=== PATIENT | female | born 1945 | race Caucasian/White ===

== ENCOUNTER 2019-12-03 11:46 | Emergency (ER) | payer MEDICARE, SELFPAY ==
[2019-12-03 11:57] VITALS: BP 118/76; PULSE 99; RESP 20; TEMP 36.4; O2SAT 97
--- NOTE | 2019-12-03 12:00 | ED.URI ---
HPI - URI/Sore Throat General Chief Complaint: Upper Respiratory Infection Stated Complaint: congestion/sore throat Time Seen by Provider: 12/03/19 12:01 Source: patient and RN notes reviewed History of Present Illness HPI Narrative: Patient is a 74-year-old female that presents the urgent care with complaints of congestion, mild sore throat, low-grade fever. Patient states that her fever this morning was 100.5 and she took Tylenol. Patient has also been using throat lozenges for the sore throat. Denies any known contact with strep or influenza. Patient states she does have a history of pulmonary fibrosis but denies any persistent shortness of breath, productive cough. No other acute complaints. No acute distress noted. Patient read the plan of care. Related Data Home Medications Medication Instructions Recorded Confirmed albuterol sulfate 90 mcg/actuation 2 puff INHALATION Q4H PRN gm 10/09/19 aerosol inhaler amlodipine 5 mg tablet 5 mg PO DAILY 10/09/19 bupropion HCl 300 mg 24 hr tablet, 300 mg PO QAM 10/09/19 extended release fluoxetine 20 mg capsule 20 mg PO DAILY 10/09/19 fluticasone propionate 50 1 spray NASAL DAILY 10/09/19 mcg/actuation nasal spray,suspension gabapentin 600 mg tablet 600 mg PO BID 10/09/19 multivitamin 1 tablet PO DAILY 10/09/19 omeprazole 40 mg capsule,delayed 40 mg PO DAILY 10/09/19 release oxycodone-acetaminophen 5 mg-325 1 tablet PO Q8H PRN tablet 10/09/19 mg tablet pravastatin 20 mg tablet 20 mg PO DAILY 10/09/19 tizanidine 4 mg capsule 4 mg PO TID PRN 10/09/19 umeclidinium 62.5 mcg-vilanterol 1 inhalation INHALATION DAILY 10/09/19 25 mcg/actuation powdr for inhalation Allergies Allergy/AdvReac Type Severity Reaction Status Date / Time latex Allergy Unknown Rash Verified 11/18/19 12:21 prednisone Allergy Unknown Swelling Verified 11/18/19 12:21 Sulfa (Sulfonamide Allergy Unknown Hives Verified 11/18/19 12:21 Antibiotics) sulfanilamide Allergy Unknown Unknown Verified 11/18/19 12:21 Review of Systems Review of Systems: Narrative: CONSTITUTIONAL: Denies fever, chills, or sweats. EYES: Denies visual changes, redness, or discharge. ENT: Reports of sore throat CARDIOVASCULAR: Denies chest pain, palpitations, or edema. RESPIRATORY: Denies cough or dyspnea. GASTROINTESTINAL: Denies abdominal pain, nausea, vomiting, or diarrhea. GENITOURINARY: Denies dysuria or hematuria. SKIN: Denies rash or itching. MUSCULOSKELETAL: Denies back pain, joint pain, or myalgia. NEUROLOGIC: Denies headache, numbness, or weakness. All other systems reviewed are negative, except as documented in HPI. PMFSH Social History Social History Smoking status: Never smoker Second hand tobacco smoke exposure: No Alcohol intake: never Comments At the time of my signature, I reviewed and agree with the nursing past medical, surgical, social, and family history. There is no relevant family history pertinent to the patient complaint. Exam Narrative: Exam Narrative: GENERAL: This is a well-nourished, well-developed patient, in no apparent distress. HEAD: normocephalic, atraumatic. EYES: PERRL. Sclera clear/white. Vision is grossly intact. EARS: External ears normal, auditory canals clear and without drainage, TMs normal without perforation. Hearing grossly intact. NOSE: External nose normal with no obvious nasal discharge, nares without redness, no rhinorrhea. THROAT: Mucous membranes moist, posterior pharynx clear. Mild postnasal drainage NECK: Neck supple, non-tender without lymphadenopathy, masses or thyromegaly. CARDIOVASCULAR: Regular rate and rhythm without murmurs, gallops, or rubs. RESPIRATORY: Clear to auscultation. Breath sounds equal bilaterally. No wheezes, rales, or rhonchi. No suspicion of pneumonia or bronchitis based on lung sounds. Patient's lung sounds are very clear and strong. SKIN: warm, intact with no suspi
== END 2019-12-03 12:28 | disposition home or self-care (01) ==
PROVIDERS: Emergency Provider Nurse Practitioner Family; PCP Family Medicine
DX: J02.9 Acute pharyngitis, unspecified (principal)
CPT/HCPCS: 87081; 87880; 99213; G0463

== ENCOUNTER 2020-05-09 08:19 | Outpatient (CLI) | payer MEDICARE, SELFPAY ==
--- NOTE | ~2020-05-09 | CT_ITS ---
EXAMINATION:CT chest high resolution wo co DATE: 05/09/2020 09:38 INDICATION: Pulmonary fibrosis. TECHNIQUE: Computed tomography (CT) of the chest was performed without intravenous contrast. Automate d exposure control and iterative reconstruction technique were employed. The dose-length product (DLP ) was 152.29 mGy-cm. COMPARISON: Chest CT 03/04/2019, thyroid ultrasound 03/19/2019 FINDINGS: There is mild scarring at the lung apices. There is mild emphysema. There are widespread pe ripheral reticular opacities in the lungs with relatively mild associated areas of groundglass opacit y. There is mild bronchiectasis in left lower lobe and left upper lobe. No honeycombing. No pleural e ffusion. There is a multinodular goiter with the largest nodule measuring 4.2 cm. Cardiomegaly is not ed. There are coronary artery calcifications. No pericardial effusion. There is a moderate-sized slid ing hiatal hernia. Is a chronic compression fracture of T12. There is mild thoracic spondylosis and s evere cervical and lumbar spondylosis. IMPRESSION: 1. Diffuse lung disease with improvement in right upper lobe, consistent with a combination of mild e mphysema and chronic interstitial lung disease in a pattern of nonspecific interstitial pneumonia (NS IP) versus usual interstitial pneumonia (UIP). 2. Worsened moderate-sized sliding hiatal hernia. 3. Multinodular goiter with history of benign biopsies, stable from 03/19/19. Reviewed, dictated and finalized at location A. IMPRESSION: 1. Diffuse lung disease with improvement in right upper lobe, consistent with a combination of mild emphysema and chronic interstitial lung disease in a patte rn of nonspecific interstitial pneumonia (NSIP) versus usual interstitial pneum onia (UIP). 2. Worsened moderate-sized sliding hiatal hernia. 3. Multinodular goiter with history of benign biopsies, stable from 03/19/19.
--- NOTE | 2020-05-11 15:09 | WPDPFTINT ---
PFT Interpretation PFT Interpretation: DOS: 05/09/2020 REQUESTING: Antonella Amaral MD REASON FOR TESTING: shortness of breath PULMONARY FUNCTION TESTS Results are reliable and reproducible. Patient states that she is increasingly short of breath, smokes sporadically. Spirometry: FEV1 is 107%, FVC is 105%, and FEV1% is 72%, all normal. [id number]% is 64% and increases by 16% with bronchodilator. Lung volumes: TLC 101%, RV 98%, normal. Airway resistance 203%, increased. Diffusion: DLCO 72%, mildly decreased. Flow volume loop: Normal. IMPRESSION: Normal spirometry, normal lung volumes with increased airway resistance. Mild decrease in diffusion. Lack of response to bronchodilators should not preclude use if clinically indicated. Compared to a prior study 05/04/2019, the FEV1 has increased, previously was 89% now 107%. On the previous study the [id number]% was lower at 58% now is 64%, and previously improved by 25%, a more robust response. Lung volumes were similar. There previously was air trapping which has resolved. Diffusion is lower now, previously 84% now 72% which is a significant decrease. Antonella Amaral MD
== END 2020-05-09 08:20 | disposition home or self-care (01) ==
PROVIDERS: PCP Family Medicine; Visit Provider Internal Medicine Critical Care Medicine
DX: R06.02 Shortness of breath (principal); K44.9 Diaphragmatic hernia without obstruction or gangrene; E04.2 Nontoxic multinodular goiter
CPT/HCPCS: 71250; 94060; 94726; 94729

== ENCOUNTER 2020-06-08 08:19 | Outpatient (CLI) | payer MEDICARE, SELFPAY ==
--- NOTE | 2020-06-13 17:08 | WPDSIXMINUTE ---
Six Minute Walk Six Minute Walk: DOS: 06/08/2020 REQUESTING: Dr. Amaral REASON FOR TESTING: Shortness of breath SIX MINUTE WALK This test was conducted per ATS guidelines. The initial saturation was 96% and pulse was 87. The saturation gradually decreased to 92% throughout the walk. With recovery, the saturation returned to baseline 96%. Pulse increased to 104 and returned to baseline during recovery. Distance walked was 427 meters/ 1400 feet. IMPRESSION: This walk study does not show hypoxemia requiring supplemental oxygen. Distance walked is adequate for age.
== END 2020-06-08 08:20 | disposition home or self-care (01) ==
LOC: ANHPFT 08:21
PROVIDERS: PCP Family Medicine; Visit Provider Internal Medicine Critical Care Medicine
DX: J84.10 Pulmonary fibrosis, unspecified (principal)
CPT/HCPCS: 94618

== ENCOUNTER 2020-06-22 16:04 | Outpatient (CLI) | payer MEDICARE, SELFPAY ==
[2020-06-22 17:35] LABS: Alanine Aminotransferase 16 U/L (4-35); Albumin Level 4.1 g/dL (3.5-5.1); Alkaline Phosphatase 57 U/L (38-126); Anion Gap 8 mmol/L (8-16); Aspartate Amino Transferase 30 U/L (14-36); Bilirubin,Total 0.3 mg/dL (0.2-1.3); Blood Urea Nitrogen 23 mg/dL (7-17); CRP < 0.5 mg/dL (<1.0); Calcium 9.2 mg/dL (8.4-10.2); Carbon Dioxide 28 mmol/L (22-30); Chloride 97 mmol/L (98-107); Estimated Glomerular Filt Rate > 60; Glucose 95 mg/dL (65-105); Potassium 4.3 mmol/L (3.4-5.0); Sodium 133 mmol/L (137-145)
[2020-06-22 17:42] LABS: Hemoglobin 10.9 g/dL (12.0-15.0); Mean Corpuscular Hemoglobin 30.5 pg (26-34); Mean Corpuscular Volume 92.4 fl (80-100); Mean Platelet Volume 10.3 fl (7.4-10.4); Platelet Count Result 320 k/mm3 (150-375); Red Blood Count 3.57 M/mm3 (4.2-5.4); Red Cell Distribution Width 11.8 % (11.5-14.5); White Blood Count 9.9 K/mm3 (4.5-10.0)
== END 2020-06-22 16:05 | disposition home or self-care (01) ==
PROVIDERS: PCP Family Medicine; Visit Provider Internal Medicine
DX: R76.8 Other specified abnormal immunological findings in serum (principal); M19.90 Unspecified osteoarthritis, unspecified site; J84.112 Idiopathic pulmonary fibrosis
CPT/HCPCS: 36415; 80053; 85027; 86140

== ENCOUNTER 2020-07-28 14:25 | Outpatient (CLI) | payer MEDICARE, SELFPAY ==
--- NOTE | 2020-07-28 14:53 | ECG_ITS ---
Measurements Intervals [place] Rate: 73 P: 28 WY: 165 QRS: 62 QRSD: 93 T: 11 QT: 370 QTc: 410 Interpretive Statements SINUS RHYTHM POSSIBLE LEFT ATRIAL ENLARGEMENT INCOMPLETE RIGHT BUNDLE BRANCH BLOCK BORDERLINE ECG Electronically Signed On 07-28-2020 15:24:12 CDT by Tremaine Snell D.O.
[2020-07-28 14:59] LABS: Anion Gap 7 mmol/L (8-16); Blood Urea Nitrogen 21 mg/dL (7-17); Calcium 9.2 mg/dL (8.4-10.2); Carbon Dioxide 27 mmol/L (22-30); Chloride 99 mmol/L (98-107); Estimated Glomerular Filt Rate > 60; Glucose 103 mg/dL (65-105); Potassium 4.1 mmol/L (3.4-5.0); Sodium 133 mmol/L (137-145)
== END 2020-07-28 14:26 | disposition home or self-care (01) ==
PROVIDERS: PCP Family Medicine; Visit Provider Podiatrist Foot & Ankle Surgery
DX: Z01.818 Encounter for other preprocedural examination (principal); M20.12 Hallux valgus (acquired), left foot; R03.0 Elevated blood-pressure reading, without diagnosis of hypertension; I45.10 Unspecified right bundle-branch block
CPT/HCPCS: 36415; 80048; 93005

== ENCOUNTER 2020-11-02 15:04 | Outpatient (CLI) | payer MEDICARE, SELFPAY ==
--- NOTE | ~2020-11-02 | MM_ITS ---
EXAMINATION: MM screening rell BI w annette HISTORY: Screening mammogram TECHNIQUE: Craniocaudal and mediolateral oblique 3-D tomosynthesis images were obtained and synthetic 2-D images were generated. CAD analysis was submitted and interpreted. COMPARISON: 10/05/2019 bilateral digital screening mammogram 05/13/2018 right breast ultrasound biopsy and post biopsy mammogram 04/22/2018 diagnostic right digital mammogram and limited right breast ultrasound 04/17/2018 bilateral digital screening mammogram BREAST PARENCHYMAL COMPOSITION: There are scattered areas of fibroglandular density. FINDINGS: There is a biopsy marker in the right breast; history of prior bilateral benign breast biop sies. Scattered bilateral benign calcified microhematomas. There is no evidence of suspicious mass, calcifi cation, or new ...architectural distortion to suggest malignancy in either breast. There has been no suspicious interval change. IMPRESSION: 1. No mammographic evidence of malignancy. 2. Recommend routine screening mammography in one year. BI-RADS Category 2: Benign finding(s). Reviewed, dictated and finalized at location B. L WORKER
== END 2020-11-02 15:05 | disposition home or self-care (01) ==
LOC: ANHIMG 15:06
PROVIDERS: PCP Family Medicine; Visit Provider Family Medicine
DX: Z12.31 Encounter for screening mammogram for malignant neoplasm of breast (principal)
CPT/HCPCS: 77063; 77067

== ENCOUNTER 2020-11-08 12:35 | Outpatient (CLI) | payer MEDICARE, SELFPAY ==
[2020-11-08 12:58] LABS: Basophils Absolute Auto 0.1 K/mm3 (0.0-0.1); Basophils Percent Auto 0.6 % (0.2-1.2); Eosinophils Absolute Auto 0.2 K/mm3 (0-0.3); Eosinophils Percent Auto 2.1 % (0-4.4); Hematocrit 33.8 % (37.0-47.0); Hemoglobin 11.2 g/dL (12.0-15.0); Immature Granulocyte Absolute 0.05 K/mm3 (0.00-0.031); Immature Granulocyte Percent A 0.5 % (0-0.5); Lymphocytes Absolute Auto 1.89 K/mm3 (0.9-3.2); Lymphocytes Percent Auto 19.4 % (18.3-44.2); Mean Corpuscular HGB Conc 33.1 g/dl (32-36); Mean Corpuscular Hemoglobin 31.2 pg (26-34); Mean Corpuscular Volume 94.2 fl (80-100); Mean Platelet Volume 9.8 fl (7.4-10.4); Monocytes Absolute Auto 0.9 K/mm3 (0.1-0.6); Monocytes Percent Auto 9.6 % (2.6-8.5); Neutrophils Absolute Auto 6.6 K/mm3 (1.3-6.7); Neutrophils Percent Auto 67.8 % (45.5-73.1); Platelet Count Result 271 k/mm3 (150-375); Red Blood Count 3.59 M/mm3 (4.2-5.4); White Blood Count 9.7 K/mm3 (4.5-10.0)
[2020-11-08 13:13] LABS: Alanine Aminotransferase 20 U/L (4-35); Albumin Level 4.1 g/dL (3.5-5.1); Alkaline Phosphatase 66 U/L (38-126); Anion Gap 4 mmol/L (8-16); Aspartate Amino Transferase 35 U/L (14-36); Bilirubin,Total 0.5 mg/dL (0.2-1.3); Blood Urea Nitrogen 17 mg/dL (7-17); Calcium 9.1 mg/dL (8.4-10.2); Carbon Dioxide 31 mmol/L (22-30); Chloride 98 mmol/L (98-107); Cholesterol 162 mg/dL (0-200); Estimated Glomerular Filt Rate > 60; Glucose 91 mg/dL (65-105); HDL Direct 52 mg/dL; Potassium 4.5 mmol/L (3.4-5.0); Sodium 133 mmol/L (137-145); Triglycerides 110 mg/dL (<150)
[2020-11-08 13:24] LABS: LDL Cholesterol Direct 79 mg/dL
[2020-11-08 13:32] LABS: Iron 83 ug/dL (37-170)
[2020-11-08 13:41] LABS: Percent Iron Saturation 24 % (20-50)
[2020-11-08 14:20] LABS: Folic Acid > 20.0 ng/mL (2.76->20)
[2020-11-08 14:47] LABS: Vitamin D 25 Hydroxy 61.6 ng/mL
== END 2020-11-08 12:36 | disposition home or self-care (01) ==
PROVIDERS: PCP Family Medicine; Visit Provider Family Medicine
DX: E78.5 Hyperlipidemia, unspecified (principal); D64.9 Anemia, unspecified; E55.9 Vitamin D deficiency, unspecified; E53.8 Deficiency of other specified B group vitamins; E61.1 Iron deficiency; I10 Essential (primary) hypertension; Z51.81 Encounter for therapeutic drug level monitoring; Z79.899 Other long term (current) drug therapy
CPT/HCPCS: 36415; 80053; 80061; 82306; 82607; 82728; 82746; 83540; 83550; 84443; 85025

== ENCOUNTER 2020-11-22 12:36 | Outpatient (CLI) | payer MEDICARE, SELFPAY ==
--- NOTE | ~2020-11-22 | CT_ITS ---
EXAMINATION:CT chest high resolution wo co DATE: 11/22/2020 12:57 INDICATION: Pulmonary fibrosis, unspecified. TECHNIQUE: Computed tomography (CT) of the chest was performed without intravenous contrast. Automate d exposure control and iterative reconstruction technique were employed. The dose-length product (DLP ) was 190.91 mGy-cm. COMPARISON: Chest CT 05/09/2020, 03/04/2019, CT abdomen and pelvis 04/12/2017, abdomen MRI 06/19/2017 FINDINGS: There is mild emphysema. There is chronic peripheral septal thickening in all lobes with re latively mild associated areas of groundglass opacity. There is mild bronchiectasis bilaterally. Ther e are small areas of honeycombing in the lower lobes. No pleural effusion. There is a multinodular go iter with largest nodule measuring 4.2 cm on the left. The heart size is normal. There are coronary a rtery calcifications. No pericardial effusion. There is a moderate-sized sliding hiatal hernia. There is a 2.0 cm mass in right kidney measuring soft tissue attenuation that was not enhancing on the sonia or MRI, consistent with a hemorrhagic cyst. There is a chronic compression fracture of T11. There is mild thoracic spondylosis. IMPRESSION: 1. Stable diffuse lung disease, consistent with a combination of mild emphysema and chronic interstit ial lung disease in a pattern of usual interstitial pneumonia (UIP). 2. Moderate-sized sliding hiatal hernia. 3. Multinodular goiter with history of benign biopsies, stable from 03/04/2019. Reviewed, dictated and finalized at location A. 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 Stable diffuse lung disease, consistent with a combination of mild emphysema and chronic interstitial lung disease in a pattern of usual interstitial pneum onia (UIP). 2. Moderate-sized sliding hiatal hernia. 3. Multinodular goiter with history of benign biopsies, stable from 03/04/2019.
== END 2020-11-22 12:37 | disposition home or self-care (01) ==
PROVIDERS: PCP Family Medicine; Visit Provider Internal Medicine Critical Care Medicine
DX: J84.10 Pulmonary fibrosis, unspecified (principal); K44.9 Diaphragmatic hernia without obstruction or gangrene; E04.2 Nontoxic multinodular goiter
CPT/HCPCS: 71250

== ENCOUNTER 2020-11-30 13:48 | Outpatient (CLI) | payer MEDICARE, SELFPAY ==
--- NOTE | ~2020-11-30 | DEXA_ITS ---
Bone Density Report Name: Myah Castelan Age: 75 Sex: Female Ethnicity: White Date of : 1945 Indication: postmenopausal; height loss; asthma or emphysema; hysterectomy; Referring Provider: SKYE, JAMAL Barry Study: Bone densitometry was performed. Exam Date: November 30, 2020 Accession number: [id number] Bone Density: Region BMD T-score Z-score Classification AP Spine (L1, L2, L3) 1.149 1.2 3.4 Normal Femoral Neck (Left) 0.704 -1.3 0.7 Osteopenia Total Hip (Left) 0.856 -0.7 1.0 Normal Total Hip Bilateral Avg 0.853 -0.8 0.9 Normal Femoral Neck (Right) 0.667 -1.6 0.3 Osteopenia Total Hip (Right) 0.849 -0.8 0.9 Normal World Health Organization criteria for BMD impression classify patients as: Normal (T-score at or above -1.0), Osteopenia (T-score between -1.0 and -2.5), or Osteoporosis (T-score at or below -2.5). 10-year Fracture Risk(1): Major Osteoporotic Fracture 11% Hip Fracture 2.0% Reported Risk Factors: [place] (), Neck BMD=0.667, BMI=30.2 (1) FRAX(R) Version 3.08. Fracture probability calculated for an untreated patient. Fracture probability may be lower if the patient has received treatment. Previous Exams: Region Exam Age BMD T-score BMD Change BMD Change Date g/cm2 vs Baseline vs Previous AP Spine(L1, L2, L3) 11/30/2020 75 1.149 1.2 -0.088(-7.1%)* -0.088(-7.1%)* 08/15/2018 72 1.237 2.0 Total Hip(Left) 11/30/2020 75 0.856 -0.7 -0.068(-7.3%)* -0.068(-7.3%)* 08/15/2018 72 0.924 -0.1 Total Hip(Right) 11/30/2020 75 0.849 -0.8 -0.091(-9.6%)* -0.091(-9.6%)* 08/15/2018 72 0.940 0.0 *Denotes significance at 95% confidence level, LSC for AP Spine = 0.022 g/cm2, LSC for Total Hip = 0.027 g/cm2 Clinical Information Provided by Patient: Has used the following medications: Vitamin D Has the following medical conditions: Asthma or Emphysema, Hysterectomy Patient maximum height was 67 Menopause Age: 51 No regular weight bearing exercise Drinks caffeinated beverages Onset of menses at age 15 Number of children 2 Impression: The patient has low bone mass, based on the Right Femoral Neck T-score. The patient has an estimated ten-year risk of hip fracture of 2% and an estimated ten-year risk of major fracture of 11%, based on the WHO FRAX algorithm. The BMD for the AP Spine(L1, L2, L3) decreased, changing by -7.1% since the last DXA exam. The BMD for the Total Hip(Left) decreased, changing by -7.3
== END 2020-11-30 13:49 | disposition home or self-care (01) ==
LOC: ANHIMG 13:50
PROVIDERS: PCP Family Medicine; Visit Provider Family Medicine
DX: Z78.0 Asymptomatic menopausal state (principal); M85.89 Other specified disorders of bone density and structure, multiple sites
CPT/HCPCS: 77080

== ENCOUNTER 2020-12-22 13:35 | Outpatient (CLI) | payer MEDICARE, SELFPAY ==
--- NOTE | 2020-12-26 13:01 | WPDSIXMINUTE ---
Six Minute Walk This is a 6 minutes walk test. The test was performed and interpreted in accordance with the 2014 ERS/ATS task force guidelines. Findings: The patient's resting room air oxygen saturation measured by pulse oximetry was 98% and her heart rate was 72 bpm. Patient ambulated for 427 meters and oxygen saturation remained 95%. Heart rate at the end of the study was 100 bpm. There are no prior studies for comparison.
--- NOTE | 2020-12-26 13:04 | WPDPFTINT ---
PFT Interpretation This is a pulmonary function test with pre and post-bronchodilator spirometry, plethysmography and diffusing capacity. The test was performed and results interpreted in accordance with the 2019 and 2005 ATS/ERS Task Force guidelines respectively using the Alfredito/Danielle reference equations. Findings: Spirometry: The contour of the inspiratory and expiratory flow tracing are normal. The pre bronchodilator FVC is 2.83 L, 95% predicted. The pre bronchodilator FEV1 is 2.06 L, 97% predicted. The FEV1: FVC ratio 73%. The post bronchodilator FVC is 2.81 L, representing a 1% decrease. The post bronchodilator FEV1 is 2.09 L, representing a 1% increase. Plethysmography: The total lung capacity is 4.45 L, 86% predicted. The functional residual capacity is 2.39 L, 84% predicted. The residual volume is 1.62, 76% predicted. Diffusing capacity the absolute diffusion capacity is 13.1, 62% predicted. The diffusing capacity corrected for alveolar volume is 3.16, 89% predicted. In comparison to previous pulmonary function test on 05/26/2020 the post bronchodilator FVC is unchanged from 2.94 L to 2.81 L. The post bronchodilator FEV1 is unchanged from 2.18 L to 2.09 L. the total lung capacity is unchanged from 5.03 L to 4.45 L. The functional residual capacity is decreased from 3.05 L to 2.39 L. The residual volume is decreased from 1.99 L to 1.62 L. The absolute DLCO is unchanged from 14.4 to 13.1. The DLCO corrected for alveolar volume is unchanged from 3.33-3.16. Impression: The spirometry is normal without evidence of an obstructive abnormality. There is no significant improvement after inhaling a single dose of albuterol. The lung volumes are normal. The diffusing capacity is normal. In comparison to previous pulmonary function test on 05/09/2020 there is no change in the spirometry, total lung capacity and DLCO. There is a greater than anticipated time dependent decrease in the functional residual capacity and residual volume. Clinical correlation is recommended. There are no prior studies for comparison
--- NOTE | 2020-12-28 12:35 | WPDSIXMINUTE ---
Six Minute Walk This is a 6 minutes walk test. The test was performed and interpreted in accordance with the 2014 ERS/ATS task force guidelines. Findings: The patient's resting room air oxygen saturation measured by pulse oximetry was 98% and her heart rate was 72 bpm. Patient ambulated for 427 meters and oxygen saturation remained 92 to 99%. Heart rate at the end of the study was 100 bpm. There are no prior studies for comparison.
== END 2020-12-22 13:36 | disposition home or self-care (01) ==
LOC: ANHPFT 13:38
PROVIDERS: PCP Family Medicine; Visit Provider Internal Medicine Critical Care Medicine
DX: J84.10 Pulmonary fibrosis, unspecified (principal)
CPT/HCPCS: 94060; 94618; 94726; 94729

== ENCOUNTER 2021-01-19 11:54 | Outpatient (CLI) | payer MEDICARE, SELFPAY ==
[2021-01-19 12:28] LABS: Basophils Absolute Auto 0.1 K/mm3 (0.0-0.1); Basophils Percent Auto 0.4 % (0.2-1.2); Eosinophils Absolute Auto 0.3 K/mm3 (0-0.3); Hematocrit 33.3 % (37.0-47.0); Hemoglobin 11.1 g/dL (12.0-15.0); Immature Granulocyte Absolute 0.09 K/mm3 (0.00-0.031); Immature Granulocyte Percent A 0.7 % (0-0.5); Lymphocytes Absolute Auto 2.17 K/mm3 (0.9-3.2); Lymphocytes Percent Auto 16.2 % (18.3-44.2); Mean Corpuscular HGB Conc 33.3 g/dl (32-36); Mean Corpuscular Hemoglobin 31.3 pg (26-34); Mean Corpuscular Volume 93.8 fl (80-100); Mean Platelet Volume 9.9 fl (7.4-10.4); Monocytes Absolute Auto 1.2 K/mm3 (0.1-0.6); Monocytes Percent Auto 8.8 % (2.6-8.5); Neutrophils Absolute Auto 9.6 K/mm3 (1.3-6.7); Neutrophils Percent Auto 71.9 % (45.5-73.1); Platelet Count Result 274 k/mm3 (150-375); Red Blood Count 3.55 M/mm3 (4.2-5.4); Red Cell Distribution Width 12.3 % (11.5-14.5); White Blood Count 13.4 K/mm3 (4.5-10.0)
[2021-01-19 12:34] LABS: Add Urine Microscopic? YES; Appearance Urine Clear (Clear); Bilirubin Urine Negative (Negative); Blood Urine Negative (Negative); Color Urine Yellow (Yellow); Glucose Urine UA Negative (Negative); Ketones Urine Negative (Negative); Leukocyte Esterase Ur Trace LEU/UL (Negative); Mucus Urine Rare /lpf; Nitrate Urine Negative (Negative); Protein Urine Negative (Negative); RBC Urine 0-2 /hpf (0-2); Specific Grav Ur 1.016 (1.001-1.035); Squamous Epithelial Cell Urine Rare /hpf (Few); Urobilinogen Urine Negative mg/dL (<2.0); WBC Urine 0-3 /hpf
[2021-01-19 12:42] LABS: Alanine Aminotransferase 18 U/L (4-35); Albumin Level 4.1 g/dL (3.5-5.1); Alkaline Phosphatase 62 U/L (38-126); Anion Gap 5 mmol/L (8-16); Aspartate Amino Transferase 31 U/L (14-36); Bilirubin,Total 0.4 mg/dL (0.2-1.3); Blood Urea Nitrogen 18 mg/dL (7-17); CRP < 0.5 mg/dL (<1.0); Calcium 9.3 mg/dL (8.4-10.2); Carbon Dioxide 31 mmol/L (22-30); Chloride 98 mmol/L (98-107); Estimated Glomerular Filt Rate > 60; Glucose 94 mg/dL (65-105); Potassium 4.2 mmol/L (3.4-5.0); Sodium 134 mmol/L (137-145)
[2021-01-19 13:02] LABS: Erythrocyte Sedimentation Rate 80 mm/hr (0-20)
== END 2021-01-19 11:55 | disposition home or self-care (01) ==
LOC: ANHLAB 11:59
PROVIDERS: PCP Family Medicine; Visit Provider Internal Medicine
DX: R76.8 Other specified abnormal immunological findings in serum (principal); M19.90 Unspecified osteoarthritis, unspecified site
CPT/HCPCS: 36415; 80053; 81001; 85025; 85652; 86140

== ENCOUNTER → 2021-06-06 10:50 | Outpatient (CLI) | payer MEDICARE, SELFPAY ==
--- NOTE | ~2021-06-06 | US_ITS ---
EXAMINATION: US right upper quadrant DATE: 06/06/2021 11:07 INDICATION: Right upper quadrant pain TECHNIQUE: Multiple grayscale and Doppler ultrasound images of the abdomen were obtained. COMPARISON: None available FINDINGS: The head, body, and tail of the pancreas are normal. The liver is normal with normal echoge nicity and echotexture. No surface nodularity. Normal hepatopetal flow in the main portal vein. The g allbladder is normal with no abnormal wall thickening, pericholecystic fluid or stones. The normal co mmon bile duct measures 3 mm. There was no sonographic Rodriguez sign. There is a 2.5 cm cyst of the rig ht kidney upper pole. IMPRESSION: 1. Normal sonographic study of the gallbladder. Reviewed, dictated and finalized at location B.
== END ==
PROVIDERS: PCP Family Medicine; Visit Provider Family Medicine
DX: R10.11 Right upper quadrant pain (principal)
CPT/HCPCS: 76705

== ENCOUNTER 2021-06-21 08:41 | Outpatient (CLI) | payer MEDICARE, SELFPAY ==
--- NOTE | ~2021-06-21 | NM_ITS ---
EXAMINATION: NM hepatobiliary wo pharm DATE: 06/21/2021 12:25 INDICATION: Abdominal pain COMPARISON: None. TECHNIQUE: 3.94 mCi Tc-99m mebrofenin (Choletec) was administered intravenously. Scintigraphic image s of the abdomen were obtained for one hour. At the 1 hour time point, the patient drank 8 oz Ensure, and imaging was continued for 60 minutes. Gallbladder ejection fraction was calculated by the techno logist. FINDINGS: There is normal clearance of radiotracer from the blood pool. There is homogeneous tracer u ptake by the liver. Activity progresses to the bowel and gallbladder. The gallbladder ejection fract ion (GBEF) is 66%. Note that with this technique, normal GBEF >= 33%. IMPRESSION: 1. Normal hepatobiliary scan. Reviewed, dictated and finalized at location B.
== END 2021-06-21 08:42 | disposition home or self-care (01) ==
PROVIDERS: PCP Family Medicine; Visit Provider Family Medicine
DX: R10.9 Unspecified abdominal pain (principal)
CPT/HCPCS: 78226; A9537

== ENCOUNTER 2022-01-10 13:15 | Outpatient (CLI) | payer MEDICARE, SELFPAY ==
--- NOTE | ~2022-01-10 | MM_ITS ---
EXAMINATION: MM screening [facility] BI w annette HISTORY: Screening mammogram TECHNIQUE: Craniocaudal and mediolateral oblique 3-D tomosynthesis images were obtained and synthetic 2-D images were generated. CAD analysis was submitted and interpreted. COMPARISON: 11/02/2020, 10/05/2019 04/22/2018, 04/17/2018 BREAST PARENCHYMAL COMPOSITION: There are scattered areas of fibroglandular density. FINDINGS: Scattered benign-appearing calcifications are present. There is no suspicious mass, calcifi cation, or architectural distortion to suggest malignancy in either breast. There has been no suspici ous interval change. IMPRESSION: 1. No mammographic evidence of malignancy. 2. Recommend routine screening mammography in one year. BI-RADS Category 2: Benign finding(s). Reviewed, dictated and finalized at location A.
== END 2022-01-10 13:16 | disposition home or self-care (01) ==
LOC: ANHIMG 13:16
PROVIDERS: PCP Family Medicine; Visit Provider Family Medicine
DX: Z12.31 Encounter for screening mammogram for malignant neoplasm of breast (principal)
CPT/HCPCS: 77063; 77067

== ENCOUNTER 2022-03-27 13:41 | Emergency (ER) | payer MEDICARE, SELFPAY ==
--- NOTE | ~2022-03-27 | XR_ITS ---
EXAMINATION: XR chest 2V DATE: 03/27/2022 14:51 INDICATION: Cough. TECHNIQUE: Frontal and lateral views of the chest were obtained on 3 radiographs. COMPARISON: Chest 2 views 01/19/2019, chest CT 11/22/2020 FINDINGS: There is stable mild scarring at the lung apices. There are stable reticular opacities in l eft midlung zone. No pleural effusion or pneumothorax. The heart size is normal. There is a moderate- sized hiatal hernia. There are changes of posterior fusion procedure in lumbar spine. There is a orthopedic shoe maker danisha compression fracture of T11. There is a burst fracture of T9. IMPRESSION: 1. Mild chronic lung disease. 2. Moderate-sized hiatal hernia. 3. Age-indeterminate T9 burst fracture, new from 11/22/2020. Reviewed, dictated and finalized at location A.
[2022-03-27 13:50] VITALS: BP 132/73; PULSE 74; RESP 18; TEMP 36.4; O2SAT 99
--- NOTE | 2022-03-27 14:01 | ED.URI ---
HPI - URI/Sore Throat General Stated Complaint: Sore Throat,Sinus Time Seen by Provider: 03/27/22 14:35 Source: patient and RN notes reviewed Mode of arrival: ambulatory Limitations: no limitations History of Present Illness HPI Narrative: 76-year-old female presents with concern for sore throat, sinus congestion, pressure, headaches. She reports general malaise, fatigue. She reports symptoms started on Saturday. She reports she originally had a sore throat on the first day of symptoms but that resolved. She denies fever, bodies, chills, sweats. She reports history of pulmonary fibrosis and pneumonia. She reports she has been taking [id number]-[id number] medications with no relief MD elicited complaint: cough Related Data Home Medications Medication Instructions Recorded Confirmed albuterol sulfate 90 mcg/actuation 2 puff inhalation Q4H PRN 10/09/19 09/02/20 aerosol inhaler (Ventolin HFA) Shortness Of Breath amlodipine 5 mg tablet 5 mg PO DAILY 10/09/19 09/02/20 fluticasone propionate 50 1 spray intranasal DAILY 10/09/19 09/02/20 mcg/actuation nasal spray,suspension multivitamin 1 tablet PO DAILY 10/09/19 09/02/20 omeprazole 40 mg capsule,delayed 40 mg PO DAILY 10/09/19 09/02/20 release pravastatin 20 mg tablet 20 mg PO DAILY 10/09/19 09/02/20 fluoxetine 20 mg capsule 40 mg PO DAILY 12/22/19 09/02/20 aspirin 81 mg tablet,delayed 81 mg PO DAILY 08/30/20 09/02/20 release (Adult Aspirin Regimen) cholecalciferol (vitamin D3) 125 125 mcg PO DAILY 08/30/20 09/02/20 mcg (5,000 unit) tablet (Vitamin D3) citicoline 500 mg capsule mg PO 11/08/20 ([employer]) turmeric 400 mg capsule mg PO 11/08/20 Allergies Allergy/AdvReac Type Severity Reaction Status Date / Time latex Allergy Unknown Rash Verified 03/27/22 14:26 prednisone Allergy Unknown Swelling Verified 03/27/22 14:26 Sulfa (Sulfonamide Allergy Unknown Hives Verified 03/27/22 14:26 Antibiotics) sulfanilamide Allergy Unknown Unknown Verified 03/27/22 14:26 Review of Systems Review of Systems: CONSTITUTIONAL: Reports malaise, fatigue. Denies chills, sweats, or fever. EYES: Denies visual changes, redness, or discharge. ENT: Reports rhinorrhea, congestion. Sinus pain, otalgia and sore throat. CARDIOVASCULAR: Denies chest pain, palpitations, or edema. RESPIRATORY: Reports cough. Denies dyspnea. GASTROINTESTINAL: Denies abdominal pain, nausea, vomiting, diarrhea SKIN: Denies rash or itching. MUSCULOSKELETAL: Denies myalgia. NEUROLOGIC: Reports headache. All systems reviewed & are unremarkable except as noted in HPI and below PMFSH Past Medical History Medical History OTTONIEL positive (~2019) Arthritis COPD (chronic obstructive pulmonary disease) Degenerative joint disease (DJD) of lumbar spine Depression Generalized osteoarthritis of multiple sites GERD (gastroesophageal reflux disease) HTN (hypertension) Pulmonary fibrosis SOB (shortness of breath) on exertion Surgical History Surgical History Delivery by section H/O: hysterectomy History of bunionectomy Family History Family History Sibling Diabetes mellitus Carcinoma of colon Father Family history of cardiovascular disease Acute myocardial infarction Mother Family history of kidney disease Family history of malignant neoplasm of ovary Other Family history of malignant neoplasm of breast Social History Social History Smoking packs per day: 1 Smoking cigarettes per day: 20.0 Smoking status: Former smoker (1 minute) Second hand tobacco smoke exposure: No Alcohol intake: never Comments At time of signature, agree with nursing past medical, surgical, social and family history. There is no relevant family history pertinent to the presenti
== END 2022-03-27 15:06 | disposition home or self-care (01) ==
PROVIDERS: Emergency Provider Nurse Practitioner; PCP Family Medicine
DX: J06.9 Acute upper respiratory infection, unspecified (principal); Z20.822 Contact with and (suspected) exposure to COVID-19; Z87.891 Personal history of nicotine dependence; M19.90 Unspecified osteoarthritis, unspecified site; J44.9 Chronic obstructive pulmonary disease, unspecified; M47.816 Spondylosis without myelopathy or radiculopathy, lumbar region; K21.9 Gastro-esophageal reflux disease without esophagitis; I10 Essential (primary) hypertension; J84.10 Pulmonary fibrosis, unspecified; F32.A Depression, unspecified
CPT/HCPCS: 71046; 87426; 87804; 99213; C9803; G0463

== ENCOUNTER 2023-02-23 12:03 | Emergency (ER) | payer MEDICARE, SELFPAY ==
--- NOTE | ~2023-02-23 | XR_ITS ---
EXAMINATION: XR chest 2V DATE: 02/23/2023 12:42 INDICATION: Wheezing and shortness of breath TECHNIQUE: PA and lateral views of the chest are obtained. COMPARISON: 03/27/2022 FINDINGS: There are chronic subpleural reticular opacities, consistent with interstitial lung disease . No definite acute airspace opacities are identified. No pleural effusion or pneumothorax. The cardi omediastinal silhouette is normal. There is moderate thoracolumbar spondylosis with chronic lower tho racic compression fractures. IMPRESSION: 1. No acute cardiopulmonary abnormality. Reviewed, dictated and finalized at location A.
[2023-02-23 12:18] VITALS: BP 121/70; PULSE 80; RESP 18; TEMP 36.8; O2SAT 97
--- NOTE | 2023-02-23 12:21 | ED.GENADULT ---
HPI - General Adult General Chief complaint: Upper Respiratory Infection Stated complaint: sorethroat,cough Time Seen by Provider: 02/23/23 12:21 Source: patient Mode of arrival: ambulatory Limitations: no limitations History of Present Illness HPI narrative: 77-year-old female patient presents to the [facility] with complaints of a cough, congestion for the past 4 days. Patient states that she is raising her grandchildren and that the 11-year-old had some cold-like symptoms last week she started having symptoms Saturday which is about 4 days ago. Patient states that she is currently getting chemotherapy be for multiple myeloma and just had her chemo on Saturday. Patient states she takes oral medication and infusions every week. Patient does also have a history of pulmonary fibrosis. Patient states she has been taking [id number] cough medication and cold and flu medication but continues to have the cough with mild shortness of breath expression with exertion. Denies fevers, body aches or chills. Related Data Home Medications Medication Instructions Recorded Confirmed albuterol sulfate 90 mcg/actuation 2 puff inhalation Q4H PRN 10/09/19 02/23/23 aerosol inhaler (Ventolin HFA) Shortness Of Breath amlodipine 5 mg tablet 5 mg PO DAILY 10/09/19 02/23/23 fluticasone propionate 50 1 spray intranasal DAILY 10/09/19 02/23/23 mcg/actuation nasal spray,suspension multivitamin 1 tablet PO DAILY 10/09/19 02/23/23 omeprazole 40 mg capsule,delayed 40 mg PO DAILY 10/09/19 02/23/23 release pravastatin 20 mg tablet 20 mg PO DAILY 10/09/19 02/23/23 fluoxetine 20 mg capsule 40 mg PO DAILY 12/22/19 02/23/23 aspirin 81 mg tablet,delayed 81 mg PO DAILY 08/30/20 02/23/23 release (Adult Aspirin Regimen) cholecalciferol (vitamin D3) 125 125 mcg PO DAILY 08/30/20 02/23/23 mcg (5,000 unit) tablet (Vitamin D3) citicoline 500 mg capsule 500 mg PO DAILY 11/08/20 02/23/23 (Cognitive Health) turmeric 400 mg capsule 400 mg PO DAILY 11/08/20 02/23/23 acyclovir 400 mg tablet 400 mg PO BID 02/23/23 02/23/23 escitalopram oxalate 10 mg tablet 10 mg PO DAILY 02/23/23 02/23/23 lenalidomide 20 mg capsule 20 mg PO DAILY 02/23/23 02/23/23 prochlorperazine maleate 10 mg 10 mg PO Q6H PRN Nausea And 02/23/23 02/23/23 tablet (Compazine) Vomiting Allergies Allergy/AdvReac Type Severity Reaction Status Date / Time latex Allergy Unknown Rash Verified 02/23/23 12:26 prednisone Allergy Unknown Swelling Verified 02/23/23 12:26 Sulfa (Sulfonamide Allergy Unknown Hives Verified 02/23/23 12:26 Antibiotics) sulfanilamide Allergy Unknown Unknown Verified 02/23/23 12:26 Review of Systems Review of Systems: CONSTITUTIONAL: Denies fever, chills, or sweats. EYES: Denies visual changes, redness, or discharge. ENT: Denies rhinorrhea, positive congestion, sore throat, or otalgia. CARDIOVASCULAR: Denies chest pain, palpitations, or edema. RESPIRATORY: positive cough And intermittent dyspnea. GASTROINTESTINAL: Denies abdominal pain, nausea, vomiting, or diarrhea. GENITOURINARY: Denies dysuria or hematuria. SKIN: Denies rash or itching. MUSCULOSKELETAL: Denies back pain, joint pain, or myalgia. NEUROLOGIC: Denies headache, numbness, or weakness. PSYCHIATRIC: Denies anxiety or depression. [facility] Past Medical History Medical History OTTONIEL positive (~2019) Arthritis COPD (chronic obstructive pulmonary disease) Degenerative joint disease (DJD) of lumbar spine Depression Generalized osteoarthritis of multiple sites GERD (gastroesophageal reflux disease) HTN (hypertension) Pulmonary fibrosis SOB (shortness of breath) on exertion Surgical History Surgical History Delivery by section H/O: hysterectomy History of bunionectomy Family History Family History Sibling Diabetes m
[2023-02-23] MEDS: ALBUTEROL SULFATE NEB 2.5 MG/3 ML INH INHALATION (12:36)
[2023-02-23] MEDS: IPRATROPIUM BR 0.02% INH SOLN 0.5 MG/2.5 ML VIAL INHALATION (12:36)
[2023-02-23 14:30] LABS: SARS-CoV-2 RNA PCR Negative (Negative)
== END 2023-02-23 13:26 | disposition home or self-care (01) ==
PROVIDERS: Emergency Provider Nurse Practitioner Family; PCP Family Medicine
DX: J06.9 Acute upper respiratory infection, unspecified (principal); Z20.822 Contact with and (suspected) exposure to COVID-19; Z87.891 Personal history of nicotine dependence; M19.90 Unspecified osteoarthritis, unspecified site; J44.9 Chronic obstructive pulmonary disease, unspecified; M47.816 Spondylosis without myelopathy or radiculopathy, lumbar region; K21.9 Gastro-esophageal reflux disease without esophagitis; I10 Essential (primary) hypertension; J84.10 Pulmonary fibrosis, unspecified; F32.A Depression, unspecified
CPT/HCPCS: 71046; 87081; 87426; 87804; 87880; 94640; 99213; C9803; G0463; U0003; U0005

== ENCOUNTER 2023-03-13 10:15 | Outpatient (CLI) | payer MEDICARE, SELFPAY ==
--- NOTE | ~2023-03-13 | MM_ITS ---
EXAMINATION: MM screening rell BI w annette HISTORY: Screening mammogram, family history of breast cancer in her daughter. TECHNIQUE: Craniocaudal and mediolateral oblique 3-D tomosynthesis images were obtained and synthetic 2-D images were generated. CAD analysis was submitted and interpreted. COMPARISON: 01/10/2022, 11/02/2020, 10/05/2019 BREAST PARENCHYMAL COMPOSITION: There are scattered areas of fibroglandular density. FINDINGS: Scattered benign-appearing calcifications are present. No suspicious mass, calcification, o r architectural distortion are identified in either breast to suggest malignancy. There has been no s uspicious interval change. IMPRESSION: 1. No mammographic evidence of malignancy. 2. Recommend routine screening mammography in one year. BI-RADS Category 2: Benign finding(s). Reviewed, dictated and finalized at location A.
== END 2023-03-13 10:16 | disposition home or self-care (01) ==
LOC: ANHIMG 10:17
PROVIDERS: PCP Family Medicine; Visit Provider Family Medicine
DX: Z12.31 Encounter for screening mammogram for malignant neoplasm of breast (principal)
CPT/HCPCS: 77063; 77067

== ENCOUNTER 2023-12-24 11:42 | Emergency (ER) | payer MEDICARE, SELFPAY ==
[2023-12-24 12:02] VITALS: BP 104/69; PULSE 86; RESP 18; TEMP 36.9; O2SAT 100
[2023-12-24 12:03] VITALS: BP 104/69; PULSE 86; RESP 18; TEMP 36.9; O2SAT 100
--- NOTE | 2023-12-24 12:26 | ED.GENADULT ---
HPI - General Adult General Chief complaint: Abdominal Pain Stated complaint: stomach pain Source: patient, RN notes reviewed and old records reviewed Mode of arrival: ambulatory Limitations: no limitations History of Present Illness HPI narrative: 78-year-old female presents to [facility] with complaint of lower left abdominal pain that started approximately 10-14 days ago. Patient states that she had stomach bug as grandson also had similar symptoms. Patient states pain improved but then returned. Patient states heat to the area helps. Patient has not tried anything else. Patient denies diarrhea or constipation. Patient denies urinary symptoms. Related Data Home Medications Medication Instructions Recorded Confirmed albuterol sulfate 90 mcg/actuation 2 puff inhalation Q4H PRN 10/09/19 12/24/23 aerosol inhaler (Ventolin HFA) Shortness Of Breath amlodipine 5 mg tablet 5 mg PO DAILY 10/09/19 12/24/23 fluticasone propionate 50 1 spray intranasal DAILY 10/09/19 12/24/23 mcg/actuation nasal spray,suspension multivitamin 1 tablet PO DAILY 10/09/19 12/24/23 omeprazole 40 mg capsule,delayed 40 mg PO DAILY 10/09/19 12/24/23 release pravastatin 20 mg tablet 20 mg PO DAILY 10/09/19 12/24/23 fluoxetine 20 mg capsule 40 mg PO DAILY 12/22/19 12/24/23 aspirin 81 mg tablet,delayed 81 mg PO DAILY 08/30/20 12/24/23 release (Adult Aspirin Regimen) cholecalciferol (vitamin D3) 125 125 mcg PO DAILY 08/30/20 12/24/23 mcg (5,000 unit) tablet (Vitamin D3) citicoline 500 mg capsule 500 mg PO DAILY 11/08/20 12/24/23 (Cognitive Health) turmeric 400 mg capsule 400 mg PO DAILY 11/08/20 12/24/23 acyclovir 400 mg tablet 400 mg PO BID 02/23/23 12/24/23 escitalopram oxalate 10 mg tablet 10 mg PO DAILY 02/23/23 12/24/23 prochlorperazine maleate 10 mg 10 mg PO Q6H PRN Nausea And 02/23/23 12/24/23 tablet (Compazine) Vomiting brexpiprazole 1 mg tablet (Rexulti) mg 12/24/23 lenalidomide 10 mg capsule 10 mg PO DAILY 12/24/23 12/24/23 (Revlimid) pirfenidone 267 mg tablet 267 mg PO TID 12/24/23 12/24/23 Allergies Allergy/AdvReac Type Severity Reaction Status Date / Time prednisone AdvReac Intermediate Swelling Verified 12/24/23 12:02 latex AdvReac Mild Rash Verified 12/24/23 12:02 Sulfa (Sulfonamide AdvReac Mild Hives Verified 12/24/23 12:02 Antibiotics) sulfanilamide AdvReac Mild Hives Verified 12/24/23 12:02 Review of Systems Constitutional: Constitutional: Reports no additional constitutional complaints, Denies body ache(s), Denies chills, Denies fatigue, Denies fever(s) and Denies headache(s) Eyes: Eyes: Reports no additional eye complaints and Denies blurry vision ENT: Reports system reviewed and no additional complaints, except as documented, Denies vertigo, Denies dizziness, Denies ear discharge, Denies otalgia, Denies facial pain, Denies headache(s), Denies nasal congestion, Denies nasal discharge, Denies sinus pain, Denies sinus pressure and Denies sore throat Cardiovascular: Cardiovascular: Reports no additional cardiovascular complaints, Denies chest pain, Denies chest pain at rest, Denies rapid heart rate and Denies dyspnea Respiratory: Respiratory: Reports no additional respiratory complaints, Denies chest congestion, Denies cough, Denies pain on inspiration, Denies pain with cough and Denies dyspnea Gastrointestinal: Gastrointestinal: Reports abdominal pain, Denies diarrhea, Denies nausea and Denies vomiting Integumentary/Breasts: Skin/Breast: Denies rash Neurologic: Reports system reviewed and no additional complaints, except as documented, Denies vertigo, Denies dizziness and Denies headache(s) Endocrine: Endocrine: Denies fatigue PMFSH Past Medical History Medical History OTTONIEL positive (~2019) Arthritis COPD (chronic obstructive pulmonary disease) Degenerative joint disease (DJD) of lumbar spine Depression Generalized osteoarthritis of multiple s
== END 2023-12-24 12:32 | disposition home or self-care (01) ==
PROVIDERS: Emergency Provider Registered Nurse; PCP Family Medicine
DX: R10.32 Left lower quadrant pain (principal); J44.9 Chronic obstructive pulmonary disease, unspecified; M47.816 Spondylosis without myelopathy or radiculopathy, lumbar region; K21.9 Gastro-esophageal reflux disease without esophagitis; I10 Essential (primary) hypertension; J84.10 Pulmonary fibrosis, unspecified; M15.9 Polyosteoarthritis, unspecified
CPT/HCPCS: 99211; G0463

== ENCOUNTER 2024-04-06 13:56 | Outpatient (CLI) | payer MEDICARE, SELFPAY ==
--- NOTE | ~2024-04-06 | MM_ITS ---
EXAMINATION: MM screening rell BI w annette HISTORY: Screening TECHNIQUE: Craniocaudal and mediolateral oblique 3-D tomosynthesis images were obtained and synthetic 2-D images were generated. CAD analysis was submitted and interpreted. COMPARISON: Comparison to multiple prior studies sequentially, with oldest reviewed study dated 04/22. BREAST PARENCHYMAL COMPOSITION: Not dense: There are scattered areas of fibroglandular density. FINDINGS: There is no evidence of suspicious mass, calcification, or architectural distortion to sugg est malignancy in either breast. There has been no suspicious interval change. IMPRESSION: 1. No mammographic evidence of malignancy. 2. Recommend routine screening mammography in one year. BI-RADS Category 1: Negative Reviewed, dictated and finalized at location B.
== END 2024-04-06 13:57 | disposition home or self-care (01) ==
LOC: ANHIMG 13:59
PROVIDERS: PCP Family Medicine; Visit Provider Family Medicine
DX: Z12.31 Encounter for screening mammogram for malignant neoplasm of breast (principal)
CPT/HCPCS: 77063; 77067

== ENCOUNTER 2024-10-15 13:26 | Outpatient (CLI) | payer MEDICARE, SELFPAY ==
--- NOTE | ~2024-10-15 | MR_ITS ---
EXAMINATION: MR brain/brain stem wo con DATE: 10/15/2024 14:34 INDICATION: Other amnesia. TECHNIQUE: Magnetic resonance imaging (MRI) of the brain and brainstem was performed without intraven ous contrast. COMPARISON: None. FINDINGS: There are scattered areas of nonspecific increased T2-weighted signal intensity in the cere bral white matter and jimmy. There is no intracranial hemorrhage, acute infarction, or abnormal intrac ranial mass lesion. The ventricles are normal in size. The mastoid air cells are normal. There is mil d mucosal thickening in left maxillary sinus. There are likely changes of ocular lens replacement joe geries. IMPRESSION: 1. Moderate nonspecific cerebral white matter disease and pontine disease, which likely represents ch ronic small vessel ischemic disease. Reviewed, dictated and finalized at location A. ENCHILADA IMPRESSION: 1. Moderate nonspecific cerebral white matter disease and pontine disease, whic h likely represents chronic small vessel ischemic disease.
== END 2024-10-15 13:27 | disposition home or self-care (01) ==
LOC: ANHIMG 13:29
PROVIDERS: PCP Family Medicine; Visit Provider Nurse Practitioner Family
DX: R90.82 White matter disease, unspecified (principal); G93.89 Other specified disorders of brain; R41.3 Other amnesia
CPT/HCPCS: 70551

== ENCOUNTER 2024-12-07 09:44 | Emergency (ER) | payer MEDICARE, SELFPAY ==
[2024-12-07 10:05] VITALS: BP 115/67; PULSE 84; RESP 18; TEMP 36.8; O2SAT 92
--- OUTSIDE RECORDS SUMMARY | 2024-12-07 10:36 | XMS_ITS | Data Portability ---
Author Organization [facility] burt Physician Pra, [facility] Address [address] [place] [address] Assessment No assessment recorded. Plan of Treatment Reminders Order Date Submit Date Provider Last Modified By Organization Details Last Modified Time Details Appointments None recorded. Lab HbA1c (hemoglobi n A1c), blood - [address] [facility], [address] [place] [address], [address], 7 23:32:19 CMP, serum or plasma - 99[address] [facility], [address] [place] [address], [address], 7 23:32:18 HbA1c (hemoglobi n A1c), blood [address] [facility], [address] [place] [address], [address], 7 23:32:19 CBC [address] [facility], [address] [place] [address], [address], 7 23:32:19 CMP, serum or plasma [address] [facility], [address] [place] [address], [address], 7 23:32:19 lipid panel, serum [address] [facility], [address] [place] [address] [place], [address], 7 23:32:19 HbA1c (hemoglobi n A1c), blood 2016 017 [facility], [address] [place], [address], 7 15:19:03 Referral audiologis t referral 2015 016 KASSIDY Not available 6 10:12:00 Procedures None recorded. Surgeries None recorded. Imaging mammogram, screening - CPT 52677. Please Call: [address] (Scheduling), [address] [place] [address], [place], [address], 6 09:33:06 Medication Orders omeprazole 20 mg capsule,de layed release 2015 016 Not available 6 11:08:15 amlodipine 5 mg tablet 2015 016 Not available 6 11:08:15 pravastati n 20 mg tablet 2015 016 Not available 6 11:08:15 omeprazole 20 mg capsule,de layed release 2015 016 Not available 6 11:38:29 Estrace 0.01% (0.1 mg/gram) vaginal cream 2016 017 Not available 7 17:34:21 amlodipine 5 mg tablet 2016 017 INTERFACE Not available 7 11:39:30 pravastati n 20 mg tablet 2016 017 INTERFACE Not available 7 11:34:15 Patient TargetsNo targets recorded. Patient Instructions Encounter Date Encounter Id Patient Instructions Last Modified By Organization Details Last Modified Time 12/22/2015 [id number] Mrs Ny is doi ng well, I have refilled her med and will see her back in 6 months for her physical. We have spent quite some time discussing different diets and their effect on weight loss, she was told by her chiropractor to eat a high fat diet in order to lose belly fat and we discussed the ins and outs of recommendations like that. She plans to stop the high fat diet which made her feel bad anyway, and resume her usual good diet. Total time with pt face to face 25+ minutes, majority pt counselling regarding diet and exercise for further weight loss, and reviewing an article from an herbal journal which asserted that three of the meds she is taking (statin, fluoxetine and omeprazole) are very dangerous meds and no one should be taking them, we reviewed the rationale and potential risks and benefits of each and she has decided to continue them for now. She may try to taper off the fluoxetine this spring, she tried that and failed last fall. Not available 12/22/2015 11:08:16 06/19/2016 [id number] Mrs Ny is her e for her annual physical and for f/u on her chronic medical problems. She is doing well. She has a new Dolph Hound and is exercising more regularly walking her dog. We have had a long discussion of the importance of exercise/ diet/ weight control and management of her cardiac risk factors in avoiding cardiac and cerebrovascular events. Total time with pt face to face 40+ minutes, majority pt counselling as outlined above. Not available 06/20/2016 11:38:29 12/20/2016 [id number] Doing well, f/u for physical in 6 months, due for some labs then, but will wait to put those in until her current HGBA1c comes back. She has a new complaint of vaginal dryness and after discussion of the pros and cons of vaginal estrogen cream she will try estrace. Total time with pt face to face 25+ minutes, majority pt counselling regarding options for management of vaginal dryness, and the pros and cons of the various options. Not available 12/20/2016 11:46:00 Reason for Referral Customer Support Consultant Referral for Hea ring loss Referring Physician: Kaylee Sheriff, Internal Medicine, Encounter Date: 06/19/2016 Results Created Date Observation Date Name Description Value Unit Range Abnormal Flag Note LastModifiedBy Organization Detail LastModifiedTime 12/16/19 16 12/16/2015 CBC w/ auto diff WBC 7.7 K/uL 4.1-10 .7 Not Available [address], [address], 12/16/2015 11:56:35 12/16/19 16 12/16/2015 CBC w/ auto diff corwbcs 7.7 K/uL 4.4-11 .4 Not Available [address], [address], 12/16/2015 11:56:35 12/16/19 16 12/16/2015 CBC w/ auto diff RBC 4.26 X10^6 3.72-4 .93 Not Available [address], [address], 12/16/2015 11:56:35 12/16/19 16 12/16/2015 CBC w/ auto diff HGB 12.7 g/dL 11.5-1 5.0 Not Available [address], [address], 12/16/2015 11:56:35 12/16/19 16 12/16/2015 CBC w/ auto diff HCT 38 % 34-44 Not Available [facility] [address], [address], 12/16/2015 11:56:35 12/16/19 16 12/16/2015 CBC w/ auto diff MCV 90 fL 80-99 Not Available [facility] [address], [address], 12/16/2015 11:56:35 12/16/19 16 12/16/2015 CBC w/ auto diff MCH 30 pg 26-34 Not Available [facility] [address], [address], 12/16/2015 11:56:35 12/16/19 16 12/16/2015 CBC w/ auto diff MCHC 33 % 32-35 Not Available [facility] [address], [address], 12/16/2015 11:56:35 12/16/19 16 12/16/2015 CBC w/ auto diff platelet 291 K/uL 153-37 6 Not Available [address], [address], 12/16/2015 11:56:35 12/16/19 16 12/16/2015 CBC w/ auto diff RDW 12.5 % Not Available [facility] [address] [place] [address], [address], 12/16/2015 11:56:35 12/16/19 16 12/16/2015 CBC w/ auto diff lymph 24.6 % 17.0-4 6.0 Not Available [address], [address], 12/16/2015 11:56:35 12/16/19 16 12/16/2015 CBC w/ auto diff lymphabs 1.90 1.07-3 .45 Not Available [address], [address], 12/16/2015 11:56:35 12/16/19 16 12/16/2015 CBC w/ auto diff tiffani 65.2 % 43.0-7 4.0 Not Available [address], [address], 12/16/2015 11:56:35 12/16/19 16 12/16/2015 CBC w/ auto diff neuabs 5.00 K/uL 2.00-7 .36 Not Available [address], [address], 12/16/2015 11:56:35 12/16/19 16 12/16/2015 CBC w/ auto diff mono 7.5 % 4.0-11 .0 Not Available [address], [address], 12/16/2015 11:56:35 12/16/19 16 12/16/2015 CBC w/ auto diff monoabs 0.60 K/uL 0.20-0 .85 Not Available [address], [address], 12/16/2015 11:56:35 12/16/19 16 12/16/2015 CBC w/ auto diff eos 2.0 % 0.0-7. 0 Not Available [address], [address], 12/16/2015 11:56:35 12/16/19 16 12/16/2015 CBC w/ auto diff eosabs 0.10 K/uL 0.00-0 .42 Not Available [address], [address], 12/16/2015 11:56:35 12/16/19 16 12/16/2015 CBC w/ auto diff baso 0.7 % 0.0-2. 0 Not Available [address], [address], 12/16/2015 11:56:35 12/16/19 16 12/16/2015 CBC w/ auto diff basoabs 0.10 K/uL 0.00-0 .15 Not Available [address], [address], 12/16/2015 11:56:35 12/16/19 16 12/16/2015 CBC w/ auto diff NRBCs 0 /100W BC Not Available [address], [address], 12/16/2015 11:56:35 12/16/19 16 12/16/2015 HbA1c (hemo globi n A1c), blood hgbac 5.5 %A1C 4.4-6. 4 Not Available [address], [address], 12/16/2015 14:32:36 12/16/19 16 12/16/2015 CMP, serum or plasm a sodium 138 mmol/ L 135-14 5 Not Available [address], [address], 12/16/2015 17:01:36 12/16/19 16 12/16/2015 CMP, serum or plasm a potassium 4.1 mmol/ L 3.6-5. 0 Not Available [address], [address], 12/16/2015 17:01:36 12/16/19 16 12/16/2015 CMP, serum or plasm a chloride 104 mmol/ L 101-11 1 Not Available [address], [address], 12/16/2015 17:01:36 12/16/19 16 12/16/2015 CMP, serum or plasm a co 26 mmol/ L 21-31 Not Available [address], [address], 12/16/2015 17:01:36 12/16/19 16 12/16/2015 CMP, serum or plasm a calcium 9.4 mg/dL 8.4-10 .2 Not Available [address], [address], 12/16/2015 17:01:36 12/16/19 16 12/16/2015 CMP, serum or plasm a glucose 106 mg/dL 70-105 high Not Available [facility] [address], [address], 12/16/2015 17:01:36 12/16/19 16 12/16/2015 CMP, serum or plasm a BUN 16 mg/dL 7-18 Not Available [facility] [address], [address], 12/16/2015 17:01:36 12/16/19 16 12/16/2015 CMP, serum or plasm a creat 0.7 mg/dL 0.6-1. 3 Not Available [address], [address], 12/16/2015 17:01:36 12/16/19 16 12/16/2015 CMP, serum or plasm a protein 7.9 g/dL 6.4-8. 3 Not Available [address], [address], 12/16/2015 17:01:36 12/16/19 16 12/16/2015 CMP, serum or plasm a albumin 3.8 g/dL 3.2-5. 0 Not Available [address], [address], 12/16/2015 17:01:36 12/16/19 16 12/16/2015 CMP, serum or plasm a totbili 0.6 mg/dL 0.2-1. 0 Not Available [address], [address], 12/16/2015 17:01:36 12/16/19 16 12/16/2015 CMP, serum or plasm a alkphos 50 IU/L 42-121 Not Available [address], [address], 12/16/2015 17:01:36 12/16/19 16 12/16/2015 CMP, serum or plasm a altgpt 17 U/L 8-35 Not Available [address], [address], 12/16/2015 17:01:36 12/16/19 16 12/16/2015 CMP, serum or plasm a astgot 23 U/L 10-42 Not Available [address], [address], 12/16/2015 17:01:36 12/16/19 16 12/16/2015 CMP, serum or plasm a egfrfemale 83 mL/mi n/1.7 3m2 >=60 Not Available [address], [address], 12/16/2015 17:01:36 12/16/19 16 12/16/2015 CMP, serum or plasm a hegfr eGFR estima anderson kidney functi on and is consid ered the best test to measur e the level of kidney functi on and determ ine the stage of kidney diseas e, accord ing to the [place] [facility] tion. Our calcul ated values are based on popula tion studie s of males and female s. [place] ans should be adjust ed as follow s: If Nubia n-Amer ican multip ly report ed eGFR by 1.212 *This calcul ated result does not apply to patien ts under 18yrs. Not Available [facility] [address], [address], 12/16/2015 17:01:36 12/16/19 16 12/16/2015 lipid panel , blood cholest 175 mg/dL 140-24 0 Not Available [address], [address], 12/16/2015 17:02:48 12/16/19 16 12/16/2015 lipid panel , blood triglyc 49 mg/dL 35-160 Not Available [facility] [address] [place] [address], [address], 12/16/2015 17:02:48 12/16/19 16 12/16/2015 lipid panel , blood HDL 49 mg/dL 27-67 Not Available [facility] [address] [place] [address], [address], 12/16/2015 17:02:48 12/16/19 16 12/16/2015 lipid panel , blood VLDL 10 mg/dL 0-40 Not Available [facility] [address] [place] [address], [address], 12/16/2015 17:02:48 12/16/19 16 12/16/2015 lipid panel , blood LDL 116 mg/dL 62-185 Not Available [facility] [address] [place] [address], [address], 12/16/2015 17:02:48 12/16/19 16 12/16/2015 lipid panel , blood headvldl <<<< INTERP RETATI VE >>>> ATP III CLASSI FICATI ON OF LDL, TOTAL, AND HDL CHOLES TEROL (mg/dl ) LDL Choles terol- Primar y Target of Therap y <100 Optim al 100-12 9 Near optima l/ above optima l 130-15 9 Border line high 160-18 9 High >190 Very high Total Choles terol <200 Desira ble 200-23 9 Border line high >240 High HDL Choles terol <40 Low >60 High Trigly ceride (mg/dl ) <150 Normal 150-20 0 Border line high 200-49 9 High >500 Very high Not Available [facility] [address] [place] [address], [address], 12/16/2015 17:02:48 12/17/19 17 12/17/2016 CBC w/ auto diff WBC 9.3 K/uL 4.1-10 .7 Not Available [address], [address], 12/17/2016 09:48:33 12/17/19 17 12/17/2016 CBC w/ auto diff cor WBCs 9.3 K/uL 4.4-11 .4 Not Available [address], [address], 12/17/2016 09:48:33 12/17/19 17 12/17/2016 CBC w/ auto diff RBC 4.40 X10^6 3.72-4 .93 Not Available [address], [address], 12/17/2016 09:48:33 12/17/19 17 12/17/2016 CBC w/ auto diff HGB 13.3 g/dL 11.5-1 5.0 Not Available [facility] [address], [address], 12/17/2016 09:48:33 12/17/19 17 12/17/2016 CBC w/ auto diff HCT 39 % 34-44 Not Available [facility] [address], [address], 12/17/2016 09:48:33 12/17/19 17 12/17/2016 CBC w/ auto diff MCV 89 fL 80-99 Not Available [facility] [address] [place] [address], [address], 12/17/2016 09:48:33 12/17/19 17 12/17/2016 CBC w/ auto diff MCH 30 pg 26-34 Not Available [facility] [address] [place] [address], [address], 12/17/2016 09:48:33 12/17/19 17 12/17/2016 CBC w/ auto diff MCHC 34 % 32-35 Not Available [facility] [address] [place] [address], [address], 12/17/2016 09:48:33 12/17/19 17 12/17/2016 CBC w/ auto diff platelet 337 K/uL 153-37 6 Not Available [address], [address], 12/17/2016 09:48:33 12/17/19 17 12/17/2016 CBC w/ auto diff RDW 12.2 % 12.5-1 5.7 low Not Available [address], [address], 12/17/2016 09:48:33 12/17/19 17 12/17/2016 CBC w/ auto diff lymph% 27.6 % 17.0-4 6.0 Not Available [address], [address], 12/17/2016 09:48:33 12/17/19 17 12/17/2016 CBC w/ auto diff lymph abs 2.60 1.07-3 .45 Not Available [address], [address], 12/17/2016 09:48:33 12/17/19 17 12/17/2016 CBC w/ auto diff tiffani% 61.3 % 43.0-7 4.0 Not Available [address], [address], 12/17/2016 09:48:33 12/17/19 17 12/17/2016 CBC w/ auto diff tiffani abs 5.70 K/uL 2.00-7 .36 Not Available [address], [address], 12/17/2016 09:48:33 12/17/19 17 12/17/2016 CBC w/ auto diff mono% 8.0 % 4.0-11 .0 Not Available [address], [address], 12/17/2016 09:48:33 12/17/19 17 12/17/2016 CBC w/ auto diff mono abs 0.70 K/uL 0.20-0 .85 Not Available [address], [address], 12/17/2016 09:48:33 12/17/19 17 12/17/2016 CBC w/ auto diff eos% 2.2 % 0.0-7. 0 Not Available [address], [address], 12/17/2016 09:48:33 12/17/19 17 12/17/2016 CBC w/ auto diff eos abs 0.20 K/uL 0.00-0 .42 Not Available [address], [address], 12/17/2016 09:48:33 12/17/19 17 12/17/2016 CBC w/ auto diff baso% 0.9 % 0.0-2. 0 Not Available [address], [address], 12/17/2016 09:48:33 12/17/19 17 12/17/2016 CBC w/ auto diff baso abs 0.10 K/uL 0.00-0 .15 Not Available [address], [address], 12/17/2016 09:48:33 12/17/19 17 12/17/2016 CBC w/ auto diff NRBCs 0 /100W BC Not Available [address], [address], 12/17/2016 09:48:33 12/17/19 17 12/17/2016 lipid panel , blood cholest 180 mg/dL 140-24 0 Not Available [address], [address], 12/17/2016 10:31:54 12/17/19 17 12/17/2016 lipid panel , blood triglyc 64 mg/dL 35-160 Not Available [facility] [address], [address], 12/17/2016 10:31:54 12/17/19 17 12/17/2016 lipid panel , blood HDL 51 mg/dL 27-67 Not Available [facility] [address], [address], 12/17/2016 10:31:54 12/17/19 17 12/17/2016 lipid panel , blood VLDL 13 mg/dL 0-40 Not Available [facility] [address], [address], 12/17/2016 10:31:54 12/17/19 17 12/17/2016 lipid panel , blood LDL 116 mg/dL 62-185 Not Available [facility] [address], [address], 12/17/2016 10:31:54 12/17/19 17 12/17/2016 lipid panel , blood headvldl <<<< INTERP RETATI VE >>>> ATP III CLASSI FICATI ON OF LDL, TOTAL, AND HDL CHOLES TEROL (mg/dl ) LDL Choles terol- Primar y Target of Therap y <100 Alicia l 100-12 9 Near optima l/ above optima l 130-15 9 Border line high 160-18 9 High >190 Very high Total Choles terol <200 Desira ble 200-23 9 Border line high >240 High HDL Choles terol <40 Low >60 High Trigly ceride (mg/dl ) <150 Normal 150-20 0 Border line high 200-49 9 High >500 Very high Not Available [address], [address], 12/17/2016 10:31:54 12/17/19 17 12/17/2016 CMP, serum or plasm a sodium 139 mmol/ L 135-14 5 Not Available [address], [address], 12/17/2016 10:31:54 12/17/19 17 12/17/2016 CMP, serum or plasm a potassium 4.3 mmol/ L 3.6-5. 0 Not Available [address], [address], 12/17/2016 10:31:54 12/17/19 17 12/17/2016 CMP, serum or plasm a chloride 105 mmol/ L 101-11 1 Not Available [address], [address], 12/17/2016 10:31:54 12/17/19 17 12/17/2016 CMP, serum or plasm a CO2 26 mmol/ L 21-31 Not Available [address], [address], 12/17/2016 10:31:54 12/17/19 17 12/17/2016 CMP, serum or plasm a calcium 9.7 mg/dL 8.4-10 .2 Not Available [address], [address], 12/17/2016 10:31:54 12/17/19 17 12/17/2016 CMP, serum or plasm a glucose 114 mg/dL 70-105 high Not Available [address], [address], 12/17/2016 10:31:54 12/17/19 17 12/17/2016 CMP, serum or plasm a BUN 18 mg/dL 7-18 Not Available [address], [address], 12/17/2016 10:31:54 12/17/19 17 12/17/2016 CMP, serum or plasm a creat 0.8 mg/dL 0.6-1. 3 Not Available [address], [address], 12/17/2016 10:31:54 12/17/19 17 12/17/2016 CMP, serum or plasm a protein 8.4 g/dL 6.4-8. 3 high Not Available [address], [address], 12/17/2016 10:31:54 12/17/19 17 12/17/2016 CMP, serum or plasm a albumin 3.7 g/dL 3.2-5. 0 Not Available [address], [address], 12/17/2016 10:31:54 12/17/19 17 12/17/2016 CMP, serum or plasm a tot bili 0.5 mg/dL 0.2-1. 0 Not Available [address], [address], 12/17/2016 10:31:54 12/17/19 17 12/17/2016 CMP, serum or plasm a alk phos 52 IU/L 42-121 Not Available [facility] [address], [address], 12/17/2016 10:31:54 12/17/19 17 12/17/2016 CMP, serum or plasm a ALT/gpt 19 U/L 8-35 Not Available [facility] [address] [place] [address], [address], 12/17/2016 10:31:54 12/17/19 17 12/17/2016 CMP, serum or plasm a AST/got 22 U/L 10-42 Not Available [address], [address], 12/17/2016 10:31:54 12/17/19 17 12/17/2016 CMP, serum or plasm a egfrfemale 71 mL/mi n/1.7 3m2 >=60 Not Available [address], [address], 12/17/2016 10:31:54 12/17/19 17 12/17/2016 CMP, serum or plasm a H eGFR eGFR estima anderson kidney functi on and is consid ered the best test to measur e the level of kidney functi on and determ ine the stage of kidney diseas e, accord ing to the [place] Kid[employer] tion. Our calcul ated values are based on popula tion studie s of males and female s. [place] ans should be adjust ed as follow s: If Nub[place] n-Amer ican multip ly report ed eGFR by 1.212 *This calcul ated result does not apply to patien ts under 18yrs. Not Available [facility] [address], [address], 12/17/2016 10:31:54 12/20/19 17 12/20/2016 HbA1c (hemo globi n A1c), blood HA1C 5.5 %A1C 4.4-6. 4 Not Available [address] [place], [address], 12/20/2016 15:19:03 01/26/20 16 mammo ,digi darren,b ilat, scrn w/CAD THIS EXAM WAS PERFOR MED AT A MAMMOG MARJORIE FACILI TY ACCRED ITED BY THE KATHERIN Jennings [facility] Thank you for allowi ng us to partic ipate in the care of your patien t PROCED URE: FULL FIELD DIGITA L, BILATE RAL, SCREEN ING MAMMOG UNRULY WITH COMPUT ER-AID ED DETECT ION: COMPAR CORONA: 015, 014, 012. HISTOR Y: Screen ing . Techni que: CC and MLO views of both breast s were obtain ed using full field digita l Hologi c equipm ent and interp reted with comput er-aid ed detect ion. PARENC HYMAL TISSUE : There are scatte red areas of fibrog landul ar densit y. The overal l patter n is stable . Beth us coarse and puncta te bilate ral calcif icatio ns are simila r to prior. FINDIN GS RIGHT: Suspic ious masses : None . Suspic ious Calcif icatio n: None . Jovan ectura l Distor tion: None Other: None FINDIN GS LEFT: Suspic ious Masses : None Suspic ious Calcif icatio ns: None Jovan ectura l Distor tion: None Other: None IMPRES SHARMILA: BI-RAD S CATEGO RY 2: BENIGN . MANAGE MENT RECOMM ENDATI ON: Routin e annual screen ing mammog marjorie (for women over age 40) with monthl y self breast examin ation. The patien t will be notifi ed by letter Note: 1. A negati ve report should not delay biopsy of clinic ally suspic ious findin gs. 2. 10-15% of breast cancer s are radiog raphic ally occult Electr onical ly signed by Dave arndt MD CC'ed Logic: Orderi ng Provid er: SHERIFF ELIZAB ETH CC Provid er: SHERIFF ELIZAB ETH; SHERIFF ELIZAB ETH; SHERIFF ELIZAB ETH; SHERIFF ELIZAB ETH; SHERIFF ELIZAB ETH; MARILYN Zambrano Attend ing Provid er: LENORA XAVIER Referr ing Provid er: LENORA XAVIER Consul ting Provid er: LENORA XAVIER; MARILYN Zambrnao Admitt ing Provid er: LENORA XAVIER [email or web address], [address], 04/23/2016 09:33:06 Result Notes None recorded. Problems Name Problem SNOMED Code Status Onset Date Resolution Date Notes Provider Name and Address Organization Details Recorded Time Diabetes mellitus 31753979 Active KAYLEE SHERIFF MD [address] [place] [address], [address] [place] [address] , [facility] 6 11:38:29 Non-toxi c multinod ular goiter [id number] Active followed by Dr Vicenta SHERIFF MD [address] [place] [address], [address] [place] [address] Physician Pra 6 11:30:01 Hyperlip idemia 52066032 Active KAYLEE SHERIFF MD [address] [place] [address], [address] [place] [address] Physician Pra 6 11:38:29 Essentia l hyperten sharmila 02859680 Active KAYLEE SHERIFF MD [address] [place] [address], [address] [place] [address] Physician Pra 6 11:38:29 Long-ter m drug therapy Active KAYLEE SHERIFF MD [address] [place] [address], [address] [place] [address] Physician Pra 6 11:30:01 Hypergly cemia 84244561 Completed 12/20/2016 Removal Reason: progress ed to diabetes KAYLEE SHERIFF MD [address] [place] [address], [address] [place] [address] Physician Pra 7 11:31:41 Osteoart hritis 706495019 Active KAYLEE SHERIFF MD [address] [place], [place], [address] [place] [address] , [facility] 6 11:30:01 Acute gastriti s 62271433 Active KAYLEE SHERIFF MD [address] [place] [address], [address] [place] [address] Physician Pra 6 11:30:01 Hearing loss 38302913 Active KAYLEE SHERIFF MD [address] [place], [place], [address] [place] [address] , [facility] 6 11:38:29 Low back pain 655632603 Active KAYLEE SHERIFF MD [address] [place] [address], [address] [place] [address] , [facility] 6 11:30:01 Depressi ve disorder 29889680 Active KAYLEE SHERIFF MD [address] [place] [address], [address] [place] [address] Physician Pra 6 11:38:29 Gastroes ophageal reflux disease 322123930 Active KAYLEE SHERIFF MD [address] [place] [address], [address] [place] [address] Physician Pra 6 11:38:29 Problem Notes None recorded. Procedures Surgical History Date Name Laterality Status Provider Name and Address Organization Details Recorded Time 01/26/20 16 Date of Last Mammogram completed KAYLEE SHERIFF MD [address] [place] [address], [address] [place] [address] Physician Pra 02/15/2016 17:55:38 02/29/20 15 Date of Last Colonoscopy completed Arlene Flynn [facility] 12/08/2015 16:46:15 02/29/20 15 Colonoscopy completed Mary Agarwal [facility] 12/22/2015 10:30:48 03/24/20 14 Date of Last Pap Smear completed Mary Agarwal [facility] 12/22/2015 10:30:48 Caesarean Section completed Arlene Flynn [facility] 12/08/2015 16:50:37 Tubal Ligation completed Arlene Chu [facility] 12/08/2015 16:50:37 Breast Biopsy completed Arlene Chu [facility] 12/08/2015 16:50:37 Tonsillectomy completed Arlene Chu BROOKE [facility] 12/08/2015 16:50:37 Oophorectomy completed Arlene Chu BROOKE [facility] 12/08/2015 16:50:37 Other completed Arlene Chu LPN [facility] Physician Pra 12/08/2015 16:50:37 Imaging Results Imaging Date Name Status LastModified by Organiz ation Details LastModified Time 01/26/2016 mammo,digi darren,bilat, scrn w/CAD completed [address], [address], 04/23/2016 09:33:06 Procedure Notes None recorded. Medical Equipment None Reported. Allergies Allergen ID Allergen Name Allergen Category Reaction Reaction Severity Criticality Documentation Date Start Date Code Code System Note Provider Name and Address Organization Details Recorded Time 328792 prednison e medicatio n Not available Not available Not available 06/19/2016 8640 RxNorm Oral only Nicole gonzalez [facility]ly [facility] 6 16:10:44 74411 Substance with sulfonami de structure and antibacte rial mechanism of action (substanc e) medicatio n rash Not available Not available 07/11/20152011 42253 8003 SNOMED REACT ION: RASH; SEVER ITY: ALLER GY; COMME NT: STATU S: ACTIV E; Not Available [employer] 5 08:11:40 Medications Name Sig Start Date Stop Date Status Note LastModified by Organization Details LastModified Time fluconazo le 150 mg tablet one po x1, repeat in 1 week 2016 active Not Available Not Available Not Avai lable amlodipin e 5 mg tablet TAKE 1 TABLET DAILY DIRECTED . 2016 active TYPE: FILLED RX; DAYS TO TAKE 90; EXPECTED ACTION: RENEW; EXPECTED ACTION DATE: 11 DEC 2015; MANAGED BY: MIRTHA SHERIFF; ORDERED BY: MIRTHA SHERIFF; AUTHORIZ ATION: N; LAST UPDATED BY: Transmit PTS; SENT TO: [facility] ; STATUS: RENEWED, EDITED; MEDICATI ON STATUS: ACTIVE Not Available Not Available Not Available omeprazol e 40 mg capsule,d elayed release TAKE 1 CAPSULE DAILY. 05/26 completed TYPE: OTHER; DAYS TO TAKE 0; EXPECTED ACTION: EVALUATE ; AUTHORIZ ATION: N; LAST UPDATED BY: MARY AGARWAL; SENT TO: [facility] [id number]; STATUS: EDITED,[employer] D/C; MEDICATI ON STATUS: DISCONTI NUED Not Available Not Available Not Available citalopra m 20 mg tablet TAKE 1 TABLET DAILY. 05/26 completed TYPE: OTHER; DAYS TO TAKE 0; EXPECTED ACTION: EVALUATE ; AUTHORIZ ATION: N; LAST UPDATED BY: MIRTHA SHERIFF; SENT TO: [facility] [id number]; STATUS: EDITED,R [employer] D/C; MEDICATI ON STATUS: DISCONTI NUED Not Available Not Available Not Available fluoxetin e 20 mg tablet TAKE 1 TABLET DAILY. 2013 active duplicat e entry Not Available Not Available Not Available omeprazol e 20 mg capsule,d elayed release TAKE ONE CAPSULE ONCE DAILY 2016 active Not Available Not Available Not Avai lable pravastat in 20 mg tablet TAKE 1 TABLET DAILY AT BEDTIME. 2016 active TYPE: FILLED RX; DAYS TO TAKE 0; EXPECTED ACTION: RENEW; MANAGED BY: MIRTHA SHERIFF; ORDERED BY: MIRTHA SHERIFF; AUTHORIZ ATION: N; LAST UPDATED BY: Transmit PTS; SENT TO: [facility] ; STATUS: RENEWED, EDITED; MEDICATI ON STATUS: ACTIVE Not Available Not Available Not Available fluoxetin e 20 mg capsule TAKE 1 CAPSULE BY MOUTH EVERY DAY 2016 active Not Available Not Available Not Avai lable Estrace 0.01% (0.1 mg/gram) vaginal cream 2 g vaginall y daily for two weeks then three times a week 01/21 completed caused vaginal irritati on Not Available Not Available Not Available Daily Multivita min TAKE 1 TABLET DAILY. 2012 active TYPE: FILLED RX; DAYS TO TAKE 0; EXPECTED ACTION: EVALUATE ; AUTHORIZ ATION: N; LAST UPDATED BY: MARY AGARWAL; SENT TO: [facility] [id number]; STATUS: ADDED; MEDICATI ON STATUS: ACTIVE Not Available Not Available Not Available Calcium + D 2012 active TYPE: FILLED RX; DAYS TO TAKE 0; EXPECTED ACTION: EVALUATE ; AUTHORIZ ATION: N; LAST UPDATED BY: MARY AGARWAL; SENT TO: [facility] [id number]; STATUS: ADDED; MEDICATI ON STATUS: ACTIVE Not Available Not Available Not Available Accu-Chek Gisselle Plus test strips TEST ONCE DAILY. 2014 active TYPE: FILLED RX; DAYS TO TAKE 100; EXPECTED ACTION: RENEW; EXPECTED ACTION DATE: 02 AUG 2015; MANAGED BY: MIRTHA SHERIFF; ORDERED BY: MIRTHA SHERIFF; AUTHORIZ ATION: N; LAST UPDATED BY: [employer]; SENT TO: [facility] [id number]; STATUS: EDITED; MEDICATI ON STATUS: ACTIVE Not Available Not Available Not Available Accu-Chek [employer] Lancing Dev TEST BLOOD SUGAR 1X DAILY 2013 active TYPE: FILLED RX; DAYS TO TAKE 0; EXPECTED ACTION: RENEW; MANAGED BY: MIRTHA SHERIFF; ORDERED BY: MIRTHA SHERIFF; AUTHORIZ ATION: N; LAST UPDATED BY: Transmit PTS; SENT TO: [facility] [id number]; STATUS: PRESCRIB ED,EDITE D; MEDICATI ON STATUS: ACTIVE Not Available Not Available Not Available Vitals Date Recorded Body height Heart rate Body weight Body mass index (BMI) Systolic blood pressure Diastolic blood pressure Provider Name and Address Organization Details Last Updated DateTime 6 165.1 cm 64 /min 09231.4 0371 g 30.5 kg/m2 110 mm[Hg] 72 mm[Hg] Mary COBURN - LPNT [facility] 6 10:26:10 Date Recorded Body height Body weight Body mass index (BMI) Heart rate Systolic blood pressure Diastolic blood pressure Provider Name and Address Organization Details Last Updated DateTime 6 165.1 cm 16764.6 2 g 30.2 kg/m2 60 /min 130 mm[Hg] 78 mm[Hg] Nicole Gibbs [facility] 6 16:09:56 Date Recorded Body height Body weight Body mass index (BMI) Heart rate Systolic blood pressure Diastolic blood pressure Provider Name and Address Organization Details Last Updated DateTime 7 165.1 cm 95095.8 5 g 29.5 kg/m2 76 /min 130 mm[Hg] 80 mm[Hg] Mary Agarwal [facility] 7 11:13:28 Social History Question Answer Notes LastModified by Organizat ion Details LastModified Time Tobacco Smoking Status Former Smoker Arlene gonzalez [facility] 12/08/2015 16:50:37 What Is Your Level Of Alcohol Consumption? 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 Mental Status None recorded. Family History Relationship Description Onset Age of this Age Resolved Age Notes LastModified by Organization Details LastModified Time Mother Malignant neoplastic disease Not available 2015 11:30:18 Mother Diabetes mellitus Not available 2015 11:30:18 Mother Malignant neoplasm of uterus Not available 2015 11:30:18 Brother Malignant neoplastic disease Not available 2015 11:30:18 Father Heart disease Not available 2015 11:30:18 Medical History No medical history recorded. Gynecological History Statement/Question Response Date of Last Pap Smear 03/24/2014 Date of Last Colonoscopy 02/28/2015 Date of Last Mammogram 01/26/2016 Obstetrics History GPAL:G 0 P 0 0 0 0 Immunizations Vaccine Type Date Status Note Provider Nam e and Address Organization Details Recorded Time influenza, unspecified formulation 4 completed Not Available [employer] 07/11/2015 08:06:40 Pneumococcal conjugate PCV 13 5 completed Arlene gonzalez [facility] 12/08/2015 16:45:14 pneumococcal polysaccharide PPV23 3 completed Arlene gonzalez [facility] 12/08/2015 16:45:14 Td (adult) 9 completed Arlene gonzalez [facility] 12/08/2015 16:45:14 Past Encounters Encounter ID Performer Location Encounter Start Date Encounter Closed Date Diagnosis/Indication Diagnosis SNOMED-CT Code Diagnosis ICD10 Code Diagnosis Note [id number] [facility] [address] [place] [address],[address] [place] [address] 05/26/2012 00:00:[id number] [address] [place] [address] 07/07/2012 00:00:00 [id number] [facility] [address] [place], [place] [address] [place] [address] 08/20/2012 00:00:[id number] [place] [address] 11/10/2012 00:00:00 [id number] [facility] [address] [place] [address],[address] [place] [address] 02/23/2013 00:00:00 [id number] [facility] [address] [place], [place] [address] [place] [address] 02/26/2013 00:00:00 [id number] [facility] [address] [place] [address],[address] [place] [address] 03/12/2013 00:00:00 [id number] [facility] [address] [place] [address],[address] [place] [address] 03/13/2013 00:00:00 [id number] [facility] [address] [place], [place] [address] [place] [address] 05/12/2013 00:00:[id number] [place] [address] 12/21/2013 00:00:00 [id number] [facility],[address] [place] [address] 03/24/2014 00:00:00 [id number] [facility],[address] [place] [address] 06/21/2014 00:00:00 [id number] [facility],[address] [place] [address] 12/16/2014 00:00:00 [id number] [facility],[address] [place] [address] 12/07/2013 00:00:00 [id number] KAYLEE SHERIFF MD [employer] [facility], [address] [place] [address] 12/22/2015 10:10:57 12/22/2015 11:05:21 Essential hypertension 12796962 I10 Hyperlipidemia 42844641 E78.5 Hyperglycemia 07029069 R 73.9 Gastroesop hageal reflux disease 936152036 K21.9 Depressive disorder 3548 9007 F32.9 Screening mammography 24 059138 Z12.31 [id number] KAYLEE SHERIFF MD [employer] [facility], [address] [place] [address] 06/19/2016 15:33:52 06/21/2016 03:49:31 Hyperlipidemia 31933489 E78.5 Essential hypertension 68443367 I10 Hyperglycemia 02168629 R 73.9 Depressive disorder 3548 9007 F32.9 Gastroesop hageal reflux disease 075144014 K21.9 Diabetes mellitus 201257 09 E11.9 diet controlled Hearing loss 18577960 H9 1.90 [id number] KAYLEE SHERIFF MD [employer] [address] [facility], [address] [place] [address] 12/20/2016 10:59:37 12/20/2016 11:59:22 Hyperlipidemia 92173984 E78.5 Essential hypertension 88398686 I10 Diabetes mellitus 870481 09 E11.9 diet controlled Atrophic vaginitis 76457 000 N95.2 Health Concerns Section Related Observation LastModified by Organization Detai ls LastModified Time None Recorded Concern Status LastModified by Organization Details LastModified Time None Recorded Advance Directives Directive None Recorded Payers Encounter Date Sequence Insurance Name Policy Number Policy [place] Covered Member ID [place] Member ID Guarantor Name 12/22/2015 1 [place] Myah Ny [id number] Myah Andre Claus 12/22/2015 2 [employer] (MEDICARE SUPPLEMENT) Myah Ny [id number] Myah Andre Claus 06/19/2016 1 [place] Myah Andre Claus [id number] Myah Andre Claus 06/19/2016 2 [employer] (MEDICARE SUPPLEMENT) Myah Andre Claus [id number] Myah Andre Claus 12/20/2016 1 [place] Myah Ny [id number] Myah Andre Claus 12/20/2016 2 [employer] (MEDICARE SUPPLEMENT) Myah Andre Claus [id number] Myah Ny Notes Date Note Type Note Provider Name and Address Organization Details Recorded Time 6 text/html HyperlipidemiaReported bypatient.Type of hyperlipidemia:combined Duration:chronic Control:usually well controlled; at goal Current Therapy:currently taking:; pravastatin Compliance:compliant; compliant with diet; exercises; has been maintaining her weight loss Complications:no coronary artery disease; no peripheral artery disease; no cardiovascular disease Risk Factors:hypertensionHypert ensionReported bypatient.Quality:asymptom atic Severity:moderate Duration:has noted for years Onset/Timing:stable on meds Alleviating Factors:medication Associated Symptoms:no shortness of breath; no fatigue; no palpitations; no decline in exercise capacity; no snoringReflux/GERDReported bypatient.SymptomsAsymptom atic; no difficulty swallowing; no pain swallowing; no postprandial pain; well controlled, Severity:mild Duration:present 5 or more years; usually asymptomatic Context:non-smoker; no drug/alcohol abuse; no drug alcohol withdrawal; not related to food/drink Associated Symptoms:no frequent coughing; no feeling of fullness/mass in throat; no hoarseness; no food getting stuck; no belching/burping; no nausea; no vomiting; not vomiting blood; no regurgitation; no shortness of breath; no chest pain; no heartburn; no difficulty swallowing; no pain when swallowing; no bad taste; no decreased appetite; no weight loss; no black/tarry stools; no fatigue; no throat pain KAYLEE SHERIFF MD [address] [place], [address], [facility] 12/22/2015 11:08:19 6 text/html HyperlipidemiaReported bypatient.Type of hyperlipidemia:combined Duration:chronic Control:usually well controlled; at goal Current Therapy:currently taking:; pravastatin Compliance:compliant; compliant with diet; exercises; has been maintaining her weight loss Complications:no coronary artery disease; no peripheral artery disease; no cardiovascular disease Risk Factors:hypertensionHypert ensionReported bypatient.Quality:asymptom atic Severity:moderate Duration:has noted for years Onset/Timing:stable on meds Alleviating Factors:medication Associated Symptoms:no shortness of breath; no fatigue; no palpitations; no decline in exercise capacity; no snoringReflux/GERDReported bypatient.SymptomsAsymptom atic; no difficulty swallowing; no pain swallowing; no postprandial pain; well controlled, Severity:mild Duration:present 5 or more years; usually asymptomatic Context:non-smoker; no drug/alcohol abuse; no drug alcohol withdrawal; not related to food/drink Associated Symptoms:no frequent coughing; no feeling of fullness/mass in throat; no hoarseness; no food getting stuck; no belching/burping; no nausea; no vomiting; not vomiting blood; no regurgitation; no shortness of breath; no chest pain; no heartburn; no difficulty swallowing; no pain when swallowing; no bad taste; no decreased appetite; no weight loss; no black/tarry stools; no fatigue; no throat pain KAYLEE SHERIFF MD [address] [place], [address], [facility] 06/20/2016 11:38:33 7 text/html HyperlipidemiaReported bypatient.Type of hyperlipidemia:combined Duration:chronic Control:usually well controlled; at goal Current Therapy:currently taking:; pravastatin Compliance:compliant; compliant with diet; exercises; has been maintaining her weight loss Complications:no coronary artery disease; no peripheral artery disease; no cardiovascular disease Risk Factors:hypertensionHypert ensionReported bypatient.Quality:asymptom atic Severity:moderate Duration:has noted for years Onset/Timing:stable on meds Alleviating Factors:medication Associated Symptoms:no shortness of breath; no fatigue; no palpitations; no decline in exercise capacity; no snoringReflux/GERDReported bypatient.SymptomsAsymptom atic; no difficulty swallowing; no pain swallowing; no postprandial pain; well controlled, Severity:mild Duration:present 5 or more years; usually asymptomatic Context:non-smoker; no drug/alcohol abuse; no drug alcohol withdrawal; not related to food/drink Associated Symptoms:no frequent coughing; no feeling of fullness/mass in throat; no hoarseness; no food getting stuck; no belching/burping; no nausea; no vomiting; not vomiting blood; no regurgitation; no shortness of breath; no chest pain; no heartburn; no difficulty swallowing; no pain when swallowing; no bad taste; no decreased appetite; no weight loss; no black/tarry stools; no fatigue; no throat pain KAYLEE SHERIFF MD [address] [place] [address], [address], [place] - [facility] 12/20/2016 11:46:14 OBGyn Episode No OBEpisode recorded.
--- OUTSIDE RECORDS SUMMARY | 2024-12-07 10:36 | XMS_ITS | Encounter Summary ---
Author Organization [facility] Address [address] [place] [address] Phone Care Team Providers Care Senior Data Modeler Name Role Phone Yocasta Soto MD Primary Care Provider + Kenny Castor MD Unavailable [phone] Gianluca Hogue MD Unavailable Shonda Au RN Unavailable Unavailabl e Reason for Referral * Pulmonology (Routine) - Closed Specialty Diagnoses / Procedures Referred By Micheal singh Referred To Contact Pulmonology Diagnoses Chronic obstructive pulmonary disease, unspecified COPD type (HCC) Procedures Pulmonary Function Test -[facility]; Spirometry, Oxygen Assessment Titration, DLCO; Spirometry Alex Boland MD [address] [facility] [address] [place] [address] Phone: tel: fax: Referral ID Status Reason Start Date Expiration Date Visits Re quested Visits Authorized [id number] Closed 04/26/2022 05/26/2023 99 99 Reason for Visit * Pulmonology (Routine) - Closed Specialty Diagnoses / Procedures Referred By Micheal singh Referred To Contact Pulmonology Diagnoses Chronic obstructive pulmonary disease, unspecified COPD type (HCC) Procedures Pulmonary Function Test -[facility]; Spirometry, Oxygen Assessment Titration, DLCO; Spirometry Alex Boland MD [address] [place] [address] Phone: tel: fax: Referral ID Status Reason Start Date Expiration Date Visits Re quested Visits Authorized [id number] Closed 04/26/2022 05/26/2023 99 99 Encounter Details Date Type Department Care Team (Latest Contact Info) Description 05/07/2023 1:09 PM CDT Hospital Encounter [facility] PFT [facility] [address] [facility] [address] [place] [address] Chronic obstructive pulmonary disease, unspecified COPD type (HCC) Social History Tobacco Use Types Packs/Day Years Used Date Smoking Tobacco: Former Cigarettes 1 25 0 10/28/1979 - 10/28/2004 Passive Smoke Exposure: Past Smokeless Tobacco: Never Alcohol Use Standard Drinks/Week Comments No 0 (1 standard drink = 0.6 oz pur e alcohol) AUDIT-C Answer Date Recorded Frequency of Alcohol Consumption Not on file 12/03/2023 Q2: How many drinks containi ng alcohol do you have on a typical day when you are drinking? Patient does not drink Frequency of Binge Drinking Not on file 03/2024 PHQ-2 Answer Date Recorded PHQ-2 Score 0 06/18/2019 Comments No Sex and Gender Information Value Date Recorded Sex Assigned at Not on file Legal Sex Female 3:20 AM [employer] Gender Identity Not on file Sexual Orientation Straight 03/13/2021 1: 23 PM CDT documented as of this encounter Plan of Treatment Not on file documented as of this encounter Goals Goal Patient Goal Type Associated Problems Recent Progress Patient-Stated? Author CCM Chronic Pain Care Plan Chronic Care Management No Monica Del Valle, RN Note: Problem: Chronic Pain Goals: 1. Minimize further functional decline 2. Maximize quality of life 3. Control pain Strategies: - Activity/exercise program recommendation - Conservative stepwise pain medicine strategy with multi-disciplinary approach - Recommend healthy lifestyle strategies and compensatory methods as needed documented as of this encounter Procedures Procedure Name Priority Date/Time Associated Diagnosis Comments PULMONARY FUNCTION TEST (PFT) Routine 05/07/2023 2:10 PM CDT Chronic obstructive pulmonary disease, unspecified COPD type (HCC) documented in this encounter Results * Pulmonary Function Test - (05/07/2023 2:10 PM CDT) FVC PRE 2.36 L [facility] FVC %PRE PRED 90 % [facility] FEV1 PRE 1.74 L [facility] FEV1 %PRE PRED 87 % [facility] FEV1/FVC PRE 74.0 % [facility] DLCO PRE 16.6 ml/min/mmH g [facility] DLCO %PRE PRED 91 % [facility] Anatomical Region Laterality Modality PFT 05/07/2023 1:42 PM CDT Narrative 05/13/2023 5:13 PM CDT Table formatting from the original result was not included. [facility] Division of Pulmonary & Critical Care Medicine [address] [place] [address]; [address] [facility]; [place] [address]; [phone] Pulmonary Function Laboratory Pulmonary Stress Test Simple/Oxygen Assessment Patient: Myah Castelan Date: 05/07/2023 : 1945 Ht: 63 IN Wt: 147 LBS Time (min) Distance (ft)/ Conway O2 L/M SpO2 HR Tristan* BP FEV1 % Pred Rest: RA 98 78 0 134/77 1.71 85 % Walk/Bike: 1 RA 96 96 0.5 2 RA 96 97 2 3 RA 96 96 3 4 RA 97 98 3 5 RA 96 99 3 6 min 0 sec RA 97 98 4 Recovery: 1 RA 98 84 3 138/77 1.74 87% 3 *Tristan rate of perceived exertion (1-10 dyspnea scale) Rachid, CHEST 2003; 123:1408 Walk Test Summary: Six Minute Walk Distance: 1165 ft Six-minute Walk Work [distance (m) x body wt (kg)]: 24481 kg.m (normal >60,000kg.m) Oxygen required to maintain SpO2 greater than 90% during six minutes of walkin L/M Comments: Interpretation: Breathing room air, SpO2 is normal at rest and during exercise sufficient to increase pulse from 78 to 99 b/min, SpO2 is stable. On this basis, SpO2 is adequate at rest breathing room air and while walking breathing room air. This level of exercise is associated with no significant change of FEV1. Pita Comer M.D. By signing this report, the attending pulmonary physician certifies that he/she has personally reviewed and interpreted the graphic and numerical data associated with this pulmonary function study and has reviewed and /or edited a preliminary draft report and agrees with the written final report. PFT performed at:->[facility] Procedure:->Spirometry Procedure:->Oxygen Assessment Titration Procedure:->DLCO DLCO:->Spirometry Alex Boland MD PFT ORDERABLES Final Result documented in this encounter Visit Diagnoses Diagnosis Chronic obstructive pulmonary disease, unspecified COPD type (HCC) documented in this encounter Care Teams Senior Data Modeler Relationship Specialty Start Date End Date Yocasta Soto MD PCP - General Family Medicine 05/08/18 11/05/24 Kenny Castro MD [address] [place] [address] Consulting Physician Gastroenterology 08/25/21 Gianluca Hogue MD [address] [place] [address] Surgeon General Surgery 10/19/21 Shonda Au, RN Registered Nurse Pulmonary Disease 05/07/23 documented as of this encounter
--- OUTSIDE RECORDS SUMMARY | 2024-12-07 10:36 | XMS_ITS | Clinical Summary ---
Author Organization [facility] Address [address] [place] [address] Care Team Providers Care Senior Manager Creative Services Name Role Phone Kenny Castro MD Unavailable [phone] Gianluca Hogue MD Unavailable [phone] Shonda Au RN Unavailable Unavailabl e Layne Colvin MD Unavailable [phone] Isabel Hughes MD Unavailable Pricila Hernandez MD Unavailable Milton Murillo MD Primary Care Provider [phone] Allergies Active Allergy Reactions Criticality Noted Date Comments Prednisone Hives,Swelling Medium 09/02/2018 Oral Sulfa (Sulfonamide Antibiotics) Hives Medium 03/2018 Medications amLODIPine (NORVASC) 5 mg tablet Take 1 tablet (5 mg total) by mouth nightly 12 06/16/20 18 Active pravastatin (PRAVACHOL) 20 mg tablet Take 1 tablet (20 mg total) by mouth nightly 4 08/09/20 18 Active fluticasone (FLONASE) 50 mcg/actuation nasal spray Administer 2 sprays into each nostril daily as needed Pt stated uses prn. 11 08/11/20 18 Active multivitamin with iron tablet Take 1 tablet by mouth daily Active albuterol HFA (PROVENTIL HFA,VENTOLIN HFA,PROAIR HFA) 90 mcg/actuation inhaler Inhale 2 puffs every 4 (four) hours as needed for wheezing Active psyllium, aspartame, SF (METAMUCIL SF) 3.4 gram packet Take 1 packet by mouth daily as needed Active TURMERIC ORAL Take 1 capsule by mouth daily Active melatonin 10 mg tablet Take 2 tablets at bedtime. Active omeprazole (PriLOSEC) 40 mg capsule Take 1 capsule (40 mg total) by mouth daily 03/07/20 21 Active metoprolol XL (TOPROL-XL) 25 mg extended release tablet Take 1 tablet (25 mg total) by mouth daily 08/21/20 21 Active aspirin 81 mg enteric coated tablet Take 1 tablet (81 mg total) by mouth nightly 08/28/20 21 Active ibuprofen (ADVIL,MOTRIN) 400 mg tabletIndicati ons:Pain Take 1 tablet (400 mg total) by mouth every 6 (six) hours as needed for pain 08/28/20 Active cholecalcifero l (VITAMIN D-3) 5,000 unit tablet Take 1 tablet (5,000 Units total) by mouth every other day Active oxygenIndicati ons:Dyspnea Inhale 2 L/min nightly Active prochlorperazi ne (Compazine) 10 mg tabletIndicati ons:Multiple myeloma not having achieved remission (CMS/HCC) (HCC) Take 1 tablet (10 mg total) by mouth every 6 (six) hours as needed for nausea or vomiting 30 tablet 3 12/10/19 23 Active Additional Information Patient not taking.Reported on 10/19/2024 escitalopram (LEXAPRO) 20 mg tablet Take 1 tablet (20 mg total) by mouth daily 04/01/20 23 Active Rexulti 1 mg tablet Take 1 tablet (1 mg total) by mouth daily 06/18/20 23 Active cyanocobalamin (Vitamin B-12) 1,000 mcg/mL injection Inject into the muscle as instructed 03/06/20 23 Active pirfenidone (ESBRIET) 267 mg tabletIndicati ons:Idiopathic pulmonary fibrosis (HCC) Take 3 tablets (801 mg total) by mouth 3 (three) times a day with meals 270 tablet 06/25/20 24 Active Additional Information Patient not taking.Reported on 10/19/2024 apixaban (Eliquis) 5 mg tablet Take 1 tablet (5 mg total) by mouth 2 (two) times a day 60 tablet 2 09/28/20 Active memantine XR (NAMENDA XR) 7 mg capsule,sprink le,ER 24hr Take by mouth daily 09/22/20 Active acyclovir (ZOVIRAX) 400 mg tabletIndicati ons:Multiple myeloma not having achieved remission (CMS/HCC) (HCC) TAKE 1 TABLET BY MOUTH 2 TIMES A DAY. 180 tablet 1 10/22/20 Active Anoro Ellipta 62.5-25 mcg/actuation blister with device INHALE 1 PUFF DAILY 180 each 3 10/22/20 Active Pomalyst 4 mg capsule TAKE 1 CAPSULE BY MOUTH DAILY, DO NOT BREAK, CHEW OR OPEN YOUR CAPSULES 21 capsule 11/20/19 25 Active Pomalyst 4 mg capsule TAKE 1 CAPSULE BY MOUTH DAILY. DO NOT BREAK, CHEW OR OPEN YOUR CAPSULES 21 capsule 10/05/20 24 025 Discontinued Active Problems Problem Noted Date Diagnosed Date Chronic ITP (idiopathic thrombocytopenia) 2022 Multiple myeloma not having achieved remission ( CMS/HCC) 11/08/2022 11/01/2022 Cancer Staging:Clinical stage from 11/01/2022:RISS Stage II(Ujje-9-zcggstjotxtmg (mg/L): 2.4, Albumin (g/dL): 3.9, ISS: Stage I, High-risk cytogenetics: Present, LDH: Normal) - Signed by Layne Colvin MD on 11/08/2022 Post-operative state 11/08/2021 Biliary colic 10/18/2021 On home oxygen therapy 10/17/2021 GERD (gastroesophageal reflux disease) Gallstones 10/10/2021 Overview (10/10/2021): Added automatically from request for surgery [id number] Abdominal pain 08/24/2021 RUQ abdominal pain 08/23/2021 Age-related osteoporosis wit h current pathological fracture with delayed healing 05/09/2021 Lumbar post-laminectomy syndrome 08/04/2019 Assessment & Plan (06/14/2020 12:05 PM CDT): Ms. Castelan is clinically doing well after posterior lumbar decompression and fusion. She denies any significant back pain or shooting leg pain, numbness or tingling. I plan to see her back in one year's time with AP and lateral lumbar spine films at that time. She has been recently diagnosed with the pulmonary issues and has started oxygen at night.. Assessment & Plan (12/15/2019 3:15 PM PAI GOW MANAGER): Ms. Castelan is improved after lumbar decompression and fusion. She has some persistent mechanical low back pain and some right proximal buttock pain. I think that is very reasonable to resume chiropractic treatment and I would be happy to talk to Dr. Singh about this. I plan to see her back in six months with AP and lateral lumbar spine films at that time. Assessment & Plan (08/04/2019 12:09 PM CDT): PLAN: 1. Continue activity restrictions as outlined prior to surgery. 2.Continue brace. 3. After 6 weeks, patient may resume NSAIDs, may increase activity as tolerated, wean off brace. 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 Reynoso in 4.5 months with Flexion/Extension Lumbar spine films. Other chronic pain 10/07/2018 Thoracic back pain 09/02/2018 Assessment & Plan (12/13/2021 4:33 PM PAI GOW MANAGER): Ms. Castelan is doing better in regards to thoracic spine pain. X-rays show about 50% loss of height at T9 and 40% loss of height T11. She has an overall kyphosis her thoracic spine and hyperlordosis of her lumbar spine. Her symptoms have improved and she continues on Prolia injections. We discussed that with the osteoporosis any future spine surgery would be at great risk. She and her voiced understanding. We will not set a scheduled appointment, but I would be happy to see her back at any point on as-needed basis. Assessment & Plan (04/18/2021 2:55 PM CDT): Mrs. Castelan is status post L4-5 posterior lumbar fusion without radicular symptoms. She presents with acute midline thoracic pain without known injury. I will have her obtain thoracic AP lateral flexion-extension x-rays to assess for any fractures as she has significant swelling of her mid back. Received call from Dr. Smith and discussed the thoracic xray results with Dr. Reynoso. Patient has a new compression fracture at T9. Given the spontanity of the fracture without injury, we would offer TLSO bracing to help with comfort and if she requires stronger pain medication, to speak with her PCP. We will re-evaluate when she returns to the office in May with a repeat thoracic/lumbar AP/LAT Xray. I would also have the patient see a Bone Health Specialist for an updated bone density study and treatment. The findings were discussed in detail with the patient's . Will order a brace through [employer] and refer to [facility]. Vertebral compression fracture 09/02/2018 Assessment & Plan (06/14/2021 12:03 PM CDT): Ms. Castelan is doing very well in regards to her lumbar decompression and fusion. She has an old compression fracture at T11 with 40% loss of height and a new compression fracture from March at T9 with 30% loss of height. She has yet to see Endocrinology for bone density evaluation. She will do so in the near future. She has discussed options with Dr. Rubio and is wary of vertebroplasty as he explained that this does place her adjacent levels at increased risk for fracture. I agree with this. She does have pain that wraps around her torso on the right in the T9 distribution. This may benefit from an injection by Dr. Rubio and she will talk to him about this. I plan to see her back in 6 months with AP and lateral thoracic spine films at that time. She had her are aware that in the presence of osteoporosis, surgery is not a viable option. Chronic obstructive pulmonary disease Pulmonary fibrosis (CMS/HCC) Resolved Problems Problem Noted Date Diagnosed Date Resolved Date Lumbar stenosis with neurogenic claudication 9 12/15/2019 Overview (05/22/2019): Added automatically from request for surgery [id number] Neurogenic claudication 01/06/201911/28 Overview (01/06/2019): Added automatically from request for surgery [id number] Assessment & Plan (04/21/2019 1:39 PM CDT): Ms. Castelan has lumbar stenosis with neurogenic claudication. She is a candidate with her MRI and symptoms for L4-5 decompression and fusion. The decision whether she is a surgical candidate all would be up to Dr. Amaral, her sales and service technician. We discussed that the surgery would take about an hour and a half of incision time or less. There would be a little time with anesthesia before and afterwards. We discussed that we use EMG monitoring which forces anesthesia keep her under light anesthesia. She will discuss whether or not she is a surgical candidate with Dr. Amaral if she is, we will get a new MRI to make sure she does not have any adjacent level disease that would need to be addressed at the same time. Low back pain with bilateral sciatica 10/07/2018 12/15/2019 Assessment & Plan (12/10/2018 4:43 PM PAI GOW MANAGER): Ms. Castelan has persistent low back pain right anterior thigh pain and posterior left buttock pain. She has lateral recess stenosis primarily on the right at L4-5. She is now having bilateral symptoms. Given the degenerative scoliosis of her lumbar spine any surgery would likely involve a fusion. I have offered her L4-5 laminectomy and fusion to treat her symptoms when they become intolerable. Spinal stenosis of lumbar re gion with neurogenic claudication 09/02/2018 12/15/2019 Encounters Date Type Department Care Team Description 12/01/2024 1:00 PM PAI GOW MANAGER Infusion [address] [address] Multiple myeloma not having achieved remission (CMS/HCC) (HCC) (Primary Dx); Chronic ITP (idiopathic thrombocytopenia) (HCC) 12/01/2024 12:30 PM PAI GOW MANAGER Lab [address] [address] Multiple myeloma not having achieved remission (CMS/HCC) (HCC); Chronic ITP (idiopathic thrombocytopenia) (HCC) 11/05/2024 Orders Only [facility] [address] [facility] Floor 6 [place] [address] Quynh Macias, RN Multiple myeloma not having achieved remission (CMS/HCC) (HCC) (Primary Dx) 10/19/2024 11:00 AM PAI GOW MANAGER Lab [facility] at [address] [address] Age-related osteoporosis without current pathological fracture 10/19/2024 10:20 AM PAI GOW MANAGER Office Visit [facility] [address] [facility] Medical Office Building [address] [place] [address] Pricila Hernandez MD Age-related osteoporosis without current pathological fracture (Primary Dx) 10/19/2024 9:50 AM PAI GOW MANAGER Clinical Support [address] Medical Office Building [address] [place] [address] Age-related osteoporosis without current pathological fracture 10/19/2024 Orders Only [facility] [address] [facility] [address] 6 [place] [address] Candis Hager RN 10/19/[address] Medical Office Building [address] [place] [address] Pricila Hernandez MD 10/06/2024 1:00 PM PAI GOW MANAGER Infusion [address] [address] Multiple myeloma not having achieved remission (CMS/HCC) (HCC) (Primary Dx); Chronic ITP (idiopathic thrombocytopenia) (HCC) 10/06/2024 12:30 PM PAI GOW MANAGER Lab [address] [address] Multiple myeloma not having achieved remission (CMS/HCC) (HCC); Chronic ITP (idiopathic thrombocytopenia) (HCC) 09/08/2024 1:30 PM PAI GOW MANAGER Infusion [address] [address] Multiple myeloma not having achieved remission (CMS/HCC) (HCC) (Primary Dx); Chronic ITP (idiopathic thrombocytopenia) (HCC); Age-related osteoporosis with current pathological fracture with delayed healing 09/08/2024 12:45 PM PAI GOW MANAGER Lab [facility] [address] [place] [address] Multiple myeloma not having achieved remission (CMS/HCC) (HCC); Chronic ITP (idiopathic thrombocytopenia) (HCC) 09/08/2024 Orders Only [facility] [facility] [address] [place] [address] Layne Colvin MD Multiple myeloma not having achieved remission (CMS/HCC) (HCC) (Primary Dx) 09/08/2024 Orders Only [facility] [address] [place] [id number] Quynh Macias, JACK 09/08/2024 Orders Only [facility] [address] [place] [address] [address] [place] [id number] Quynh Macias, career coordinator ITP (idiopathic thrombocytopenia) (HCC) (Primary Dx); Multiple myeloma not having achieved remission (CMS/HCC) ([facility]) 09/07/2024 11:00 AM PAI GOW MANAGER Office Visit [facility] [address] [facility] 2nd Floor [address] [place] [address] Sophia Becerril, BONITA Multiple myeloma not having achieved remission (CMS/HCC) ([facility]) 09/07/2024 10:45 AM PAI GOW MANAGER Lab [facility] [address] [facility] [address] [place] [address] Multiple myeloma not having achieved remission (CMS/HCC) ([facility]); Age-related osteoporosis with current pathological fracture with delayed healing 09/07/2024 10:30 AM PAI GOW MANAGER Lab [facility] [address] [facility] 2nd Floor [address] [place] [address] Multiple myeloma not having achieved remission (CMS/HCC) ([facility]) from Last 3 Months Immunizations Name Administration Dates Next Due Pfizer SARS-CoV-2 Monovalent Vaccination (12+ Yrs) GOULD-READY TO USE 04/20/2022 Surgical History Surgery Date Site/Laterality Comments HYSTERECTOMY 10/28/2016 - 10/27/2017 BREAST BIOPSY 10/28/2017 - 10/27/2018 CATARACT EXTRACTION 10/28/2011 - 10/27/2012 BUNIONECTOMY 2006, 2009, 2011 TONSILECTOMY, ADENOIDECTOMY, BILATERAL MYRINGOTOMY AND TUBES 10/28/1961 - 10/27/1962 SECTION x2 POSTERIOR FUSION LUMBAR SPINE 05/28/2019 - 06/27/2019 L4-5 PSF with resection of synovial cyst (Edgardo) CHOLECYSTECTOMY 09/27/2021 - 10/27/2021 Dr. 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 Pneumonia Family History Medical History Relation Name Comments Cancer Brother Diabetes Brother Heart attack Father Cancer Mother Diabetes Mother Relation Name Status Comments Brother Father Mother Social History Tobacco Use Types Packs/Day Years Used Date Smoking Tobacco: Former Cigarettes 1 25 0 10/28/1979 - 10/28/2004 Passive Smoke Exposure: Past Smokeless Tobacco: Never Tobacco Cessation:Counseling Given: Not Answered Alcohol Use Standard Drinks/Week Comments No 0 [...] on file Legal Sex Female 3:20 AM PAI GOW MANAGER Gender Identity Not on file Sexual Orientation Straight 03/13/2021 1: 23 PM CDT Obstetrics History Last Filed Vital Signs Vital Sign Reading Time Taken Comments Blood Pressure 110/72 12/01/2024 2:45 PM PAI GOW MANAGER Pulse 54 12/01/2024 2:45 PM PAI GOW MANAGER Temperature 36.8 C (98.2 F) 12/01/2024 2:45 PM PAI GOW MANAGER Respiratory Rate 16 12/01/2024 2:45 PM PAI GOW MANAGER Oxygen Saturation 94% 12/01/2024 2:45 PM PAI GOW MANAGER Inhaled Oxygen Concentration - - Weight 69.8 kg (153 lb 12.8 oz) 025 12:53 PM PAI GOW MANAGER Height 158.8 cm (5' 2.5 ) 10/19/2024 10 :42 AM PAI GOW MANAGER Body Mass Index 27.68 10/19/2024 10:42 AM PAI GOW MANAGER Plan of Treatment Health Maintenance Due Date Last Done Comments Hepatitis C Screening 1945 Hepatitis B Screening 1965 Zoster Vaccine (1 of 2) 1966 DTaP/Tdap/Td Vaccine (1 - Tdap) 07/29/2009 9 Well Visit 65+ 2012 Depression Screening 12/10/2019 12/10/2018 Fall Risk Assessment 10/19/2022 10/19/2021 Covid-19 Vaccine (2023- 5 season) 2024 04/20/2022, 09/25/2021, 01/13/2021, Additional history exists Influenza Vaccine (#1) 2024 , 08/08/2021, 07/31/2021, Additional history exists Osteoporosis Screening-Bone Density Scan 10/19/2026 10/19/2024, 10/09/2023, 10/10/2022, Additional history exists Pneumococcal vaccine 65+ Completed 12/16/2014, 10/28 Breast Cancer Screening-Mammogram Discontinued 016 Goals Goal Patient Goal Type Associated Problems [...] lifestyle strategies and compensatory methods as needed Medical Devices Implanted Type Area Biomedical Equipment Support Specialist Device Identifier Shelf Expiration Date Model / Serial / Lot TareasPlus [id number] Inqu Paste Mix Plus Solution Maker 10cc Bone Graft Hyaluronic Acid Poly - [id number] Implanted:Qty: 1 on 06/22/2019 by Cheko Reynoso MD at [facility] N/A: Spine Lumbar [employer] [id number] 01/13/2021 [id number] / / [id number] Core Link [id number] [place] 6.5mm 40mm Spine Pedicle Screw Bone 5500 Series - [id number] Implanted:Qty: 4 on 06/22/2019 by Cheko Reynoso MD at [facility] N/A: Spine Lumbar Core Link [id number] / / Core Link [id number] [place] Screw Set 5500 Series - [id number] Implanted:Qty: 4 on 06/22/2019 by Cheko Reynoso MD at [facility] N/A: Spine Lumbar Core Link [id number] / / Core Link [id number] [place] 5.5mm 40mm Line Prebent Marvin Spinal Nonsterile 5500 Series - [id number] Implanted:Qty: 2 on 06/22/2019 by Cheko Reynoso MD at [facility] Core Link [id number] / / Explanted Type Area Biomedical Equipment Support Specialist Device Identifier Shelf Expiration Date Model / Serial / Lot [employer] Ashleigh [id number] Wallflex Permalume 10mm 8.5fr 60mm 194cm Fully Cover Catheter - [id number] Implanted:Qty: 1 on 08/23/2021 by Kenny Castro MD at [facility] Explanted:Qty: 1 on 08/25/2021 by Kenny Castro MD at [facility] Stent N/A: Bile Duct [employer] Ashleigh 07/11/2023 [id number] / / [id number] Procedures Procedure Name Priority Date/Time Associated Diagnosis Comments EGFR STAT 12/01/2024 12:52 PM PAI GOW MANAGER Multiple myeloma not having achieved remission (CMS/HCC) (HCC) DIFFERENTIAL AUTO Routine 12/01/2024 12:52 PM PAI GOW MANAGER Multiple myeloma not having achieved remission (CMS/HCC) (HCC) IGA Routine 12/01/2024 12:52 PM PAI GOW MANAGER Multiple myeloma not having achieved remission (CMS/HCC) (HCC) IGG Routine 12/01/2024 12:52 PM PAI GOW MANAGER Multiple myeloma not having achieved remission (CMS/HCC) (HCC) IGM Routine 12/01/2024 12:52 PM PAI GOW MANAGER Multiple myeloma not having achieved remission (CMS/HCC) (HCC) IMMUNOGLOBULIN FREE LIGHT CHAINS Routine 12/01/2024 12:52 PM PAI GOW MANAGER Multiple myeloma not having achieved remission (CMS/HCC) (HCC) LACTATE DEHYDROGENASE Routine 12/01/2024 12:52 PM PAI GOW MANAGER Multiple myeloma not having achieved remission (CMS/HCC) (HCC) PROTEIN ELECTROPHORESIS, WITH REFLEX, SERUM Routine 12/01/2024 12:52 PM PAI GOW MANAGER Multiple myeloma not having achieved remission (CMS/HCC) (HCC) RETICULOCYTES Routine 12/01/2024 12:52 PM PAI GOW MANAGER Multiple myeloma not having achieved remission (CMS/HCC) (HCC) CBC WITH AUTO DIFFERENTIAL Routine 12/01/2024 12:52 PM PAI GOW MANAGER Multiple myeloma not having achieved remission (CMS/HCC) (HCC) COMPREHENSIVE METABOLIC PANEL STAT 12/01/2024 12:52 PM PAI GOW MANAGER Multiple myeloma not having achieved remission (CMS/HCC) (HCC) VITAMIN D 25 HYDROXY Routine 10/19/2024 10:59 AM PAI GOW MANAGER Age-related osteoporosis without current pathological fracture DEXA TBS AXIAL SKELETON BONE DENSITY 1 OR MORE SITES Schedule Routine, Read Routine (OP Routine) 10/19/2024 10:21 AM PAI GOW MANAGER Age-related osteoporosis without current pathological fracture EGFR STAT 10/06/2024 12:52 PM PAI GOW MANAGER Multiple myeloma not having achieved remission (CMS/HCC) (HCC) DIFFERENTIAL AUTO Routine 10/06/2024 12:52 PM PAI GOW MANAGER Multiple myeloma not having achieved remission (CMS/HCC) (HCC) CBC WITH AUTO DIFFERENTIAL Routine 10/06/2024 12:52 PM PAI GOW MANAGER Multiple myeloma not having achieved remission (CMS/HCC) (HCC) COMPREHENSIVE METABOLIC PANEL STAT 10/06/2024 12:52 PM PAI GOW MANAGER Multiple myeloma not having achieved remission (CMS/HCC) (HCC) IMMUNOTYPING Routine 09/07/2024 12:23 PM PAI GOW MANAGER Multiple myeloma not having achieved remission (CMS/HCC) (HCC) PROTEIN ELECTROPHORESIS, WITH REFLEX, SERUM Routine 09/07/2024 12:23 PM PAI GOW MANAGER Multiple myeloma not having achieved remission (CMS/HCC) (HCC) EGFR Routine 09/07/2024 10:57 AM PAI GOW MANAGER Multiple myeloma not having achieved remission (CMS/HCC) (HCC) DIFFERENTIAL AUTO Routine 09/07/2024 10:57 AM PAI GOW MANAGER Multiple myeloma not having achieved remission (CMS/HCC) (HCC) PHOSPHORUS Routine 09/07/2024 10:57 AM PAI GOW MANAGER Multiple myeloma not having achieved remission (CMS/HCC) (HCC) Age-related osteoporosis with current pathological fracture with delayed healing CBC WITH AUTO DIFFERENTIAL Routine 09/07/2024 10:57 AM PAI GOW MANAGER Multiple myeloma not having achieved remission (CMS/HCC) (HCC) COMPREHENSIVE METABOLIC PANEL Routine 09/07/2024 10:57 AM PAI GOW MANAGER Multiple myeloma not having achieved remission (CMS/HCC) (HCC) IGA Routine 09/07/2024 10:57 AM PAI GOW MANAGER Multiple myeloma not having achieved remission (CMS/HCC) (HCC) IGG Routine 09/07/2024 10:57 AM PAI GOW MANAGER Multiple myeloma not having achieved remission (CMS/HCC) (HCC) IGM Routine 09/07/2024 10:57 AM PAI GOW MANAGER Multiple myeloma not having achieved remission (CMS/HCC) (HCC) IMMUNOGLOBULIN FREE LIGHT CHAINS Routine 09/07/2024 10:57 AM PAI GOW MANAGER Multiple myeloma not having achieved remission (CMS/HCC) (HCC) LACTATE DEHYDROGENASE Routine 09/07/2024 10:57 AM PAI GOW MANAGER Multiple myeloma not having achieved remission (CMS/HCC) (HCC) RETICULOCYTES Routine 09/07/2024 10:57 AM PAI GOW MANAGER Multiple myeloma not having achieved remission (CMS/HCC) (HCC) from Last 3 Months Results * eGFR (12/01/2024 12:52 PM PAI GOW MANAGER) eGFR 74 >=60 mL/min/1. 73 m2 Comment: Interpretive Data Reference Interval Normal >/= 90 mL/min/1.73m2 Mildly decreased* 60 - 89 mL/min/1.73m2 Mildly to moderately decreased 45 - 59 mL/min/1.73m2 Moderately to severely decreased 30 - 44 mL/min/1.73m2 Severely decreased 15 - 29 mL/min/1.73m2 Kidney Failure < 15 mL/min/1.73m2 *Relative to young adult level Estimated glomerular filtration rate is determined by the 2020 CKD-EPI equation recommended by the National Kid[employer] (A Unifying Approach to GFR Estimation: Recommendations of the NKF-ASK Task Force on Reassessing the Inclusion of Race in Diagnosing Kidney Disease, JASN 2020). The CKD-EPI equation should not be used for patients with unstable renal function and has not been validated in children and those over 70. Current interpretive data was last reviewed 2021. Blood 12/01/2024 12:5 2 PM PAI GOW MANAGER 12/01/2024 12:52 PM PAI GOW MANAGER us Layne Colvin MD LAB BLOOD ORDERABLES Final Result [facility] Department [place] [address] * (ABNORMAL) Differential, auto (12/01/2024 12:52 PM PAI GOW MANAGER) Neutrophil abs 2.0 1.5 - 6.5 K/cumm Comment:Testing performed by : [facility], [address] [place] [address] Imm gran abs 0.0 0.0 - 0.1 K/cumm [facility] Lymphocyte abs 1.8 0.8 - 3.3 K/cumm [facility] Monocyte abs 1.3(H) 0.2 - 0.8 K/cumm [facility] Eosinophil abs 0.7(H) 0.0 - 0.5 K/cumm [facility] Basophil abs 0.1 0.0 - 0.1 K/cumm [facility] Neutrophil pct 34.2 % [facility] Comment: Interpretive Data Percent cell count reference ranges are not reported, since discordance with absolute values may lead to misinterpretation of CBC data. Current Interpretive Data was last revised on 2018. Imm gran pct 0.3 % [facility] Comment: Interpretive Data Percent cell count reference ranges are not reported, since discordance with absolute values may lead to misinterpretation of CBC data. Current Interpretive Data was last revised on 2018. Lymphocyte pct 30.0 % [facility] Comment: Interpretive Data Percent cell count reference ranges are not reported, since discordance with absolute values may lead to misinterpretation of CBC data. Current Interpretive Data was last revised on 2018. Monocyte pct 22.3 % [facility] Comment: Interpretive Data Percent cell count reference ranges are not reported, since discordance with absolute values may lead to misinterpretation of CBC data. Current Interpretive Data was last revised on 2018. Eosinophil pct 11.5 % [facility] Comment: Interpretive Data Percent cell count reference ranges are not reported, since discordance with absolute values may lead to misinterpretation of CBC data. Current Interpretive Data was last revised on 2018. Basophil pct 1.7 % [facility] Comment: Interpretive Data Percent cell count reference ranges are not reported, since discordance with absolute values may lead to misinterpretation of CBC data. Current Interpretive Data was last revised on 2018. Blood 12/01/2024 12:5 2 PM PAI GOW MANAGER 12/01/2024 12:52 PM PAI GOW MANAGER Layne Colvin MD LAB BLOOD ORDERABLES Final Result [facility] [place] [address] * (ABNORMAL) Immunoglobulin free light chains (12/01/2024 12:52 PM PAI GOW MANAGER) [facility] [place]/Lambda ratio [facility] 1.77(H) 0.26 - 1.65 Comment: Interpretive Data The Binding Site FreeLite assay procedure was used. Results from different manufacturers or methods may not be comparable. Serial testing should be performed using the same methods and instrumentation. Current Interpretive Data was last revised on 2023. [place] free light chain [facility] 0.62 0.33 - 1.94 mg/dL [facility] Comment: Interpretive Data The Binding Site FreeLite assay procedure was used. Results from different manufacturers or methods may not be comparable. Serial testing should be performed using the same methods and instrumentation. Current Interpretive Data was last revised on 2023. Lambda free light chain [facility] 0.35(L) 0.57 - 2.63 mg/dL [facility] Comment: Interpretive Data The Binding Site FreeLite assay procedure was used. Results from different manufacturers or methods may not be comparable. Serial testing should be performed using the same methods and instrumentation. Current Interpretive Data was last revised on 2023. Blood 12/01/2024 12:5 2 PM PAI GOW MANAGER 12/01/2024 2:01 PM PAI GOW MANAGER Sophia Becerril NP LAB BLOOD ORDERABLES Final Result Performing Organization Address City/[facility] Co de Phone Number [facility] Department [place] [address] * (ABNORMAL) CBC with auto differential (12/01/2024 12:52 PM PAI GOW MANAGER) [facility] WBC 5.8 3.8 - 9.9 K/cumm Comment:Testing performed by : [facility], [address] [place] [address]4529 Hgb 12.0 11.9 - 15.5 g/dL [facility] Comment:Testing performed by : [facility], [address] [place] [address]114 Hct 36.0 35.6 - 45.5 % [facility] Comment:Testing performed by : [facility], [address] [place] [address] 31877 Plt 251 150 - 400 K/cumm [facility] Comment:Testing performed by : [facility], [address] [place] [address] 40362 MPV 10.3 9.1 - 12.3 fL [facility] RBC 3.63(L) 3.90 - 5.20 M/cumm [facility] MCV 99.2(H) 81.3 - 96.4 fL [facility] MCH 33.1 27.1 - 33.3 pg [facility] MCHC 33.3 32.3 - 35.7 g/dL [facility] RDW CV 13.2 11.1 - 14.9 % [facility] RDW SD 46.9 35.7 - 48.1 fL [facility] NRBC abs 0.00 0.00 - 0.01 K/cumm [facility] Blood 12/01/2024 12:5 2 PM PAI GOW MANAGER 12/01/2024 12:52 PM PAI GOW MANAGER Layne Colvin MD LAB BLOOD ORDERABLES Final Result Performing Organization Address City/[facility] Co de Phone Number [facility] Department [place] [address] * Reticulocyte Count (12/01/2024 12:52 PM PAI GOW MANAGER) Retics, absolute 0.053 0.020 - 0.087 M/cumm Retics 1.5 0.4 - 2.9 % [facility] Reticulocyte Hgb 36.1 30.5 - 38.0 pg [facility] Blood 12/01/2024 12:5 2 PM PAI GOW MANAGER 12/01/2024 12:52 PM PAI GOW MANAGER Sophia Becerril COSTUME DESIGNER LAB BLOOD ORDERABLES Final Result [facility] Department [place] [address] * (ABNORMAL) Protein electrophoresis with reflex, serum with interpretation (12/01/2024 12:52 PM PAI GOW MANAGER) [facility] Protein, sr 5.5(L) 6.2 - 8.2 g/dL Albumin 3.7 3.2 - 5.0 g/dL [facility] Alpha-1 globulin 0.3 0.2 - 0.4 g/dL [facility] Alpha-2 globulin 0.7 0.5 - 1.0 g/dL [facility] Beta-1 globulin 0.3 0.3 - 0.6 g/dL [facility] Beta-2 globulin 0.2 0.2 - 0.6 g/dL [facility] Gamma globulin 0.3(L) 0.5 - 1.7 g/dL [facility] Rstr Pk Gamma 0.1(H) 0.0 - 0.0 g/dL [facility] SPEP interp Please see comment [facility] Comment: Abnormal restricted peak in Gamma region Decreased gamma globulins Electrophoretic pattern appears similar to previous sample 09/09/24 Reviewed and signed by Milton Vanegas MD, PhD 12/02/2024 Blood 12/01/2024 12:5 2 PM PAI GOW MANAGER 12/01/2024 2:01 PM PAI GOW MANAGER Sophia Becerril NP LAB BLOOD ORDERABLES Final Result [facility] Department [place] [address] * Lactate dehydrogenase (LD) (12/01/2024 12:52 PM PAI GOW MANAGER) [facility] Lactate dehydrogenase (LDH) 167 100 - 250 Units/L Comment:Testing performed by : [facility], [address] [place] [address] Blood 12/01/2024 12:5 2 PM PAI GOW MANAGER 12/01/2024 12:52 PM PAI GOW MANAGER Sophia Becerril COSTUME DESIGNER LAB BLOOD ORDERABLES Final Result Performing Organization Address City/[facility] Co de Phone Number J[facility] [place] [place] [address] * (ABNORMAL) IgA (12/01/2024 12:52 PM PAI GOW MANAGER) Immunoglobulin A <50(L) 70 - 400 mg/dL Blood 12/01/2024 12:5 2 PM PAI GOW MANAGER 12/01/2024 2:01 PM PAI GOW MANAGER Sophia Becerril COSTUME DESIGNER LAB BLOOD ORDERABLES Final Result Performing Organization Address [facility] Co de Phone Number [facility] [place] [address] * (ABNORMAL) IgM (12/01/2024 12:52 PM PAI GOW MANAGER) Immunoglobulin M <25(L) 40 - 230 mg/dL Blood 12/01/2024 12:5 2 PM PAI GOW MANAGER 12/01/2024 2:01 PM PAI GOW MANAGER Sophia Becerril COSTUME DESIGNER LAB BLOOD ORDERABLES Final Result Performing Organization Address [facility] Co de Phone Number [facility] [place] [address] * (ABNORMAL) IgG (12/01/2024 12:52 PM PAI GOW MANAGER) Immunoglobulin G <300(L) 700 - 1,600 mg/dL Blood 12/01/2024 12:5 2 PM PAI GOW MANAGER 12/01/2024 2:01 PM PAI GOW MANAGER Sophia Becerril COSTUME DESIGNER LAB BLOOD ORDERABLES Final Result Performing Organization Address City/[facility] Co de Phone Number [facility] [place] [address] * (ABNORMAL) Comprehensive metabolic panel (12/01/2024 12:52 PM PAI GOW MANAGER) Sodium 138 135 - 145 mmol/L Comment:Testing performed by : [facility], [address] [facility] [address] Potassium, pl 4.6 3.3 - 4.9 mmol/L [facility] Chloride 102 97 - 110 mmol/L [facility] CO2 31 22 - 32 mmol/L [facility] Anion gap 5 2 - 15 mmol/L [facility] BUN 15 6 - 25 mg/dL [facility] Creatinine 0.82 0.60 - 1.10 mg/dL [facility] Glucose 106 70 - 199 mg/dL [facility] Comment: Interpretive Data Fasting glucose >/= 126 mg/dl is diagnostic for diabetes. Fasting is defined as no caloric intake for at least 8 hours. Fasting glucose between 100 mg/dl to 125 mg/dl is diagnostic of prediabetes. In a patient with classic symptoms of hyperglycemia or hyperglycemic crisis, a random glucose >/= 200 mg/dl is diagnostic for diabetes. In the absence of unequivocal hyperglycemia, results should be confirmed by repeat testing. The classification and Diagnosis of Diabetes Diabetes Care 202; 46: S19-S40. Current interpretive data was last revised 2022. Calcium 9.4 8.5 - 10.3 mg/dL [facility] Bilirubin, total 0.4 0.1 - 1.2 mg/dL [facility] Protein, pl 6.0(L) 6.5 - 8.5 g/dL [facility] Albumin 4.2 3.5 - 5.0 g/dL [facility] Alk phos 37(L) 40 - 130 Units/L [facility] ALT 14 7 - 45 Units/L [facility] AST 18 10 - 45 Units/L [facility] Blood 12/01/2024 12:5 2 PM PAI GOW MANAGER 12/01/2024 12:52 PM PAI GOW MANAGER us Layne Colvin MD LAB BLOOD ORDERABLES Final Result [facility] Department [place] [address] * Vitamin D 25 hydroxy (10/19/2024 10:59 AM PAI GOW MANAGER) Vitamin D 25-OH 57 30 - 80 ng/mL Comment:Testing performed by : [facility], [address], [place] [address] Blood 10/19/2024 10:5 9 AM PAI GOW MANAGER 10/19/2024 11:27 AM PAI GOW MANAGER us Pricila Hernandez MD LAB BLOOD ORDERABLES Final Re sult [facility] [address] [facility]. [place] [address] * Dexa TBS Axial Skeleton Bone Density 1 or more sites (10/19/2024 10:21 AM PAI GOW MANAGER) Anatomical Region Laterality Modality Wrist, Body N/A Radiographic Marivel ging Narrative 10/19/2024 11:48 AM PAI GOW MANAGER Patient Name: Myah Castelan Date of : 1945 Date of scan: 10/19/2024 Bone mineral density was performed on a [employer] Discovery Densitometer. Based on machine cross-calibration and precision studies the least significant changes of this densitometer is 0.024 g/cm2 at the spine, 0.020 g/cm2 at the total proximal femur, and 0.014g/cm2 at the forearm. HISTORY: This is a 79 y.o. postmenopausal female with a history of low bone mass and vitamin D deficiency. She reports that she quit smoking about 19 years ago. Her smoking use included cigarettes. She started smoking about 45 years ago. She has a 25 pack-year smoking history. She has been exposed to tobacco smoke. She has never used smokeless tobacco. Currently on treatment with calcium, vitamin D, denosumab (Prolia), and anticoagulants, previously treated with hormone replacement therapy, and current complaint of back pain. INDICATIONS: Menopause status, treatment monitoring, history of prior vertebral fracture, vitamin D deficiency, and history of low bone mass. FINDINGS: BONE MINERAL DENSITY OF THE PROXIMAL FEMUR Bone Mineral Density (BMD) of the left hip total was found to be 0..841 gm/cm2. This corresponds to a T-score standard deviations from the mean of young adults of -0.8. Femoral neck is 0.686 gm/cm2 with a T-score (standard deviations from the mean of young adults) of -1.5. When compared to the previous study of 10/09/2023 there has been no significant changes in bone density. BONE MINERAL DENSITY OF THE FOREARM Bone Mineral density (BMD) of the left proximal 1/3 of the radius measures 0.683 gm/cm2. This corresponds to a T-score (standard deviations from the mean of young adults) of -0.2. When compared to the previous study of 10/09/2023 there has been no significant changes in bone density. A forearm bone density study was performed instead of a spine study due to presence of surgical hardware. SUMMARY: Bone mineral density shows evidence of low bone mass at the proximal femur and moderately increased fracture risk (Osteopenia). There has been no significant changes in bone density since previous measurement. The lumbar spine Trabecular Bone Score TBS was not obtained due to the bone mineral density of the spine not being acquired. ADDITIONAL COMMENTS: Postmenopausal Women and Men Over 50: Diagnostic criteria: Osteoporosis: BMD at or below -2.5 T-score; Osteopenia (low bone mass): BMD between -1.0 and -2.5 T-score. If the patient has a history of a fragility fracture, a fracture that occurred with trauma equivalent to a fall from a standing position or less, then the diagnosis is osteoporosis regardless of bone density. The history and data sections of the bone mineral density scan were prepared by Citlali Rhodes (R)(CBDT) who is accredited by the International Society of Clinical Densitometry. The overall patient assessment and scan interpretation were performed by Pricila Hernandez M.D. who is certified by the International Society of Clinical Densitometry. [id number] Pricila Hernandez MD [facility] DXA PROCEDURES Final Resu lt * eGFR (10/06/2024 12:52 PM PAI GOW MANAGER) [facility] eGFR >90 >=60 mL/min/1. 73 m2 Comment: Interpretive Data Reference Interval Normal >/= 90 mL/min/1.73m2 Mildly decreased* 60 - 89 mL/min/1.73m2 Mildly to moderately decreased 45 - 59 mL/min/1.73m2 Moderately to severely decreased 30 - 44 mL/min/1.73m2 Severely decreased 15 - 29 mL/min/1.73m2 Kidney Failure < 15 mL/min/1.73m2 *Relative to young adult level Estimated glomerular filtration rate is determined by the 2020 CKD-EPI equation recommended by the National Kidney Foundation (A Unifying Approach to GFR Estimation: Recommendations of the NKF-ASK Task Force on Reassessing the Inclusion of Race in Diagnosing Kidney Disease, JASN 2020). The CKD-EPI equation should not be used for patients with unstable renal function and has not been validated in children and those over 70. Current interpretive data was last reviewed 2021. Blood 10/06/2024 12:5 2 PM PAI GOW MANAGER 10/06/2024 12:52 PM PAI GOW MANAGER Layne Colvin MD LAB BLOOD ORDERABLES Final Result [facility] Department [place] [address] * Differential, auto (10/06/2024 12:52 PM PAI GOW MANAGER) [facility] Neutrophil abs 4.0 1.5 - 6.5 K/cumm Comment:Testing performed by : [facility], [address] [place] [address] Imm gran abs 0.0 0.0 - 0.1 K/cumm [facility] Lymphocyte abs 2.1 0.8 - 3.3 K/cumm [facility] Monocyte abs 0.6 0.2 - 0.8 K/cumm [facility] Eosinophil abs 0.1 0.0 - 0.5 K/cumm [facility] Basophil abs 0.1 0.0 - 0.1 K/cumm [facility] Neutrophil pct 57.0 % [facility] Comment: Interpretive Data Percent cell count reference ranges are not reported, since discordance with absolute values may lead to misinterpretation of CBC data. Current Interpretive Data was last revised on 2018. Imm gran pct 0.3 % [facility] Comment: Interpretive Data Percent cell count reference ranges are not reported, since discordance with absolute values may lead to misinterpretation of CBC data. Current Interpretive Data was last revised on 2018. Lymphocyte pct 29.7 % [facility] Comment: Interpretive Data Percent cell count reference ranges are not reported, since discordance with absolute values may lead to misinterpretation of CBC data. Current Interpretive Data was last revised on 2018. Monocyte pct 9.1 % [facility] Comment: Interpretive Data Percent cell count reference ranges are not reported, since discordance with absolute values may lead to misinterpretation of CBC data. Current Interpretive Data was last revised on 2018. Eosinophil pct 2.0 % [facility] Comment: Interpretive Data Percent cell count reference ranges are not reported, since discordance with absolute values may lead to misinterpretation of CBC data. Current Interpretive Data was last revised on 2018. Basophil pct 1.9 % [facility] Comment: Interpretive Data Percent cell count reference ranges are not reported, since discordance with absolute values may lead to misinterpretation of CBC data. Current Interpretive Data was last revised on 2018. Blood 10/06/2024 12:5 2 PM PAI GOW MANAGER 10/06/2024 12:52 PM PAI GOW MANAGER us Layne Colvin MD LAB BLOOD ORDERABLES Final Result [facility] Department [place] [address] * (ABNORMAL) CBC with auto differential (10/06/2024 12:52 PM PAI GOW MANAGER) WBC 7.0 3.8 - 9.9 K/cumm Comment:Testing performed by : [address] [address] Hgb 11.2(L) 11.9 - 15.5 g/dL [facility] Comment:Testing performed by : [address] [address] Hct 34.3(L) 35.6 - 45.5 % [facility] Comment:Testing performed by : [facility], [address] [place] [address]005 Plt 358 150 - 400 K/cumm [facility] Comment:Testing performed by : [facility], [address] [place] [address]84 MPV 9.9 9.1 - 12.3 fL [facility] RBC 3.43(L) 3.90 - 5.20 M/cumm [facility] MCV 100.0(H) 81.3 - 96.4 fL [facility] MCH 32.7 27.1 - 33.3 pg [facility] MCHC 32.7 32.3 - 35.7 g/dL [facility] RDW CV 13.0 11.1 - 14.9 % [facility] RDW SD 46.7 35.7 - 48.1 fL [facility] NRBC abs 0.00 0.00 - 0.01 K/cumm [facility] Blood 10/06/2024 12:5 2 PM PAI GOW MANAGER 10/06/2024 12:52 PM PAI GOW MANAGER Layne Colvin MD LAB BLOOD ORDERABLES Final Result [facility] Department [place] [address] * (ABNORMAL) Comprehensive metabolic panel (10/06/2024 12:52 PM PAI GOW MANAGER) [facility] Sodium 141 135 - 145 mmol/L Comment:Testing performed by : [facility], [address] [place] [address] Potassium, pl 4.6 3.3 - 4.9 mmol/L [facility] Chloride 104 97 - 110 mmol/L [facility] CO2 32 22 - 32 mmol/L [facility] Anion gap 5 2 - 15 mmol/L [facility] BUN 18 6 - 25 mg/dL [facility] Creatinine 0.65 0.60 - 1.10 mg/dL [facility] Glucose 158 70 - 199 mg/dL [facility] Comment: Interpretive Data Fasting glucose >/= 126 mg/dl is diagnostic for diabetes. Fasting is defined as no caloric intake for at least 8 hours. Fasting glucose between 100 mg/dl to 125 mg/dl is diagnostic of prediabetes. In a patient with classic symptoms of hyperglycemia or hyperglycemic crisis, a random glucose >/= 200 mg/dl is diagnostic for diabetes. In the absence of unequivocal hyperglycemia, results should be confirmed by repeat testing. The classification and Diagnosis of Diabetes Diabetes Care 2021; 46: S19-S40. Current interpretive data was last revised 2022. Calcium 9.2 8.5 - 10.3 mg/dL [facility] Bilirubin, total 0.3 0.1 - 1.2 mg/dL [facility] Protein, pl 6.1(L) 6.5 - 8.5 g/dL [facility] Albumin 4.0 3.5 - 5.0 g/dL [facility] Alk phos 36(L) 40 - 130 Units/L [facility] ALT 16 7 - 45 Units/L [facility] AST 21 10 - 45 Units/L [facility] Blood 10/06/2024 12:5 2 PM PAI GOW MANAGER 10/06/2024 12:52 PM PAI GOW MANAGER Layne Colvin MD LAB BLOOD ORDERABLES Final Result Performing Organization Address [facility]/State/ZIP Co de Phone Number [facility] [place] [address] * Immunotyping, serum (09/07/2024 12:23 PM PAI GOW MANAGER) Immunosubtraction Please see comment Comment: SMALL IGG KAPPA PARAPROTEIN Reviewed and signed by Chuck Willard MD, PhD 09/09/2024 Blood 09/07/2024 12:2 3 PM PAI GOW MANAGER 09/07/2024 2:07 PM PAI GOW MANAGER Narrative [facility] - 09/10/2024 7:58 AM PAI GOW MANAGER Reflex Immunotyping, Ser Sophia Becerril NP LAB BLOOD ORDERABLES Final Result Performing Organization Address City/[facility] Co de Phone Number [facility] Department [place] [address] * (ABNORMAL) Protein electrophoresis with reflex, serum (09/07/2024 12:23 PM PAI GOW MANAGER) [facility] Protein, sr 5.5(L) 6.2 - 8.2 g/dL Albumin 3.8 3.2 - 5.0 g/dL [facility] Alpha-1 globulin 0.3 0.2 - 0.4 g/dL [facility] Alpha-2 globulin 0.6 0.5 - 1.0 g/dL [facility] Beta-1 globulin 0.3 0.3 - 0.6 g/dL [facility] Beta-2 globulin 0.2 0.2 - 0.6 g/dL [facility] Gamma globulin 0.3(L) 0.5 - 1.7 g/dL [facility] SPEP interp Please see comment [facility] Comment: Abnormal restricted peak in Gamma region Quantity of restricted peak too low to quantify accurately Decreased gamma globulins Electrophoretic pattern appears similar to previous sample 05-27-24 See immunotyping for further information Reviewed and signed by Chuck Willard MD, PhD 09/09/2024 Immunotyping See Immunotyping Results [facility] Blood 09/07/2024 12:2 3 PM PAI GOW MANAGER 09/07/2024 1:54 PM PAI GOW MANAGER Sophia Becerril NP LAB BLOOD ORDERABLES Final Result Performing Organization Address [facility] Co de Phone Number [facility] Department [place] [address] * eGFR (09/07/2024 10:57 AM PAI GOW MANAGER) [facility] eGFR >90 >=60 mL/min/1. 73 m2 Comment: Interpretive Data Reference Interval Normal >/= 90 mL/min/1.73m2 Mildly decreased* 60 - 89 mL/min/1.73m2 Mildly to moderately decreased 45 - 59 mL/min/1.73m2 Moderately to severely decreased 30 - 44 mL/min/1.73m2 Severely decreased 15 - 29 mL/min/1.73m2 Kidney Failure < 15 mL/min/1.73m2 *Relative to young adult level Estimated glomerular filtration rate is determined by the 2020 CKD-EPI equation recommended by the National Kidney Foundation (A Unifying Approach to GFR Estimation: Recommendations of the NKF-ASK Task Force on Reassessing the Inclusion of Race in Diagnosing Kidney Disease, JASN 2020). The CKD-EPI equation should not be used for patients with unstable renal function and has not been validated in children and those over 70. Current interpretive data was last reviewed 2021. Blood 09/07/2024 10:5 7 AM PAI GOW MANAGER 09/07/2024 1:56 PM PAI GOW MANAGER Sophia Becerril NP LAB BLOOD ORDERABLES Final Result [facility] [place] [address] * Differential, auto (09/07/2024 10:57 AM PAI GOW MANAGER) Neutrophil abs 4.3 1.5 - 6.5 K/cumm Imm gran abs 0.0 0.0 - 0.1 K/cumm [facility] Lymphocyte abs 1.8 0.8 - 3.3 K/cumm [facility] Monocyte abs 0.7 0.2 - 0.8 K/cumm [facility] Eosinophil abs 0.4 0.0 - 0.5 K/cumm [facility] Basophil abs 0.0 0.0 - 0.1 K/cumm [facility] Neutrophil pct 60.1 % [facility] Comment: Interpretive Data Percent cell count reference ranges are not reported, since discordance with absolute values may lead to misinterpretation of CBC data. Current Interpretive Data was last revised on 2018. Imm gran pct 0.4 % [facility] Comment: Interpretive Data Percent cell count reference ranges are not reported, since discordance with absolute values may lead to misinterpretation of CBC data. Current Interpretive Data was last revised on 2018. Lymphocyte pct 24.6 % JANICE MESSER Comment: Interpretive Data Percent cell count reference ranges are not reported, since discordance with absolute values may lead to misinterpretation of CBC data. Current Interpretive Data was last revised on 2018. Monocyte pct 9.4 % JANICE MESSER Comment: Interpretive Data Percent cell count reference ranges are not reported, since discordance with absolute values may lead to misinterpretation of CBC data. Current Interpretive Data was last revised on 2018. Eosinophil pct 5.1 % JANICE MESSER Comment: Interpretive Data Percent cell count reference ranges are not reported, since discordance with absolute values may lead to misinterpretation of CBC data. Current Interpretive Data was last revised on 2018. Basophil pct 0.4 % JANICE MESSER Comment: Interpretive Data Percent cell count reference ranges are not reported, since discordance with absolute values may lead to misinterpretation of CBC data. Current Interpretive Data was last revised on 2018. Blood 09/07/2024 10:5 7 AM PAI GOW MANAGER 09/07/2024 2:08 PM PAI GOW MANAGER us Sophia Becerril COSTUME DESIGNER LAB BLOOD ORDERABLES Final Result JANICE MESSER [facility] Department [place] [address] * (ABNORMAL) Immunoglobulin free light chains (09/07/2024 10:57 AM PAI GOW MANAGER) [place]/Lambda ratio [facility] 1.78(H) 0.26 - 1.65 Comment: Interpretive Data The Binding Site FreeLite assay procedure was used. Results from different manufacturers or methods may not be comparable. Serial testing should be performed using the same methods and instrumentation. Current Interpretive Data was last revised on 2023. [place] free light chain [facility] 0.41 0.33 - 1.94 mg/dL JANICE MESSER Comment: Interpretive Data The Binding Site FreeLite assay procedure was used. Results from different manufacturers or methods may not be comparable. Serial testing should be performed using the same methods and instrumentation. Current Interpretive Data was last revised on 2023. Lambda free light chain [facility] 0.23(L) 0.57 - 2.63 mg/dL [facility] Comment: Interpretive Data The Binding Site FreeLite assay procedure was used. Results from different manufacturers or methods may not be comparable. Serial testing should be performed using the same methods and instrumentation. Current Interpretive Data was last revised on 2023. Blood 09/07/2024 10:5 7 AM PAI GOW MANAGER 09/07/2024 2:08 PM PAI GOW MANAGER Sophia Becerril NP LAB BLOOD ORDERABLES Final Result [facility] Department [place] [address] * (ABNORMAL) CBC with auto differential (09/07/2024 10:57 AM PAI GOW MANAGER) WBC 7.2 3.8 - 9.9 K/cumm Hgb 11.6(L) 11.9 - 15.5 g/dL [facility] Hct 35.7 35.6 - 45.5 % [facility] Plt 214 150 - 400 K/cumm [facility] MPV 11.1 9.1 - 12.3 fL [facility] RBC 3.53(L) 3.90 - 5.20 M/cumm [facility] MCV 101.1(H) 81.3 - 96.4 fL [facility] MCH 32.9 27.1 - 33.3 pg [facility] MCHC 32.5 32.3 - 35.7 g/dL [facility] RDW CV 13.1 11.1 - 14.9 % [facility] RDW SD 48.5(H) 35.7 - 48.1 fL [facility] NRBC abs 0.00 0.00 - 0.01 K/cumm [facility] Blood 09/07/2024 10:5 7 AM PAI GOW MANAGER 09/07/2024 2:08 PM PAI GOW MANAGER Sophia Becerril NP LAB BLOOD ORDERABLES Final Result [facility] [place] [address] * Reticulocyte Count (09/07/2024 10:57 AM PAI GOW MANAGER) [facility] Retics, absolute 0.054 0.020 - 0.087 M/cumm Retics 1.5 0.4 - 2.9 % [facility] Reticulocyte Hgb 36.7 30.5 - 38.0 pg [facility] Blood 09/07/2024 10:5 7 AM PAI GOW MANAGER 09/07/2024 2:08 PM PAI GOW MANAGER Sophia Becerril NP LAB BLOOD ORDERABLES Final Result Performing Organization Address [facility] Co de Phone Number [facility] [place] [address] * Phosphorus (09/07/2024 10:57 AM PAI GOW MANAGER) [facility] Phosphorus, pl 3.7 2.3 - 4.5 mg/dL Blood 09/07/2024 10:5 7 AM PAI GOW MANAGER 09/07/2024 1:51 PM PAI GOW MANAGER Layne Colvin MD LAB BLOOD ORDERABLES Final Result Performing Organization Address [facility] Co de Phone Number [facility] [place] [address] * Lactate dehydrogenase (LD) (09/07/2024 10:57 AM PAI GOW MANAGER) [facility] Lactate dehydrogenase (LDH) 210 100 - 250 Units/L Blood 09/07/2024 10:5 7 AM PAI GOW MANAGER 09/07/2024 1:51 PM PAI GOW MANAGER Sophia Becerril NP LAB BLOOD ORDERABLES Final Result Performing Organization Address [facility] Co de Phone Number [facility] Department [place] [address] * (ABNORMAL) IgA (09/07/2024 10:57 AM PAI GOW MANAGER) Pathologist [facility] Immunoglobulin A <50(L) 70 - 400 mg/dL Blood 09/07/2024 10:5 7 AM PAI GOW MANAGER 09/07/2024 1:51 PM PAI GOW MANAGER Sophia Becerril COSTUME DESIGNER LAB BLOOD ORDERABLES Final Result Performing Organization Address [facility] Co de Phone Number [facility] [place] [address] * (ABNORMAL) IgM (09/07/2024 10:57 AM PAI GOW MANAGER) Pathologist [facility] Immunoglobulin M <25(L) 40 - 230 mg/dL Blood 09/07/2024 10:5 7 AM PAI GOW MANAGER 09/07/2024 1:51 PM PAI GOW MANAGER Sophia Becerril COSTUME DESIGNER LAB BLOOD ORDERABLES Final Result Performing Organization Address [facility] [place] [place] [address] * (ABNORMAL) IgG (09/07/2024 10:57 AM PAI GOW MANAGER) [facility] Immunoglobulin G <300(L) 700 - 1,600 mg/dL Blood 09/07/2024 10:5 7 AM PAI GOW MANAGER 09/07/2024 1:51 PM PAI GOW MANAGER Sophia Becerril COSTUME DESIGNER LAB BLOOD ORDERABLES Final Result Performing Organization Address [facility] [place] [place] [address] * (ABNORMAL) Comprehensive metabolic panel (09/07/2024 10:57 AM PAI GOW MANAGER) [facility] Sodium 139 135 - 145 mmol/L Potassium, pl 4.3 3.3 - 4.9 mmol/L [facility] Chloride 101 97 - 110 mmol/L [facility] CO2 29 22 - 32 mmol/L [facility] Anion gap 9 2 - 15 mmol/L [facility] BUN 15 6 - 25 mg/dL [facility] Creatinine 0.55(L) 0.60 - 1.10 mg/dL [facility] Glucose 115 70 - 199 mg/dL [facility] Comment: Interpretive Data Fasting glucose >/= 126 mg/dl is diagnostic for diabetes. Fasting is defined as no caloric intake for at least 8 hours. Fasting glucose between 100 mg/dl to 125 mg/dl is diagnostic of prediabetes. In a patient with classic symptoms of hyperglycemia or hyperglycemic crisis, a random glucose >/= 200 mg/dl is diagnostic for diabetes. In the absence of unequivocal hyperglycemia, results should be confirmed by repeat testing. The classification and Diagnosis of Diabetes Diabetes Care 2021; 46: S19-S40. Current interpretive data was last revised 2022. Calcium 9.8 8.5 - 10.3 mg/dL [facility] Bilirubin, total 0.3 0.1 - 1.2 mg/dL [facility] Protein, pl 5.8(L) 6.5 - 8.5 g/dL [facility] Albumin 4.0 3.5 - 5.0 g/dL [facility] Alk phos 41 40 - 130 Units/L [facility] ALT 18 7 - 45 Units/L [facility] AST 19 10 - 45 Units/L [facility] Blood 09/07/2024 10:5 7 AM PAI GOW MANAGER 09/07/2024 1:51 PM PAI GOW MANAGER us Sophia Becerril COSTUME DESIGNER LAB BLOOD ORDERABLES Final Result [facility] [place] [address] from Last 3 Months [facility] AETNA MEDICARE GOLD COMMERCIAL GENERIC MEDICARE AETNA MEDICARE GOLD Advance Directives For more information, please contact: [phone] Documents on File Type Date Recorded 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 Advance Directives and Livin g Will 10/18/2021 11:03 AM * Full Code (Latest Code Status on File) Date Activated Date Inactivated Comments 10/18/2021 5:04 PM 10/19/2021 4:20 PM * Full Code Date Activated Date Inactivated Comments 08/25/2021 10:14 AM 08/25/2021 11:18 PM * Full Code Date Activated Date Inactivated Comments 08/23/2021 11:52 AM 08/25/2021 10:14 AM * Full Code Date Activated Date Inactivated Comments 06/26/2021 8:07 AM 06/26/2021 6:25 PM * Full Code Date Activated Date Inactivated Comments 06/22/2019 11:55 AM 06/23/2019 6:27 PM Care Teams Senior Manager Creative Services Relationship Specialty Start Date End Date Milton Murillo MD [address] [address] PCP - General Family Medicine 11/06/24 Kenny Castro MD [address] [place] [address] Consulting Physician Gastroenterology 08/25/21 Gianluca Hogue MD [address] [place] [address] Surgeon General Surgery 10/19/21 Shonda Au RN Registered Nurse Pulmonary Disease 05/07/23 Layne Colvin MD [address] [address] Medical Oncologist/Instantizer Operator Hematology 06/25/23 Isabel Hughes MD [address] [address] Consulting Physician Pain Management 10/17/23 Pricila Hernandez MD [address] [address] Consulting Physician Bone Health 11/08/23
--- OUTSIDE RECORDS SUMMARY | 2024-12-07 10:36 | XMS_ITS | Referral Summary ---
Author Organization [facility] Address [address] [place] [address] Care Team Providers Care Tank 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 Name Role Phone Kenny Castro MD Unavailable [phone] Gianluca Hogue MD Unavailable [phone] Shonda Au RN Unavailable Unavailabl Layne Scott MD Unavailable [phone] Isabel Hughes MD Unavailable Pricila Hernandez MD Unavailable [phone] Milton Murillo MD Primary Care Provider [phone] Encounters Date Type Department Care Team Description 12/01/2024 1:00 PM STATE TROOPER Infusion [address] [address] Multiple myeloma not having achieved remission (CMS/HCC) (HCC) (Primary Dx); Chronic ITP (idiopathic thrombocytopenia) (HCC) 12/01/2024 12:30 PM STATE TROOPER Lab [address] [address] Multiple myeloma not having achieved remission (CMS/HCC) (HCC); Chronic ITP (idiopathic thrombocytopenia) (HCC) 11/05/2024 Orders Only [facility] H[facility] Floor 6 [place] [address] Quynh Macias, RN Multiple myeloma not having achieved remission (CMS/HCC) (HCC) (Primary Dx) 10/19/2024 Orders Only [facility] Hematology [address] [place] [phone] Candsi Hager RN 10/19/2024 11:00 AM STATE TROOPER Lab [facility] at [address] [address] Age-related osteoporosis without current pathological fracture 10/19/[address] Medical Office Building 2 [address] [place] [address] Pricila Hernandez MD 10/19/2024 10:20 AM STATE TROOPER Office Visit [address] Office Building 2 [address] [place] [address] Pricila Hernandez MD Age-related osteoporosis without current pathological fracture (Primary Dx) 10/19/2024 9:50 AM STATE TROOPER Clinical Support [address] Office Building 2 [address] [place] [phone] Age-related osteoporosis without current pathological fracture 10/06/2024 1:00 PM STATE TROOPER Infusion [address] [address] Multiple myeloma not having achieved remission (CMS/HCC) (HCC) (Primary Dx); Chronic ITP (idiopathic thrombocytopenia) (HCC) 10/06/2024 12:30 PM STATE TROOPER Lab [address] [address] Multiple myeloma not having achieved remission (CMS/HCC) (HCC); Chronic ITP (idiopathic thrombocytopenia) (HCC) 09/08/2024 Orders Only [facility] Hematology [address] [place] [phone] Layne Colvin MD Multiple myeloma not having achieved remission (CMS/HCC) (HCC) (Primary Dx) 09/08/2024 Orders Only [facility] Hematology [address] [place] [phone] Quynh Macias, JACK 09/08/2024 Orders Only [facility]ology [address] [facility] [address] [place] [address] Quynh Macias, screw machine setter ITP (idiopathic thrombocytopenia) (HCC) (Primary Dx); Multiple myeloma not having achieved remission (CMS/HCC) (HCC) 09/08/2024 1:30 PM STATE TROOPER Infusion [facility] [address] [place] [phone] Multiple myeloma not having achieved remission (CMS/HCC) ([facility]) (Primary Dx); Chronic ITP (idiopathic thrombocytopenia) ([facility]); Age-related osteoporosis with current pathological fracture with delayed healing 09/08/2024 12:45 PM STATE TROOPER Lab [address] [address] Multiple myeloma not having achieved remission (CMS/HCC) ([facility]); Chronic ITP (idiopathic thrombocytopenia) (HCC) 09/07/2024 10:45 AM STATE TROOPER Lab [facility] [address] [facility] [address] [place] [address] Multiple myeloma not having achieved remission (CMS/HCC) ([facility]); Age-related osteoporosis with current pathological fracture with delayed healing 09/07/2024 11:00 AM STATE TROOPER Office Visit [facility] [address] [facility] 2nd Floor [address] [place] [address] Sophia Becerril NP Multiple myeloma not having achieved remission (CMS/HCC) ([facility]) 09/07/2024 10:30 AM STATE TROOPER Lab [facility] [address] [facility] 2nd Floor [address] [place] [address] Multiple myeloma not having achieved remission (CMS/HCC) ([facility]) from Last 3 Months Allergies Active Allergy Reactions Criticality Noted Date [...] (six) hours as needed for pain 08/28/20 21 Active cholecalcifero l (VITAMIN D-3) 5,000 unit [...] (1 mg total) by mouth daily 06/18/20 Active cyanocobalamin (Vitamin B-12) 1,000 mcg/mL injection Inject into the muscle as instructed 03/06/20 Active pirfenidone (ESBRIET) 267 mg tabletIndicati ons:Idiopathic pulmonary fibrosis (HCC) Take 3 tablets (801 mg total) by mouth 3 (three) times a day with meals 270 tablet 06/25/20 Active Additional Information Patient not taking.Reported on 10/19/2024 apixaban (Eliquis) 5 mg tablet Take 1 tablet (5 mg total) by mouth 2 (two) times a day 60 tablet 2 09/28/20 Active memantine XR (NAMENDA XR) 7 mg capsule,sprink le,ER 24hr Take by mouth daily 09/22/20 24 Active acyclovir (ZOVIRAX) 400 mg tabletIndicati ons:Multiple myeloma not having achieved remission (CMS/HCC) (HCC) TAKE 1 TABLET BY MOUTH 2 TIMES A DAY. 180 tablet 1 10/22/20 Active Anoro Ellipta 62.5-25 mcg/actuation blister with device INHALE 1 PUFF DAILY 180 each 3 10/22/20 24 Active Pomalyst 4 mg capsule TAKE 1 [...] 11/01/2022 Cancer Staging:Clinical stage from 11/01/2022:RISS Stage II(Gyzi-4-xlunbiokuobob (mg/L): 2.4, Albumin (g/dL): 3.9, ISS: Stage I, High-risk cytogenetics: Present, LDH: Normal) - Signed by Layne Colvin MD on 11/08/2022 Post-operative state 11/08/2021 Biliary colic 10/18/2021 On home oxygen therapy 10/17/2021 GERD (gastroesophageal reflux disease) Gallstones 10/10/2021 Overview (10/10/2021): Added automatically from request for surgery [id number] Abdominal pain 08/24/2021 RUQ abdominal pain 08/23/2021 [...] night.. Assessment & Plan (12/15/2019 3:15 PM STATE TROOPER): Ms. Castelan is improved after lumbar decompression [...] 09/02/2018 Assessment & Plan (12/13/2021 4:33 PM STATE TROOPER): Ms. Castelan is doing better in regards [...] patient's . Will order a brace through [facility] [employer] and refer to [facility]. Vertebral compression fracture 09/02/2018 [...] (05/22/2019): Added automatically from request for surgery [id number] Neurogenic claudication 01/06/201911/28 Overview (01/06/2019): Added automatically from request for surgery [id number] Assessment & Plan (04/21/2019 1:39 PM CDT): Ms. Castelan has lumbar stenosis with neurogenic claudication. She is a candidate with her MRI and symptoms for L4-5 decompression and fusion. The decision whether she is a surgical candidate all would be up to Dr. Amaral, her contract negotiation manager. We discussed that the surgery would take [...] 12/15/2019 Assessment & Plan (12/10/2018 4:43 PM STATE TROOPER): Ms. Castelan has persistent low back pain [...] re gion with neurogenic claudication 09/02/2018 12/15/2019 Immunizations Name Administration Dates Next Due Pfizer SARS-CoV-2 Monovalent Vaccination (12+ Yrs) GOULD-READY TO USE 04/20/2022 Social History Tobacco Use Types Packs/Day Years [...] on file Legal Sex Female 3:20 AM STATE TROOPER Gender Identity Not on file Sexual Orientation Straight 03/13/2021 1: 23 PM CDT Last Filed Vital Signs Vital Sign Reading Time Taken Comments Blood Pressure 110/72 12/01/2024 2:45 PM STATE TROOPER Pulse 54 12/01/2024 2:45 PM STATE TROOPER Temperature 36.8 C (98.2 F) 12/01/2024 2:45 PM STATE TROOPER Respiratory Rate 16 12/01/2024 2:45 PM STATE TROOPER Oxygen Saturation 94% 12/01/2024 2:45 PM STATE TROOPER Inhaled Oxygen Concentration - - Weight 69.8 kg (153 lb 12.8 oz) 025 12:53 PM STATE TROOPER Height 158.8 cm (5' 2.5 ) 10/19/2024 10 :42 AM STATE TROOPER Body Mass Index 27.68 10/19/2024 10:42 AM STATE TROOPER Plan of Treatment Not on file Goals Goal Patient Goal Type Associated Problems [...] as needed Medical Devices Implanted Type Area Semi Driver Device Identifier Shelf Expiration Date Model / Serial / Lot [employer] [id number] Inqu Paste Mix Plus Boiler Repair Supervisor 10cc Bone Graft Hyaluronic Acid Poly - [id number] Implanted:Qty: 1 on 06/22/2019 by Cheko Reynoso MD at [facility] N/A: Spine Lumbar [employer] [id number] 01/13/2021 [id number] / / [id number] Core Link [id number] Gary 6.5mm 40mm Spine Pedicle Screw Bone 5500 Series - [id number] Implanted:Qty: 4 on 06/22/2019 by Cheko Reynoso MD at [facility] N/A: Spine Lumbar Core Link [id number] / / Core Link [id number] Gary Screw Set 5500 Series - [id number] Implanted:Qty: 4 on 06/22/2019 by Cheko Reynoso MD at [facility] N/A: Spine Lumbar Core Link [id number] / / Core Link [id number] Gary 5.5mm 40mm Line Prebent Marvin Spinal Nonsterile 5500 Series - [id number] Implanted:Qty: 2 on 06/22/2019 by Cheko Reynoso MD at [facility] Core Link [id number] / / Explanted Type Area Semi Driver Device Identifier Shelf Expiration Date Model / Serial / Lot [employer] Ashleigh [id number] Wallflex Permalume 10mm 8.5fr 60mm 194cm Fully Cover Catheter - [id number] Implanted:Qty: 1 on 08/23/2021 by Kenny Castro MD at [facility] Explanted:Qty: 1 on 08/25/2021 by Kenny Castro MD at [facility] Stent N/A: Bile Duct [employer] Ashleigh 07/11/2023 [id number] / / [id number] Procedures Procedure Name Priority Date/Time Associated Diagnosis Comments EGFR STAT 12/01/2024 12:52 PM STATE TROOPER Multiple myeloma not having achieved remission (CMS/HCC) (HCC) DIFFERENTIAL AUTO Routine 12/01/2024 12:52 PM STATE TROOPER Multiple myeloma not having achieved remission (CMS/HCC) (HCC) IGA Routine 12/01/2024 12:52 PM STATE TROOPER Multiple myeloma not having achieved remission (CMS/HCC) (HCC) IGG Routine 12/01/2024 12:52 PM STATE TROOPER Multiple myeloma not having achieved remission (CMS/HCC) (HCC) IGM Routine 12/01/2024 12:52 PM STATE TROOPER Multiple myeloma not having achieved remission (CMS/HCC) (HCC) IMMUNOGLOBULIN FREE LIGHT CHAINS Routine 12/01/2024 12:52 PM STATE TROOPER Multiple myeloma not having achieved remission (CMS/HCC) (HCC) LACTATE DEHYDROGENASE Routine 12/01/2024 12:52 PM STATE TROOPER Multiple myeloma not having achieved remission (CMS/HCC) (HCC) PROTEIN ELECTROPHORESIS, WITH REFLEX, SERUM Routine 12/01/2024 12:52 PM STATE TROOPER Multiple myeloma not having achieved remission (CMS/HCC) (HCC) RETICULOCYTES Routine 12/01/2024 12:52 PM STATE TROOPER Multiple myeloma not having achieved remission (CMS/HCC) (HCC) CBC WITH AUTO DIFFERENTIAL Routine 12/01/2024 12:52 PM STATE TROOPER Multiple myeloma not having achieved remission (CMS/HCC) (HCC) COMPREHENSIVE METABOLIC PANEL STAT 12/01/2024 12:52 PM STATE TROOPER Multiple myeloma not having achieved remission (CMS/HCC) (HCC) VITAMIN D 25 HYDROXY Routine 10/19/2024 10:59 AM STATE TROOPER Age-related osteoporosis without current pathological fracture DEXA TBS AXIAL SKELETON BONE DENSITY 1 OR MORE SITES Schedule Routine, Read Routine (OP Routine) 10/19/2024 10:21 AM STATE TROOPER Age-related osteoporosis without current pathological fracture EGFR STAT 10/06/2024 12:52 PM STATE TROOPER Multiple myeloma not having achieved remission (CMS/HCC) (HCC) DIFFERENTIAL AUTO Routine 10/06/2024 12:52 PM STATE TROOPER Multiple myeloma not having achieved remission (CMS/HCC) (HCC) CBC WITH AUTO DIFFERENTIAL Routine 10/06/2024 12:52 PM STATE TROOPER Multiple myeloma not having achieved remission (CMS/HCC) (HCC) COMPREHENSIVE METABOLIC PANEL STAT 10/06/2024 12:52 PM STATE TROOPER Multiple myeloma not having achieved remission (CMS/HCC) (HCC) IMMUNOTYPING Routine 09/07/2024 12:23 PM STATE TROOPER Multiple myeloma not having achieved remission (CMS/HCC) (HCC) PROTEIN ELECTROPHORESIS, WITH REFLEX, SERUM Routine 09/07/2024 12:23 PM STATE TROOPER Multiple myeloma not having achieved remission (CMS/HCC) (HCC) EGFR Routine 09/07/2024 10:57 AM STATE TROOPER Multiple myeloma not having achieved remission (CMS/HCC) (HCC) DIFFERENTIAL AUTO Routine 09/07/2024 10:57 AM STATE TROOPER Multiple myeloma not having achieved remission (CMS/HCC) (HCC) PHOSPHORUS Routine 09/07/2024 10:57 AM STATE TROOPER Multiple myeloma not having achieved remission (CMS/HCC) (HCC) Age-related osteoporosis with current pathological fracture with delayed healing CBC WITH AUTO DIFFERENTIAL Routine 09/07/2024 10:57 AM STATE TROOPER Multiple myeloma not having achieved remission (CMS/HCC) (HCC) COMPREHENSIVE METABOLIC PANEL Routine 09/07/2024 10:57 AM STATE TROOPER Multiple myeloma not having achieved remission (CMS/HCC) (HCC) IGA Routine 09/07/2024 10:57 AM STATE TROOPER Multiple myeloma not having achieved remission (CMS/HCC) (HCC) IGG Routine 09/07/2024 10:57 AM STATE TROOPER Multiple myeloma not having achieved remission (CMS/HCC) (HCC) IGM Routine 09/07/2024 10:57 AM STATE TROOPER Multiple myeloma not having achieved remission (CMS/HCC) (HCC) IMMUNOGLOBULIN FREE LIGHT CHAINS Routine 09/07/2024 10:57 AM STATE TROOPER Multiple myeloma not having achieved remission (CMS/HCC) (HCC) LACTATE DEHYDROGENASE Routine 09/07/2024 10:57 AM STATE TROOPER Multiple myeloma not having achieved remission (CMS/HCC) (HCC) RETICULOCYTES Routine 09/07/2024 10:57 AM STATE TROOPER Multiple myeloma not having achieved remission (CMS/HCC) (HCC) from Last 3 Months Results * eGFR (12/01/2024 12:52 PM STATE TROOPER) eGFR 74 >=60 mL/min/1. 73 m2 Comment: [...] reviewed 2021. Blood 12/01/2024 12:5 2 PM STATE TROOPER 12/01/2024 12:52 PM STATE TROOPER us Layne Colvin MD LAB BLOOD ORDERABLES Final Result JANICE MESSER [facility] [place] [address] * (ABNORMAL) Differential, auto (12/01/2024 12:52 PM STATE TROOPER) Neutrophil abs 2.0 1.5 - 6.5 K/cumm Comment:Testing performed by : [facility], [address] [facility] [address] Imm gran abs 0.0 0.0 - 0.1 K/cumm [facility] Lymphocyte abs 1.8 0.8 - 3.3 K/cumm [facility] Monocyte abs 1.3(H) 0.2 - 0.8 K/cumm [facility] Eosinophil abs 0.7(H) 0.0 - 0.5 K/cumm [facility] Basophil abs 0.1 0.0 - 0.1 K/cumm [facility] Neutrophil pct 34.2 % [facility] Comment: Interpretive Data Percent cell count reference ranges are not reported, since discordance with absolute values may lead to misinterpretation of CBC data. Current Interpretive Data was last revised on 2018. Imm gran pct 0.3 % [facility] Comment: Interpretive Data Percent cell count reference ranges are not reported, since discordance with absolute values may lead to misinterpretation of CBC data. Current Interpretive Data was last revised on 2018. Lymphocyte pct 30.0 % [facility] Comment: Interpretive Data Percent cell count reference ranges are not reported, since discordance with absolute values may lead to misinterpretation of CBC data. Current Interpretive Data was last revised on 2018. Monocyte pct 22.3 % [facility] Comment: Interpretive Data Percent cell count reference ranges are not reported, since discordance with absolute values may lead to misinterpretation of CBC data. Current Interpretive Data was last revised on 2018. Eosinophil pct 11.5 % [facility] Comment: Interpretive Data Percent cell count reference ranges are not reported, since discordance with absolute values may lead to misinterpretation of CBC data. Current Interpretive Data was last revised on 2018. Basophil pct 1.7 % [facility] Comment: Interpretive Data Percent cell count reference ranges are not reported, since discordance with absolute values may lead to misinterpretation of CBC data. Current Interpretive Data was last revised on 2018. Blood 12/01/2024 12:5 2 PM STATE TROOPER 12/01/2024 12:52 PM STATE TROOPER Layne Colvin MD LAB BLOOD ORDERABLES Final Result Performing Organization Address [facility] de Phone Number JANICE [facility] [address] [facility] [place] [place] [address] * (ABNORMAL) Immunoglobulin free light chains (12/01/2024 12:52 PM STATE TROOPER) [facility] [place]/Lambda ratio [facility] 1.77(H) 0.26 - 1.65 Comment: Interpretive Data The Binding Site FreeLite assay procedure was used. Results from different manufacturers or methods may not be comparable. Serial testing should be performed using the same methods and instrumentation. Current Interpretive Data was last revised on 2023. [place] free light chain [facility] 0.62 0.33 - 1.94 mg/dL [facility] Comment: Interpretive Data The Binding Site FreeLite assay procedure was used. Results from different manufacturers or methods may not be comparable. Serial testing should be performed using the same methods and instrumentation. Current Interpretive Data was last revised on 2023. Lambda free light chain [facility] 0.35(L) 0.57 - 2.63 mg/dL [facility] Comment: Interpretive Data The Binding Site FreeLite assay procedure was used. Results from different manufacturers or methods may not be comparable. Serial testing should be performed using the same methods and instrumentation. Current Interpretive Data was last revised on 2023. Blood 12/01/2024 12:5 2 PM STATE TROOPER 12/01/2024 2:01 PM STATE TROOPER Sophia Becerril NP LAB BLOOD ORDERABLES Final Result Performing Organization Address City/[facility]/ZIP Co de Phone Number [facility] Department [place] [address] * (ABNORMAL) CBC with auto differential (12/01/2024 12:52 PM STATE TROOPER) [facility] WBC 5.8 3.8 - 9.9 K/cumm Comment:Testing performed by : [facility], [address] [place] [address] Hgb 12.0 11.9 - 15.5 g/dL [facility] Comment:Testing performed by : [facility], [address] [place] [address] Hct 36.0 35.6 - 45.5 % [facility] Comment:Testing performed by : [facility], [address] [place] [address] Plt 251 150 - 400 K/cumm [facility] Comment:Testing performed by : [facility], [address] [place] [address] MPV 10.3 9.1 - 12.3 fL [facility] RBC 3.63(L) 3.90 - 5.20 M/cumm [facility] MCV 99.2(H) 81.3 - 96.4 fL [facility] MCH 33.1 27.1 - 33.3 pg [facility] MCHC 33.3 32.3 - 35.7 g/dL [facility] RDW CV 13.2 11.1 - 14.9 % [facility] RDW SD 46.9 35.7 - 48.1 fL [facility] NRBC abs 0.00 0.00 - 0.01 K/cumm [facility] Blood 12/01/2024 12:5 2 PM STATE TROOPER 12/01/2024 12:52 PM STATE TROOPER Layne Colvin MD LAB BLOOD ORDERABLES Final Result [facility] Department [place] [address] * Reticulocyte Count (12/01/2024 12:52 PM STATE TROOPER) Retics, absolute 0.053 0.020 - 0.087 M/cumm Retics 1.5 0.4 - 2.9 % [facility] Reticulocyte Hgb 36.1 30.5 - 38.0 pg [facility] Blood 12/01/2024 12:5 2 PM STATE TROOPER 12/01/2024 12:52 PM STATE TROOPER Sophia Becerril [employer] LAB BLOOD ORDERABLES Final Result Performing Organization Address [facility]/ZIP Co de Phone Number AJNICE [facility] [address] * (ABNORMAL) Protein electrophoresis with reflex, serum with interpretation (12/01/2024 12:52 PM STATE TROOPER) Pathologist [facility] Protein, sr 5.5(L) 6.2 - 8.2 g/dL Albumin 3.7 3.2 - 5.0 g/dL [facility] Alpha-1 globulin 0.3 0.2 - 0.4 g/dL [facility] Alpha-2 globulin 0.7 0.5 - 1.0 g/dL [facility] Beta-1 globulin 0.3 0.3 - 0.6 g/dL [facility] Beta-2 globulin 0.2 0.2 - 0.6 g/dL [facility] Gamma globulin 0.3(L) 0.5 - 1.7 g/dL [facility] Rstr Pk Gamma 0.1(H) 0.0 - 0.0 g/dL [facility] SPEP interp Please see comment [facility] Comment: Abnormal restricted peak in Gamma region Decreased gamma globulins Electrophoretic pattern appears similar to previous sample 09/09/24 Reviewed and signed by Milton Vanegas MD, PhD 12/02/2024 Blood 12/01/2024 12:5 2 PM STATE TROOPER 12/01/2024 2:01 PM STATE TROOPER Sophia Becerril [employer] LAB BLOOD ORDERABLES Final Result JANICE [facility] Department [place] [address] * Lactate dehydrogenase (LD) (12/01/2024 12:52 PM STATE TROOPER) [facility] Lactate dehydrogenase (LDH) 167 100 - 250 Units/L Comment:Testing performed by : [facility], [address] [place] [phone] Blood 12/01/2024 12:5 2 PM STATE TROOPER 12/01/2024 12:52 PM STATE TROOPER Sophia Becerril [employer] LAB BLOOD ORDERABLES Final Result Performing Organization Address [facility] Co de Phone Number [facility] [place] [address] * (ABNORMAL) IgA (12/01/2024 12:52 PM STATE TROOPER) Immunoglobulin A <50(L) 70 - 400 mg/dL Blood 12/01/2024 12:5 2 PM STATE TROOPER 12/01/2024 2:01 PM STATE TROOPER Sophia Becerril [employer] LAB BLOOD ORDERABLES Final Result Performing Organization Address [facility] Phone Number [facility] Department [place] [address] * (ABNORMAL) IgM (12/01/2024 12:52 PM STATE TROOPER) Immunoglobulin M <25(L) 40 - 230 mg/dL Blood 12/01/2024 12:5 2 PM STATE TROOPER 12/01/2024 2:01 PM STATE TROOPER Sophia Becerril [employer] LAB BLOOD ORDERABLES Final Result Performing Organization Address [facility] de Phone Number [facility] Department [place] [address] * (ABNORMAL) IgG (12/01/2024 12:52 PM STATE TROOPER) Immunoglobulin G <300(L) 700 - 1,600 mg/dL Blood 12/01/2024 12:5 2 PM STATE TROOPER 12/01/2024 2:01 PM STATE TROOPER Sophia Becerril [employer] LAB BLOOD ORDERABLES Final Result Performing Organization Address [facility] Co de Phone Number [facility] Department [place] [address] * (ABNORMAL) Comprehensive metabolic panel (12/01/2024 12:52 PM STATE TROOPER) Sodium 138 135 - 145 mmol/L Comment:Testing performed by : [facility], [address] [place] [address] Potassium, pl 4.6 3.3 - 4.9 mmol/L [facility] Chloride 102 97 - 110 mmol/L [facility] CO2 31 22 - 32 mmol/L [facility] Anion gap 5 2 - 15 mmol/L [facility] BUN 15 6 - 25 mg/dL [facility] Creatinine 0.82 0.60 - 1.10 mg/dL [facility] Glucose 106 70 - 199 mg/dL [facility] Comment: Interpretive Data Fasting glucose >/= 126 [...] 2022. Calcium 9.4 8.5 - 10.3 mg/dL [facility] Bilirubin, total 0.4 0.1 - 1.2 mg/dL [facility] Protein, pl 6.0(L) 6.5 - 8.5 g/dL [facility] Albumin 4.2 3.5 - 5.0 g/dL [facility] Alk phos 37(L) 40 - 130 Units/L [facility] ALT 14 7 - 45 Units/L [facility] AST 18 10 - 45 Units/L [facility] Blood 12/01/2024 12:5 2 PM STATE TROOPER 12/01/2024 12:52 PM STATE TROOPER Layne Colvin MD LAB BLOOD ORDERABLES Final Result JANICE MESSERH [facility] Department [place] [address] * Vitamin D 25 hydroxy (10/19/2024 10:59 AM STATE TROOPER) Vitamin D 25-OH 57 30 - 80 ng/mL Comment:Testing performed by : [facility], [address] [employer] [facility] [place] [address] Blood 10/19/2024 10:5 9 AM STATE TROOPER 10/19/2024 11:27 AM STATE TROOPER Pricila Hernandez MD LAB BLOOD ORDERABLES Final Re sult Performing Organization Address City/[facility] Co de Phone Number JANICE MESSERWCH [address] [facility]. Department [place] [address] * Dexa TBS Axial Skeleton Bone Density 1 or more sites (10/19/2024 10:21 AM STATE TROOPER) Anatomical Region Laterality Modality Wrist, Body N/A Radiographic Marivel ging Narrative 10/19/2024 11:48 AM STATE TROOPER Patient Name: Myah Castelan Date of : 1945 Date of scan: 10/19/2024 Bone mineral density was performed on a Hologic Discovery Densitometer. Based on machine cross-calibration and [...] by the International Society of Clinical Densitometry. [id number] us Pricila Hernandez MD IM DXA PROCEDURES Final Resu lt * eGFR (10/06/2024 12:52 PM STATE TROOPER) eGFR >90 >=60 mL/min/1. 73 m2 Comment: [...] reviewed 2021. Blood 10/06/2024 12:5 2 PM STATE TROOPER 10/06/2024 12:52 PM STATE TROOPER us Layne Colvin MD LAB BLOOD ORDERABLES Final Result [facility] Department [place] [address] * Differential, auto (10/06/2024 12:52 PM STATE TROOPER) Pathologist [facility] Neutrophil abs 4.0 1.5 - 6.5 K/cumm Comment:Testing performed by : [facility], [address] [place] [id number] Imm gran abs 0.0 0.0 - 0.1 K/cumm [facility] Lymphocyte abs 2.1 0.8 - 3.3 K/cumm [facility] Monocyte abs 0.6 0.2 - 0.8 K/cumm [facility] Eosinophil abs 0.1 0.0 - 0.5 K/cumm [facility] Basophil abs 0.1 0.0 - 0.1 K/cumm [facility] Neutrophil pct 57.0 % [facility] Comment: Interpretive Data Percent cell count reference ranges are not reported, since discordance with absolute values may lead to misinterpretation of CBC data. Current Interpretive Data was last revised on 2018. Imm gran pct 0.3 % [facility] Comment: Interpretive Data Percent cell count reference [...] on 2018. Monocyte pct 9.1 % JANICE MESSER Comment: Interpretive Data Percent cell count reference ranges are not reported, since discordance with absolute values may lead to misinterpretation of CBC data. Current Interpretive Data was last revised on 2018. Eosinophil pct 2.0 % JANICE MESSER Comment: Interpretive Data Percent cell count reference ranges are not reported, since discordance with absolute values may lead to misinterpretation of CBC data. Current Interpretive Data was last revised on 2018. Basophil pct 1.9 % [facility] Comment: Interpretive Data Percent cell count reference ranges are not reported, since discordance with absolute values may lead to misinterpretation of CBC data. Current Interpretive Data was last revised on 2018. Blood 10/06/2024 12:5 2 PM STATE TROOPER 10/06/2024 12:52 PM STATE TROOPER Layne Colvin MD LAB BLOOD ORDERABLES Final Result [facility] Department [place] [address] * (ABNORMAL) CBC with auto differential (10/06/2024 12:52 PM STATE TROOPER) Pathologist [facility] WBC 7.0 3.8 - 9.9 K/cumm Comment:Testing performed by : [facility], [address] [place] [address] Hgb 11.2(L) 11.9 - 15.5 g/dL JANICE MESSER Comment:Testing performed by : [facility], [address] [place] [address] Hct 34.3(L) 35.6 - 45.5 % [facility] Comment:Testing performed by : [address] [address] Plt 358 150 - 400 K/cumm [facility] Comment:Testing performed by : [address] [address] MPV 9.9 9.1 - 12.3 fL [facility] RBC 3.43(L) 3.90 - 5.20 M/cumm [facility] MCV 100.0(H) 81.3 - 96.4 fL [facility] MCH 32.7 27.1 - 33.3 pg [facility] MCHC 32.7 32.3 - 35.7 g/dL [facility] RDW CV 13.0 11.1 - 14.9 % [facility] RDW SD 46.7 35.7 - 48.1 fL [facility] NRBC abs 0.00 0.00 - 0.01 K/cumm [facility] Blood 10/06/2024 12:5 2 PM STATE TROOPER 10/06/2024 12:52 PM STATE TROOPER Layne Colvin MD LAB BLOOD ORDERABLES Final Result [facility] Department [place] [address] * (ABNORMAL) Comprehensive metabolic panel (10/06/2024 12:52 PM STATE TROOPER) Pathologist [facility] Sodium 141 135 - 145 mmol/L Comment:Testing performed by : [address] [address] Potassium, pl 4.6 3.3 - 4.9 mmol/L [facility] Chloride 104 97 - 110 mmol/L [facility] CO2 32 22 - 32 mmol/L [facility] Anion gap 5 2 - 15 mmol/L [facility] BUN 18 6 - 25 mg/dL [facility] Creatinine 0.65 0.60 - 1.10 mg/dL [facility] Glucose 158 70 - 199 mg/dL [facility] Comment: Interpretive Data Fasting glucose >/= 126 [...] 2022. Calcium 9.2 8.5 - 10.3 mg/dL [facility] Bilirubin, total 0.3 0.1 - 1.2 mg/dL [facility] Protein, pl 6.1(L) 6.5 - 8.5 g/dL [facility] Albumin 4.0 3.5 - 5.0 g/dL [facility] Alk phos 36(L) 40 - 130 Units/L [facility] ALT 16 7 - 45 Units/L [facility] AST 21 10 - 45 Units/L [facility] Blood 10/06/2024 12:5 2 PM STATE TROOPER 10/06/2024 12:52 PM STATE TROOPER us Layne Colvin MD LAB BLOOD ORDERABLES Final Result [facility] Department [place] [address] * Immunotyping, serum (09/07/2024 12:23 PM STATE TROOPER) Immunosubtraction Please see comment Comment: SMALL IGG KAPPA PARAPROTEIN Reviewed and signed by Chuck Willard MD, PhD 09/09/2024 Blood 09/07/2024 12:2 3 PM STATE TROOPER 09/07/2024 2:07 PM STATE TROOPER Narrative [facility] - 09/10/2024 7:58 AM STATE TROOPER Reflex Immunotyping, Ser Sophia Becerril [employer] LAB BLOOD ORDERABLES Final Result Performing Organization Address City/[facility]/ZIP Co de Phone Number JANICE MESSER [facility] [place] [address] * (ABNORMAL) Protein electrophoresis with reflex, serum (09/07/2024 12:23 PM STATE TROOPER) Pathologist [facility] Protein, sr 5.5(L) 6.2 - 8.2 g/dL Albumin 3.8 3.2 - 5.0 g/dL [facility] Alpha-1 globulin 0.3 0.2 - 0.4 g/dL [facility] Alpha-2 globulin 0.6 0.5 - 1.0 g/dL [facility] Beta-1 globulin 0.3 0.3 - 0.6 g/dL [facility] Beta-2 globulin 0.2 0.2 - 0.6 g/dL [facility] Gamma globulin 0.3(L) 0.5 - 1.7 g/dL [facility] SPEP interp Please see comment [facility] Comment: Abnormal restricted peak in Gamma region Quantity of restricted peak too low to quantify accurately Decreased gamma globulins Electrophoretic pattern appears similar to previous sample 05-27-24 See immunotyping for further information Reviewed and signed by Chuck Willard MD, PhD 09/09/2024 Immunotyping See Immunotyping Results [facility] Blood 09/07/2024 12:2 3 PM STATE TROOPER 09/07/2024 1:54 PM STATE TROOPER Sophia Becerril [employer] LAB BLOOD ORDERABLES Final Result [facility] Department [place] [address] * eGFR (09/07/2024 10:57 AM STATE TROOPER) Pathologist [facility] eGFR >90 >=60 mL/min/1. 73 m2 Comment: [...] reviewed 2021. Blood 09/07/2024 10:5 7 AM STATE TROOPER 09/07/2024 1:56 PM STATE TROOPER Sophia Becerril [employer] LAB BLOOD ORDERABLES Final Result [facility] Department [place] [address] * Differential, auto (09/07/2024 10:57 AM STATE TROOPER) Neutrophil abs 4.3 1.5 - 6.5 K/cumm Imm gran abs 0.0 0.0 - 0.1 K/cumm [facility] Lymphocyte abs 1.8 0.8 - 3.3 K/cumm [facility] Monocyte abs 0.7 0.2 - 0.8 K/cumm [facility] Eosinophil abs 0.4 0.0 - 0.5 K/cumm [facility] Basophil abs 0.0 0.0 - 0.1 K/cumm [facility] Neutrophil pct 60.1 % [facility] Comment: Interpretive Data Percent cell count reference ranges are not reported, since discordance with absolute values may lead to misinterpretation of CBC data. Current Interpretive Data was last revised on 2018. Imm gran pct 0.4 % [facility] Comment: Interpretive Data Percent cell count reference ranges are not reported, since discordance with absolute values may lead to misinterpretation of CBC data. Current Interpretive Data was last revised on 2018. Lymphocyte pct 24.6 % JANICE [facility] Comment: Interpretive Data Percent cell count reference ranges are not reported, since discordance with absolute values may lead to misinterpretation of CBC data. Current Interpretive Data was last revised on 2018. Monocyte pct 9.4 % JANICE [facility] Comment: Interpretive Data Percent cell count reference ranges are not reported, since discordance with absolute values may lead to misinterpretation of CBC data. Current Interpretive Data was last revised on 2018. Eosinophil pct 5.1 % [facility] Comment: Interpretive Data Percent cell count reference ranges are not reported, since discordance with absolute values may lead to misinterpretation of CBC data. Current Interpretive Data was last revised on 2018. Basophil pct 0.4 % [facility] Comment: Interpretive Data Percent cell count reference ranges are not reported, since discordance with absolute values may lead to misinterpretation of CBC data. Current Interpretive Data was last revised on 2018. Blood 09/07/2024 10:5 7 AM STATE TROOPER 09/07/2024 2:08 PM STATE TROOPER Sophia Becerril [employer] LAB BLOOD ORDERABLES Final Result [facility] Department [place] [address] * (ABNORMAL) Immunoglobulin free light chains (09/07/2024 10:57 AM STATE TROOPER) [place]/Lambda ratio [facility] 1.78(H) 0.26 - 1.65 Comment: Interpretive Data The Binding Site FreeLite assay procedure was used. Results from different manufacturers or methods may not be comparable. Serial testing should be performed using the same methods and instrumentation. Current Interpretive Data was last revised on 2023. [place] free light chain [facility] 0.41 0.33 - 1.94 mg/dL J[facility] Comment: Interpretive Data The Binding Site FreeLite assay procedure was used. Results from different manufacturers or methods may not be comparable. Serial testing should be performed using the same methods and instrumentation. Current Interpretive Data was last revised on 2023. Lambda free light chain [facility] 0.23(L) 0.57 - 2.63 mg/dL [facility] Comment: Interpretive Data The Binding Site FreeLite assay procedure was used. Results from different manufacturers or methods may not be comparable. Serial testing should be performed using the same methods and instrumentation. Current Interpretive Data was last revised on 2023. Blood 09/07/2024 10:5 7 AM STATE TROOPER 09/07/2024 2:08 PM STATE TROOPER Sophia Becerril NP LAB BLOOD ORDERABLES Final Result [facility] Department [place] [address] * (ABNORMAL) CBC with auto differential (09/07/2024 10:57 AM STATE TROOPER) WBC 7.2 3.8 - 9.9 K/cumm Hgb 11.6(L) 11.9 - 15.5 g/dL [facility] Hct 35.7 35.6 - 45.5 % [facility] Plt 214 150 - 400 K/cumm [facility] MPV 11.1 9.1 - 12.3 fL [facility] RBC 3.53(L) 3.90 - 5.20 M/cumm [facility] MCV 101.1(H) 81.3 - 96.4 fL [facility] MCH 32.9 27.1 - 33.3 pg [facility] MCHC 32.5 32.3 - 35.7 g/dL [facility] RDW CV 13.1 11.1 - 14.9 % [facility] RDW SD 48.5(H) 35.7 - 48.1 fL [facility] NRBC abs 0.00 0.00 - 0.01 K/cumm [facility] Blood 09/07/2024 10:5 7 AM STATE TROOPER 09/07/2024 2:08 PM STATE TROOPER us Sophia Becerril NP LAB BLOOD ORDERABLES Final Result Performing Organization Address [facility] [place] [address] * Reticulocyte Count (09/07/2024 10:57 AM STATE TROOPER) Pathologist [facility] Retics, absolute 0.054 0.020 - 0.087 M/cumm Retics 1.5 0.4 - 2.9 % [facility] Reticulocyte Hgb 36.7 30.5 - 38.0 pg [facility] Blood 09/07/2024 10:5 7 AM STATE TROOPER 09/07/2024 2:08 PM STATE TROOPER Sophia Becerril [employer] LAB BLOOD ORDERABLES Final Result Performing Organization Address [facility] [place] [address] * Phosphorus (09/07/2024 10:57 AM STATE TROOPER) Pathologist [facility] Phosphorus, pl 3.7 2.3 - 4.5 mg/dL Blood 09/07/2024 10:5 7 AM STATE TROOPER 09/07/2024 1:51 PM STATE TROOPER Layne Colvin MD LAB BLOOD ORDERABLES Final Result Performing Organization Address [facility] [place] [address] * Lactate dehydrogenase (LD) (09/07/2024 10:57 AM STATE TROOPER) Pathologist [facility] Lactate dehydrogenase (LDH) 210 100 - 250 Units/L Blood 09/07/2024 10:5 7 AM STATE TROOPER 09/07/2024 1:51 PM STATE TROOPER Sophia Becerril NP LAB BLOOD ORDERABLES Final Result Performing Organization Address City/[facility] [place] [address] * (ABNORMAL) IgA (09/07/2024 10:57 AM STATE TROOPER) [facility] Immunoglobulin A <50(L) 70 - 400 mg/dL Blood 09/07/2024 10:5 7 AM STATE TROOPER 09/07/2024 1:51 PM STATE TROOPER Sophia Becerril [employer] LAB BLOOD ORDERABLES Final Result Performing Organization Address [facility] [place] [address] * (ABNORMAL) IgM (09/07/2024 10:57 AM STATE TROOPER) [facility] Immunoglobulin M <25(L) 40 - 230 mg/dL Blood 09/07/2024 10:5 7 AM STATE TROOPER 09/07/2024 1:51 PM STATE TROOPER Sophia Becerril [employer] LAB BLOOD ORDERABLES Final Result Performing Organization Address [facility] Co de Phone Number [facility] Department [place] [address] * (ABNORMAL) IgG (09/07/2024 10:57 AM STATE TROOPER) [facility] Immunoglobulin G <300(L) 700 - 1,600 mg/dL Blood 09/07/2024 10:5 7 AM STATE TROOPER 09/07/2024 1:51 PM STATE TROOPER Sophia Becerril [employer] LAB BLOOD ORDERABLES Final Result Performing Organization Address [facility] Co de Phone Number [facility] [place] [address] * (ABNORMAL) Comprehensive metabolic panel (09/07/2024 10:57 AM STATE TROOPER) Sodium 139 135 - 145 mmol/L Potassium, pl 4.3 3.3 - 4.9 mmol/L [facility] Chloride 101 97 - 110 mmol/L [facility] CO2 29 22 - 32 mmol/L [facility] Anion gap 9 2 - 15 mmol/L [facility] BUN 15 6 - 25 mg/dL [facility] Creatinine 0.55(L) 0.60 - 1.10 mg/dL [facility] Glucose 115 70 - 199 mg/dL [facility] Comment: Interpretive Data Fasting glucose >/= 126 [...] 2022. Calcium 9.8 8.5 - 10.3 mg/dL [facility] Bilirubin, total 0.3 0.1 - 1.2 mg/dL [facility] Protein, pl 5.8(L) 6.5 - 8.5 g/dL [facility] Albumin 4.0 3.5 - 5.0 g/dL [facility] Alk phos 41 40 - 130 Units/L [facility] ALT 18 7 - 45 Units/L [facility] AST 19 10 - 45 Units/L [facility] Blood 09/07/2024 10:5 7 AM STATE TROOPER 09/07/2024 1:51 PM STATE TROOPER us Sophia Becerril NP LAB BLOOD ORDERABLES Final Result [facility] [place] [address] from Last 3 Months Insurance [employer] [facility] AD[employer]TRA TNA MEDICARE GOLD COMMERCIAL GENERIC MEDICARE [employer] MEDICARE GOLD Advance Directives For more information, please contact: [phone] Documents on File Type Date Recorded 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 Advance Directives and Monique g Will 10/18/2021 11:03 AM * Full [...] 11:55 AM 06/23/2019 6:27 PM Care Teams Tank 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 Relationship Specialty Start Date End Date Milton Murillo MD [address] [address] PCP - General Family Medicine 11/06/24 Kenny Castro MD [address] [place] [address] Consulting Physician Gastroenterology 08/25/21 Gianluca Hogue MD [address] [place] [address] Surgeon General Surgery 10/19/21 Shonda Au RN Registered Nurse Pulmonary Disease 05/07/23 Layne Colvin MD [address] [facility] [address] [place] [address] Medical Oncologist/Aligner Hematology 06/25/23 Isabel Hughes MD [address] [place] [address] Consulting Physician Pain Management 10/17/23 Pricila Hernandez MD [address] [facility] [address] [place] [address] Consulting Physician Bone Health 11/08/23
--- OUTSIDE RECORDS SUMMARY | 2024-12-07 10:37 | XMS_ITS | Clinical Summary ---
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 Active apixaban (ELIQUIS) 5 MG tablet Take 1 tablet (5 mg total) by mouth 2 (two) times daily. Active acyclovir (ZOVIRAX) 400 MG tablet Take 1 tablet (400 mg total) by mouth 2 (two) times daily. Active lenalidomide (REVLIMID) 20 MG capsule Take 1 capsule by mouth daily. Take 1 capsule by mouth daily for 14 days then 7 days off. Active escitalopram (LEXAPRO) 20 MG tablet Take 1 tablet (20 mg total) by mouth daily. Active prochlorperazin e (COMPAZINE) 10 MG tablet Take 1 tablet (10 mg total) by mouth every 6 (six) hours as needed. Active umeclidinium-vi lanterol (ANORO ELLIPTA) 62.5-25 MCG/ACT inhaler Inhale 1 puff into the lungs daily. Active vitamin D3 (CHOLECALCIFERO L) 125 mcg Tab Take 1 tablet (125 mcg total) by mouth every other day. Active OXYGEN by Nasal route nightly. 2 L/min. Active aspirin EC (ECOTRIN) 81 MG tablet Take 1 tablet (81 mg total) by mouth nightly. Active denosumab (PROLIA) 60 MG/ML injection Inject 1 mL (60 mg total) into the skin every 30 (thirty) days. Active ibuprofen (MOTRIN) 400 MG tablet Take 1 tablet (400 mg total) by mouth every 6 (six) hours as needed for Pain. Active metoprolol succinate ER (TOPROL-XL) 25 MG 24 hr tablet Take 1 tablet (25 mg total) by mouth daily. Active omeprazole (PRILOSEC) 40 MG capsule Take 1 capsule (40 mg total) by mouth daily. Active TURMERIC OR Take by mouth daily. Active melatonin 5 MG tablet Take 2 tablets (10 mg total) by mouth nightly as needed. Active albuterol sulfate HFA 108 (90 Base) MCG/ACT inhaler Inhale 2 puffs into the lungs every 4 (four) hours as needed for Wheezing. Active psyllium (METAMUCIL) 51.7 % packet Take 1 packet by mouth daily. 3.4 gram packet Active pravastatin (PRAVACHOL) 20 MG tablet Take 1 tablet (20 mg total) by mouth nightly at bedtime. Active fluticasone propionate (FLONASE) 50 MCG/ACT nasal spray 2 sprays by Each Nostril route daily as needed for Rhinitis. Active Multiple Vitamin (MULTIVITAMIN ADULT OR) Active Social History Tobacco Use Types Packs/Day Years Used Date Smoking Tobacco: Never Smokeless Tobacco: Never Tobacco Cessation:Counseling Given: Not Answered Alcohol Use Standard Drinks/Week Comments Not Currently 0 (1 standard drink = 0.6 oz pur e alcohol) Comments Unknown Sex and Gender Information Value Date Recorded Sex Assigned at Not on file Legal Sex Female 5:58 PM CDT Gender Identity Not on file Sexual Orientation Not on file Last Filed Vital Signs Vital Sign Reading Time Taken Comments Blood Pressure 146/85 12/27/2023 1:30 PM OUTREACH PROFESSIONAL Pulse 83 12/27/2023 1:19 PM OUTREACH PROFESSIONAL Temperature 37.1 C (98.7 F) 12/27/2023 1:19 PM OUTREACH PROFESSIONAL Respiratory Rate 18 12/27/2023 1:19 PM OUTREACH PROFESSIONAL Oxygen Saturation 96% 12/27/2023 1:30 PM OUTREACH PROFESSIONAL Inhaled Oxygen Concentration - - Weight 69.6 kg (153 lb 7 oz) 12/27/2023 1:19 PM OUTREACH PROFESSIONAL Height 157.5 cm (5' 2 ) 12/27/2023 1:19 PM OUTREACH PROFESSIONAL Body Mass Index 28.06 12/27/2023 1:19 PM OUTREACH PROFESSIONAL Plan of Treatment Health Maintenance Due Date Last Done Comments Hepatitis C 1963 Zoster Vaccines (1 of 2) 1966 DTaP, Tdap and Td Vaccines (1 - Tdap) 07/29/2009 07/28/2009 Annual Medicare Wellness Visit 2012 RSV Immunization or 60+ Years (1 - 1-dose 75+ series) 2022 COVID-19 Vaccine (5 - season) 2024 04/20/2022, 09/25/2021, 01/13/2021, Additional history exists Influenza Adult (#1) 2024 08/08/2021, 07/20/2020, 08/27/2019, Additional history exists Pneumococcal Vaccine: 65+ Years Completed 12/16/2014, 11/10/2012 Dexa Scan (General) Completed 10/09/2023, Meningococcal B Vaccine Aged Out No l onger eligible based on patient's age to complete this topic Meningococcal Vaccine Aged Out No estefanía joselyn eligible based on patient's age to complete this topic RSV Immunizations Under 20 Months Aged Out No longer eligible based on patient's age to complete this topic Insurance [employer] Care Teams Sewing 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
--- OUTSIDE RECORDS SUMMARY | 2024-12-07 10:37 | XMS_ITS ---
Author Organization [facility] Address [address] [place] [address] Care Team Providers Care College Counselor Name Role Phone Kenny Castro MD Unavailable [phone] Gianluca Hogue MD Unavailable [phone] Shonda Au RN Unavailable Unavailabl e Layne Colvin MD Unavailable [phone] Isabel Hughes MD Unavailable Pricila Hernandez MD Unavailable [phone] Milton Murillo MD Primary Care Provider [phone] Active Problems Problem Noted Date Diagnosed Date Chronic ITP (idiopathic thrombocytopenia) 2022 Multiple myeloma not having achieved remission ( [facility]/HCC) 11/08/2022 11/01/2022 Cancer Staging:Clinical stage from 11/01/2022:RISS Stage II(Rpxv-1-zpixpwacmihvx (mg/L): 2.4, Albumin (g/dL): 3.9, ISS: Stage I, High-risk cytogenetics: Present, LDH: Normal) - Signed by Layne Colvin MD on 11/08/2022 Post-operative state 11/08/2021 Biliary colic 10/18/2021 On home oxygen therapy 10/17/2021 GERD (gastroesophageal reflux disease) Gallstones 10/10/2021 Overview (10/10/2021): Added automatically from request for surgery [id number] Abdominal pain 08/24/2021 RUQ abdominal pain 08/23/2021 [...] night.. Assessment & Plan (12/15/2019 3:15 PM VIRTUAL ASSISTANT FOR ADVERTISERS): Ms. Castelan is improved after lumbar decompression [...] 09/02/2018 Assessment & Plan (12/13/2021 4:33 PM VIRTUAL ASSISTANT FOR ADVERTISERS): Ms. Castelan is doing better in regards [...] patient's . Will order a brace through [employer] and refer to [facility]. Vertebral compression fracture 09/02/2018 [...] Chronic obstructive pulmonary disease Pulmonary fibrosis (CMS/HCC) Current Oncology Plans Daratumumab SUBCUTANEOUS / Lenalidomide / Bortezomib / Dexamethasone (D-RVd Induction/Consolidation) followed by Daratumumab / Lenalidomide (D-R Maintenance) - Myeloma* Plan Start Date:12/10/2022 Plan Provider:Layne Colvin MD Linked Problems Multiple myeloma not having achieved remission (CMS/HCC) (HCC)Chronic ITP (idiopathic thrombocytopenia) (HCC) Treatment Medications Current Day (Day 1 , Cycle 28 (Maintenance) - Planned for 12/29/2024) Next Day (Day 1, Cycle 29 (Maintenance) - Planned for 01/26/2025) bortezomib (VELCADE)daratumumab-fihj (DARZALEX FASPRO) (DARZALEX FASPRO)daratumumab-fihj (DARZALEZ FASPRO) (DARZELEX FASPRO)lenalidomide (REVLIMID) daratumumab-fihj (DARZALEX FASPRO) 1,800 mg -30,000 units hyaluronidase subcutaneous injection daratumumab-fihj (DARZALEX FASPRO) 1,800 mg -30,000 units hyaluronidase subcutaneous injection DENOSUMAB (XGEVA) INJECTION* Plan Start Date:12/18/2022 Plan Provider:Layne Colvin MD Linked Problems Age-related osteoporosis wit h current pathological fracture with delayed healingMultiple myeloma not having achieved remission (CMS/HCC) (HCC) Treatment Medications No medications scheduled. Past Plans No past plan information found. Radiation Treatments * No radiation treatments are documented for this patient in [facility]. Treatments may have been administered in another system. Lifetime Dose Tracking * Chemical Lifetime Dose Automatic Entry Manual Entr y Fluoro Time 47.7 minutes 47.7 minutes 0 minutes Air kerma at the reference point (Ka,r) 306.13 mGy 3 06.13 mGy 0 mGy DLP 1,445 mGycm 1,445 mGycm 0 mGycm Resolved Problems Problem Noted Date Diagnosed Date Resolved Date Lumbar stenosis with neurogenic claudication 9 12/15/2019 Overview (05/22/2019): Added automatically from request for surgery [id number] Neurogenic claudication 01/06/201911/28 Overview (01/06/2019): Added automatically from request for surgery [id number] Assessment & Plan (04/21/2019 1:39 PM CDT): Ms. Castelan has lumbar stenosis with neurogenic claudication. She is a candidate with her MRI and symptoms for L4-5 decompression and fusion. The decision whether she is a surgical candidate all would be up to Dr. Amaral, her analytics analyst. We discussed that the surgery would take [...] 12/15/2019 Assessment & Plan (12/10/2018 4:43 PM VIRTUAL ASSISTANT FOR ADVERTISERS): Ms. Castelan has persistent low back pain [...]
--- OUTSIDE RECORDS SUMMARY | 2024-12-07 10:37 | XMS_ITS | Encounter Summary ---
Author Organization [facility] Address [address] [place] [address] Care Team Providers Care [place] Name Role Phone Yocasta Soto MD Primary Care Provider + Kenny Castro MD Unavailable [phone] Gianluca Hogue MD Unavailable [phone] Shonda Au RN Unavailable Unavailabl e Layne Colvin MD Unavailable [phone] Isabel Hughes MD Unavailable Pricila Hernandez MD Unavailable [phone] Milton Murillo MD Primary Care Provider [phone] Encounter Details Date Type Department Care Team (Late st Contact Info) Description 10/18/2023 Telephone [facility] Pain [address] [address] Isabel Hughes MD [address] [place] [address] [place] [address] Social History Tobacco Use Types Packs/Day Years Used Date Smoking Tobacco: Former Cigarettes 1 25 0 10/28/1979 - 10/28/2004 Passive Smoke Exposure: Past Smokeless Tobacco: Never Alcohol Use Standard Drinks/Week Comments No 0 (1 standard drink = 0.6 oz pur e alcohol) AUDIT-C Answer Date Recorded Frequency of Alcohol Consumption Not on file 05/07/2023 Q2: How many drinks containi ng alcohol do you have on a typical day when you are drinking? 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 Author CCM Chronic Pain Care Plan Chronic Care Management No Monica Del Valle RN Note: Problem: Chronic Pain Goals: 1. Minimize further functional decline 2. Maximize quality of life 3. Control pain Strategies: - Activity/exercise program recommendation - Conservative stepwise pain medicine strategy with multi-disciplinary approach - Recommend healthy lifestyle strategies and compensatory methods as needed documented as of this encounter Visit Diagnoses Not on filedocumented in this encounter Care Teams [place] Relationship Specialty Start Date End Date Yocasta Soto MD PCP - General Family Medicine 05/08/18 11/05/24 Milton Murillo MD [address] [address] PCP - General Family Medicine 11/06/24 Kenny Castro MD [address] [place] [address] Consulting Physician Gastroenterology 08/25/21 Gianluca Hogue MD [address] [place] [address] Surgeon General Surgery 10/19/21 Shonda Au, RN Registered Nurse Pulmonary Disease 7/11/23 Layne Colvin MD [address] [address] Medical Oncologist/Shoe Trimmer Hematology 06/25/23 Isabel Hughes MD [address] [address] Consulting Physician Pain Management 10/17/23 Pricila Hernandez MD [address] [address] Consulting Physician Bone Health 11/08/23 documented as of this encounter
--- OUTSIDE RECORDS SUMMARY | 2024-12-07 10:37 | XMS_ITS | Data Portability ---
Author Organization [place] [facility], Main Office Address [address] [place] [address] Assessment Encounter Date Assessment Date Assessment LastModified by Organization Details LastModified Time 02/24/2024 02/24/2024 call in 2 weeks [email or web address] Not availabl e 02/24/2024 18:00:13 06/04/2024 06/04/2024 small asymptomat ic reducible umbilical incisional hernia most likely from laparoscopic cholecystectomy 3 years ago. Discussed options with patient. Will continue conservative management patient will return if symptoms do occur or it becomes larger [email or web address] Not available 06/04/2024 12:52:23 Plan of Treatment Reminders Order Date Submit Date Provider Last Modified By Organization Details Last Modified Time Details Appointments None recorded. Lab None recorded. Referral general surgeon referral - Please call patient to schedule an appointment . 2023 024 [email or web address] Bernardo Maria MD, [address] [facility], [facility] [address], [place], [address], 09:22:19 Procedures None recorded. Surgeries None recorded. Imaging None recorded. Medication Orders mirtazapine 15 mg tablet 2023 024 [email or web address] [id number], [address] [place], [address], 16:39:43 mirtazapine 30 mg tablet 2023 024 [email or web address] [id number], [address] [place], [address], 18:01:30 Patient TargetsNo targets recorded. Patient InstructionsNo instructions recorded. Reason for Referral General Surgeon Referral for Abdominal pain eval and treat umbilical hernia Please call patient to schedule an appointment. Referring Physician: Jemal Barahona, Family Medicine, Encounter Date: 01/02/2024 Results Created Date Observation Date Name Description Value Unit Range Abnormal Flag Note LastModifiedBy Organization Detail LastModifiedTime 04/06/20 24 04/06/2024 MAMMO , scree janel, digit al, bilat eral No observ ation record ed. [facility] [address], [place], [address], 05/23/2024 13:15:23 Result Notes None recorded. Problems Name Problem SNOMED Code Status Onset Date Resolution Date Notes Provider Name and Address Organization Details Recorded Time Multiple myeloma 242863371 Active 2022 Not Available [facility] 3 18:53:18 Chronic obstructive pulmonary disease 95456445 Active 2017 Not Available [facility] 3 18:53:18 Interstitial lung disease 887149510 Active 2018 Not Available [facility] 3 18:53:18 Degeneration of lumbar intervertebra l disc 99911532 Active 2021 Not Available [facility] 3 18:53:18 Gastroesophag eal reflux disease without esophagitis 790952237 Active 2021 Not Available [facility] 3 18:53:18 Osteopenia 754307799 Active 2020 Not Available [facility] 3 18:53:18 Depressive disorder 71147595 Active 2021 Not Available [facility] 3 18:53:18 Arthritis 8765071 Active 2016 hips and knees Not Available [facility] 3 18:53:18 Hyperlipidemi a 54786274 Active 2021 Not Available [facility] 3 18:53:19 Fatigue 57794210 Active 2022 Yocasta Soto MD [address] [place] [address], [facility] [address], [place], [address] , [employer] 3 14:55:35 Cobalamin deficiency 622144484 Active 2022 Yocasta Soto MD [address], [address] , [employer] [facility] 3 14:56:54 Mixed anxiety and depressive disorder 953301101 Active 2022 Yocasta Soto MD [address], [address] , [employer] 3 17:31:43 Abdominal pain 59184903 Active 2023 ANGEL Mendoza [address] [facility], [address], [address] , [employer] [facility] 4 16:34:51 Decrease in appetite 17514496 Active 2023 Yocasta Soto MD [address], [address] , [employer] 4 16:38:22 Umbilical hernia 602066237 Active 2023 Bernardo rothman MD [address], [address] , [employer] 4 14:30:09 Problem Notes None recorded. Procedures Surgical History None recorded. Imaging Results Imaging Date Name Status LastModified by Organiz ation Details LastModified Time 04/06/2024 MAMMO, screening, digital, bilateral completed [facility] [address] [facility] [address], [place], [address], 05/23/2024 13:15:23 Procedure Notes None recorded. Medical Equipment None Reported. Allergies Allergen ID Allergen Name Allergen Category Reaction Reaction Severity Criticality Documentation Date Start Date Code Code System Note Provider Name and Address Organization Details Recorded Time 89549 Substance with sulfonami de structure and antibacte rial mechanism of action (substanc e) medicatio n Not available Not available Not available 12/26/2022 61134 8003 SNOMED Not Available [facility] 3 18:54:36 54617 prednison e medicatio n Not available Not available Not available 12/26/2022 8640 RxNorm Not Available [facility] 3 18:54:36 Medications Name Sig Start Date Stop Date Status Note LastModified by Organization Details LastModified Time fluoxetine 40 mg capsule TAKE 1 CAPSULE BY MOUTH EVERY DAY 01/22 completed Not Available Not Available Not Available gabapentin 600 mg tablet TAKE 1 TABLET BY MOUTH TWICE A DAY active Not Available Not Available No t Available doxycycline hyclate 100 mg capsule 01/20 completed Not Available Not Available Not Available cetirizine 10 mg tablet TAKE 1 TABLET BY MOUTH EVERY DAY active Not Available Not Available No t Available ibuprofen 800 mg tablet active Not Available Not Available Not Available tizanidine 4 mg tablet 10/27 completed Not Available Not Available Not Available fluconazole 150 mg tablet TK 1 T PO NOW THEN REPEAT IN 1 WEEK 12/25 completed Not Available Not Available Not Available benzonatate 200 mg capsule 200 MG ORALLY THREE TIMES A DAY NEEDED FOR COUGH FOR 10 DAYS 03/06 completed Not Available Not Available Not Available hydrocodone 5 mg-acetamin ophen 325 mg tablet TAKE 1 TABLET BY MOUTH EVERY 4 HOURS NEEDED FOR PAIN active Not Available Not Available No t Available ciprofloxac in 250 mg tablet Take 1 tablet twice a day by oral route for 7 days. 12/05 completed Not Available Not Available Not Available amlodipine 5 mg tablet TAKE 1 TABLET BY MOUTH EVERY DAY active Not Available Not Available No t Available prochlorper azine maleate 10 mg tablet active Not Available Not Available No t Available acyclovir 400 mg tablet TAKE 1 TABLET (400 MG TOTAL) BY MOUTH 2 TIMES A DAY active Not Available Not Available No t Available ciprofloxac in 500 mg tablet TAKE 1 TABLET BY MOUTH EVERY 12 HOURS FOR 5 DAYS 01/22 completed Not Available Not Available Not Available hydrocodone 10 mg-acetamin ophen 325 mg tablet TAKE 1 TABLET BY MOUTH EVERY 6 HOURS NEEDED FOR 5 DAYS active Not Available Not Available No t Available omeprazole 40 mg capsule,del ayed release TAKE 1 CAPSULE BY MOUTH EVERY DAY active Not Available Not Available No t Available oxycodone-a cetaminophe n 5 mg-325 mg tablet 10/27 completed Not Available Not Available Not Available benzonatate 100 mg capsule TAKE 1 CAPSULE BY MOUTH EVERY 8 HOURS NEEDED 01/20 completed Not Available Not Available Not Available cephalexin 500 mg capsule TAKE 1 CAPSULE BY MOUTH TWICE A DAY FOR 7 DAYS 12/05 completed Not Available Not Available Not Available cyanocobala min (vit B-12) 1,000 mcg/mL injection solution Inject 1 mL every month by subcutane ous route. 2022 active Not Available Not Available Not Avai lable mirtazapine 30 mg tablet Take 1 tablet every day by oral route. active Not Available Not Available No t Available fluoxetine 20 mg tablet Take 1 tablet every day by oral route. 04/22 completed Not Available Not Available Not Available dexamethaso ne 4 mg tablet TAKE 5 TABLETS BY MOUTH ONCE A WEEK. active Not Available Not Available No t Available lidocaine 5 % topical patch APPLY 1 PATCH BY TOPICAL ROUTE ONCE DAILY (MAY WEAR UP TO 12H... active Not Available Not Available No t Available fluoxetine 10 mg capsule TAKE 1 CAPSULE BY MOUTH EVERY DAY with 20 mg cap 02/17 completed Not Available Not Available Not Available nitroglycer in 0.4 mg sublingual tablet 1 po x 1 if severe chest pain active Not Available Not Available No t Available gabapentin 300 mg capsule Take 1 capsule twice a day by oral route. 05/27 completed Not Available Not Available Not Available omeprazole 20 mg capsule,del ayed release TAKE ONE CAPSULE BY MOUTH EVERY DAY 02/17 completed Not Available Not Available Not Available pravastatin 20 mg tablet TAKE 1 TABLET BY MOUTH EVERY DAY active Not Available Not Available No t Available mirtazapine 15 mg tablet TAKE 1 TABLET BY MOUTH EVERY DAY active Not Available Not Available No t Available metoprolol succinate ER 25 mg tablet,exte nded release 24 hr TAKE 1 TABLET BY MOUTH EVERY DAY active Not Available Not Available No t Available hydroxychlo roquine 200 mg tablet TAKE 2 TABLETS BY MOUTH EVERY DAY 11/01 completed Not Available Not Available Not Available cefdinir 300 mg capsule 01/20 completed Not Available Not Available Not Available fluoxetine 20 mg capsule TAKE ONE CAPSULE BY MOUTH EVERY DAY active Not Available Not Available No t Available fluticasone propionate 50 mcg/actuati on nasal spray,suspe nsion SPRAY 2 SPRAYS INTO EACH NOSTRIL EVERY DAY active Not Available Not Available No t Available doxycycline hyclate 100 mg tablet 100 MG ORALLY TWICE A DAY FOR 7 DAYS 03/06 completed Not Available Not Available Not Available dicyclomine 10 mg capsule TAKE 1 CAPSULE BY MOUTH 3 TIMES A DAY (BEFORE A MEAL AND AT BEDTIME) active Not Available Not Available No t Available Vaniqa 13.9 % topical cream APPLY A THIN LAYER TO THE AFFECTED AREA(S) BY TOPICAL ROUTE 2 TIMES PER DAY active Not Available Not Available No t Available amoxicillin 875 mg-potassiu m clavulanate 125 mg tablet TAKE 1 TABLET BY MOUTH TWICE A DAY FOR 5 DAYS 07/25 completed Not Available Not Available Not Available Ventolin HFA 90 mcg/actuati on aerosol inhaler INHALE 2 PUFFS EVERY 4-6 HOURS NEEDED active Not Available Not Available No t Available Estrace 0.01% (0.1 mg/gram) vaginal cream INSERT 1 GRAM BY VAGINAL ROUTE ONCE WEEKLY 10/27 completed Not Available Not Available Not Available Denta 5000 Plus 1.1 % cream APPLY A THIN RIBBON OF PASTE TO TOOTH BRUSH AND BRUSH THOROUGHL Y FOR 2 MIN AT BEDTIME active Not Available Not Available No t Available escitalopra m 10 mg tablet TAKE 1 TABLET BY MOUTH EVERY DAY 01/22 completed Not Available Not Available Not Available escitalopra m 20 mg tablet Take 1 tablet every day by oral route. 2023 active Not Available Not Available Not Avai lable bupropion HCl XL 300 mg 24 hr tablet, extended release Take 1 tablet every day by oral route. 12/07 completed Not Available Not Available Not Available bupropion HCl XL 150 mg 24 hr tablet, extended release TAKE 1 TABLET BY MOUTH EVERY DAY 02/17 completed Not Available Not Available Not Available nitrofurant oin monohydrate /macrocryst als 100 mg capsule Take 1 capsule every 12 hours by oral route for 7 days. active Not Available Not Available No t Available Revlimid 25 mg capsule TAKE ONE CAPSULE BY MOUTH DAILY FOR 14 DAYS THEN 7 DAYS OFF active Not Available Not Available No t Available Revlimid 10 mg capsule TAKE 1 CAPSULE BY MOUTH DAILY FOR 21 DAYS active Not Available Not Available No t Available Symbicort 80 mcg-4.5 mcg/actuati on HFA aerosol inhaler Inhale 2 puffs twice a day by inhalatio n route. 03/17 completed Not Available Not Available Not Available omeprazole 20 mg tablet,marina yed release 1 po qday 12/25 completed Not Available Not Available Not Available diclofenac 1 % topical gel 10/27 completed Not Available Not Available Not Available Eliquis 5 mg tablet active Not Available Not Available No t Available Pomalyst 4 mg capsule TAKE ONE CAPSULE BY MOUTH DAILY FOR 21 DAYS THEN 7 DAYS OFF. TAKE AT SAME TIME EVERY DAY active Not Available Not Available No t Available Revlimid 20 mg capsule TAKE 1 CAPSULE BY MOUTH DAILY FOR 14 DAYS THEN 7 DAYS OFF. active Not Available Not Available No t Available Anoro Ellipta 62.5 mcg-25 mcg/actuati on powder for inhalation INHALE 1 PUFF DAILY active Not Available Not Available No t Available Incruse Ellipta 62.5 mcg/actuati on powder for inhalation INHALE 1 PUFF BY MOUTH ONCE A DAY 03/17 completed Not Available Not Available Not Available Rexulti 1 mg tablet Take 1 tablet every day by oral route. active Not Available Not Available No t Available Rexulti 0.5 mg tablet 1 po qday x 1 week then increase to 2 po qday 05/20 completed Not Available Not Available Not Available pirfenidone 267 mg tablet WEEK:____ QTY: PLEASE SEE ATTACHED INSTRUCTI ONS active Not Available Not Available No t Available Tymlos 80 mcg/dose (3,120 mcg/1.56 mL) subcutaneou s pen injector 11/01 completed Not Available Not Available Not Available Eliquis DVT-PE Treatment 30-Day Starter 5 mg (74 tablets) in dose pack active Not Available Not Available No t Available Fluad 65yr up(PF)45 mcg(15 mcgx3)/0.5 mL intramuscul ar syringe PHARMACIS T ADMINISTE RED IMMUNIZAT ION ADMINISTE RED AT TIME OF DISPENSIN G active Not Available Not Available No t Available Fluad Quad (6 5yr up)(PF) 60 mcg (15 mcg x 4)/0.5mL IM syringe PHARMACIS T ADMINISTE RED IMMUNIZAT ION ADMINISTE RED AT TIME OF DISPENSIN G active Not Available Not Available No t Available Sutab 1.479-0.188 -0.225 gram tablet USE DIRECTED BY PHYSICIAN S INSTRUCTI ONS 11/01 completed Not Available Not Available Not Available BinaxNOW COVID-19 Ag Self Test kit USE DIRECTED 03/06 completed Not Available Not Available Not Available Paxlovid 300 mg (150 mg x 2)-100 mg tablets in a dose pack TAKE DIRECTED 3 TABLETS TWICE A DAY FOR 5 DAYS 12/05 completed Not Available Not Available Not Available Vitals Date Recorded Body weight Body temperature Heart rate Oxygen saturation Oxygen saturation in Arterial blood by Pulse oximetry Systolic blood pressure Diastolic blood pressure Provider Name and Address Organization Details Last Updated DateTime 3 67723.7 1 g 98 [degF] 60 /min 97 % 97 % 120 mm[Hg] 68 mm[Hg] Yamilka Rosario LPN [facility] [employer] [facility] 3 16:03:56 Date Recorded Body weight Body mass index (BMI) Body height Body temperature Heart rate Oxygen saturation Oxygen saturation in Arterial blood by Pulse oximetry Systolic blood pressure Diastolic blood pressure Provider Name and Address Organization Details Last Updated DateTime 4 37872.8 6 g 27.4 kg/m2 157.48 cm 98.7 [degF] 62 /min 98 % 98 % 132 mm[Hg] 80 mm[Hg] Yohana Gaxiola RN [facility] [employer] [facility] 4 16:31:15 Date Recorded Body height Body mass index (BMI) Body weight Body temperature Heart rate Systolic blood pressure Diastolic blood pressure Provider Name and Address Organization Details Last Updated DateTime 4 157.48 cm 26.5 kg/m2 79627.8 9 g 98.3 [degF] 80 /min 118 mm[Hg] 78 mm[Hg] Kemar Castelan RN [facility] [employer] 4 16:30:04 Date Recorded Body height Body mass index (BMI) Body weight Body temperature Heart rate Oxygen saturation Oxygen saturation in Arterial blood by Pulse oximetry Systolic blood pressure Diastolic blood pressure Provider Name and Address Organization Details Last Updated DateTime 4 157.48 cm 27.8 kg/m2 18356.0 4 g 98.1 [degF] 68 /min 95 % 95 % 124 mm[Hg] 78 mm[Hg] Kemar Castelan RN [employer] 4 17:49:44 Date Recorded Body height Body mass index (BMI) Body weight Heart rate Oxygen saturation Oxygen saturation in Arterial blood by Pulse oximetry Systolic blood pressure Diastolic blood pressure Provider Name and Address Organization Details Last Updated DateTime 4 157.48 cm 27.8 kg/m2 91609.0 4 g 70 /min 96 % 96 % 122 mm[Hg] 76 mm[Hg] RHEA Delong [employer] 4 12:35:24 Social History Question Answer Notes LastModified by Organizat ion Details LastModified Time Tobacco Smoking Status Never Smoker Kavitha Anjum [email or web address] [employer] 04/25/2023 17:04:35 What Is Your Level Of Alcohol Consumption? None [id number] Information not available 12/26/2022 Do You Wear A Helmet When Biking? Yes [email or web address] Information not available 04/25/2023 Are You Blind Or Do You Have Difficulty Seeing? No [email or web address] Information not available 04/25/2023 What Is Your Level Of Caffeine Consumption? None [id number] Information not available 12/26/2022 Are You Deaf Or Do You Have Serious Difficulty Hearing? No Information not available 04/25/2023 What Type Of Diet Are You Following? REGULAR [id number] Information not available 12/26/2022 What Is The Highest Grade Or Level Of School You Have Completed Or The Highest Degree You Have Received? [id number] Information not available 04/25/2023 What Is Your Relationship Status? [id number] Information not available 12/26/2022 Do You Use Your Seat Belt Or Car Seat Routinely? Yes Information not available 04/25/2023 Do You Participate In Social Media? No [email or web address] Information not available 04/25/2023 Do You Feel Stressed (tense, Restless, Nervous, Or Anxious, Or Unable To Sleep At Night)? [id number] [email or web address] Information not available 04/25/2023 Do You Use Any Illicit Or Recreational Drugs? No [email or web address] Information not available 04/25/2023 Are You Currently In School? No [email or web address] Information not available 04/25/2023 Do You Have Any Dietary Restrictions? No Information not available 04/25/2023 Sex: Unknown Functional Status Question Answer Note LastModified by Organizat ion Details LastModified Time Do you have difficulty walking or climbing stairs? No [email or web address] Information not available 04/25/2023 Do you have transportation difficulties? No [email or web address] Information not available 04/25/2023 Are you able to care for yourself? Yes [email or web address] Information not available 04/25/2023 Do you have difficulty dressing or bathing? No [email or web address] Information not available 04/25/2023 Mental Status Question Answer Note LastModified by Organization D etails LastModified Time Do you have difficulty concentrating, remembering or making decisions? No [email or web address] Information no t available 04/25/2023 Family History Nothing Reported. Medical History No medical history recorded. Gynecological History Statement/Question Response Menses Monthly N Obstetrics History GPAL:G 0 P 0 0 0 0 Immunizations Vaccine Type Date Status Note Provider Nam e and Address Organization Details Recorded Time Influenza, split virus, quadrivalent, preservative 2 completed Not Available [facility] 12/26/2022 18:54:35 Influenza, split virus, quadrivalent, preservative 1 completed Not Available [facility] 12/26/2022 18:54:35 Influenza, split virus, quadrivalent, preservative 9 completed Not Available [facility] 12/26/2022 18:54:35 Influenza, high-dose, trivalent, PF 8 completed Not Available [facility] 12/26/2022 18:54:35 Influenza, high-dose, quadrivalent, PF 3 completed Yocasta Soto MD [address] [place] [address], [address], [facility] [employer] [facility] 07/25/2023 19:06:24 Past Encounters Encounter ID Performer Location Encounter Start Date Encounter Closed Date Diagnosis/Indication Diagnosis SNOMED-CT Code Diagnosis ICD10 Code Diagnosis Note [id number] [facility] Primary Care [facility] [address] [facility] [address] [place] [address] 06/01/2021 00:00:00 06/01/2021 11:45:33 [id number] [facility] Primary Care [place] [address] [place] [address] 08/22/2021 00:00:00 08/25/2021 08:30:18 [id number] [facility] [place] [address] [place] [address] 09/28/2021 00:00:00 10/26/2021 08:06:46 [id number] [facility] [place] [address] [place] [address] 11/01/2021 00:00:00 11/27/2021 18:41:25 [id number] [facility] [place] [address] [place] [address] 12/05/2022 00:00:00 12/23/2022 16:29:26 [id number] Yocasta Soto MD [facility] Primary Care [place] [address] [place] [address] 03/06/2023 14:37:53 03/06/2023 15:23:30 Fatigue 78252260 R53.83 Cobalamin deficiency 190 518951 E53.8 [id number] Yocasta Soto MD [facility] Primary Care [place] [address] [facility] [address] [place] [address] 04/25/2023 17:03:43 04/25/2023 17:38:50 Mixed anxiety and depressive disorder 962452282 F41.8 add rexulti-sa mples givenf/u in 4 week by phone [id number] Yocasta Soto MD [facility] Primary Care [place] [address] [facility] [address] [address] [place] [address] 07/25/2023 15:57:16 07/25/2023 16:28:36 Administration of influenza vaccine 21468782 Z23 Mixed anxi ety and depressive disorder 088351683 F41.8 doing well on rexulti 1mg and escitalopr am 10 mg dailyf/u in 6 months or sooner if needed [id number] Jemal Barahona, [employer] [facility] Primary Care [facility] [address] [facility] [address] [facility] [place] [place] [address] 01/02/2024 16:23:58 01/02/2024 17:23:26 Abdominal pain 37123167 R10.9 -Pt had abdominal pain to left lower abdomen approx a couple weeks ago-was told that she has an umbilical hernia-not ed a bulge under her belly button-nor mal b&b, no nausea-f/u with ER [id number] Yocasta Soto MD [facility] Primary Care [facility] [address] [facility] [address] [facility] [place] [address] 01/23/2024 16:20:31 01/23/2024 16:47:07 Decrease in appetite 40588085 R63.0 likely multifacto rial between treatment protocol for her multiple myeloma, chronic pain and depression add mirtazapin e 15 mg po qhsreviewe d potential med s/e and she was advised to d/c med if any s/s of serotonin syndromef/ u in 4 weeks or sooner if needed [id number] Yocasta Soto MD [facility] Primary Care [facility] [address] [facility] [address] [place] [address] 02/24/2024 17:46:10 03/09/2024 09:50:42 Decrease in appetite 70779912 R63.0 likely multifacto rial between treatment protocol for her multiple myeloma, chronic pain and depression add mirtazapin e 15 mg po qhsreviewe d potential med s/e and she was advised to d/c med if any s/s of serotonin syndromef/ u in 4 weeks or sooner if needed update 02/24/24: no change in appetite that she has noticed, no change in sleep or moodweight is up, but may be due to inaccurate weight last timeoveral l, no additional weight lossincrea se Chronic ob structive pulmonary disease 31778933 J44.9 sees pulmonary Multiple myeloma 4313777 06 C90.00 sees oncology [id number] Bernardo rothman MD [facility] General Surgery [address] [place] [address] 06/04/2024 12:32:21 06/04/2024 12:54:40 Umbilical hernia 328086902 K42.9 Health Concerns Section Related Observation LastModified by Organization Detai ls LastModified Time None Recorded Concern Status LastModified by Organization Details LastModified Time None Recorded Advance Directives Directive None Recorded Payers Encounter Date Sequence Insurance Name Policy Number Policy [place] Covered Member ID [place] Member ID Guarantor Name 07/25/2023 1 [employer] (MEDICARE REPLACEMENT PPO) [id number] L Myah Andre Flip [id number] Myah Andre Flip 01/02/2024 1 [employer] (MEDICARE REPLACEMENT PPO) [id number] L Myah Andre Flip [id number] Myah Andre Flip 01/23/2024 1 [employer] (MEDICARE REPLACEMENT HMO) [id number] L Myah Thai Flip [id number] Myah Thai Flip 02/24/2024 1 [employer] (MEDICARE REPLACEMENT HMO) [id number] L Myah Thai Flip [id number] Myah Andre Flip 06/04/2024 1 [employer] (MEDICARE REPLACEMENT HMO) [id number] L Myah Thai Flip [id number] Myah Castelan Notes Date Note Type Note Provider Name and Address Organization Details Recorded Time 07/25/2023 text/html Here to f/u on mood, feeling on rexulti 1 mg daily. No chest pain or sob, mood overall doing well. Yocasta Soto MD [address], [address], [place] [place], [address], [employer] 07/25/2023 19:10:06 01/02/2024 text/html Pt was recently in the ER for abdominal pain ANGEL Mendoza [address], [place], [address], [employer] 01/03/2024 08:32:02 01/23/2024 text/html here for f/u, appetite is poor and mood is down and she has lost 4 more pounds. Sleep is ok but her motivation is down. There are many stressors including health and raising her grandchildren. Yocasta Soto MD [address], [place], [address], [employer] 01/24/2024 08:09:45 02/24/2024 text/html here for f/u, appetite is poor and mood is down and she has lost 4 more pounds. Sleep is ok but her motivation is down. There are many stressors including health and raising her grandchildren. update 02/24/24: no interval change in mood or appetite. She is tolerating mirtazapine without s/e Yocasta Soto MD [address], [place], [address], [employer] 03/15/2024 15:21:19 06/04/2024 text/html patient complain s of a small lump and her belly button that has had for about 3-4 weeks. Denies any symptoms. Bernardo Tran MD [address], [place], [address], [employer] 06/04/2024 14:30:36 OBGyn Episode No OBEpisode recorded.
--- OUTSIDE RECORDS SUMMARY | 2024-12-07 10:37 | XMS_ITS | Encounter Summary ---
Author Organization [facility] Address [address] [place] [address] Phone Care Team Providers Care Director Nurses' Registry Name Role Phone Yocasta Soto MD Primary Care Provider + Kenny Castro MD Unavailable [phone] Gianluca Hgoue MD Unavailable [phone] Shonda Au RN Unavailable Unavailabl e Layne Colvin MD Unavailable [phone] Isabel Hughes MD Unavailable Pricila Hernandez MD Unavailable [phone] Reason for Referral * Procedure (Routine) - Closed Specialty Diagnoses / Procedures Referred By Contac t Referred To Contact Diagnoses Pulmonary fibrosis (CMS/HCC) (HCC) Centrilobular emphysema (HCC) Multiple myeloma not having achieved remission (CMS/HCC) (HCC) Procedures Pulmonary Function Test -[facility] Adult PFT Lab- [facility]; Spirometry, Oxygen Assessment Titration Alex Boland MD [address] [facility] [address] [place] [address] Phone: tel: fax: Referral ID Status Reason Start Date Expiration Date Visits Re quested Visits Authorized [id number] Closed 05/07/2023 06/05/2024 1 1 RT PATIENTS Reason for Visit * Procedure (Routine) - Closed Specialty Diagnoses / Procedures Referred By Contac t Referred To Contact Diagnoses Pulmonary fibrosis (CMS/HCC) (HCC) Centrilobular emphysema (HCC) Multiple myeloma not having achieved remission (CMS/HCC) (HCC) Procedures Pulmonary Function Test -[facility] Adult PFT Lab- [facility]; Spirometry, Oxygen Assessment Titration Alex Boland MD [address] [facility] [address] [place] [address] Phone: tel: fax: Referral ID Status Reason Start Date Expiration Date Visits Re quested Visits Authorized [id number] Closed 05/07/2023 06/05/2024 1 1 Encounter Details Date Type Department Care Team (Latest Contact Info) Description 12/03/2023 1:31 PM [facility] PAT[facility] Hospital Encounter [facility] PFT Lab [address] [facility] [address] [place] [id number] Pulmonary fibrosis (CMS/HCC) (HCC); Centrilobular emphysema (HCC); Multiple myeloma not having achieved remission (CMS/HCC) (HCC) Social History Tobacco Use Types Packs/Day [...] on file Legal Sex Female 3:20 AM [facility] PATIENTS Gender Identity Not on file Sexual Orientation [...] Diagnosis Comments PULMONARY FUNCTION TEST (PFT) Routine 12/03/2023 2:01 PM ESCORT PATIENTS Pulmonary fibrosis (CMS/HCC) (HCC) Centrilobular emphysema (HCC) Multiple myeloma not having achieved remission (CMS/HCC) (HCC) documented in this encounter Results * Pulmonary Function Test - (12/03/2023 2:01 PM ESC[facility] PATIENTS) FVC PRE 2.24 L [facility] FVC %PRE PRED 87 % [facility] FEV1 PRE 1.68 L [facility] FEV1 %PRE PRED 85 % [facility] FEV1/FVC PRE 74.9 % [facility] Anatomical Region Laterality Modality PFT 12/03/2023 1:34 PM ESCORT PATIENTS Addenda Addendum by Elgin Mayfield MD on 12/05/2023 8:00 PM ESC[facility] PATIENTS Table formatting from the original result was not included. [facility] Division of Pulmonary & Critical Care Medicine [address] [place] [address]; [facility]; [place] [address]; [phone] Pulmonary Function Laboratory Pulmonary Stress Test Simple/Oxygen Assessment Patient: Myah Castelan Date: 12/03/2023 : 1945 Ht: 63 inches Wt: 158 lbs Time (min) Distance (ft)/ Conway O2 L/M SpO2 HR Tristan* BP FEV1 % Pred Rest: RA 94 66 2 120/83 1.68 85 % Walk/Bike: 1 RA 96 88 2 2 RA 95 93 3 3 RA 97 96 4 4 RA 95 99 4 5 RA 95 97 4 6 min 0 sec RA 94 95 5 Recovery: 1 RA 99 95 2 152/67 1.64 83% 3 RA *Tristan rate of perceived exertion (1-10 dyspnea scale) Rachid, CHEST 2003; 123:1408 Walk Test Summary: Six Minute Walk Distance: 1030 ft Six-minute Walk Work [distance (m) x body wt (kg)]: 22,458 kg.m (normal >60,000kg.m) Oxygen required to maintain SpO2 greater than 90% during six minutes of walking: RA L/M Comments: Interpretation: Breathing room air, SpO2 is adequate at rest and during exercise sufficient to increase pulse from 66 to 95 b/min, SpO2 is stable. On this basis, SpO2 is adequate at rest breathing room air and while walking breathing room air. This level of exercise is associated with no significant change of FEV1. Elgin Mayfield M.D. By signing this report, the attending pulmonary physician certifies that he/she has personally reviewed and interpreted the graphic and numerical data associated with this pulmonary function study and has reviewed and /or edited a preliminary draft report and agrees with the written final report. Impressions 12/04/2023 12:46 AM [facility] PATIENTS There is no ventilatory defect. Compared with study dated 05/07/23 , there has been no significant interval change. The attending pulmonary physician certifies a physician presence in the [facility] during the administration of aerosolized bronchodilator. The attending pulmonary physician certifies that he/she has reviewed and interpreted the graphic and numerical data of this pulmonary function study and agrees with the written final report. The lower limit of normal for PO2 and %HbO2 is age dependent. However, the [facility] Pulmonary Function Laboratory defines hypoxemia as a PO2 <55 or a %HbO2 <89. Narrative 12/04/2023 12:46 AM ESCORT PATIENTS PFT performed at:->[facility] Adult PFT Lab- [facility] Procedure:->Spirometry Procedure:->Oxygen Assessment Titration Pulmonary Function Test Interpretation SPIROMETRY: The FEVI and FVC are normal. The FEVI to FVC ratio is reduced. FLOW VOLUME LOOPS: The inspiratory loop is normal. PULSE OXIMETRY: See Oxygen Assessment/Cardiopulmonary Exercise Study-Simple Alex Boland MD PFT ORDERABLES Edited Result - Final documented in this encounter Visit Diagnoses Diagnosis Pulmonary fibrosis (CMS/HCC) (HCC) Postinflammatory pulmonary fibrosis Centrilobular emphysema (HCC) Multiple myeloma not having achieved remission (CMS/HCC) (HCC) documented in this encounter Care Teams Director Nurses' Registry Relationship Specialty Start Date End Date Yocasta Soto MD PCP - General Family Medicine 05/08/18 11/05/24 Kenny Castro MD [address] [place] [address] Consulting Physician Gastroenterology 08/25/21 Gianluca Hogue MD [address] [place] [address] Surgeon General Surgery 10/19/21 Shonda Au, RN Registered Nurse Pulmonary Disease 05/07/23 Layne Colvin MD [address] [facility] [address] [place] [address] Medical Oncologist/Solutions Development Analyst Hematology 06/25/23 Isabel Hughes MD [address] [facility] [address] [place] [address] Consulting Physician Pain Management 10/17/23 Pricila Hernandez MD [address] [facility] [address] [place] [address] Consulting Physician Bone Health 11/08/23 documented as of this encounter
--- OUTSIDE RECORDS SUMMARY | 2024-12-07 10:37 | XMS_ITS | Patient Health Record ---
Author Organization [facility] Address [address] [place] [address] Care Team Providers Care Hvac Technician Name Role Phone Long Ribera Unavailable [phone] ALLERGIES Allergen (clinical drug ingredient) Drug/Non Drug Allergy documented on EMR Reaction Allergy Type Onset Date Status PredniSONE Unknown Drug Allergy Active sulfa Unknown Drug Allergy Active RESULTS Component Value Reference Range Notes UA Reviewed date:03/07/2024 12:11:43 PM Interpretation: Performing Lab: Notes/Report: MANNY 1+ NEGATIVE - NEGATIVE 70 Manny/u L NIT POSITIVE NEGATIVE - NEGATIVE URO NEGATIVE NEGATIVE - NEGATIVE 0.2 mg/d L PRO 2+ NEGATIVE - NEGATIVE pH 5.5 4.6 - 8 BLO 1+ NEGATIVE - NEGATIVE SG 1.030 1.005 - 1.03 KET +- NEGATIVE - NEGATIVE LAZARUS 1+ NEGATIVE - NEGATIVE 1 mg/dL GLU NEGATIVE NEGATIVE - NEGATIVE REASON FOR REFERRAL No Information MEDICATIONS Medication SIG (Take, Route, Frequency, Duration) Notes Start Date End Date Status amLODIPine Besylate 5 MG 1 tablet Orally Once a day Active FLUoxetine HCl 20 MG 1 capsule in the mo rning Orally Once a day Active Omeprazole 20 MG 1 capsule Orally Once a day Active Pravastatin Sodium 20 MG 1 tablet Orally Once a day Active VITAL SIGNS Heart Rate 57 /min 01/08/2024 Temperature 98.2 degrees Fahrenheit 01/08/2024 Respiratory Rate 18 /min 01/08/2024 Blood pressure diastolic 65 mm Hg 01/08/2024 Oximetry 95 % 01/08/2024 Height 5ft 3in in 01/08/2024 Blood pressure systolic 107 mm Hg 01/08/2024 Weight 150.2 lbs 01/08/2024 BMI 26.6 kg/m2 01/08/2024 Encounters Encounter Location Date Provider Diagnosis [facility] [address] [place] [address] 01/08/2024 Long Ribera UTI symptoms R39.9 ASSESSMENTS Encounter Date Diagnosis Assessment Notes Treatment Notes Treatment Clinical Notes Section Notes 01/08/2024 UTI symptoms (ICD-10 - R39.9) PLAN OF TREATMENT Pending Test Test Name Order Date CBC 3 part Diff 08/03/2015 Cardiac 08/03/2015 CMP Panel (STAT Test) 08/03/2015 Insurance Providers Payer Name Payer Address Payer Phone Subscriber Number Group Number Insured Name Patient Relationship to Insured Coverage Start Date Coverage End Date [employer] [address] [place] [address] [id number] Myah DUMONT Self - patient is the insured 4 [employer] [place] [address] [place] [address] [id number] Myah DUMONT Self - patient is the insured [place] Medicare Part [place] [address] [place] [address] [phone] [id number] Myah DUMONT Self - patient is the insured 4
--- OUTSIDE RECORDS SUMMARY | 2024-12-07 10:37 | XMS_ITS ---
Author Organization [facility] Anuj pablo [facility] Address [address] [place] [address] Care Team Providers Care Irrigation Technician Name Role Phone Long Ribera Unavailable [phone] ALLERGIES Allergen (clinical drug ingredient) Drug/Non Drug [...] GLU NEGATIVE NEGATIVE - NEGATIVE REASON FOR VISIT UTI MEDICATIONS Medication SIG (Take, Route, Frequency, Duration) Notes Start Date End Date Status Ciprofloxacin HCl 500 MG 1 tablet Orally every 12 hrs for 5 days 01/08/2024 01/11/2024 Active amLODIPine Besylate 5 MG 1 tablet Orally Once a day Active FLUoxetine HCl 20 MG 1 capsule in the mo rning Orally Once a day Active Omeprazole 20 MG 1 capsule Orally Onc e a day Active Pravastatin Sodium 20 MG 1 tablet Orally Once a day Active VITAL SIGNS Temperature 98.2 degrees Fahrenheit 01/08/20 24 Blood pressure systolic 107 mm Hg 01/08/20 24 Blood pressure diastolic 65 mm Hg 024 Heart Rate 57 /min 01/08/2024 Respiratory Rate 18 /min 01/08/2024 Height 5ft 3in in 01/08/2024 Weight 150.2 lbs 01/08/2024 BMI 26.6 kg/m2 01/08/2024 Oximetry 95 % 01/08/2024 Encounters Encounter Location Date Provider Diagnosis [facility] [address] [place] [address] 01/08/2024 Long Ribera UTI symptoms R39.9 ASSESSMENTS Encounter Date Diagnosis Assessment Notes Treatment Notes Treatment Clinical Notes Section Notes 01/08/2024 UTI symptoms (ICD-10 - R39.9) PLAN OF TREATMENT Medication Medication Name Sig Start Date Stop Date Notes Ciprofloxacin HCl 500 MG 1 tablet Orally every 12 hrs for 5 days 01/08/2024 01/11/2024 Progress Notes * Myah DUMONT MDOB:[birth year] (78 yo F)Acc No.[id number]:01/08/2024 Progress Notes Patient: Myah DUMONT Provider: Long Ribera DO :1945 Age:78 Y Sex:Female Date:01/08/2024 Address:[address] [place] [address] Subjective: * Chief Complaints: * UTI * HPI: Constitutional: This 78-year-old female is here today for UTI symptoms. She is experiencing painful urination and frequency. She states that these symptoms started today. She denies the use of any OTC medications for her symptoms. She denies any fever, abdominal pain or low back pain. Urinalysis has been collected and tested. * ROS: General/Constitutional: Patient denies change in appetite,chills, fever, headache. ENT: Patient denies difficulty swallowing, ear pain, sinus pain, sore throat. Respiratory: Patient denies cough, sputum production, wheezing. Cardiovascular: Patient denies chest pain at rest, cyanosis, irregular heartbeat, palpitations. Gastrointestinal: Patient denies abdominal pain, change in bowel habits, decreased appetite, heartburn, nausea, vomiting. Genitourinary: Admits Frequent urination. Admits Painful urination. * Medical History: * Surgical History: No Surgical History documented. * Hospitalization/Major Diagno stic Procedure: No Hospitalization History. * Family History: Mother: . Father: . * Social History: Pt. denies any tobacco , alcohol, illicit drug use or prescription drug abuse. * Medications: TakingOmeprazole 20 MG Capsule Delayed Release 1 capsule Orally Once a day amLODIPine Besylate 5 MG Tablet 1 tablet Orally Once a day FLUoxetine HCl 20 MG Capsule 1 capsule in the morning Orally Once a day Pravastatin Sodium 20 MG Tablet 1 tablet Orally Once a day Medication List reviewed and reconciled with the patientTaking Omeprazole 20 MG Capsule Delayed Release 1 capsule Orally Once a day Taking amLODIPine Besylate 5 MG Tablet 1 tablet Orally Once a day Taking FLUoxetine HCl 20 MG Capsule 1 capsule in the morning Orally Once a day Taking Pravastatin Sodium 20 MG Tablet 1 tablet Orally Once a day Medication List reviewed and reconciled with the patient * Allergies: sulfaPredniSONEno[Allergies Verified] Objective: * Vitals: Ht: 5ft 3in, Wt:150.2lbs, Temp:98.2F, BP:107/65mm Hg, HR:57/min, RR:18/min, Oxygen sat %:95%, BMI:26.6Index. Past Vitals:* 02/12/2017 Wt: 179 lbs, BP: 137/84 mm H g * 08/03/2015 Wt: 178 lbs, BP: 147/89 mm H g * Examination: General Examination: Constitutional: Pt is awake and alert,. No abnormal behavior, manner of dress, speech or odor. . HEAD: normocephalic. EYES: conjunctiva noninjected, lids and lashes are normal. EARS: TM intact, pearly murillo with visible landmarks. , auditory canal clear. NOSE: nares patent, no lesions. ORAL CAVITY: mucosa moist, no lesions. THROAT: no inflammatory changes. No exudate, swelling, drainage, masses, or lesions__. NECK: neck supple,No thyroid enlargement, nodules or tendernessNo asymmetry or masses . LYMPH NODES: no lymphadenopathy. SKIN Warm and dry without notable rashes or abnormal lesions of the examined and exposed areas. HEART: no murmurs, rubs, gallops, regular rate and rhythm, S1, S2 normal. LUNGS: clear to auscultation bilaterally. CHEST: no respiratory distress, normal shape and expansion. ABDOMEN: no masses palpable, no organomegaly , soft, nontender,. BACK: spine nontender to palpation, no spasms, asymmetry, rigidity or limitations of movement. MUSCULOSKELETAL: There is symmetric muscle bulk and tone, No joint effusion, contractures or rigidity. EXTREMITIES: Warm and dry, No edema, no clubbing, no swelling . PERIPHERAL PULSES: Good skin color, brisk cap refill . NEUROLOGIC: Fully AAO, cognitive exam normal. Non focal . PSYCH: judgement and insight good, cooperative with exam, good eye contact. mood/affect is consistent with presentation today. Assessment: * Assessment: 1. UTI symptoms - R39.9 Plan: * Treatment: Value Reference Range MANNY 1+ NEGATIVE - NEGATIVE 70 Manny/uL * NIT POSITIVE NEGATIVE - NEGATIVE * URO NEGATIVE NEGATIVE - NEGATIVE 0.2 mg/dL * PRO 2+ NEGATIVE - NEGATIVE * pH 5.5 4.6 - 8 * BLO 1+ NEGATIVE - NEGATIVE * SG 1.030 1.005 - 1.03 * KET +- NEGATIVE - NEGATIVE * LAZARUS 1+ NEGATIVE - NEGATIVE 1 mg/dL * GLU NEGATIVE NEGATIVE - NEGATIVE * Hira Lis 01/08/2024 03 :51:18 PM > RESULTEDThis lab was reviewed by Long Ribera on 03/07/2024 at 12:11 PM EDT * Procedure Codes: * Billing Information: * Visit Code: 37255 Office Visit, Est Pt., Level 3. * Procedure Codes: Care Plan Details* * Sign off status: Completed true * Provider: Long Ribera DO Date: 01/08/2024 History and Physical Notes * HPI (History of Present Illness) Category Sub-Category Detail Notes Category Not es Constitutional This 78-year- old female is here today for UTI symptoms. She is experiencing painful urination and frequency. She states that these symptoms started today. She denies the use of any OTC medications for her symptoms. She denies any fever, abdominal pain or low back pain. Urinalysis has been collected and tested. Examination Category Sub-Category Detail Notes Category Not es General Examination Constitutional: Pt is awake and alert,. No abnormal behavior, manner of dress, speech or odor. HEAD: normocephalic EYES: conjunctiva noninjec marion, lids and lashes are normal EARS: TM intact, pearly gr ey with visible landmarks. , auditory canal clear NOSE: nares patent, no les ions THROAT: no inflammatory hernandez ges. No exudate, swelling, drainage, masses, or lesions__ NECK: neck supple, No thyroid enlargement, nodules or tenderness No asymmetry or masses HEART: no murmurs, rubs, ga llops, regular rate and rhythm, S1, S2 normal CHEST: no respiratory distr ess, normal shape and expansion LUNGS: clear to auscultatio n bilaterally ABDOMEN: no masses palpable, no organomegaly , soft, nontender, NEUROLOGIC: Fully AAO, cognitive exam normal. Non focal SKIN Warm and dry without notable rashes or abnormal lesions of the examined and exposed areas EXTREMITIES: Warm and dry, No milady ma, no clubbing, no swelling PERIPHERAL PULSES: Good skin color, micheal sk cap refill BACK: spine nontender to p alpation, no spasms, asymmetry, rigidity or limitations of movement MUSCULOSKELETAL: There is symmetric m uscle bulk and tone, No joint effusion, contractures or rigidity LYMPH NODES: no lymphadenopathy PSYCH: judgement and insigh t good, cooperative with exam, good eye contact. mood/affect is consistent with presentation today ORAL CAVITY: mucosa moist, no les ions
--- OUTSIDE RECORDS SUMMARY | 2024-12-07 10:37 | XMS_ITS | CLINICAL SUMMARY ---
Author Name CormierRona box CHEMIST ASSISTANT Address [address] [place] [address] Phone Organization [facility] Address [address] [place] [address] Phone Care Team Providers Care Patent Lawyer Name Role Phone Rona Cormier BONITA Unavailable [place] Katelyn Unavailable Not Found Unavailable Unavailable SOCIAL HISTORY Social History Observation Description Dates Observed Sex Female [id number] None recorded VITAL SIGNS BMI Body Mass Index Percentile Date Systolic Diastolic Head Circumference Head Circumference Percentile Height Oxygen Concentration Pulse Pulse Oximeter Respiratory Rate Temperature Weight Jdhdvv-tqd-rdagpe Percentile 26.2 87 kg/m 2 Unknown 222 136 mmHg 82 mmHg Unknown Unknown 63 [in_i] Unknown 84 /min 99 % 16 /min 97 148.4 [lb_av] Unknown ALLERGIES AND ADVERSE REACTIONS Allergy Type Effective Datetime (Low) Effective Datetime (High) Substance / Product Reaction Severity Status Drug Allergy No information recorded prednisone Active Drug Allergy [id number]:4 4:35.859 No information recorded Sulfa (Sulfonamide Antibiotics) Active MEDICATIONS No medication information recorded PROBLEM LIST Names Dates Status URINARY TRACT INFECTION 20211219 active FAMILY HISTORY ENCOUNTERS Encounter Performer Location E/M Code E/M Label Date Diagnosi s visit Rona Cormier [facility] [id number] Office or other outpatient visit (detailed) 20211219 URINARY TRACT INFECTION LAB RESULTS Overall Code Overall Text [Code] Result Type (Code) Result Text Result Value Relevant Reference Range Date Lab Name [facility] Zip Code No overall lab code recorded UA [73390] No result type code recorded Blood 10 RBC/uL No range recorded [facility] [address] [place] [address] 0000 No overall lab code recorded UA [45016] No result type code recorded Bilirubi n 1.0 mg/ dL No range recorded [facility] [place] [address] [place] [address] 0000 No overall lab code recorded UA [86814] No result type code recorded Urobilin ogen 4.0 mg /dL No range recorded [facility] [place] [address] [place] [address] 0000 No overall lab code recorded UA [52095] No result type code recorded Ketone neg No range recorded [facility] [place] [address] [place] [address] 0000 No overall lab code recorded UA [25613] No result type code recorded Protein 300 mg/dL No range recorded [facility] [place] [facility] [address] [place] [address] 0000 No overall lab code recorded UA [61119] No result type code recorded Nitrite pos No range recorded [facility] [place] [facility] [place] [address] [place] [address] 0000 No overall lab code recorded UA [82057] No result type code recorded Glu neg No range recorded [facility] [place] [facility] [address] [place] [address] 0000 No overall lab code recorded UA [14951] No result type code recorded PH 5.5 No range recorded [facility] [place] [address] [place] [address] 0000 No overall lab code recorded UA [68745] No result type code recorded Specific [place] 1.015 No range recorded [facility] [address] [place] [address] 0000 No overall lab code recorded UA [22626] No result type code recorded Leukocyt es neg No range recorded [facility] [place] [facility] [address] [place] [address] 0000 No overall lab code recorded UA [89866] No result type code recorded Appearan ce dk orange/ clear No range recorded [facility] [place] [facility] [place] [address] [place] [address] 0000 No overall lab code recorded UA [54025] QTY(1) No result type code recorded UA [21400] QTY(1) No range recorded [facility] [place] [facility] [place] [address] [place] [address] 0000 INSURANCE PROVIDERS (PAYERS) Payer name Policy type / Coverage type Policy ID Covered democrat ID Insurance type Policy [employer] Medicare Other Medicare Part B [id number] None Recorded Pr krzysztof YANELY JULIA PROCEDURE NOTE Date Name Status Summary Text (N otes) 20211219 UA Completed UA [16429] QTY( ) 20211219 UA AUTO W/OUT MICR Completed UA AUTO W /OUT MICR [58868] None recorded None recorded None recorded None recorde d 20211219 UA Completed UA [07949] QTY( ) 20211219 UA AUTO W/OUT MICR Completed UA AUTO W /OUT MICR [37671] PROCEDURES Date Name Status Summary Text (N otes) 20211219 UA Completed UA [38039] QTY( ) 20211219 UA AUTO W/OUT MICR Completed UA AUTO W /OUT MICR [73852] None recorded None recorded None recorded None recorde d 20211219 UA Completed UA [85715] QTY () 20211219 UA AUTO W/OUT MICR Completed UA AUTO W /OUT MICR [38744] ASSESSMENTS No information recorded LABORATORY REPORT NARRATIVE NOTE No information recorded PATHOLOGY REPORT NARRATIVE NOTE No information recorded IMAGING NARRATIVE Result Code Result Text Date Status Urgency Interp retation None None None None None None DISCHARGE SUMMARY NOTE * Allergies: Allergy Type Effective Datetime (Low) Effective Datetime (High) Substance / Product Reaction Severity Status Drug Allergy No information recorded prednisone Active Drug Allergy [id number]:4 4:35.859 No information recorded Sulfa (Sulfonamide Antibiotics) Active * Medication Current: No medication information recorded * Plan of Care (advice, pending tests, pending diagnostic tests): Treatment Type Code Text Date Observatio n Data Instruction [id number] Patient Education 2021-12-19 Drink plenty of fluids. Instruction [id number] Patient Education 2021-12-[address] of rest. Observation UA AUTO W/OUT MICR None specified N o Observation data available for this record * Visit Diagnosis: URINARY TRACT INFECTION (N39.0) * Referrals: First Name Last Name NPI# Reason None recorded None recorded None recorded None recorde d HISTORY AND PHYSICAL NOTE * Reason for Visit: Patient Reports: UTI symptoms [Onset: 3 Day(s); Assoc. Sx: Reports Frequent urination]. * Family History: * * Allergies: Allergy Type Effective Datetime (Low) Effective Datetime (High) Substance / Product Reaction Severity Status Drug Allergy No information recorded prednisone Active Drug Allergy [id number]:4 4:35.859 No information recorded Sulfa (Sulfonamide Antibiotics) Active * Problems: Names Dates Status URINARY TRACT INFECTION 20211219 active * Vitals: BMI Body Mass Index Percentile Date Systolic Diastolic Head Circumference Head Circumference Percentile Height Oxygen Concentration Pulse Pulse Oximeter Respiratory Rate Temperature Weight Raaxwr-yvn-iphfqj Percentile 26.2 87 kg/m 2 Unknown 222 136 mmHg 82 mmHg Unknown Unknown 63 [in_i] Unknown 84 /min 99 % 16 /min 97 148.4 [lb_av] Unknown * Review of Systems: * *Systemic* Patient Denies* Fever * Headache * Allergy/Immun* Patient Denies* Allergy symptoms * Eyes* Patient Denies* Eye redness * GI* Patient Denies* Diarrhea * David/Lymph* Patient Denies* Swollen lymph nodes * Musc/Skel* Patient Denies* Back pain * Respiratory* Patient Denies* Cough * Skin/Breast* Patient Denies* Rash * Exam: * General : Normal* Normal : Well developed,No acute distress,Mood is normal * Skin, Hair, Nails : Normal* Normal : No rashes noted,No Abrasions observed * Head : Normal* Normal : Normocephalic, atraumatic * Eyes : Normal* Normal : Sclera normal,Lids and lashes are normal,Normal conjunctiva * Nose : Normal* Normal : Nasal discharge absent,Normal appearing nose * Chest/Lungs : Normal* Normal : No signs of respiratory distress,Normal and symmetrical appearing chest on exam * Cardiac : Normal* Normal : regular rate and rhythm. No gallops, murmurs or rubs. * Abdominal : Normal* Normal : Abdomen normal to inspection,Abdomen normal to palpation, no masses, tenderness, organomegaly,There is no CVA tenderness to palpation. * Neurological : Normal* Normal : Patient is alert and oriented,Coordination/balance normal * Musculoskeletal : Normal* Normal : Normal Gait,Normal Posture * Psych : Normal* Normal : Patient is oriented to time, place and person,Mood appears to be Normal,Affect Normal * Plan of Care (advice, pending tests, pending diagnostic tests): Treatment Type Code Text Date Observatio n Data Instruction [id number] Patient Education 2021-12-19 Drink plenty of fluids. Instruction [id number] Patient Education 2021-12-[address] of rest. Observation UA AUTO W/OUT MICR None specified N o Observation data available for this record * Lab Results: Overall Code Overall Text [Code] Result Type (Code) Result Text Result Value Relevant Reference Range Date Lab Name [facility] Zip Code No overall lab code recorded UA [69278] No result type code recorded Blood 10 RBC/uL No range recorded [facility] [place] [address] [place] [address] 0000 No overall lab code recorded UA [69924] No result type code recorded Bilirubi n 1.0 mg/ dL No range recorded [facility] [place] [address] [place] [address] 0000 No overall lab code recorded UA [02029] No result type code recorded Urobilin ogen 4.0 mg /dL No range recorded [facility] [place] [address] [place] [address] 0000 No overall lab code recorded UA [63151] No result type code recorded Ketone neg No range recorded [facility] [place] [address] [place] [address] 0000 No overall lab code recorded UA [75128] No result type code recorded Protein 300 mg/dL No range recorded [facility] [place] [address] [place] [address] 0000 No overall lab code recorded UA [84824] No result type code recorded Nitrite pos No range recorded [facility] [place] [address] [place] [address] 0000 No overall lab code recorded UA [06462] No result type code recorded Glu neg No range recorded [facility] [place] [facility] [place] [address] [place] [address] 0000 No overall lab code recorded UA [41696] No result type code recorded PH 5.5 No range recorded [facility] [place] [address] [place] [address] 0000 No overall lab code recorded UA [67714] No result type code recorded Specific [place] 1.015 No range recorded [facility] [place] [address] [place] [address] 0000 No overall lab code recorded UA [19884] No result type code recorded Leukocyt es neg No range recorded [facility] [place] [address] [place] [address] 0000 No overall lab code recorded UA [63608] No result type code recorded Appearan ce dk orange/ clear No range recorded [facility] [place] [address] [place] [address] 0000 No overall lab code recorded UA [08187] QTY(1) No result type code recorded UA [04610] QTY(1) No range recorded [facility] [place] [address] [place] [address] 0000 * Radiology Results: Overall Code Overall Text [Code] Result Type (Code) Result Text Result Value Relevant Reference Range Date Lab Name [facility] Zip Code None recorded None recorded None recorded None recorded None recorded None recorded None recor ded None recor ded None recorde d None recor ded None record ed None recor ded * Visit Diagnosis: URINARY TRACT INFECTION (N39.0) * Referrals: First Name Last Name NPI# Reason None recorded None recorded None recorded None recorde d PLAN OF TREATMENT Treatment Type Code Text Date Instructio n Data Instruction [id number] Patient Education 2021-12-19 Drink plenty of fluids. Instruction [id number] Patient Education 2021-12-[address] of rest. Observation UA AUTO W/OUT MICR None specified N o instruction data available for this record CHIEF COMPLAINT AND REASON FOR VISIT NARRATIVE Patient Reports: UTI symptoms [Onset: 3 Day(s); Assoc. Sx: Reports Frequent urination].
--- OUTSIDE RECORDS SUMMARY | 2024-12-07 10:40 | XMS_ITS | CLINICAL SUMMARY ---
Author Name CormierRona box RIVET SORTER Address [address] [place] [address] Phone Organization [facility] Ur[facility] ncon Address [address] [place] [address] Phone Care Team Providers Care Fur Stretcher Name Role Phone Rona Cormier BONITA Unavailable [place] Katelyn Unavailable Not Found Unavailable Unavailable SOCIAL HISTORY Social History Observation Description Dates Observed Sex Female [id number] None recorded VITAL SIGNS BMI Body Mass Index Percentile Date Systolic Diastolic Head Circumference Head Circumference Percentile Height Oxygen Concentration Pulse Pulse Oximeter Respiratory Rate Temperature Weight Tjnvit-lzt-azepbt Percentile 26.2 87 kg/m 2 Unknown 222 136 mmHg 82 mmHg Unknown Unknown 63 [in_i] Unknown 84 /min 99 % 16 /min 97 148.4 [lb_av] Unknown ALLERGIES AND ADVERSE REACTIONS Allergy Type Effective Datetime (Low) Effective Datetime (High) Substance / Product Reaction Severity Status Drug Allergy No information recorded prednisone Active Drug Allergy [id number]:4 4:35.859 No information recorded Sulfa (Sulfonamide Antibiotics) Active MEDICATIONS No medication information recorded PROBLEM LIST Names Dates Status URINARY TRACT INFECTION 20211219 active FAMILY HISTORY ENCOUNTERS Encounter Performer Location E/M Code E/M Label Date Diagnosi s visit Rona Cormier [facility] Ur[facility] [address] Office or other outpatient visit (detailed) 20211219 URINARY TRACT INFECTION LAB RESULTS Overall Code Overall Text [Code] Result Type (Code) Result Text Result Value Relevant Reference Range Date Lab Name [facility] Zip Code No overall lab code recorded UA [04858] No result type code recorded Blood 10 RBC/uL No range recorded [facility] [place] [address] [place] [address] 0000 No overall lab code recorded UA [43590] No result type code recorded Bilirubi n 1.0 mg/ dL No range recorded [facility] [place] [address] [place] [address] 0000 No overall lab code recorded UA [57329] No result type code recorded Urobilin ogen 4.0 mg /dL No range recorded [facility] [place] [address] [place] [address] 0000 No overall lab code recorded UA [29595] No result type code recorded Ketone neg No range recorded [facility] [place] [address] [place] [address] 0000 No overall lab code recorded UA [27394] No result type code recorded Protein 300 mg/dL No range recorded [facility] [place] [address] [place] [address] 0000 No overall lab code recorded UA [69564] No result type code recorded Nitrite pos No range recorded [facility] [place] [address] [place] [address] 0000 No overall lab code recorded UA [53411] No result type code recorded Glu neg No range recorded [facility] [place] [address] [place] [address] 0000 No overall lab code recorded UA [79276] No result type code recorded PH 5.5 No range recorded [facility] [place] [address] [place] [address] 0000 No overall lab code recorded UA [04096] No result type code recorded Specific [place] 1.015 No range recorded [facility] [place] [address] [place] [address] 0000 No overall lab code recorded UA [82061] No result type code recorded Leukocyt es neg No range recorded [facility] [place] [address] [place] [address] 0000 No overall lab code recorded UA [28869] No result type code recorded Appearan ce dk orange/ clear No range recorded [facility] [place] [address] [place] [address] 0000 No overall lab code recorded UA [37174] QTY(1) No result type code recorded UA [73486] QTY(1) No range recorded [facility] [place] [address] [place] [address] 0000 INSURANCE PROVIDERS (PAYERS) Payer name Policy type / Coverage type Policy ID Covered republican ID Insurance type Policy [employer] Medicare Other Medicare Part B [id number] None Recorded Pr krzysztof YANELY JULIA PROCEDURE NOTE Date Name Status Summary Text (N otes) 20211219 UA Completed UA [70014] QTY( ) 20211219 UA AUTO W/OUT MICR Completed UA AUTO W /OUT MICR [57046] None recorded None recorded None recorded None recorde d 20211219 UA Completed UA [40964] QTY( ) 20211219 UA AUTO W/OUT MICR Completed UA AUTO W /OUT MICR [46490] PROCEDURES Date Name Status Summary Text (N otes) 20211219 UA Completed UA [45933] QTY( ) 20211219 UA AUTO W/OUT MICR Completed UA AUTO W /OUT MICR [72435] None recorded None recorded None recorded None recorde d 20211219 UA Completed UA [63904] QTY () 20211219 UA AUTO W/OUT MICR Completed UA AUTO W /OUT MICR [24333] ASSESSMENTS No information recorded LABORATORY REPORT NARRATIVE NOTE No information recorded PATHOLOGY REPORT NARRATIVE NOTE No information recorded IMAGING NARRATIVE Result Code Result Text Date Status Urgency Interp retation None None None None None None DISCHARGE SUMMARY NOTE * Allergies: Allergy Type Effective Datetime (Low) Effective Datetime (High) Substance / Product Reaction Severity Status Drug Allergy No information recorded prednisone Active Drug Allergy [id number]:4 4:35.859 No information recorded Sulfa (Sulfonamide Antibiotics) Active * Medication Current: No medication information recorded * Plan of Care (advice, pending tests, pending diagnostic tests): Treatment Type Code Text Date Observatio n Data Instruction [id number] Patient Education 2021-12-19 Drink plenty of fluids. Instruction [id number] Patient Education 2021-12-[address] of [...] No information recorded prednisone Active Drug Allergy 3467-59-25R28:4 4:35.859 No information recorded Sulfa (Sulfonamide Antibiotics) Active * Problems: Names Dates Status URINARY TRACT INFECTION 20211219 active * Vitals: BMI Body Mass Index Percentile Date Systolic Diastolic Head Circumference Head Circumference Percentile Height Oxygen Concentration Pulse Pulse Oximeter Respiratory Rate Temperature Weight Pkfosj-qdu-ugzpsk Percentile 26.2 87 kg/m 2 Unknown 222 [...] Code Text Date Observatio n Data Instruction [id number] Patient Education 2021-12-19 Drink plenty of fluids. Instruction [id number] Patient Education 2021-12-[address] of rest. Observation UA AUTO W/OUT MICR None specified N o Observation data available for this record * Lab Results: Overall Code Overall Text [Code] Result Type (Code) Result Text Result Value Relevant Reference Range Date Lab Name [facility] Zip Code No overall lab code recorded UA [70954] No result type code recorded Blood 10 RBC/uL No range recorded [facility] [place] [address] [place] [address] 0000 No overall lab code recorded UA [65713] No result type code recorded Bilirubi n 1.0 mg/ dL No range recorded [facility] [place] [address] [place] [address] 0000 No overall lab code recorded UA [89993] No result type code recorded Urobilin ogen 4.0 mg /dL No range recorded [facility] [place] [address] [place] [address] 0000 No overall lab code recorded UA [28166] No result type code recorded Ketone neg No range recorded [facility] [place] [address] [place] [address] 0000 No overall lab code recorded UA [35152] No result type code recorded Protein 300 mg/dL No range recorded [facility] [place] [address] [place] [address] 0000 No overall lab code recorded UA [67430] No result type code recorded Nitrite pos No range recorded [facility] [place] [address] [place] [address] 0000 No overall lab code recorded UA [61219] No result type code recorded Glu neg No range recorded [facility] [place] [address] [place] [address] 0000 No overall lab code recorded UA [77598] No result type code recorded PH 5.5 No range recorded [facility] [place] [address] [place] [address] 0000 No overall lab code recorded UA [83553] No result type code recorded Specific [place] 1.015 No range recorded [facility] [place] [address] [place] [address] 0000 No overall lab code recorded UA [11472] No result type code recorded Leukocyt es neg No range recorded [facility] [place] [address] [place] [address] 0000 No overall lab code recorded UA [11125] No result type code recorded Appearan ce dk orange/ clear No range recorded [facility] [place] [address] [place] [address] 0000 No overall lab code recorded UA [10083] QTY(1) No result type code recorded UA [09896] QTY(1) No range recorded [facility] [place] [address] [place] [address] 0000 * Radiology Results: Overall Code Overall Text [Code] Result Type (Code) Result Text Result Value Relevant Reference Range Date Lab Name [facility] Zip Code None recorded None recorded None [...] Code Text Date Instructio n Data Instruction [id number] Patient Education 2021-12-19 Drink plenty of fluids. Instruction [id number] Patient Education 2021-12-[address] ent[address] of rest. Observation UA AUTO W/OUT MICR None specified N o instruction data available for this record CHIEF COMPLAINT AND REASON FOR VISIT NARRATIVE Patient Reports: UTI symptoms [Onset: 3 Day(s); Assoc. Sx: Reports Frequent urination].
--- NOTE | 2024-12-07 10:56 | ED_ITS ---
HPI - URI/Sore Throat General Chief Complaint: Upper Respiratory Infection Stated Complaint: flu symptoms Time Seen by Provider: 12/07/24 10:56 Source: patient Mode of arrival: ambulatory Limitations: no limitations History of Present Illness HPI Narrative: 79-year-old female with history of pulmonary fibrosis, dementia, multiple myeloma presents with complaint of cough for 1 week. Afebrile. Some shortness breath with exertion. Using albuterol inhaler approximately once a day. Taking [id number] Vicks cough medicine. Last had chemo infusion 1 week ago. All systems reviewed and negative except as noted above. Related Data Home Medications ?Medication ?Instructions ?Recorded ?Confirmed ?Last Taken ?Type amlodipine 5 mg tablet 5 mg PO DAILY 10/09/19 09/21/24 Unknown History multivitamin 1 tablet PO DAILY 10/09/19 09/21/24 Unknown History omeprazole 40 mg capsule,delayed 40 mg PO DAILY 10/09/19 09/21/24 Unknown History release pravastatin 20 mg tablet 20 mg PO DAILY 10/09/19 09/21/24 Unknown History aspirin 81 mg tablet,delayed 81 mg PO DAILY 08/30/20 09/21/24 Unknown History release (Adult Aspirin Regimen) cholecalciferol (vitamin D3) 125 125 mcg PO DAILY 08/30/20 09/21/24 Unknown History mcg (5,000 unit) tablet (Vitamin D3) citicoline 500 mg capsule 500 mg PO DAILY 11/08/20 09/21/24 Unknown History (Cognitive Health) turmeric 400 mg capsule 400 mg PO DAILY 11/08/20 09/21/24 Unknown History acyclovir 400 mg tablet 400 mg PO BID 02/23/23 09/21/24 Unknown History lenalidomide 10 mg capsule 10 mg PO DAILY 12/24/23 09/21/24 Unknown History (Revlimid) pirfenidone 267 mg tablet 267 mg PO TID 12/24/23 09/21/24 Unknown History Allergies Allergy/AdvReac Type Severity Reaction Status Date / Time prednisone AdvReac Intermediate Swelling Verified 12/07/24 10:43 latex AdvReac Mild Rash Verified 12/07/24 10:43 Sulfa (Sulfonamide AdvReac Mild Hives Verified 12/07/24 10:43 Antibiotics) sulfanilamide AdvReac Mild Hives Verified 12/07/24 10:43 Review of Systems Review of Systems: CONSTITUTIONAL: Denies fever, chills, or sweats. Reports fatigue. EYES: Denies visual changes, redness, or discharge. ENT: Denies rhinorrhea, congestion, sore throat, or otalgia. CARDIOVASCULAR: Denies chest pain, palpitations, or edema. RESPIRATORY: Reports cough and dyspnea with exertion GASTROINTESTINAL: Denies abdominal pain, nausea, vomiting, or diarrhea. GENITOURINARY: Denies dysuria or hematuria. SKIN: Denies rash or itching. MUSCULOSKELETAL: Denies back pain, joint pain, or myalgia. NEUROLOGIC: Denies headache, numbness, or weakness. PSYCHIATRIC: Denies anxiety or depression. All other systems reviewed are negative, except as documented in HPI. [facility] Past Medical History Medical History (Updated 12/07/24 @ 11:03 by Ester Johnston NP) Memory loss MRI of the brain on 10/15/2024 with chronic small-vessel disease mild thickening of left maxillary sinus mucosa. BMI 28.0-28.9,adult Overweight (BMI 25.0-29.9) Kyphoscoliosis Chronic depression History of deep venous thrombosis (DVT) of distal vein of right lower extremity (~2023) Mixed hyperlipidemia Multiple myeloma Hypoxemia SOB (shortness of breath) on exertion Pulmonary fibrosis Arthropathy, unspecified Abnormal CT scan, chest Abnormal finding on breast imaging Body mass index (bmi) 29.0-29.9, adult (07/20/19) Pure hypercholesterolemia Shortness of breath Encounter for medication management Counseling on health promotion and disease prevention Generalized osteoarthritis of multiple sites OTTONIEL positive (~2018) Degenerative joint disease (DJD) of lumbar spine Arthritis COPD (chronic obstructive pulmonary disease) Depression GERD (gastroesophageal reflux disease) HTN (hypertension) Surgical History Surgical History Delivery by section H/O: hysterectomy History of bunionectomy Family History Family History Sibling Diabetes mellitus Carcinoma of colon Father Family history of cardiovascular disease Acute myocardial infarction Mother Family history of kidney disease Family history of malignant neoplasm of ovary Other Family history of malignant neoplasm of breast Social History Social History Smoking packs per day: 1 Smoking cigarettes per day: 20.0 Smoking status: Former smoker (1 minute) Second hand tobacco smoke exposure: No Alcohol intake: never Comments At time of signature, agree with nursing past medical, surgical, social and family history. There is no relevant family history pertinent to the presenting complaint. Exam Narrative: GENERAL: This is a well-nourished, well-developed patient, in no apparent distress. HEAD: normocephalic, atraumatic. EYES: PERRL. Sclera clear/white. Vision is grossly intact. EARS: External ears normal, auditory canals clear and without drainage, TMs normal without perforation. Hearing grossly intact. NOSE: External nose normal with no obvious nasal discharge, nares without redness, no rhinorrhea. THROAT: Mucous membranes moist, posterior pharynx clear. NECK: Neck supple, non-tender without lymphadenopathy, masses or thyromegaly. CARDIOVASCULAR: Regular rate and rhythm without murmurs, gallops, or rubs. RESPIRATORY: Clear to auscultation. Breath sounds equal bilaterally. No wheezes, rales, or rhonchi. SKIN: warm, Dry, intact with no suspicious lesions or rash, good texture and turgor. NEURO: awake, alert, and oriented to person, place and time. There were no obvious focal neurologic abnormalities. EXTREMITIES: No joint tenderness, effusion, or edema noted. Course Course Level of Care: Express Care Visit Vital Signs Vital signs: Vital Signs Temperature 36.8 C 12/07/24 10:05 Pulse Rate 84 12/07/24 10:05 Respiratory Rate 18 12/07/24 10:05 Blood Pressure 115/67 12/07/24 10:05 Pulse Oximetry 92 12/07/24 10:05 Oxygen Delivery Room Air 12/07/24 10:05 Temperature 36.8 C 12/07/24 10:05 Pulse Rate 84 12/07/24 10:05 Respiratory Rate 18 12/07/24 10:05 Blood Pressure 115/67 12/07/24 10:05 Pulse Oximetry 92 12/07/24 10:05 Oxygen Delivery Room Air 12/07/24 10:05 reviewed MDM - URI/Sore Throat MDM Narrative Medical decision making narrative: will treat patient with antibiotic due to immunocompromised. Patient gets once a month chemo infusion for multiple myeloma. Also has history of pulmonary fibrosis. Coarse lung sounds on auscultation. Will increase use of inhaler, prescribe doxycycline. Patient is alert, nontoxic. No respiratory distress. Please be advised this is a medical document. It is intended for [id number] communication. It is written in medical language and may contain unfamiliar abbreviations or verbiage. Medical documents are intended to carry relevant information, facts as evident, and the clinical opinion of the practitioner at the time of the encounter. This report may have been done utilizing a voice recognition system. Attempts have been made to correct errors. However, there may be uncorrected grammatical, spelling, and recognition errors present. The file time of this note does not necessarily represent the time of service. Discharge Plan Discharge Clinical Impression: Acute bronchitis, History of pulmonary fibrosis Patient Disposition: Home, Self-Care Condition: Stable Instructions: Acute Bronchitis (ED) Additional Instructions: take antibiotic as prescribed. Use albuterol inhaler every 4-6 hours as needed for cough, wheezing, shortness of breath, chest tightness. Continue using Vicks day and night cough medication as directed on packaging. Place cool mist humidifier in bedroom where you sleep. Follow-up with your primary care physician if symptoms are not improving. Patient Language: Setswana Prescriptions: New doxycycline hyclate 100 mg capsule 100 mg PO BID 7 Days Qty: 14 0RF No Action lenalidomide [Revlimid] 10 mg capsule 10 mg PO DAILY Patient Comments: take 7 days on and 7 days off pirfenidone 267 mg tablet 267 mg PO TID acyclovir 400 mg Tablet 400 mg PO BID cetirizine [Zyrtec] 10 mg tablet 10 mg PO DAILY Qty: 30 0RF albuterol sulfate [Ventolin HFA] 90 mcg/actuation HFA aerosol inhaler 2 puff INHALATION .Q4 hours PRN (Reason: cough) Qty: 18 0RF cholecalciferol (vitamin D3) [Vitamin D3] 125 mcg (5,000 unit) tablet 125 mcg PO DAILY aspirin [Adult Aspirin Regimen] 81 mg tablet,delayed release (DR/EC) 81 mg PO DAILY turmeric 400 mg capsule 400 mg PO DAILY Cognitive Health 500 mg capsule 500 mg PO DAILY amlodipine 5 mg tablet 5 mg PO DAILY multivitamin Tablet 1 tablet PO DAILY omeprazole 40 mg capsule,delayed release(DR/EC) 40 mg PO DAILY pravastatin 20 mg tablet 20 mg PO DAILY memantine 14 mg capsule,sprinkle,ER 24hr 14 mg PO DAILY Qty: 30 11RF Rexulti 1 mg tablet 1 mg PO DAILY Qty: 90 3RF escitalopram oxalate [Lexapro] 20 mg tablet 20 mg PO DAILY Qty: 90 3RF Follow-up/Referrals: Milton Murillo MD [Primary Care Provider] - Time of Disposition: 11:04
== END 2024-12-07 11:18 | disposition home or self-care (01) ==
PROVIDERS: Emergency Provider Nurse Practitioner Family; PCP Family Medicine
DX: J20.9 Acute bronchitis, unspecified (principal); J84.10 Pulmonary fibrosis, unspecified; C90.00 Multiple myeloma not having achieved remission; F03.90 Unspecified dementia, unspecified severity, without behavioral disturbance, psychotic disturbance, mood disturbance, and anxiety; E78.2 Mixed hyperlipidemia; E78.00 Pure hypercholesterolemia, unspecified; I10 Essential (primary) hypertension; J44.9 Chronic obstructive pulmonary disease, unspecified; M47.816 Spondylosis without myelopathy or radiculopathy, lumbar region; K21.9 Gastro-esophageal reflux disease without esophagitis; M15.9 Polyosteoarthritis, unspecified; Z87.891 Personal history of nicotine dependence; Z79.60 Long term (current) use of unspecified immunomodulators and immunosuppressants
CPT/HCPCS: 99213; G0463

== ENCOUNTER 2025-05-14 14:19 | Outpatient (CLI) | payer MEDICARE, SELFPAY ==
--- NOTE | ~2025-05-14 | MM_ITS ---
EXAMINATION: MM screening rell BI w annette HISTORY: Screening TECHNIQUE: Craniocaudal and mediolateral oblique 3-D tomosynthesis images were obtained and synthetic 2-D images were generated. CAD analysis was submitted and interpreted. COMPARISON: Comparison to multiple prior studies sequentially, with oldest reviewed study dated 06/2019. BREAST PARENCHYMAL COMPOSITION: Not dense: There are scattered areas of fibroglandular density. FINDINGS: There is no evidence of suspicious mass, calcification, or architectural distortion to sugg est malignancy in either breast. There has been no suspicious interval change. IMPRESSION: 1. No mammographic evidence of malignancy. 2. Recommend routine screening mammography in one year. BI-RADS Category 1: Negative Reviewed, dictated and finalized at location B.
--- OUTSIDE RECORDS SUMMARY | 2025-05-14 14:21 | XMS_ITS | Encounter Summary ---
Author Organization [facility] Address [address] [place] [address] Phone Care Team Providers Care Manufacturing Development Engineer Name Role Phone Yocasta Soto MD Primary Care Provider + Kenny Castro MD Unavailable [phone] Gianluca Hogue MD Unavailable Shonda Au RN Unavailable Unavailabl e Reason for Referral * Pulmonology (Routine) - Closed Specialty Diagnoses / Procedures Referred By Micheal singh Referred To Contact Pulmonology Diagnoses Chronic obstructive pulmonary disease, unspecified COPD type (HCC) Procedures Pulmonary Function Test -[facility]- [facility]; Spirometry, Oxygen Assessment Titration, DLCO; Spirometry Alex Boland MD [id number] [facility] [address] [place] [address] Phone: tel: fax: Referral ID Status Reason Start Date Expiration Date Visits Re quested Visits Authorized [id number] Closed 04/26/2022 05/26/2023 99 99 Reason for Visit * Pulmonology (Routine) - Closed Specialty Diagnoses / Procedures Referred By Micheal singh Referred To Contact Pulmonology Diagnoses Chronic obstructive pulmonary disease, unspecified COPD type (HCC) Procedures Pulmonary Function Test -[facility]; Spirometry, Oxygen Assessment Titration, DLCO; Spirometry Alex Boland MD [address] [place] [address] Phone: tel: fax: Referral ID Status Reason Start Date Expiration Date Visits Re quested Visits Authorized [id number] Closed 04/26/2022 05/26/2023 99 99 Encounter Details Date Type Department Care Team (Latest Contact Info) Description 05/07/2023 1:09 PM CDT Hospital Encounter [facility] PFT Lab [address] [facility] [address] [place] [address] Chronic obstructive pulmonary disease, unspecified COPD type [...] on file Legal 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 FVC %PRE PRED 90 % [facility] FEV1 PRE 1.74 L [facility] FEV1 %PRE PRED 87 % [facility] FEV1/FVC PRE 74.0 % [facility] DLCO PRE 16.6 ml/min/mmH g [facility] DLCO %PRE PRED 91 % [facility] Anatomical Region Laterality Modality PFT 05/07/2023 1:42 PM CDT Narrative 05/13/2023 5:13 PM CDT Table formatting from the original result was not included. [facility] Division of Pulmonary & Critical Care Medicine [address] [place] [address]; [address] [facility]; [place] [address]; [phone] Pulmonary Function Laboratory Pulmonary Stress Test Simple/Oxygen [...] Work [distance (m) x body wt (kg)]: 07688 kg.m (normal >60,000kg.m) Oxygen required to maintain [...] with the written final report. PFT performed at:->[facility] Procedure:->Spirometry Procedure:->Oxygen Assessment Titration Procedure:->DLCO DLCO:->Spirometry Alex Boland MD PFT ORDERABLES Final Result documented in this encounter Visit Diagnoses Diagnosis Chronic obstructive pulmonary disease, unspecified COPD type (HCC) documented in this encounter Care Teams Manufacturing Development Engineer Relationship Specialty Start Date End Date Yocasta Soto MD PCP - General Family Medicine 05/08/18 11/05/24 Kenny Castro MD [address] [facility] [address] [place] [address] Consulting Physician Gastroenterology 08/25/21 Gianluca Hogue MD [address] [facility] [address] [place] [address] Surgeon General Surgery 10/19/21 Shonda Au, RN Registered Nurse Pulmonary Disease 05/07/23 documented as of this encounter
--- OUTSIDE RECORDS SUMMARY | 2025-05-14 14:21 | XMS_ITS | Referral Summary ---
Author Organization [facility] Address [address] [place] [address] Care Team Providers Care Camera Repair Technician Name Role Phone Kenny Castro MD Unavailable [phone] Gianluca Hogue MD Unavailable [phone] Shonda Au RN Unavailable Unavailabl e Layne Colvin MD Unavailable [phone] Isabel Hughes MD Unavailable Pricila Hernandez MD Unavailable [phone] Milton Murillo MD Primary Care Provider [phone] Encounters Date Type Department Care Team Description 05/13/2025 Orders Only [facility] [address] First Floor [address] [place] [phone] Josr Sheikh MD Memory loss (Primary Dx) 05/10/2025 Orders Only [facility] [address] Floor 6 [place] [address] Layne Colvin MD Multiple myeloma not having achieved remission (HCC) (Primary Dx); Chronic ITP (idiopathic thrombocytopenia) (HCC) 05/10/2025 11:30 AM CDT Lab [address] [place], [place] [id number] Multiple myeloma not having achieved remission (HCC) 05/10/2025 10:30 AM CDT Lab [facility] [address] 2nd Floor [address] [place] [address] Multiple myeloma not having achieved remission (HCC) 05/10/2025 11:00 AM CDT Office Visit [facility] [address] 2nd Floor [address] [place] [address] Sophia Becerril NP Chronic ITP (idiopathic thrombocytopenia) (HCC) (Primary Dx); Multiple myeloma not having achieved remission (HCC) 04/26/2025 1:24 AM CDT - 04/26/2025 11:59 PM CDT Hospital Encounter [facility] [address] [place] [address] Diagnosis unknown Discharge Disposition: Discharge to home or self care 04/22/2025 Orders Only [facility] Scanning, Provider 04/20/2025 1:57 PM CDT - 04/20/2025 11:59 PM CDT Hospital Encounter [facility] [address] [place] [address] Discharge Disposition: Discharge to home or self care 04/20/2025 1:30 PM CDT Infusion [address] [address] Multiple myeloma not having achieved remission (HCC) (Primary Dx); Chronic ITP (idiopathic thrombocytopenia) (HCC) 04/20/2025 1:00 PM CDT Lab [address] [address] Multiple myeloma not having achieved remission (HCC); Chronic ITP (idiopathic thrombocytopenia) (HCC) 03/24/2025 Orders Only [facility] [address] Floor 6 [place] [address] Quynh Macias, JACK 03/24/2025 1:30 PM CDT Infusion [address] [address] Multiple myeloma not having achieved remission (HCC) (Primary Dx); Chronic ITP (idiopathic thrombocytopenia) (HCC) 03/24/2025 1:00 PM CDT Lab [address] [address] Multiple myeloma not having achieved remission (HCC); Chronic ITP (idiopathic thrombocytopenia) (HCC) 03/23/2025 Orders Only [facility] [address] [place] [phone] Quynh Macias, JACK 03/15/2025 Orders Only [facility] [address] [place] [phone] Layne Colvin MD Multiple myeloma not having achieved remission (HCC) (Primary Dx) 03/15/2025 Orders Only [address] [address] Quynh Macias RN Chronic ITP (idiopathic thrombocytopenia) (HCC) (Primary Dx); Multiple myeloma not having achieved remission (HCC) 03/11/2025 Telephone [facility] [place] [address] [facility] 6th [place] [address] [place] [address] Bennett Montiel 03/09/2025 Documentation [facility] [place] [address] First Floor [address] [place] [address] Amy Martell RMA 03/08/2025 10:00 AM CDT Office Visit [facility] [place] [address] [facility] 6th [place] [address] [place] [address] Josr Sheikh MD Multiple myeloma not having achieved remission (HCC) 02/23/2025 2:00 PM CDT Infusion [address] [address] Multiple myeloma not having achieved remission (HCC) (Primary Dx); Chronic ITP (idiopathic thrombocytopenia) (HCC) 02/23/2025 1:30 PM CDT Lab [address] [address] Multiple myeloma not having achieved remission (HCC); Chronic ITP (idiopathic thrombocytopenia) (HCC) from Last 3 Months Allergies Active Allergy [...] Active oxygenIndicati ons:Dyspnea Inhale 2 L/min nightly at 120,000 mL/hr Active prochlorperazi ne (Compazine) 10 mg tabletIndicati ons:Multiple myeloma not having achieved remission (HCC) Take 1 tablet (10 mg total) by mouth every 6 (six) hours as needed for nausea or vomiting 30 tablet 3 12/10/19 23 Active escitalopram (LEXAPRO) 20 mg tablet Take 1 [...] with meals 270 tablet 06/25/20 24 Active memantine XR (NAMENDA XR) 7 mg capsule,sprink le,ER 24hr Take by mouth daily 09/22/20 24 Active Anoro Ellipta 62.5-25 mcg/actuation blister with device INHALE 1 PUFF DAILY 180 each 3 10/22/20 24 Active irbesartan-hyd rochlorothiazi de (AVALIDE) 150-12.5 mg per tablet Take 1 tablet by mouth daily 02/12/20 25 Active acyclovir (ZOVIRAX) 400 mg tabletIndicati ons:Multiple myeloma not having achieved remission (HCC) TAKE 1 TABLET BY MOUTH TWICE A DAY 180 tablet 1 03/24/20 25 Active Eliquis 5 mg tablet TAKE 1 TABLET BY MOUTH TWICE A DAY 60 tablet 2 04/21/20 25 Active Pomalyst 4 mg capsule TAKE 1 CAPSULE BY MOUTH DAILY. SWALLOW WHOLE WITH WATER. DO NOT BREAK, CHEW, OR OPEN CAPSULES. 21 capsule 05/14/20 25 Active Eliquis 5 mg tablet TAKE 1 TABLET BY MOUTH TWICE A DAY 60 tablet 2 01/28/20 25 025 Discontinued pomalidomide (Pomalyst) 4 mg capsule Take 1 capsule (4 mg total) by mouth daily Swallow whole with water. Do not break, chew, or open your capsules. Take at about the same time each day. 21 capsule 04/14/20 25 025 Discontinued Active Problems Problem Noted Date Diagnosed Date Chronic ITP (idiopathic thrombocytopenia) 2022 Multiple myeloma not having achieved remission 0 11/08/2022 11/01/2022 Cancer Staging:Clinical stage from 11/01/2022:RISS Stage II([id number] (mg/L): 2.4, Albumin (g/dL): 3.9, ISS: Stage I, High-risk cytogenetics: Present, LDH: Normal) - Signed by Layne Colvin MD on 11/08/2022 Post-operative state 11/08/2021 Biliary colic 10/18/2021 On home oxygen therapy 10/17/2021 GERD (gastroesophageal reflux disease) Gallstones 10/10/2021 Overview (10/10/2021): Added automatically from request for surgery [id number] Abdominal pain 08/24/2021 RUQ abdominal pain 08/23/2021 [...] night.. Assessment & Plan (12/15/2019 3:15 PM HYGIENE COORDINATOR): Ms. Castelan is improved after lumbar decompression [...] 09/02/2018 Assessment & Plan (12/13/2021 4:33 PM HYGIENE COORDINATOR): Ms. Castelan is doing better in regards [...] patient's . Will order a brace through [facility] and refer to [facility]. Vertebral compression fracture [...] option. Chronic obstructive pulmonary disease Pulmonary fibrosis Resolved Problems Problem Noted Date Diagnosed Date Resolved Date Lumbar stenosis with neurogenic claudication 9 12/15/2019 Overview (05/22/2019): Added automatically from request for surgery [id number] Neurogenic claudication 01/06/201911/28 Overview (01/06/2019): Added automatically from request for surgery [id number] Assessment & Plan (04/21/2019 1:39 PM CDT): Ms. Castelan has lumbar stenosis with neurogenic claudication. She is a candidate with her MRI and symptoms for L4-5 decompression and fusion. The decision whether she is a surgical candidate all would be up to Dr. Amaral, her canceling and cutting control clerk. We discussed that the surgery would take [...] 12/15/2019 Assessment & Plan (12/10/2018 4:43 PM HYGIENE COORDINATOR): Ms. Castelan has persistent low back pain [...] become intolerable. Spinal stenosis of lumbar re srikanth with neurogenic claudication 09/02/2018 12/15/2019 Immunizations Immunization Administration Dates Next Due Pfizer SARS-CoV-2 Monovalent [...] on file Legal Sex Female 3:20 AM HYGIENE COORDINATOR Gender Identity Not on file Sexual Orientation Straight 03/13/2021 1: 23 PM CDT Last Filed Vital Signs Vital Sign Reading Time Taken Comments Blood Pressure 133/75 05/10/2025 11:07 AM CDT Pulse 55 05/10/2025 11:07 AM CDT Temperature 36.9 C (98.5 F) 05/10/2025 11:07 AM CDT Respiratory Rate 16 04/20/2025 3:06 PM CDT Oxygen Saturation 100% 05/10/2025 11:07 AM CDT Inhaled Oxygen Concentration - - Weight 73.9 kg (163 lb) 05/10/2025 11:07 AM CDT Height 170.2 cm (5' 7) 05/10/2025 11:07 AM CDT Body Mass Index 25.53 05/10/2025 11:07 AM CDT Plan of Treatment Not on file Goals [...] as needed Medical Devices Implanted Type Area Early Childhood Assistant Device Identifier Shelf Expiration Date Model / Serial / Lot [employer] [id number] Inqu Paste Mix Plus Mix House Tender 10cc Bone Graft Hyaluronic Acid Poly - [id number] Implanted:Qty: 1 on 06/22/2019 by Cheko Reynoso MD at [facility] N/A: Spine Lumbar [employer] [id number] 01/13/2021 [id number] / / [id number] Core Link 78062-46 [place] 6.5mm 40mm Spine Pedicle Screw Bone 5500 Series - [id number] Implanted:Qty: 4 on 06/22/2019 by Cheko Reynoso MD at [facility] N/A: Spine Lumbar Core Link 63964-54 / / Core Link [id number] Avon Screw Set 5500 Series - [id number] Implanted:Qty: 4 on 06/22/2019 by Cheko Reynoso MD at [facility] N/A: Spine Lumbar Core Link [id number] / / Core Link [id number] Avon 5.5mm 40mm Line Prebent Marvin Spinal Nonsterile 5500 Series - [id number] Implanted:Qty: 2 on 06/22/2019 by Cheko Reynoso MD at [facility] Core Link [id number] / / Explanted Type Area Early Childhood Assistant Device Identifier Shelf Expiration Date Model / Serial / Lot [employer] Ashleigh [id number] Wallflex Permalume 10mm 8.5fr 60mm 194cm Fully Cover Catheter - [id number] Implanted:Qty: 1 on 08/23/2021 by Kenny Castro MD at [facility] Explanted:Qty: 1 on 08/25/2021 by Kenny Castro MD at [facility] Stent N/A: Bile Duct [employer] Ashleigh 07/11/2023 [id number] / / [id number] Procedures Procedure Name Priority Date/Time Associated Diagnosis Comments BLOOD SMEAR REVIEW Routine 05/10/2025 11:00 AM CDT Multiple myeloma not having achieved remission (HCC) EGFR Routine 05/10/2025 11:00 AM CDT Multiple myeloma not having achieved remission (HCC) DIFFERENTIAL AUTO Routine 05/10/2025 11:00 AM CDT Multiple myeloma not having achieved remission (HCC) CBC WITH AUTO DIFFERENTIAL Routine 05/10/2025 11:00 AM CDT Multiple myeloma not having achieved remission (HCC) COMPREHENSIVE METABOLIC PANEL Routine 05/10/2025 11:00 AM CDT Multiple myeloma not having achieved remission (HCC) IGA Routine 05/10/2025 11:00 AM CDT Multiple myeloma not having achieved remission (HCC) IGG Routine 05/10/2025 11:00 AM CDT Multiple myeloma not having achieved remission (HCC) IGM Routine 05/10/2025 11:00 AM CDT Multiple myeloma not having achieved remission (HCC) IMMUNOGLOBULIN FREE LIGHT CHAINS Routine 05/10/2025 11:00 AM CDT Multiple myeloma not having achieved remission (HCC) PROTEIN ELECTROPHORESIS, WITH REFLEX, SERUM Routine 05/10/2025 11:00 AM CDT Multiple myeloma not having achieved remission (HCC) LACTATE DEHYDROGENASE Routine 05/10/2025 11:00 AM CDT Multiple myeloma not having achieved remission (HCC) NEURO MR OUTSIDE CONSULT Routine 04/26/2025 1:24 AM CDT Diagnosis unknown SCAN - RADIOLOGY/IMAGING 04/22/2025 4:58 PM CDT NEURO MR OUTSIDE REFERENCE Routine 04/20/2025 1:57 PM CDT EGFR STAT 04/20/2025 1:08 PM CDT Multiple myeloma not having achieved remission (HCC) DIFFERENTIAL AUTO Routine 04/20/2025 1:0 8 PM CDT Multiple myeloma not having achieved remission (HCC) CBC WITH AUTO DIFFERENTIAL Routine 04/20/2025 1:08 PM CDT Multiple myeloma not having achieved remission (HCC) COMPREHENSIVE METABOLIC PANEL STAT 04/20/2025 1:08 PM CDT Multiple myeloma not having achieved remission (HCC) EGFR STAT 03/24/2025 1:14 PM CDT Multiple myeloma not having achieved remission (HCC) DIFFERENTIAL AUTO Routine 03/24/2025 1:1 4 PM CDT Multiple myeloma not having achieved remission (HCC) CBC WITH AUTO DIFFERENTIAL Routine 03/24/2025 1:14 PM CDT Multiple myeloma not having achieved remission (HCC) COMPREHENSIVE METABOLIC PANEL STAT 03/24/2025 1:14 PM CDT Multiple myeloma not having achieved remission (HCC) EGFR STAT 02/23/2025 1:44 PM CDT Multiple myeloma not having achieved remission (HCC) DIFFERENTIAL AUTO Routine 02/23/2025 1:4 4 PM CDT Multiple myeloma not having achieved remission (HCC) CBC WITH AUTO DIFFERENTIAL Routine 02/23/2025 1:44 PM CDT Multiple myeloma not having achieved remission (HCC) COMPREHENSIVE METABOLIC PANEL STAT 02/23/2025 1:44 PM CDT Multiple myeloma not having achieved remission (HCC) DEXA TBS AXIAL SKELETON BONE DENSITY 1 OR MORE SITES Schedule Routine, Read Routine (OP Routine) 10/19/2024 10:21 AM HYGIENE COORDINATOR Age-related osteoporosis without current pathological fracture from Last 3 Months or Most Recently Relevant to Health Maintenance Results * (ABNORMAL) Blood smear review (05/10/2025 11:00 AM CDT) RBC morphology Present(A) Anisocytosis Slight(A) [facility] Elliptocytes 3-7/HPF(A) [facility] Platelet estimate Adequate [facility] Blood 05/10/2025 11:0 0 AM CDT 05/10/2025 11:30 AM CDT Sophia Becerril MANUFACTURING LABORER LAB BLOOD ORDERABLES Final Result Performing Organization Address City/[facility]/ZIP Co de Phone Number [facility] [place] [address] * eGFR (05/10/2025 11:00 AM CDT) eGFR 77 >=60 mL/min/1. 73 m2 Comment: Interpretive Data [...] interpretive data was last reviewed 2021. Blood 05/10/2025 11:0 0 AM CDT 05/10/2025 11:30 AM CDT Sophia Becerril NP LAB BLOOD ORDERABLES Final Result [facility] [place] [place] [address] * (ABNORMAL) Differential, auto (05/10/2025 11:00 AM CDT) Neutrophil abs 0.64(L) 1.50 - 6.50 K/cumm Comment:Testing performed by : [facility], [address] [facility] [address] Imm gran abs 0.02 0.00 - 0.10 K/cumm [facility] Lymphocyte abs 1.54 0.80 - 3.30 K/cumm [facility] Monocyte abs 0.66 0.20 - 0.80 K/cumm [facility] Eosinophil abs 0.70(H) 0.00 - 0.50 K/cumm [facility] Basophil abs 0.10 0.00 - 0.10 K/cumm [facility] Neutrophil pct 17.6 % [facility] Comment: Interpretive Data Percent cell count reference ranges are not reported, since discordance with absolute values may lead to misinterpretation of CBC data. Current Interpretive Data was last revised on 2018. Imm gran pct 0.5 % [facility] Comment: Interpretive Data Percent cell count reference ranges are not reported, since discordance with absolute values may lead to misinterpretation of CBC data. Current Interpretive Data was last revised on 2018. Lymphocyte pct 42.1 % [facility] Comment: Interpretive Data Percent cell count reference ranges are not reported, since discordance with absolute values may lead to misinterpretation of CBC data. Current Interpretive Data was last revised on 2018. Monocyte pct 18.0 % [facility] Comment: Interpretive Data Percent cell count reference ranges are not reported, since discordance with absolute values may lead to misinterpretation of CBC data. Current Interpretive Data was last revised on 2018. Eosinophil pct 19.1 % [facility] Comment: Interpretive Data Percent cell count reference ranges are not reported, since discordance with absolute values may lead to misinterpretation of CBC data. Current Interpretive Data was last revised on 2018. Basophil pct 2.7 % [facility] Comment: Interpretive Data Percent cell count reference ranges are not reported, since discordance with absolute values may lead to misinterpretation of CBC data. Current Interpretive Data was last revised on 2018. Blood 05/10/2025 11:0 0 AM CDT 05/10/2025 11:30 AM CDT Sophia Agrawal Jone MANUFACTURING LABORER LAB BLOOD ORDERABLES Final Result Performing Organization Address [facility] de Phone Number [facility] Department [place] [address] * (ABNORMAL) Immunoglobulin free light chains (05/10/2025 11:00 AM CDT) [place]/Lambda ratio [facility] 2.62(H) 0.26 - 1.65 Comment: Interpretive Data The Binding Site FreeLite assay procedure was used. Results from different manufacturers or methods may not be comparable. Serial testing should be performed using the same methods and instrumentation. Current Interpretive Data was last revised on 2023. [place] free light chain [facility] 0.89 0.33 - 1.94 mg/dL [facility] Comment: Interpretive Data The Binding Site FreeLite assay procedure was used. Results from different manufacturers or methods may not be comparable. Serial testing should be performed using the same methods and instrumentation. Current Interpretive Data was last revised on 2023. [place] free light chain [facility] 0.34(L) 0.57 - 2.63 mg/dL [facility] Comment: Interpretive Data The Binding Site FreeLite assay procedure was used. Results from different manufacturers or methods may not be comparable. Serial testing should be performed using the same methods and instrumentation. Current Interpretive Data was last revised on 2023. Blood 05/10/2025 11:0 0 AM CDT 05/10/2025 2:36 PM CDT Sophia Becerril MANUFACTURING LABORER LAB BLOOD ORDERABLES Final Result Performing Organization Address City/[facility] Co de Phone Number JANICE [facility] [place] [address] * (ABNORMAL) CBC with auto differential (05/10/2025 11:00 AM CDT) [facility] WBC 3.66(L) 3.80 - 9.90 K/cumm Comment:Testing performed by : [address] [address] Hgb 9.8(L) 11.9 - 15.5 g/dL [facility] Comment:Testing performed by : [address] [address] Hct 30.5(L) 35.6 - 45.5 % [facility] Comment:Testing performed by : [address] [address] Plt 163 150 - 400 K/cumm [facility] Comment:Testing performed by : [address] [address] MPV 10.9 9.1 - 12.3 fL [facility] RBC 2.94(L) 3.90 - 5.20 M/cumm [facility] MCV 103.7(H) 81.3 - 96.4 fL [facility] MCH 33.3 27.1 - 33.3 pg [facility] MCHC 32.1(L) 32.3 - 35.7 g/dL [facility] RDW CV 13.5 11.1 - 14.9 % [facility] RDW SD 50.9(H) 35.7 - 48.1 fL [facility] NRBC abs 0.00 0.00 - 0.01 K/cumm [facility] Blood 05/10/2025 11:0 0 AM CDT 05/10/2025 11:30 AM CDT us Sophia Becerril MANUFACTURING LABORER LAB BLOOD ORDERABLES Final Result [facility] Department [place] [address] * (ABNORMAL) Protein electrophoresis with reflex, serum with interpretation (05/10/2025 11:00 AM CDT) [facility] Protein, sr 5.2(L) 6.2 - 8.2 g/dL Albumin 3.5 3.2 - 5.0 g/dL [facility] Alpha-1 globulin 0.3 0.2 - 0.4 g/dL [facility] Alpha-2 globulin 0.6 0.5 - 1.0 g/dL [facility] Beta-1 globulin 0.3 0.3 - 0.6 g/dL [facility] Beta-2 globulin 0.2 0.2 - 0.6 g/dL [facility] Gamma globulin 0.2(L) 0.5 - 1.7 g/dL [facility] Rstr Pk Gamma 0.1(H) 0.0 - 0.0 g/dL [facility] SPEP interp Please see comment [facility] Comment: Abnormal restricted peak in Gamma region Decreased gamma globulins Electrophoretic pattern appears similar to previous sample 02/09/2025 Reviewed and signed by Milton Vanegas MD, PhD 05/11/2025 Blood 05/10/2025 11:0 0 AM CDT 05/10/2025 2:34 PM CDT Sophia Becerril MANUFACTURING LABORER LAB BLOOD ORDERABLES Final Result Performing Organization Address City/[facility]/ZIP Co de Phone Number [facility] [place] [address] * Lactate dehydrogenase (LD) (05/10/2025 11:00 AM CDT) Lactate dehydrogenase (LDH) 155 100 - 250 Units/L Comment:Testing performed by : [facility], [address] [place] [address] Blood 05/10/2025 11:0 0 AM CDT 05/10/2025 11:30 AM CDT Sophia Becerril MANUFACTURING LABORER LAB BLOOD ORDERABLES Final Result [facility] [place] [address] * (ABNORMAL) IgA (05/10/2025 11:00 AM CDT) Immunoglobulin A 19(L) 70 - 400 mg/dL Blood 05/10/2025 11:0 0 AM CDT 05/10/2025 2:26 PM CDT Sophia Becerril MANUFACTURING LABORER LAB BLOOD ORDERABLES Final Result Performing Organization Address City/[facility] Co de Phone Number [facility] Department [place] [address] * (ABNORMAL) IgM (05/10/2025 11:00 AM CDT) Pathologist [facility] Immunoglobulin M <25(L) 40 - 230 mg/dL Comment:Reviewed Blood 05/10/2025 11:0 0 AM CDT 05/10/2025 2:26 PM CDT Sophia Becerril MANUFACTURING LABORER LAB BLOOD ORDERABLES Final Result Performing Organization Address [facility] Co de Phone Number [facility] Department [place] [address] * (ABNORMAL) IgG (05/10/2025 11:00 AM CDT) Pathologist [facility] Immunoglobulin G <300(L) 700 - 1,600 mg/dL Comment:Reviewed Blood 05/10/2025 11:0 0 AM CDT 05/10/2025 2:26 PM CDT Sophia Becerril MANUFACTURING LABORER LAB BLOOD ORDERABLES Final Result Performing Organization Address City/[facility] [place] [address] * (ABNORMAL) Comprehensive metabolic panel (05/10/2025 11:00 AM CDT) [facility] Sodium 142 135 - 145 mmol/L Comment:Testing performed by : [facility], [address] [place] [address] Potassium, pl 4.2 3.3 - 4.9 mmol/L [facility] Chloride 106 97 - 110 mmol/L [facility] CO2 30 22 - 32 mmol/L [facility] Anion gap 6 2 - 15 mmol/L [facility] BUN 21 6 - 25 mg/dL [facility] Creatinine 0.79 0.60 - 1.10 mg/dL [facility] Glucose 82 70 - 199 mg/dL [facility] Comment: Interpretive Data Fasting glucose >/= [...] interpretive data was last revised 2022. Calcium 9.0 8.5 - 10.3 mg/dL [facility] Bilirubin, total 0.5 0.1 - 1.2 mg/dL [facility] Protein, pl 5.6(L) 6.5 - 8.5 g/dL [facility] Albumin 3.8 3.5 - 5.0 g/dL [facility] Alk phos 47 40 - 130 Units/L [facility] ALT 15 7 - 45 Units/L [facility] AST 17 10 - 45 Units/L [facility] Blood 05/10/2025 11:0 0 AM CDT 05/10/2025 11:30 AM CDT us Sophia Becerril NP LAB BLOOD ORDERABLES Final Result [facility] Department [place] [address] * Neuro MR Outside Consult (04/26/2025 1:24 AM CDT) Anatomical Region Laterality Modality N/A Magnetic Resonan ce 04/26/2025 10:0 9 AM CDT Impressions 04/26/2025 10:09 AM CDT This study was initially nominated as a consult on outside images via Outside Image Sharing Service. However, a consult was not performed because the study is greater than 6 months of age. Accordingly, there will be no separate report of this study generated by a [facility] Radiologist. . Electronically signed by: Rashawn Woodall M.D. Narrative 04/26/2025 10:09 AM CDT EXAMINATION: CHANGE CONSULT ON OUTSIDE IMAGES TO REFERENCE IMAGES Procedure Note Rashawn Woodall MD - 04/26/2025 EXAMINATION: CHANGE CONSULT ON OUTSIDE IMAGES TO REFERENCE IMAGES IMPRESSION: This study was initially nominated as a consult on outside images via Outside Image Sharing Service. However, a consult was not performed because the study is greater than 6 months of age. Accordingly, there will be no separate report of this study generated by a [facility] Radiologist. . Electronically signed by: Rashawn Woodall M.D. Josr Sheikh MD IMG MRI PROCEDURES Final Result * SCAN - RADIOLOGY/IMAGING (04/22/2025 4:58 PM CDT) Anatomical Region Laterality Modality Other us Provider Scanning Edited Result - Final * Neuro MR Outside Reference (04/20/2025 1:57 PM CDT) Anatomical Region Laterality Modality N/A Magnetic Resonan ce 04/26/2025 8:33 PM CDT Addenda Addendum by Richy Henry MD on 04/26/2025 8:33 PM CDT A consult was requested on 04/26/2025 date. Please see new accession #[id number] for the consult interpretation. Edited by: Amandeep Admin/Ad Operations Coordinator Blake Electronically signed by: Richy Henry M.D. Impressions 04/20/2025 1:57 PM CDT These images are for Reference purposes only and have not been reviewed by [facility] Radiology. There will be no report generated by a [facility] Radiologist. Narrative 04/20/2025 1:57 PM CDT EXAMINATION: Images For Reference Purposes Only Procedure Note Richy Henry MD - 04/20/2025 EXAMINATION: Images For Reference Purposes Only IMPRESSION:These images are for Reference purposes only and have not beenreviewed by [facility] Radiology. There will be no reportgenerated by a [facility] Radiologist. us Josr Sheikh MD IMG MRI PROCEDURES Edited Resul t - Final * eGFR (04/20/2025 1:08 PM CDT) eGFR 90 >=60 mL/min/1. 73 m2 Comment: Interpretive Data [...] of Race in Diagnosing Kidney Disease, JASN 202). The CKD-EPI equation should not be used for patients with unstable renal function and has not been validated in children and those over 70. Current interpretive data was last reviewed 2021. Blood 04/20/2025 1:08 PM CDT 04/20/2025 1:08 PM CDT us Layne Colvin MD LAB BLOOD ORDERABLES Final Result [facility] Department [place] [address] * Differential, auto (04/20/2025 1:08 PM CDT) Neutrophil abs 2.13 1.50 - 6.50 K/cumm Comment:Testing performed by : [facility], [address] [facility] [address] Imm gran abs 0.03 0.00 - 0.10 K/cumm [facility] Lymphocyte abs 1.84 0.80 - 3.30 K/cumm [facility] Monocyte abs 0.77 0.20 - 0.80 K/cumm [facility] Eosinophil abs 0.29 0.00 - 0.50 K/cumm [facility] Basophil abs 0.08 0.00 - 0.10 K/cumm [facility] Neutrophil pct 41.4 % [facility] Comment: Interpretive Data Percent cell count reference ranges are not reported, since discordance with absolute values may lead to misinterpretation of CBC data. Current Interpretive Data was last revised on 2018. Imm gran pct 0.6 % [facility] Comment: Interpretive Data Percent cell count reference ranges are not reported, since discordance with absolute values may lead to misinterpretation of CBC data. Current Interpretive Data was last revised on 2018. Lymphocyte pct 35.8 % [facility] Comment: Interpretive Data Percent cell count reference ranges are not reported, since discordance with absolute values may lead to misinterpretation of CBC data. Current Interpretive Data was last revised on 2018. Monocyte pct 15.0 % [facility] Comment: Interpretive Data Percent cell count reference ranges are not reported, since discordance with absolute values may lead to misinterpretation of CBC data. Current Interpretive Data was last revised on 2018. Eosinophil pct 5.6 % [facility] Comment: Interpretive Data Percent cell count reference ranges are not reported, since discordance with absolute values may lead to misinterpretation of CBC data. Current Interpretive Data was last revised on 2018. Basophil pct 1.6 % [facility] Comment: Interpretive Data Percent cell count reference ranges are not reported, since discordance with absolute values may lead to misinterpretation of CBC data. Current Interpretive Data was last revised on 2018. Blood 04/20/2025 1:08 PM CDT 04/20/2025 1:08 PM CDT Layne Colvin MD LAB BLOOD ORDERABLES Final Result [facility] [place] [address] * (ABNORMAL) CBC with auto differential (04/20/2025 1:08 PM CDT) [facility] WBC 5.14 3.80 - 9.90 K/cumm Comment:Testing performed by : [address] [address] Hgb 10.2(L) 11.9 - 15.5 g/dL [facility] Comment:Testing performed by : [address] [address] Hct 30.6(L) 35.6 - 45.5 % [facility] Comment:Testing performed by : [address] [address] Plt 275 150 - 400 K/cumm [facility] Comment:Testing performed by : [address] [address] MPV 9.5 9.1 - 12.3 fL [facility] RBC 3.07(L) 3.90 - 5.20 M/cumm [facility] MCV 99.7(H) 81.3 - 96.4 fL [facility] MCH 33.2 27.1 - 33.3 pg [facility] MCHC 33.3 32.3 - 35.7 g/dL [facility] RDW CV 12.7 11.1 - 14.9 % [facility] RDW SD 45.4 35.7 - 48.1 fL [facility] NRBC abs 0.00 0.00 - 0.01 K/cumm [facility] ANC Prelim 2.13 1.50 - 6.50 K/cumm [facility] Comment: Interpretive Data The rapid ANC is a preliminary automated count and may vary from the final ANC (Neut Abs) reported in the WBC differential that follows. Current interpretive data was last revised 2025. Blood 04/20/2025 1:08 PM CDT 04/20/2025 1:08 PM CDT us Layne Colvin MD LAB BLOOD ORDERABLES Final Result [facility] Department [place] [address] * (ABNORMAL) Comprehensive metabolic panel (04/20/2025 1:08 PM CDT) Sodium 137 135 - 145 mmol/L Comment:Testing performed by : [facility], [address] [place] [address] Potassium, pl 3.6 3.3 - 4.9 mmol/L [facility] Chloride 99 97 - 110 mmol/L [facility] CO2 30 22 - 32 mmol/L [facility] Anion gap 8 2 - 15 mmol/L [facility] BUN 22 6 - 25 mg/dL [facility] Creatinine 0.66 0.60 - 1.10 mg/dL [facility] Glucose 170 70 - 199 mg/dL [facility] Comment: Interpretive Data Fasting glucose >/= [...] interpretive data was last revised 2022. Calcium 9.7 8.5 - 10.3 mg/dL [facility] Bilirubin, total 0.4 0.1 - 1.2 mg/dL [facility] Protein, pl 5.5(L) 6.5 - 8.5 g/dL [facility] Albumin 3.8 3.5 - 5.0 g/dL [facility] Alk phos 42 40 - 130 Units/L [facility] ALT 14 7 - 45 Units/L [facility] AST 13 10 - 45 Units/L [facility] Blood 04/20/2025 1:08 PM CDT 04/20/2025 1:08 PM CDT Layne Colvin MD LAB BLOOD ORDERABLES Final Result Performing Organization Address City/[facility]/ZIP Co de Phone Number [facility] [place] [address] * eGFR (03/24/2025 1:14 PM CDT) eGFR 86 >=60 mL/min/1. 73 m2 Comment: Interpretive Data [...] interpretive data was last reviewed 2021. Blood 03/24/2025 1:14 PM CDT 03/24/2025 1:14 PM CDT us Layne Colvin MD LAB BLOOD ORDERABLES Final Result [facility] [place] [address] * (ABNORMAL) Differential, auto (03/24/2025 1:14 PM CDT) Neutrophil abs 3.31 1.50 - 6.50 K/cumm Comment:Testing performed by : [facility], [address] [place] [address] Imm gran abs 0.02 0.00 - 0.10 K/cumm [facility] Lymphocyte abs 1.92 0.80 - 3.30 K/cumm [facility] Monocyte abs 1.06(H) 0.20 - 0.80 K/cumm [facility] Eosinophil abs 0.16 0.00 - 0.50 K/cumm [facility] Basophil abs 0.12(H) 0.00 - 0.10 K/cumm [facility] Neutrophil pct 50.3 % [facility] Comment: Interpretive Data Percent cell count reference ranges are not reported, since discordance with absolute values may lead to misinterpretation of CBC data. Current Interpretive Data was last revised on 2018. Imm gran pct 0.3 % [facility] Comment: Interpretive Data Percent cell count reference ranges are not reported, since discordance with absolute values may lead to misinterpretation of CBC data. Current Interpretive Data was last revised on 2018. Lymphocyte pct 29.1 % [facility] Comment: Interpretive Data Percent cell count reference ranges are not reported, since discordance with absolute values may lead to misinterpretation of CBC data. Current Interpretive Data was last revised on 2018. Monocyte pct 16.1 % [facility] Comment: Interpretive Data Percent cell count reference ranges are not reported, since discordance with absolute values may lead to misinterpretation of CBC data. Current Interpretive Data was last revised on 2018. Eosinophil pct 2.4 % [facility] Comment: Interpretive Data Percent cell count reference ranges are not reported, since discordance with absolute values may lead to misinterpretation of CBC data. Current Interpretive Data was last revised on 2018. Basophil pct 1.8 % [facility] Comment: Interpretive Data Percent cell count reference ranges are not reported, since discordance with absolute values may lead to misinterpretation of CBC data. Current Interpretive Data was last revised on 2018. Blood 03/24/2025 1:14 PM CDT 03/24/2025 1:14 PM CDT us Layne Colvin MD LAB BLOOD ORDERABLES Final Result [facility] Department [place] [address] * (ABNORMAL) CBC with auto differential (03/24/2025 1:14 PM CDT) WBC 6.59 3.80 - 9.90 K/cumm Comment:Testing performed by : [address] [address] Hgb 11.2(L) 11.9 - 15.5 g/dL [facility] Comment:Testing performed by : [address] [address] Hct 33.8(L) 35.6 - 45.5 % [facility] Comment:Testing performed by : [address] [address] Plt 331 150 - 400 K/cumm [facility] Comment:Testing performed by : [address] [address] MPV 10.0 9.1 - 12.3 fL [facility] RBC 3.33(L) 3.90 - 5.20 M/cumm [facility] MCV 101.5(H) 81.3 - 96.4 fL [facility] MCH 33.6(H) 27.1 - 33.3 pg [facility] MCHC 33.1 32.3 - 35.7 g/dL [facility] RDW CV 13.0 11.1 - 14.9 % [facility] RDW SD 47.8 35.7 - 48.1 fL [facility] NRBC abs 0.00 0.00 - 0.01 K/cumm [facility] ANC Prelim 3.31 1.50 - 6.50 K/cumm [facility] Comment: Interpretive Data The rapid ANC is a preliminary automated count and may vary from the final ANC (Neut Abs) reported in the WBC differential that follows. Current interpretive data was last revised 2025. Blood 03/24/2025 1:14 PM CDT 03/24/2025 1:14 PM CDT Lyane Colvin MD LAB BLOOD ORDERABLES Final Result [facility] Department [place] [address] * (ABNORMAL) Comprehensive metabolic panel (03/24/2025 1:14 PM CDT) Sodium 139 135 - 145 mmol/L Comment:Testing performed by : [facility], [address] [place] [address] Potassium, pl 4.2 3.3 - 4.9 mmol/L [facility] Chloride 101 97 - 110 mmol/L [facility] CO2 32 22 - 32 mmol/L [facility] Anion gap 6 2 - 15 mmol/L [facility] BUN 20 6 - 25 mg/dL [facility] Creatinine 0.72 0.60 - 1.10 mg/dL [facility] Glucose 166 70 - 199 mg/dL [facility] Comment: Interpretive Data Fasting glucose >/= [...] 2022. Calcium 9.8 8.5 - 10.3 mg/dL [facility] Bilirubin, total 0.4 0.1 - 1.2 mg/dL [facility] Protein, pl 5.8(L) 6.5 - 8.5 g/dL [facility] Albumin 3.9 3.5 - 5.0 g/dL [facility] Alk phos 39(L) 40 - 130 Units/L [facility] ALT 15 7 - 45 Units/L [facility] AST 15 10 - 45 Units/L [facility] Blood 03/24/2025 1:14 PM CDT 03/24/2025 1:14 PM CDT Layne Colvin MD LAB BLOOD ORDERABLES Final Result Performing Organization Address [facility] de Phone Number [facility] Department [place] [address] * eGFR (02/23/2025 1:44 PM CDT) eGFR 75 >=60 mL/min/1. 73 m2 Comment: Interpretive Data [...] interpretive data was last reviewed 2021. Blood 02/23/2025 1:44 PM CDT 02/23/2025 1:44 PM CDT Layne Colvin MD LAB BLOOD ORDERABLES Final Result Performing Organization Address [facility] Co de Phone Number [facility] [place] [address] * (ABNORMAL) Differential, auto (02/23/2025 1:44 PM CDT) Neutrophil abs 1.16(L) 1.50 - 6.50 K/cumm Comment:Testing performed by : [facility], [address] [place] [address] Imm gran abs 0.01 0.00 - 0.10 K/cumm [facility] Lymphocyte abs 1.80 0.80 - 3.30 K/cumm [facility] Monocyte abs 1.25(H) 0.20 - 0.80 K/cumm [facility] Eosinophil abs 0.18 0.00 - 0.50 K/cumm [facility] Basophil abs 0.09 0.00 - 0.10 K/cumm [facility] Neutrophil pct 25.9 % [facility] Comment: Interpretive Data Percent cell count reference ranges are not reported, since discordance with absolute values may lead to misinterpretation of CBC data. Current Interpretive Data was last revised on 2018. Imm gran pct 0.2 % [facility] Comment: Interpretive Data Percent cell count reference ranges are not reported, since discordance with absolute values may lead to misinterpretation of CBC data. Current Interpretive Data was last revised on 2018. Lymphocyte pct 40.1 % [facility] Comment: Interpretive Data Percent cell count reference ranges are not reported, since discordance with absolute values may lead to misinterpretation of CBC data. Current Interpretive Data was last revised on 2018. Monocyte pct 27.8 % [facility] Comment: Interpretive Data Percent cell count reference ranges are not reported, since discordance with absolute values may lead to misinterpretation of CBC data. Current Interpretive Data was last revised on 2018. Eosinophil pct 4.0 % [facility] Comment: Interpretive Data Percent cell count reference ranges are not reported, since discordance with absolute values may lead to misinterpretation of CBC data. Current Interpretive Data was last revised on 2018. Basophil pct 2.0 % [facility] Comment: Interpretive Data Percent cell count reference ranges are not reported, since discordance with absolute values may lead to misinterpretation of CBC data. Current Interpretive Data was last revised on 2018. Blood 02/23/2025 1:44 PM CDT 02/23/2025 1:44 PM CDT us Layne Colvin MD LAB BLOOD ORDERABLES Final Result [facility] Department [place] [address] * (ABNORMAL) CBC with auto differential (02/23/2025 1:44 PM CDT) [facility] WBC 4.49 3.80 - 9.90 K/cumm Comment:Testing performed by : [facility], [address] [place] [address] Hgb 10.6(L) 11.9 - 15.5 g/dL [facility] Comment:Testing performed by : [facility], [address] [place] [address] Hct 32.1(L) 35.6 - 45.5 % [facility] Comment:Testing performed by : [address] [address] Plt 232 150 - 400 K/cumm [facility] Comment:Testing performed by : [address] [address] MPV 10.1 9.1 - 12.3 fL [facility] RBC 3.16(L) 3.90 - 5.20 M/cumm [facility] MCV 101.6(H) 81.3 - 96.4 fL [facility] MCH 33.5(H) 27.1 - 33.3 pg [facility] MCHC 33.0 32.3 - 35.7 g/dL [facility] RDW CV 13.3 11.1 - 14.9 % [facility] RDW SD 49.9(H) 35.7 - 48.1 fL [facility] NRBC abs 0.00 0.00 - 0.01 K/cumm [facility] ANC Prelim 1.16(L) 1.50 - 6.50 K/cumm [facility] Comment: Interpretive Data The rapid ANC is a preliminary automated count and may vary from the final ANC (Neut Abs) reported in the WBC differential that follows. Current interpretive data was last revised 2025. Blood 02/23/2025 1:44 PM CDT 02/23/2025 1:44 PM CDT Layne Colvin MD LAB BLOOD ORDERABLES Final Result [facility] Department [place] [address] * (ABNORMAL) Comprehensive metabolic panel (02/23/2025 1:44 PM CDT) Sodium 141 135 - 145 mmol/L Comment:Testing performed by : [facility], [address] [place] [address] Potassium, pl 4.2 3.3 - 4.9 mmol/L [facility] Chloride 104 97 - 110 mmol/L [facility] CO2 32 22 - 32 mmol/L [facility] Anion gap 6 2 - 15 mmol/L [facility] BUN 20 6 - 25 mg/dL [facility] Creatinine 0.81 0.60 - 1.10 mg/dL [facility] Glucose 133 70 - 199 mg/dL [facility] Comment: Interpretive Data Fasting glucose >/= [...] interpretive data was last revised 2022. Calcium 9.5 8.5 - 10.3 mg/dL [facility] Bilirubin, total 0.4 0.1 - 1.2 mg/dL [facility] Protein, pl 5.7(L) 6.5 - 8.5 g/dL [facility] Albumin 3.8 3.5 - 5.0 g/dL [facility] Alk phos 36(L) 40 - 130 Units/L [facility] ALT 12 7 - 45 Units/L [facility] AST 16 10 - 45 Units/L [facility] Blood 02/23/2025 1:44 PM CDT 02/23/2025 1:44 PM CDT us Layne Colvin MD LAB BLOOD ORDERABLES Final Result [facility] [place] [address] * Dexa TBS Axial Skeleton Bone Density 1 or more sites (10/19/2024 10:21 AM HYGIENE COORDINATOR) Anatomical Region Laterality Modality Wrist, Body N/A Radiographic Marivel ging Narrative 10/19/2024 11:48 AM HYGIENE COORDINATOR Patient Name: Myah Castelan Date of : 1945 Date of scan: 10/19/2024 Bone mineral density was performed on a Holo33Across Discovery Densitometer. Based on machine cross-calibration and [...] by the International Society of Clinical Densitometry. [id number] Pricila Hernandez MD IMG DXA PROCEDURES Final Resu lt from Last 3 Months or Most Recently Relevant to Health Maintenance Insurance [facility] [employer] MEDICARE GOLD COMMERCIAL GENERIC MEDICARE AET[employer] MEDICARE GOLD Advance Directives For more information, please contact: [phone] Documents on File Type Date Recorded Patient Peanut Vendor Expl anation Advance Directives and Livin g [...] 11:55 AM 06/23/2019 6:27 PM Care Teams Camera Repair Technician Relationship Specialty Start Date End Date Milton Murillo MD [address] [address] PCP - General Family Medicine 11/06/24 Kenny Castro MD [address] [facility] [address] [place] [address] Consulting Physician Gastroenterology 08/25/21 Gianluca Hogue MD [address] [facility] [address] [place] [address] Surgeon General Surgery 10/19/21 Shonda Au RN Registered Nurse Pulmonary Disease 05/07/23 Layne Colvin MD [address] [address] Medical Oncologist/Template Cutter Hematology 06/25/23 Isabel Hughes MD [address] [address] Consulting Physician Pain Management 10/17/23 Pricila Hernandez MD [address] [address] Consulting Physician Bone Health 11/08/23
--- OUTSIDE RECORDS SUMMARY | 2025-05-14 14:22 | XMS_ITS ---
Author Organization [facility] Anuj pablo [facility] Address [address] [place] [address] Care Team Providers Care Business Analytics Specialist Name Role Phone Long Ribera Unavailable [phone] ALLERGIES Allergen (clinical drug ingredient) Drug/Non Drug [...] Orally Once a day Active VITAL SIGNS Height 5ft 3in in 01/08/2024 Weight 150.2 lbs 01/08/2024 Temperature 98.2 degrees Fahrenheit 01/08/20 24 Blood pressure systolic 107 mm Hg 01/08/20 24 Blood pressure diastolic 65 mm Hg 024 Heart Rate 57 /min 01/08/2024 Respiratory Rate 18 /min 01/08/2024 Oximetry 95 % 01/08/2024 BMI 26.6 kg/m2 01/08/2024 Encounters Encounter Location Date Provider Diagnosis [facility] [address] [place] [address] 01/08/2024 Long Ribera UTI symptoms R39.9 ASSESSMENTS Encounter Date Diagnosis Assessment Notes Treatment Notes Treatment Clinical Notes Section Notes 01/08/2024 UTI symptoms (ICD-10 - R39.9) PLAN OF TREATMENT Medication Medication Name Sig Start Date Stop Date Notes Ciprofloxacin HCl 500 MG 1 tablet Orally every 12 hrs for 5 days 01/08/2024 01/11/2024 Progress Notes * Myah DUMONT MDOB:[birth year] (78 yo F)Acc No.[id number]:01/08/2024 Progress Notes Patient: Myah DUMONT Provider: Long Ribera DO :1945 Age:78 Y Sex:Female Date:01/08/2024 Address:[address] [place] [address] Subjective: * Chief Complaints: * UTI * [...] Codes: * Billing Information: * Visit Code: 42113 Office Visit, Est Pt., Level 3. * [...]
--- OUTSIDE RECORDS SUMMARY | 2025-05-14 14:22 | XMS_ITS | Data Portability ---
Author Organization [place] [facility], Main Office Address [address] [place] [address] Assessment Encounter Date Assessment Date Assessment LastModified [...] 2023 024 [email or web address] Bernardo Maria MD, [address], [address], 09:22:19 Procedures None recorded. Surgeries None recorded. Imaging None recorded. Medication Orders mirtazapine 30 mg tablet 2023 024 [id number], [address] [place], [address], 18:01:30 mirtazapine 15 mg tablet 2023 024 [email or web address] [id number], [address] [place], [address], 03/28/202 4 16:39:43 Patient TargetsNo targets recorded. Patient InstructionsNo instructions [...] bilat eral No observ ation record ed. [facility] [address] [facility] [address], [place], [address], 05/23/2024 13:15:23 Result Notes None recorded. Problems Name Problem SNOMED Code Status Onset Date Resolution Date Notes Provider Name and Address Organization Details Recorded Time Arthritis 4539981 Active 2016 hips and knees Not Available [facility] 3 18:53:18 Chronic obstructive pulmonary disease 82994799 Active 2017 Not Available [facility] 3 18:53:18 Interstitial lung disease 229318303 Active 2018 Not Available [facility] 3 18:53:18 Osteopenia 239893121 Active 2020 Not Available [facility] 3 18:53:18 Degeneration of lumbar intervertebra l disc 50684458 Active 2021 Not Available [facility] 3 18:53:18 Gastroesophag eal reflux disease without esophagitis 529234284 Active 2021 Not Available [facility] 3 18:53:18 Depressive disorder 38076031 Active 2021 Not Available [facility] 3 18:53:18 Hyperlipidemi a 64494725 Active 2021 Not Available [facility] 3 18:53:19 Multiple myeloma 563195583 Active 2022 Not Available [facility] 3 18:53:18 Fatigue 13057802 Active 2022 Yocasta Soto MD [address] [place] [address], [facility] [address], [place], [address] , [facility] [employer] [facility] 3 14:55:35 Cobalamin deficiency 204330331 Active 2022 Yocasta Soto MD [address] [address], [place], [address] , [facility] [employer] [facility] 3 14:56:54 Mixed anxiety and depressive disorder 788210405 Active 2022 Yocasta Soto MD [address], [address] , [facility] [employer] [facility] [employer] [facility] 3 17:31:43 Abdominal pain 48953354 Active 2023 ANGEL Mendoza [address] [facility], [address] [address], [place], [address] , [facility] [employer] [facility] 4 16:34:51 Decrease in appetite 64574032 Active 2023 Yocasta Soto MD [address] [address], [place], [address] , [employer] [employer] [facility] 4 16:38:22 Umbilical hernia 414943003 Active 2023 Bernardo rothman MD [address], [address] , [facility] [employer] [facility] [employer] [facility] 4 14:30:09 Problem Notes None recorded. Medical Equipment None Reported. Allergies Allergen ID Allergen Name Allergen Category Reaction Reaction Severity Criticality Documentation Date Start Date Code Code System Note Provider Name and Address Organization Details Recorded Time 12663 Substance with sulfonami de structure and antibacte rial mechanism of action (substanc e) medicatio n Not available Not available Not available 12/26/2022 95484 8003 SNOMED Not Available [facility] 3 18:54:36 23872 prednison e medicatio n Not available Not available Not available 12/26/2022 8640 RxNorm Not Available [facility] 3 18:54:36 Medications Name Sig Start Date [...] Available Vitals Date Recorded Body weight Body mass index (BMI) Body height Body temperature Heart rate Oxygen saturation Oxygen saturation in Arterial blood by Pulse oximetry Systolic And Diastolic Provider Name and Address Organization Details Last Updated DateTime 4 41426.8 6 g 27.4 kg/m2 157.48 cm 98.7 [degF] 62 /min 98 % 98 % 132/80 mm[Hg] Yohana Gaxiola RN [facility] 4 16:31:15 Date Recorded Body height Body mass index (BMI) Body weight Body temperature Heart rate Systolic And Diastolic Provider Name and Address Organization Details Last Updated DateTime 4 157.48 cm 26.5 kg/m2 80753.8 9 g 98.3 [degF] 80 /min 118/78 mm[Hg] Kemar Castelan RN [facility] 4 16:30:04 Date Recorded Body height Body mass index (BMI) Body weight Body temperature Heart rate Oxygen saturation Oxygen saturation in Arterial blood by Pulse oximetry Systolic And Diastolic Provider Name and Address Organization Details Last Updated DateTime 4 157.48 cm 27.8 kg/m2 31702.0 4 g 98.1 [degF] 68 /min 95 % 95 % 124/78 mm[Hg] Kemar Castelan RN [facility] 4 17:49:44 Date Recorded Body height Body mass index (BMI) Body weight Heart rate Oxygen saturation Oxygen saturation in Arterial blood by Pulse oximetry Systolic And Diastolic Provider Name and Address Organization Details Last Updated DateTime 4 157.48 cm 27.8 kg/m2 46420.0 4 g 70 /min 96 % 96 % 122/76 mm[Hg] RHEA Delong [facility] [employer] [facility] 4 12:35:24 Date Recorded Body weight Body temperature Heart rate Oxygen saturation Oxygen saturation in Arterial blood by Pulse oximetry Systolic And Diastolic Provider Name and Address Organization Details Last Updated DateTime 3 30578.7 1 g 98 [degF] 60 /min 97 % 97 % 120/68 mm[Hg] Yamilka Rosario LPN [facility] 16:03:56 Social History Question Answer Notes LastModified by [employer] Details LastModified Time Tobacco Smoking Status Never Smoker Kavitha gonzalez, [facility] 04/25/2023 17:04:35 Do You Wear A Helmet When Biking? Yes [email or web address] Information not available 04/25/2023 Are You Blind Or Do You Have Difficulty Seeing? No [email or web address] Information not available 04/25/2023 What Is Your Level Of Caffeine Consumption? None [id number] Information not available 12/26/2022 Are You Deaf Or Do You Have Serious Difficulty Hearing? No [email or web address] Information not available 04/25/2023 What Type Of Diet Are You Following? REGULAR [id number] 026 Information not available 12/26/2022 What Is The Highest Grade Or Level Of School You Have Completed Or The Highest Degree You Have Received? [id number] [email or web address] Information not available 04/25/2023 What Is Your Relationship Status? [id number] 026 Information not available 12/26/2022 Do You Use Your Seat Belt Or Car Seat Routinely? Yes Information not available 04/25/2023 Do You Participate In Social Media? No [email or web address] Information not available 04/25/2023 Do You Have Difficulty Walking Or Climbing Stairs? No [email or web address] Information not available 04/25/2023 Are You Currently In School? No [email or web address] Information not available 04/25/2023 Do You Have Any Dietary Restrictions? No [email or web address] Information not available 04/25/2023 Sex: Unknown Functional Status Question Answer Note LastModified by [employer] Details LastModified Time Do you use any illicit or recreational drugs? No [email or web address] Information not available 04/25/2023 What is your level of alcohol consumption? None [id number] 26 Information not available 12/26/2022 Do you have transportation difficulties? No [email or web address] Information not available 04/25/2023 Are you able to care for yourself? Yes [email or web address] Information not available 04/25/2023 Do you have difficulty dressing or bathing? No Information not available 04/25/2023 Mental Status Question Answer Note LastModified by Organizat ion Details LastModified Time Do you feel stressed (tense, restless, nervous, or anxious, or unable to sleep at night)? [id number] [email or web address] Information not available 04/25/2023 Do you have difficulty concentrating, remembering or making decisions? No [email or web address] Information no t available 04/25/2023 Family History Nothing Reported. Medical History No medical history recorded. Gynecological History Statement/Question Response Menses Monthly N Obstetrics History GPAL:G 0 P 0 0 0 0 Immunizations Vaccine Type Date Status Note Provider Nam e and Address Organization Details Recorded Time Influenza, split virus, quadrivalent, preservative 2 completed Not Available [facility] 12/26/2022 18:54:35 Influenza, split virus, quadrivalent, preservative 1 completed Not Available [facility] 12/26/2022 18:54:35 Influenza, split virus, quadrivalent, preservative 9 completed Not Available [facility] 12/26/2022 18:54:35 Influenza, high-dose, trivalent, PF 8 completed Not Available [facility] 12/26/2022 18:54:35 Influenza, high-dose, quadrivalent, PF 3 completed Yocasta Soto MD [address] [place] [address], [address], [facility] 07/25/2023 19:06:24 Past Encounters Encounter ID Performer Location Encounter Start Date Encounter Closed Date Diagnosis/Indication Diagnosis SNOMED-CT Code Diagnosis ICD10 Code Diagnosis Note [id number] Yocasta Soto MD [facility] Primary Care [facility] [address] [facility] [address] [facility] [place] [address] 06/01/2021 00:00:00 06/01/2021 11:45:33 [id number] Yocasta Soto MD [facility] Primary Care [facility] [address] [facility] [address] [place] [address] 08/22/2021 00:00:00 08/25/2021 08:30:18 [id number] [facility] [place] [address] [facility] [address] [place] [address] 09/28/2021 00:00:00 10/26/2021 08:06:46 [id number] Yocasta Soto MD [facility] Primary Care [place] [address] [facility] [address] [place] [address] 11/01/2021 00:00:00 11/27/2021 18:41:25 [id number] Yocasta Soto MD [facility] Primary Care [place] [address] [place] [address] [address] [place] [address] 12/05/2022 00:00:00 12/23/2022 16:29:26 [id number] Yocasta Soto MD [facility] Primary Care [place] [address] [place] [address] [address] [place] [address] 03/06/2023 14:37:53 03/06/2023 15:23:30 Fatigue 20361614 R53.83 Cobalamin deficiency 190 249908 E53.8 [id number] Yocasta Soto MD [facility] Primary Care [place] [address] [place] [address] [address] [place] [address] 04/25/2023 17:03:43 04/25/2023 17:38:50 Mixed anxiety and depressive disorder 635264896 F41.8 add rexulti-sa mples givenf/u in 4 week by phone [id number] Yocasta Soto MD [facility] Primary Care [place] [address] [place] [address] [address] [place] [address] 07/25/2023 15:57:16 07/25/2023 16:28:36 Administration of influenza vaccine 37455306 Z23 Mixed anxi ety and depressive disorder 504222266 F41.8 doing well on rexulti 1mg and escitalopr am 10 mg dailyf/u in 6 months or sooner if needed [id number] Yocasta Soto MD [facility] Primary Care [place] [address] [facility] [address] [place] [address] 01/02/2024 16:23:58 01/02/2024 17:23:26 Abdominal pain 54298534 R10.9 -Pt had abdominal pain to left lower abdomen approx a couple weeks ago-was told that she has an umbilical hernia-not ed a bulge under her belly button-nor mal b&b, no nausea-f/u with ER [id number] Yocasta Soto MD [facility] Primary Care [facility] [address] [facility] [address] [place] [address] 01/23/2024 16:20:31 01/23/2024 16:47:07 Decrease in appetite 79942551 R63.0 likely multifacto rial between treatment protocol for her multiple myeloma, chronic pain and depression add mirtazapin e 15 mg po qhsreviewe d potential med s/e and she was advised to d/c med if any s/s of serotonin syndromef/ u in 4 weeks or sooner if needed [id number] Yocasta Soto MD [facility] Primary Care [facility] [address] [facility] [address] [place] [address] 02/24/2024 17:46:10 03/09/2024 09:50:42 Decrease in appetite 68484293 R63.0 likely multifacto rial between treatment protocol [...] lossincrea se Chronic ob structive pulmonary disease 95853762 J44.9 sees pulmonary Multiple myeloma 2703413 06 C90.00 sees oncology [id number] Bernardo rothman MD [facility] General Surgery [address] [facility] [place] [address] 06/04/2024 12:32:21 06/04/2024 12:54:40 Umbilical hernia 020947359 K42.9 Health Concerns Section Related Observation LastModified by Organization Detai ls LastModified Time None Recorded Concern Status LastModified by Organization Details LastModified Time None Recorded Advance Directives Directive None Recorded Payers Insurance Date Sequence Insurance Name Policy Number Policy Machado Covered Member ID Machado Member ID Guarantor Name 06/13/2024 1 [employer] (MEDICARE REPLACEMENT/ ADVANTAGE - HMO) [id number] Myah Castelan [id number] Myah Castelan 01/23/2024 1 [employer] (MEDICARE REPLACEMENT/ ADVANTAGE - PPO) [id number] Myah Castelan [id number] Myah Castelan Notes Date Note Type Note Provider Name and Address Organization Details Recorded Time 07/25/2023 text/html Here to f/u on mood, feeling on rexulti 1 mg daily. No chest pain or sob, mood overall doing well. Yocasta Soto MD [address], [place], [address], [employer] 07/25/2023 19:10:06 01/02/2024 text/html Pt was recently in the ER for abdominal pain ANGEL Mendoza [address], [place], [address], [employer] 01/03/2024 08:32:02 01/23/2024 text/html here for f/u, appetite is poor and mood is down and she has lost 4 more pounds. Sleep is ok but her motivation is down. There are many stressors including health and raising her grandchildren. Yocasta Soto MD [address], [place], [address], [employer] 01/24/2024 08:09:45 02/24/2024 text/html here for f/u, appetite is poor and mood is down and she has lost 4 more pounds. Sleep is ok but her motivation is down. There are many stressors including health and raising her grandchildren. update 02/24/24: no interval change in mood or appetite. She is tolerating mirtazapine without s/e Yocasta Soto MD [address], [place], [address], [employer] 03/15/2024 15:21:19 06/04/2024 text/html patient complain s of a small lump and her belly button that has had for about 3-4 weeks. Denies any symptoms. Bernardo Tran MD [address] [place] [address], [address] [address], [place], [address], [place] [facility] [place] [employer] 06/04/2024 14:30:36 OBGyn Episode No OBEpisode recorded.
--- OUTSIDE RECORDS SUMMARY | 2025-05-14 14:22 | XMS_ITS | Encounter Summary ---
Author Organization [facility] Address [address] [place] [address] Phone Care Team Providers Care Rn Enterostomal Name Role Phone Kenny Castro MD Unavailable [phone] Gianluca Hogue MD Unavailable [phone] Shonda Au RN Unavailable Unavailabl e Layne Colvin MD Unavailable Isabel Hughes MD Unavailable Pricila Hernandez MD Unavailable [phone] Milton Murillo MD Primary Care Provider [phone] Reason for Referral * Procedure (Routine) - Pending Review Specialty Diagnoses / Procedures Referred By Contangela t Referred To Contact Diagnoses Memory loss Procedures Lumbar Puncture Josr Sheikh MD [address] [facility] [address] [place] [address] Phone: tel: fax: [facility] (All Locations) Referral ID Status Reason Start Date Expiration Date V isits Requested Visits Authorized [id number] Pending Review 05/13/2025 06/12/2026 1 1 Encounter Details Date Type Department Care Team (Late st Contact Info) Description 05/13/2025 Orders Only [facility] [address] [place] [address] [address] Floor [address] [place] [address] Josr Sheikh MD [address] [facility] [address] [place] [address] (Fax) Memory loss (Primary Dx) Social History Tobacco Use Types Packs/Day Years [...] on file Legal Sex Female 3:20 AM [employer] Gender Identity Not on file Sexual Orientation Straight 03/13/2021 1: 23 PM CDT documented as of this encounter Plan of Treatment Scheduled Orders Name Type Priority Associated Diagnoses Orde r Schedule Lumbar Puncture Procedures Routine Memory loss 1 Occurrences starting 05/13/2025 until 05/13/2026 documented as of this encounter Goals Goal [...] documented as of this encounter Visit Diagnoses Diagnosis Memory loss- Primary documented in this encounter Care Teams Rn Enterostomal Relationship Specialty Start Date End Date Milton Murillo MD [address] [address] PCP - General Family Medicine 11/06/24 Kenny Castro MD [address] [place] [address] Consulting Physician Gastroenterology 08/25/21 Gianluca Hogue MD [address] [place] [address] Surgeon General Surgery 10/19/21 Shonda Au, RN Registered Nurse Pulmonary Disease 05/07/23 Layne Colvin MD [address] [facility] [address] [place] [address] Medical Oncologist/Occ Therapist Hematology 06/25/23 Isabel Hughes MD [address] [facility] [address] [place] [address] Consulting Physician Pain Management 10/17/23 Pricila Hernandez MD [address] [facility] [address] [place] [address] Consulting Physician Bone Health 11/08/23 documented as of this encounter
--- OUTSIDE RECORDS SUMMARY | 2025-05-14 14:22 | XMS_ITS | Clinical Summary ---
Author Organization 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 WORKER Pulse 83 12/27/2023 1:19 PM HOLLOW HANDLE BENCH WORKER Temperature 37.1 C (98.7 F) 12/27/2023 1:19 PM [employer]LLOW [employer]ENCH WORKER Respiratory Rate 18 12/27/2023 1:19 PM HOLLOW HANDLE BENCH WORKER Oxygen Saturation 96% 12/27/2023 1:30 PM HOLLOW HANDLE BENCH WORKER Inhaled Oxygen Concentration - - Weight 69.6 kg (153 lb 7 oz) 12/27/2023 1:19 PM HOLLOW HANDLE BENCH WORKER Height 157.5 cm (5' 2) 12/27/2023 1:19 PM HOLLOW HANDLE BENCH WORKER Body Mass Index 28.06 12/27/2023 1:19 PM HOLLOW HANDLE [employer]ENCH WORKER Plan of Treatment Health Maintenance Due Date Last Done Comments Hepatitis C 1963 Zoster Vaccines (1 of 2) 1966 DTaP, Tdap and Td Vaccines (1 - Tdap) 07/29/2009 07/28/2009 Annual Medicare Wellness Visit 2012 RSV Immunization or 60+ Years (1 - 1-dose 75+ series) 2022 COVID-19 Vaccine (5 - season) 2024 04/20/2022, 09/25/2021, 01/13/2021, Additional history exists Pneumococcal Vaccine: 50+ Years Completed 12/16/2014, 11/10/2012 Dexa Scan (General) [...] complete this topic Insurance [employer] Care Teams Technician Preventative Medicine Relationship Specialty Start Date End Date Yocasta Soto MD [address] [place] [address] [place] [address] PCP - General FAMILY PRACTICE 05/23/23
--- OUTSIDE RECORDS SUMMARY | 2025-05-14 14:22 | XMS_ITS | Encounter Summary ---
Author Organization [facility] Address [address] [place] [address] Care Team Providers Care Nuclear Power Reactor Operator Name Role Phone Yocasta Soto MD Primary Care Provider + Kenny Castro MD Unavailable [phone] Gianluca Hogue MD Unavailable [phone] Shonda Au RN Unavailable Unavailabl e Layne Colvin MD Unavailable [phone] Isabel Hughes MD Unavailable Pricila Hernandez MD Unavailable [phone] Milton Murillo MD Primary Care Provider [phone] Encounter Details Date Type Department Care Team (Late st Contact Info) Description 10/18/2023 Telephone [facility] Pain Mgmt [address] [place] [id number] Isabel Hughes MD [address] [place] [address] PAIN CENTER, [address] [address] Social History Tobacco Use Types Packs/Day [...] on file 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 Gender Identity Not on file Sexual Orientation [...] on filedocumented in this encounter Care Teams Nuclear Power Reactor Operator Relationship Specialty Start Date End Date Yocasta Soto MD PCP - General Family Medicine 05/08/18 11/05/24 Milton Murillo MD [address] [address] PCP - General Family Medicine 11/06/24 Kenny Castro MD [address] [place] [address] Consulting Physician Gastroenterology 08/25/21 Gianluca Hogue MD [address] [place] [address] Surgeon General Surgery 10/19/21 Au, Shonda A., RN Registered Nurse Pulmonary Disease 05/07/23 Layne Colvin MD [address] [address] Medical Oncologist/Vocational Rehabilitation Teacher Hematology 06/25/23 Isabel Hughes MD [address] [address] Consulting Physician Pain Management 10/17/23 Pricila Hernandez MD [address] [address] Consulting Physician Bone Health 11/08/23 documented as of this encounter
--- OUTSIDE RECORDS SUMMARY | 2025-05-14 14:22 | XMS_ITS | Encounter Summary ---
Author Organization [facility] Address [address] [place] [address] Phone Care Team Providers Care Concrete Swimming Pool Installer Name Role Phone Yocasta Soto MD Primary Care Provider + Kenny Castro MD Unavailable [phone] Gianluca Hogue MD Unavailable [phone] Shonda Au RN Unavailable Unavailabl e Layne Colvin MD Unavailable [phone] Isabel Hughes MD Unavailable Pricila Hernandez MD Unavailable [phone] Reason for Referral * Procedure (Routine) - Closed Specialty Diagnoses / Procedures Referred By Contac t Referred To Contact Diagnoses Pulmonary fibrosis (HCC) Centrilobular emphysema (HCC) Multiple myeloma not having achieved remission (HCC) Procedures Pulmonary Function Test -[facility] Adult PFT Lab- [facility]; Spirometry, Oxygen Assessment Titration Alex Boland MD [address] [facility] [address] [place] [address] Phone: tel: fax: Referral ID Status Reason Start Date Expiration Date Visits Re quested Visits Authorized [id number] Closed 05/07/2023 06/05/2024 1 1 ING UNDERWRITER Reason for Visit * Procedure (Routine) - Closed Specialty Diagnoses / Procedures Referred By Contac t Referred To Contact Diagnoses Pulmonary fibrosis (HCC) Centrilobular emphysema (HCC) Multiple myeloma not having achieved remission (HCC) Procedures Pulmonary Function Test -[facility] Adult PFT Lab- [facility]; Spirometry, Oxygen Assessment Titration Alex Boland MD [address] [place] [address] Phone: tel: fax: Referral ID Status Reason Start Date Expiration Date Visits Re quested Visits Authorized [id number] Closed 05/07/2023 06/05/2024 1 1 Encounter Details Date Type Department Care Team (Latest Contact Info) Description 12/03/2023 1:31 PM SELLING UNDERWRITER Hospital Encounter [facility] PFT [facility] [address] [facility] [address] [place] [address] Pulmonary fibrosis (HCC); Centrilobular emphysema (HCC); Multiple myeloma not having achieved remission (HCC) Social History Tobacco Use Types Packs/Day [...] on file Legal Sex Female 3:20 AM SELLING UNDERWRITER Gender Identity Not on file Sexual Orientation [...] FUNCTION TEST (PFT) Routine 12/03/2023 2:01 PM SELLING UNDERWRITER Pulmonary fibrosis (HCC) Centrilobular emphysema (HCC) Multiple myeloma not having achieved remission (HCC) documented in this encounter Results * Pulmonary Function Test - (12/03/2023 2:01 PM SELLING UNDERWRITER) FVC PRE 2.24 L [facility] FVC %PRE PRED 87 % [facility] FEV1 PRE 1.68 L [facility] FEV1 %PRE PRED 85 % [facility] FEV1/FVC PRE 74.9 % [facility] Anatomical Region Laterality Modality PFT 12/03/2023 1:34 PM SELLING UNDERWRITER Addenda Addendum by Elgin Mayfield MD on 12/05/2023 8:00 PM SELLING UNDERWRITER Table formatting from the original result was not included. [facility] Pulmonary [facility] Critical Care Medicine [address] [place] [address]; [address] [facility]; [place] [address]; [phone] Pulmonary Function Laboratory Pulmonary Stress Test Simple/Oxygen [...] written final report. Impressions 12/04/2023 12:46 AM SELLING UNDERWRITER There is no ventilatory defect. Compared with [...] and %HbO2 is age dependent. However, the [facility] Pulmonary Function Laboratory defines hypoxemia as a PO2 <55 or a %HbO2 <89. Narrative 12/04/2023 12:46 AM SELLING UNDERWRITER PFT performed at:->[facility] Adult PFT Lab- [facility] Procedure:->Spirometry Procedure:->Oxygen Assessment Titration Pulmonary Function Test Interpretation SPIROMETRY: The FEVI and FVC are normal. The FEVI to FVC ratio is reduced. FLOW VOLUME LOOPS: The inspiratory loop is normal. PULSE OXIMETRY: See Oxygen Assessment/Cardiopulmonary Exercise Study-Simple us Alex Boland MD PFT ORDERABLES Edited Result - Final documented in this encounter Visit Diagnoses Diagnosis Pulmonary fibrosis (HCC) Postinflammatory pulmonary fibrosis Centrilobular emphysema (HCC) Multiple myeloma not having achieved remission (HCC) documented in this encounter Care Teams Concrete Swimming Pool Installer Relationship Specialty Start Date End Date Yocasta Soto MD PCP - General Family Medicine 05/08/18 11/05/24 Kenny Castro MD [address] [facility] [address] [place] [address] Consulting Physician Gastroenterology 08/25/21 Gianluca Hogue MD [address] [facility] [address] [place] [address] Surgeon General Surgery 10/19/21 Shonda Au, RN Registered Nurse Pulmonary Disease 05/07/23 Layne Colvin MD [address] [facility] [address] [place] [address] Medical Oncologist/Pipe Layer Helper Hematology 06/25/23 Isabel Hughes MD [address] [address] Consulting Physician Pain Management 10/17/23 Pricila Hernandez MD [address] [facility] [address] [place] [address] Consulting Physician Bone Health 11/08/23 documented as of this encounter
--- OUTSIDE RECORDS SUMMARY | 2025-05-14 14:22 | XMS_ITS | Data Portability ---
Author Organization [facility] burt Physician Eve, [facility] Address [address] [place] [address] Assessment No assessment recorded. Plan of Treatment Reminders Order Date Submit Date Provider Last Modified By Organization Details Last Modified Time Details Appointments None recorded. Lab HbA1c (hemoglobi n A1c), blood 2016 017 [facility], [address] [place] [address], [id number], 7 15:19:03 HbA1c (hemoglobi n A1c), blood [address] [facility], [address] [place] [address], [address], 7 23:32:19 CBC [address] [facility], [address] [place] [address], [address], 7 23:32:19 CMP, serum or plasma [address] [facility], [address] [place] [address], [address], 7 23:32:19 lipid panel, serum [address] [facility], [address] [place] [address], [address], 7 23:32:19 HbA1c (hemoglobi n A1c), blood - 08982 2015 016 [facility], [address] [place] [address], [address], 7 23:32:19 CMP, serum or plasma - [id number] 2015 016 [facility], [address] [place] [address], [address], 7 23:32:18 Referral audiologis t referral 2015 016 KASSIDY Not available 6 10:12:00 Procedures None recorded. Surgeries None recorded. Imaging mammogram, screening - CPT 11716. Please Call: [address] (Scheduling), [address] [place] [address], [place], [address], 6 09:33:06 Medication Orders Estrace 0.01% (0.1 mg/gram) vaginal cream 2016 017 Not available 7 17:34:21 amlodipine 5 mg tablet 2016 017 INTERFACE Not available 7 11:39:30 pravastati n 20 mg tablet 2016 017 INTERFACE Not available 7 11:34:15 omeprazole 20 mg capsule,de layed release 2015 016 Not available 6 11:38:29 omeprazole 20 mg capsule,de layed release 2015 016 Not available 6 11:08:15 amlodipine 5 mg tablet 2015 016 Not available 6 11:08:15 pravastati n 20 mg tablet 2015 016 Not available 6 11:08:15 Patient TargetsNo targets recorded. Patient Instructions Encounter Date Encounter Id Patient Instructions Last Modified By Organization Details Last Modified Time 12/22/2015 [id number] Mrs Ny is doi ng well, I [...] last fall. Not available 12/22/2015 11:08:16 06/19/2016 [id number] Mrs Ny is her e for her annual physical and for f/u on her chronic medical problems. She is doing well. She has a new [employer] and is exercising more regularly walking her dog. We have had a long discussion of the importance of exercise/ diet/ weight control and management of her cardiac risk factors in avoiding cardiac and cerebrovascular events. Total time with pt face to face 40+ minutes, majority pt counselling as outlined above. Not available 06/20/2016 11:38:29 12/20/2016 [id number] Doing well, f/u for physical in 6 [...] Not available 12/20/2016 11:46:00 Reason for Referral Naturalist Referral for Hea ring loss Referring Physician: Kaylee Sheriff, Internal Medicine, Encounter Date: 06/19/2016 Results Created Date Observation Date Name Description Value Unit Range Abnormal Flag Note LastModifiedBy Organization Detail LastModifiedTime 12/16/19 16 12/16/2015 CBC w/ auto diff WBC 7.7 K/uL 4.1-10 .7 Not Available [address], [address], 12/16/2015 11:56:35 12/16/19 16 12/16/2015 CBC w/ auto diff corwbcs 7.7 K/uL 4.4-11 .4 Not Available [address], [address], 12/16/2015 11:56:35 12/16/19 16 12/16/2015 CBC w/ auto diff RBC 4.26 X10^6 3.72-4 .93 Not Available [address], [address], 12/16/2015 11:56:35 12/16/19 16 12/16/2015 CBC w/ auto diff HGB 12.7 g/dL 11.5-1 5.0 Not Available [address], [address], 12/16/2015 11:56:35 12/16/19 16 12/16/2015 CBC w/ auto diff HCT 38 % 34-44 Not Available [facility] [address] [place] [address], [address], 12/16/2015 11:56:35 12/16/19 16 12/16/2015 CBC w/ auto diff MCV 90 fL 80-99 Not Available [facility] [address] [place] [address], [address], 12/16/2015 11:56:35 12/16/19 16 12/16/2015 CBC w/ auto diff MCH 30 pg 26-34 Not Available [facility] [address] [place] [address], [address], 12/16/2015 11:56:35 12/16/19 16 12/16/2015 CBC w/ auto diff MCHC 33 % 32-35 Not Available [facility] [address], [address], 12/16/2015 11:56:35 12/16/19 16 12/16/2015 CBC w/ auto diff platelet 291 K/uL 153-37 6 Not Available [address], [address], 12/16/2015 11:56:35 12/16/19 16 12/16/2015 CBC w/ auto diff RDW 12.5 % Not Available [facility] [address] [place] [address], [address], 12/16/2015 11:56:35 12/16/19 16 12/16/2015 CBC w/ auto diff lymph 24.6 % 17.0-4 6.0 Not Available [address], [address], 12/16/2015 11:56:35 12/16/19 16 12/16/2015 CBC w/ auto diff lymphabs 1.90 1.07-3 .45 Not Available [address], [address], 12/16/2015 11:56:35 12/16/19 16 12/16/2015 CBC w/ auto diff tiffani 65.2 % 43.0-7 4.0 Not Available [address], [address], 12/16/2015 11:56:35 12/16/19 16 12/16/2015 CBC w/ auto diff neuabs 5.00 K/uL 2.00-7 .36 Not Available [address], [address], 12/16/2015 11:56:35 12/16/19 16 12/16/2015 CBC w/ auto diff mono 7.5 % 4.0-11 .0 Not Available [address], [address], 12/16/2015 11:56:35 12/16/19 16 12/16/2015 CBC w/ auto diff monoabs 0.60 K/uL 0.20-0 .85 Not Available [address], [address], 12/16/2015 11:56:35 12/16/19 16 12/16/2015 CBC w/ auto diff eos 2.0 % 0.0-7. 0 Not Available [address], [address], 12/16/2015 11:56:35 12/16/19 16 12/16/2015 CBC w/ auto diff eosabs 0.10 K/uL 0.00-0 .42 Not Available [address], [address], 12/16/2015 11:56:35 12/16/19 16 12/16/2015 CBC w/ auto diff baso 0.7 % 0.0-2. 0 Not Available [address], [address], 12/16/2015 11:56:35 12/16/19 16 12/16/2015 CBC w/ auto diff basoabs 0.10 K/uL 0.00-0 .15 Not Available [address], [address]66, 12/16/2015 11:56:35 12/16/19 16 12/16/2015 CBC w/ auto diff NRBCs 0 /100W BC Not Available [address], [address], 12/16/2015 11:56:35 12/16/19 16 12/16/2015 HbA1c (hemo globi n A1c), blood hgbac 5.5 %A1C 4.4-6. 4 Not Available [address] [place], [address], 12/16/2015 14:32:36 12/16/19 16 12/16/2015 CMP, serum or plasm a sodium 138 mmol/ L 135-14 5 Not Available [address], [address], 12/16/2015 17:01:36 12/16/19 16 12/16/2015 CMP, serum or plasm a potassium 4.1 mmol/ L 3.6-5. 0 Not Available [address], [address], 12/16/2015 17:01:36 12/16/19 16 12/16/2015 CMP, serum or plasm a chloride 104 mmol/ L 101-11 1 Not Available [address], [address], 12/16/2015 17:01:36 12/16/19 16 12/16/2015 CMP, serum or plasm a co 26 mmol/ L 21-31 Not Available [address], [address], 12/16/2015 17:01:36 12/16/19 16 12/16/2015 CMP, serum or plasm a calcium 9.4 mg/dL 8.4-10 .2 Not Available [address], [address], 12/16/2015 17:01:36 12/16/19 16 12/16/2015 CMP, serum or plasm a glucose 106 mg/dL 70-105 high Not Available [address], [address], 12/16/2015 17:01:36 12/16/19 16 12/16/2015 CMP, serum or plasm a BUN 16 mg/dL 7-18 Not Available [address], [address], 12/16/2015 17:01:36 12/16/19 16 12/16/2015 CMP, serum or plasm a creat 0.7 mg/dL 0.6-1. 3 Not Available [address], [address], 12/16/2015 17:01:36 12/16/19 16 12/16/2015 CMP, serum or plasm a protein 7.9 g/dL 6.4-8. 3 Not Available [address], [address], 12/16/2015 17:01:36 12/16/19 16 12/16/2015 CMP, serum or plasm a albumin 3.8 g/dL 3.2-5. 0 Not Available [address], [address], 12/16/2015 17:01:36 12/16/19 16 12/16/2015 CMP, serum or plasm a totbili 0.6 mg/dL 0.2-1. 0 Not Available [address], [address], 12/16/2015 17:01:36 12/16/19 16 12/16/2015 CMP, serum or plasm a alkphos 50 IU/L 42-121 Not Available [facility] [address], [address], 12/16/2015 17:01:36 12/16/19 16 12/16/2015 CMP, serum or plasm a altgpt 17 U/L 8-35 Not Available [facility] [address], [address], 12/16/2015 17:01:36 12/16/19 16 12/16/2015 CMP, serum or plasm a astgot 23 U/L 10-42 Not Available [facility] [address], [address], 12/16/2015 17:01:36 12/16/19 16 12/16/2015 CMP, serum or plasm a egfrfemale 83 mL/mi n/1.7 3m2 >=60 Not Available [address], [address], 12/16/2015 17:01:36 12/16/19 16 12/16/2015 CMP, serum [...] to patien ts under 18yrs. Not Available [facility] [address] [place] [address], [address], 12/16/2015 17:01:36 12/16/19 16 12/16/2015 lipid panel , blood cholest 175 mg/dL 140-24 0 Not Available [address], [address], 12/16/2015 17:02:48 12/16/19 16 12/16/2015 lipid panel , blood triglyc 49 mg/dL 35-160 Not Available [facility] [address] [place] [address], [address], 12/16/2015 17:02:48 12/16/19 16 12/16/2015 lipid panel , blood HDL 49 mg/dL 27-67 Not Available [facility] [address] [place] [address], [address], 12/16/2015 17:02:48 12/16/19 16 12/16/2015 lipid panel , blood VLDL 10 mg/dL 0-40 Not Available [facility] [address] [place] [address], [address], 12/16/2015 17:02:48 12/16/19 16 12/16/2015 lipid panel , blood LDL 116 mg/dL 62-185 Not Available [facility] [address] [place] [address], [address]67[address], 12/16/2015 17:02:48 12/16/19 16 12/16/2015 lipid panel [...] >60 High Trigly ceride (mg/dl ) <150 Ronna l 150-20 0 Border line high 200-49 9 High >500 Very high Not Available [facility] [address] [place] [address], [address], 12/16/2015 17:02:48 12/17/19 17 12/17/2016 CBC w/ auto diff WBC 9.3 K/uL 4.1-10 .7 Not Available [address], [address], 12/17/2016 09:48:33 12/17/19 17 12/17/2016 CBC w/ auto diff cor WBCs 9.3 K/uL 4.4-11 .4 Not Available [address], [address], 12/17/2016 09:48:33 12/17/19 17 12/17/2016 CBC w/ auto diff RBC 4.40 X10^6 3.72-4 .93 Not Available [address], [address]86, 12/17/2016 09:48:33 12/17/19 17 12/17/2016 CBC w/ auto diff HGB 13.3 g/dL 11.5-1 5.0 Not Available [address], [address], 12/17/2016 09:48:33 12/17/19 17 12/17/2016 CBC w/ auto diff HCT 39 % 34-44 Not Available [facility] [address] [place] [address], [address], 12/17/2016 09:48:33 12/17/19 17 12/17/2016 CBC w/ auto diff MCV 89 fL 80-99 Not Available [facility] [address], [address], 12/17/2016 09:48:33 12/17/19 17 12/17/2016 CBC w/ auto diff MCH 30 pg 26-34 Not Available [facility] [address], [address], 12/17/2016 09:48:33 12/17/19 17 12/17/2016 CBC w/ auto diff MCHC 34 % 32-35 Not Available [facility] [address], [address], 12/17/2016 09:48:33 12/17/19 17 12/17/2016 CBC w/ auto diff platelet 337 K/uL 153-37 6 Not Available [address], [address], 12/17/2016 09:48:33 12/17/19 17 12/17/2016 CBC w/ auto diff RDW 12.2 % 12.5-1 5.7 low Not Available [address], [address]96, 12/17/2016 09:48:33 12/17/19 17 12/17/2016 CBC w/ auto diff lymph% 27.6 % 17.0-4 6.0 Not Available [address], [address], 12/17/2016 09:48:33 12/17/19 17 12/17/2016 CBC w/ auto diff lymph abs 2.60 1.07-3 .45 Not Available [address], [address]25, 12/17/2016 09:48:33 12/17/19 17 12/17/2016 CBC w/ auto diff tiffani% 61.3 % 43.0-7 4.0 Not Available [address], [address]352, 12/17/2016 09:48:33 12/17/19 17 12/17/2016 CBC w/ auto diff tiffani abs 5.70 K/uL 2.00-7 .36 Not Available [address], [address], 12/17/2016 09:48:33 12/17/19 17 12/17/2016 CBC w/ auto diff mono% 8.0 % 4.0-11 .0 Not Available [address], [address]90, 12/17/2016 09:48:33 12/17/19 17 12/17/2016 CBC w/ auto diff mono abs 0.70 K/uL 0.20-0 .85 Not Available [address], [address], 12/17/2016 09:48:33 12/17/19 17 12/17/2016 CBC w/ auto diff eos% 2.2 % 0.0-7. 0 Not Available [address], [address]35, 12/17/2016 09:48:33 12/17/19 17 12/17/2016 CBC w/ auto diff eos abs 0.20 K/uL 0.00-0 .42 Not Available [address], [address], 12/17/2016 09:48:33 12/17/19 17 12/17/2016 CBC w/ auto diff baso% 0.9 % 0.0-2. 0 Not Available [address], [address], 12/17/2016 09:48:33 12/17/19 17 12/17/2016 CBC w/ auto diff baso abs 0.10 K/uL 0.00-0 .15 Not Available [address], 09799, 12/17/2016 09:48:33 12/17/19 17 12/17/2016 CBC w/ auto diff NRBCs 0 /100W BC Not Available [address], [address]95, 12/17/2016 09:48:33 12/17/19 17 12/17/2016 lipid panel , blood cholest 180 mg/dL 140-24 0 Not Available [address], [address], 12/17/2016 10:31:54 12/17/19 17 12/17/2016 lipid panel , blood triglyc 64 mg/dL 35-160 Not Available [facility] [address], [address], 12/17/2016 10:31:54 12/17/19 17 12/17/2016 lipid panel , blood HDL 51 mg/dL 27-67 Not Available [facility] [address], [address], 12/17/2016 10:31:54 12/17/19 17 12/17/2016 lipid panel , blood VLDL 13 mg/dL 0-40 Not Available [facility] [address], [address], 12/17/2016 10:31:54 12/17/19 17 12/17/2016 lipid panel , blood LDL 116 mg/dL 62-185 Not Available [facility] [address] [place] [address], [address], 12/17/2016 10:31:54 12/17/19 17 12/17/2016 lipid panel , blood headvldl <<<< INTERP RETATI VE >>>> ATP III CLASSI FICATI ON OF LDL, TOTAL, AND HDL CHOLES TEROL (mg/dl ) LDL Choles terol- Primar y Target of Therap y <100 Seneca l 100-12 9 Near optima l/ above optima l 130-15 9 Border line high 160-18 9 High >190 Very high Total Choles terol <200 Desira ble 200-23 9 Border line high >240 High HDL Choles terol <40 Low >60 High Trigly ceride (mg/dl ) <150 Normal 150-20 0 Border line high 200-49 9 High >500 Very high Not Available [facility] [address] [place] [address], [address], 12/17/2016 10:31:54 12/17/19 17 12/17/2016 CMP, serum or plasm a sodium 139 mmol/ L 135-14 5 Not Available [address], [address], 12/17/2016 10:31:54 12/17/19 17 12/17/2016 CMP, serum or plasm a potassium 4.3 mmol/ L 3.6-5. 0 Not Available [address], [address]44, 12/17/2016 10:31:54 12/17/19 17 12/17/2016 CMP, serum or plasm a chloride 105 mmol/ L 101-11 1 Not Available [address], [address]231, 12/17/2016 10:31:54 12/17/19 17 12/17/2016 CMP, serum or plasm a CO2 26 mmol/ L 21-31 Not Available [address], [address], 12/17/2016 10:31:54 12/17/19 17 12/17/2016 CMP, serum or plasm a calcium 9.7 mg/dL 8.4-10 .2 Not Available [address], [address], 12/17/2016 10:31:54 12/17/19 17 12/17/2016 CMP, serum or plasm a glucose 114 mg/dL 70-105 high Not Available [address], [address], 12/17/2016 10:31:54 12/17/19 17 12/17/2016 CMP, serum or plasm a BUN 18 mg/dL 7-18 Not Available [address], [address], 12/17/2016 10:31:54 12/17/19 17 12/17/2016 CMP, serum or plasm a creat 0.8 mg/dL 0.6-1. 3 Not Available [address], [address]609, 12/17/2016 10:31:54 12/17/19 17 12/17/2016 CMP, serum or plasm a protein 8.4 g/dL 6.4-8. 3 high Not Available [address], [address]86, 12/17/2016 10:31:54 12/17/19 17 12/17/2016 CMP, serum or plasm a albumin 3.7 g/dL 3.2-5. 0 Not Available [address], 6[address]68, 12/17/2016 10:31:54 12/17/19 17 12/17/2016 CMP, serum or plasm a tot bili 0.5 mg/dL 0.2-1. 0 Not Available [address], [address], 12/17/2016 10:31:54 12/17/19 17 12/17/2016 CMP, serum or plasm a alk phos 52 IU/L 42-121 Not Available [facility] [address], [address], 12/17/2016 10:31:54 12/17/19 17 12/17/2016 CMP, serum or plasm a ALT/gpt 19 U/L 8-35 Not Available [address], [address], 12/17/2016 10:31:54 12/17/19 17 12/17/2016 CMP, serum or plasm a AST/got 22 U/L 10-42 Not Available [address], [address], 12/17/2016 10:31:54 12/17/19 17 12/17/2016 CMP, serum or plasm a egfrfemale 71 mL/mi n/1.7 3m2 >=60 Not Available [address], [address], 12/17/2016 10:31:54 12/17/19 17 12/17/2016 CMP, serum [...] to patien ts under 18yrs. Not Available [facility] [address], [address], 12/17/2016 10:31:54 12/20/19 17 12/20/2016 HbA1c (hemo globi n A1c), blood HA1C 5.5 %A1C 4.4-6. 4 Not Available [address] [place], [address], 12/20/2016 15:19:03 01/26/20 16 mammo ,digi darren,b ilat, scrn w/CAD THIS EXAM WAS PERFOR MED AT A MAMMOG MARJORIE FACILI TY ACCRED ITED BY THE [employer] Jennings OF RADIOL OGY Thank you for [...] MD CC'ed Logic: Orderi ng Provid er: LENORA VERA ETH CC Provid er: LENORA VERA ETH; LENORA DILLONB ETH; LENORA XAVIER; LENORA XAVIER; LENORA XAVIER; MARILYN MILLER Y Attend ing Provid er: LENORA XAVIER Referr ing Provid er: LENORA XAVIER Consul ting Provid er: LENORA XAVIER; MARILYN MILLER Y Admitt ing Provid er: LENORA XAVIER [email or web address], [address], 04/23/2016 09:33:06 Result Notes None recorded. Problems Name Problem SNOMED Code Status Onset Date Resolution Date Notes Provider Name and Address Organization Details Recorded Time Diabetes mellitus 62493811 Active KAYLEE SHERIFF MD [address] [place] [address], [address] [place] [address] Physician Pra 6 11:38:29 Non-toxi c multinod ular goiter 68522539 Active followed by Dr Vicenta SHERIFF MD [address] [place] [address], [address] [place] [address] Physician Pra 6 11:30:01 Hyperlip idemia 33699468 Active KAYLEE SHERIFF MD [address] [place] [address], [address] [place] [address] Physician Pra 6 11:38:29 Essentia l hyperten sharmila 94656343 Active KAYLEE SHERIFF MD [address] [place] [address], [address] [place] [address] Physician Pra 6 11:38:29 Long-ter m drug therapy Active KAYLEE SHERIFF MD [address] [place] [address], [address] [place] [address] Physician Pra 6 11:30:01 Hypergly cemia 19847299 Completed 12/20/2016 Removal Reason: progress ed to diabetes KAYLEE SHERIFF MD [address] [place] [address], [address] [place] [address] Physician Pra 7 11:31:41 Osteoart hritis 494733356 Active KAYLEE SHERIFF MD [address] [place] [address], [address] [place] [address] Physician Pra 6 11:30:01 Acute gastriti s 06243366 Active KAYLEE SHERIFF MD [address] [place], [place], [address] [place] [address] Physician Pra 6 11:30:01 Hearing loss 58494919 Active KAYLEE SHERIFF MD [address] [place] [address], [address] [place] [address] Physician Pra 6 11:38:29 Low back pain 835201977 Active KAYLEE SHERIFF MD [address] [place] [address], [address] [place] [address] Physician Pra 6 11:30:01 Depressi ve disorder 37103046 Elmer SHERIFF MD [address] [place], [place], [address] [place] [address] Physician Pra 6 11:38:29 Gastroes ophageal reflux disease 453386799 Elmer SHERIFF MD [address] [place] [address], [address] [place] [address] Physician Pra 6 11:38:29 Problem Notes None recorded. Procedures Surgical History Date Name Laterality Status Provider Name and Address Organization Details Recorded Time 01/26/20 16 Date of Last Mammogram completed KAYLEE SHERIFF MD [address] [place] [address], [address] [place] [address] Physician Pra 02/15/2016 17:55:38 02/29/20 15 Date of Last Colonoscopy completed Arlene Flynn [facility] 12/08/2015 16:46:15 02/29/20 15 Colonoscopy completed aMry Agarwal [facility] 12/22/2015 10:30:48 03/24/20 14 Date of Last Pap Smear completed Mary Agarwal [facility] 12/22/2015 10:30:48 Caesarean Section [facility] Phys[facility] Pra 12/08/2015 16:50:37 Tubal Ligation completed Arlene COBURN SUSAN [facility] Pra 12/08/2015 16:50:37 Breast Biopsy completed Arlene [facility] Phys[facility] Pra 12/08/2015 16:50:37 Tonsillectomy completed Arlene COBURN - BROOKE [facility] Phys[facility] Pra 12/08/2015 16:50:37 Oophorectomy completed Arlene COBURN - LPNT [facility] Pra 12/08/2015 16:50:37 Other completed Arlene COBURN - SENIOR DATA ANALYST T [facility] Physician Pra 12/08/2015 16:50:37 Imaging Results None recorded. Procedure Notes None recorded. Medical Equipment None Reported. Allergies Allergen ID Allergen Name Allergen Category Reaction Reaction Severity Criticality Documentation Date Start Date Code Code System Note Provider Name and Address Organization Details Recorded Time 594775 prednison e medicatio n Not available Not available Not available 06/19/2016 8640 RxNorm Oral only Nicole ALMAS Johnson formerly [facility] Physician Pra 6 16:10:44 17257 Substance with sulfonami de structure and antibacte rial mechanism of action (substanc e) medicatio n rash Not available Not available 07/11/20152011 51482 8003 SNOMED REACT ION: RASH; SEVER ITY: ALLER GY; COMME NT: STATU S: ACTIV E; Not Available [facility] 5 08:11:40 Medications Name Sig Start Date [...] SHERIFF; AUTHORIZ ATION: N; LAST UPDATED BY: SYSTEM, CORRINE PTS; SENT TO: [facility] ; STATUS: RENEWED, EDITED; MEDICATI ON STATUS: ACTIVE Not Available Not Available Not Available omeprazol e 40 mg capsule,d elayed release TAKE 1 CAPSULE DAILY. 05/26 completed TYPE: OTHER; DAYS TO TAKE 0; EXPECTED ACTION: EVALUATE ; AUTHORIZ ATION: N; LAST UPDATED BY: MARY AGARWAL; SENT TO: [facility] [id number]; STATUS: EDITED,Taylor LINTON D/C; MEDICATI ON STATUS: DISCONTI NUED Not Available Not Available Not Available citalopra m 20 mg tablet TAKE 1 TABLET DAILY. 05/26 completed TYPE: OTHER; DAYS TO TAKE 0; EXPECTED ACTION: EVALUATE ; AUTHORIZ ATION: N; LAST UPDATED BY: MIRTHA SHERIFF; SENT TO: [facility] [id number]; STATUS: DEBI,Taylor LINTON D/C; MEDICATI ON STATUS: DISCONTI NUED Not [...] SHERIFF; AUTHORIZ ATION: N; LAST UPDATED BY: CORRINE CHIRINOS; SENT TO: [facility] ; STATUS: RENEWED, EDITED; MEDICATI ON [...] LAST UPDATED BY: MARY AGARWAL; SENT TO: [facility] [id number]; STATUS: ADDED; MEDICATI ON STATUS: ACTIVE Not Available Not Available Not Available Calcium + D 2012 active TYPE: FILLED RX; DAYS TO TAKE 0; EXPECTED ACTION: EVALUATE ; AUTHORIZ ATION: N; LAST UPDATED BY: MARY AGARWAL; SENT TO: [facility] [id number]; STATUS: ADDED; MEDICATI ON STATUS: ACTIVE Not Available Not Available Not Available Accu-Chek Gisselle Plus test strips TEST ONCE DAILY. 2014 active TYPE: FILLED RX; DAYS TO TAKE 100; EXPECTED ACTION: RENEW; EXPECTED ACTION DATE: 02 AUG 2015; MANAGED BY: MIRTHA SHERIFF; ORDERED BY: MIRTHA SHERIFF; AUTHORIZ ATION: N; LAST UPDATED BY: [employer] [facility]; SENT TO: [facility] [id number]; STATUS: EDITED; MEDICATI ON STATUS: ACTIVE Not Available Not Available Not Available Accu-Chek [employer] Lancing [employer] TEST BLOOD SUGAR 1X DAILY 2013 active TYPE: FILLED RX; DAYS TO TAKE 0; EXPECTED ACTION: RENEW; MANAGED BY: MIRTHA SHERIFF; ORDERED BY: MIRTHA SHERIFF; AUTHORIZ ATION: N; LAST UPDATED BY: [employer] [facility]TS; SENT TO: [facility] [id number]; STATUS: PRESCRIB ED,EDITE D; MEDICATI ON STATUS: ACTIVE Not Available Not Available Not Available Vitals Date Recorded Body height Body weight Body mass index (BMI) Heart rate Systolic And Diastolic Provider Name and Address Organization Details Last Updated DateTime 12/20/2016 165.1 cm 56198.85 g 29.5 kg/m2 76 /min 130/80 mm[Hg] Mary Agarwal [facility] 12/20/2016 11:13:28 Date Recorded Body height Heart rate Body weight Body mass index (BMI) Systolic And Diastolic Provider Name and Address Organization Details Last Updated DateTime 12/22/2015 165.1 cm 64 /min 52174.40 371 g 30.5 kg/m2 110/72 mm[Hg] Mary Agarwal [facility] 12/22/2015 10:26:10 Date Recorded Body height Body weight Body mass index (BMI) Heart rate Systolic And Diastolic Provider Name and Address Organization Details Last Updated DateTime 06/19/2016 165.1 cm 46823.62 g 30.2 kg/m2 60 /min 130/78 mm[Hg] Nicole Gibbs [facility] 06/19/2016 16:09:56 Social History None recorded. Functional Status Question Answer Note LastModified by Organizat ion Details LastModified Time What is your level of alcohol consumption? 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 Family History Relationship [...] influenza, unspecified formulation 4 completed Not Available [facility] 07/11/2015 08:06:40 Pneumococcal conjugate PCV 13 5 completed Arlene gonzalez [facility] 12/08/2015 16:45:14 pneumococcal polysaccharide PPV23 3 completed Arlene gonzalez [facility] 12/08/2015 16:45:14 Td (adult) 9 completed Arlene gonzalez [facility] 12/08/2015 16:45:14 Past Encounters Encounter ID Performer Location Encounter Start Date Encounter Closed Date Diagnosis/Indication Diagnosis SNOMED-CT Code Diagnosis ICD10 Code Diagnosis Note [id number] [facility] CBO 13 [facility] [address] [place] [address] 05/26/2012 00:00:[id number],[place] MICHAEL Stock [place] [address] [place] [address] 07/07/2012 00:00:[id number],[place] MICHAEL Stock [place] [address] [place] [address] 08/20/2012 00:00:[id number],[place] MICHAEL Stock [place] [address] [place] [address] 11/10/2012 00:00:[id number],[place] MICHAEL Stock [place] [address] [place] [address] 02/23/2013 00:00:[id number],[place] MIC[place]EL Stock [place] [address] [place] [address] 02/26/2013 00:00:[id number],[place] MIC[place]EL Stock [place] [address] [place] [address] 03/12/2013 00:00:[id number],[place] MIC[place]EL Stock [place] [address] [place] [address] 03/13/2013 00:00:[id number],[place] Stock [place] [address] [place] [address] 05/12/2013 00:00:[id number],MIT[place] Stock [place] [address] [place] [address] 12/21/2013 00:00:[id number],MIT[place] Stock [place] [address] [place] [address] 03/24/2014 00:00:[id number],[place] Stock [place] [address] [place] [address] 06/21/2014 00:00:[id number],[place] Stock [place] [address] [place] [address] 12/16/2014 00:00:00 [id number] [facility] C[facility] 13 [facility] [address] [place] [address] [place] [address] 12/07/2013 00:00:00 [id number] KAYLEE SHERIFF MD [facility] S [address], [address] [place] [address] 12/22/2015 10:10:57 12/22/2015 11:05:21 Essential hypertension 79904241 I10 Hyperlipidemia 65543594 E78.5 Hyperglycemia 35390084 R 73.9 Gastroesop hageal reflux disease 779083946 K21.9 Depressive disorder 3548 9007 F32.9 Screening mammography 24 102167 Z12.31 [id number] KAYLEE SHERIFF MD [facility] [address] [facility], [address] [place] [address] 06/19/2016 15:33:52 06/21/2016 03:49:31 Hyperlipidemia 24642323 E78.5 Essential hypertension 99229210 I10 Hyperglycemia 06788665 R 73.9 Depressive disorder 3548 9007 F32.9 Gastroesop hageal reflux disease 211554049 K21.9 Diabetes mellitus 841956 09 E11.9 diet controlled Hearing loss 09020328 H9 1.90 [id number] KAYLEE SHERIFF MD [facility] [address] [facility], [address] [place] [address] 12/20/2016 10:59:37 12/20/2016 11:59:22 Hyperlipidemia 74576956 E78.5 Essential hypertension 62684274 I10 Diabetes mellitus 542940 09 E11.9 diet controlled Atrophic vaginitis 01789 000 N95.2 Health Concerns Section Related Observation LastModified by Organization Detai ls LastModified Time None Recorded Concern Status LastModified by Organization Details LastModified Time None Recorded Advance Directives Directive None Recorded Payers Insurance Date Sequence Insurance Name Policy Number Policy Mach[place] Covered Member ID Machado Member ID Guarantor Name 12/26/2016 2 [employer] [place] (MEDICARE SUPPLEMENT) Myah Ny [id number] Myah Ny 12/17/2016 1 [place] Myah Ny [id number] Myah Ny 12/17/2016 [place] L[place] - PBB Myah Ny [id number] Myah Ny Notes Date Note Type Note [...] fatigue; no throat pain KAYLEE SHERIFF MD [address] [place] [address], [phone] license of [facility] 12/22/2015 11:08:19 6 text/html HyperlipidemiaReported [...] fatigue; no throat pain KAYLEE SHERIFF MD [address] [place] [address], [phone], [facility] [place] - [place] [facility] 06/20/2016 11:38:33 7 text/html HyperlipidemiaReported [...] fatigue; no throat pain KAYLEE SHERIFF MD [address] [place] [address], [phone], [place] [facility] [place] [facility] 12/20/2016 11:46:14 OBGyn Episode No OBEpisode recorded.
--- OUTSIDE RECORDS SUMMARY | 2025-05-14 14:22 | XMS_ITS ---
Author Organization [facility] Address [address] [place] [address] Care Team Providers Care Bolt Sawyer Name Role Phone Kenny Castro MD Unavailable [phone] Gianluca Hogue MD Unavailable [phone] Shonda Au RN Unavailable Unavailabl e Layne Colvin MD Unavailable [phone] Isabel Hughes MD Unavailable Pricila Hernandez MD Unavailable Milton Murillo MD Primary Care Provider [phone] Active Problems Problem Noted Date Diagnosed Date Chronic ITP (idiopathic thrombocytopenia) 2022 Multiple myeloma not having achieved remission 0 11/08/2022 11/01/2022 Cancer Staging:Clinical stage from 11/01/2022:RISS Stage II(Zgkr-6-idqocubexexfr (mg/L): 2.4, Albumin (g/dL): 3.9, ISS: Stage I, High-risk cytogenetics: Present, LDH: Normal) - Signed by Layne Colvin MD on 11/08/2022 Post-operative state 11/08/2021 Biliary colic 10/18/2021 On home oxygen therapy 10/17/2021 GERD (gastroesophageal reflux disease) Gallstones 10/10/2021 Overview (10/10/2021): Added automatically from request for surgery [id number] Abdominal pain 08/24/2021 RUQ abdominal pain 08/23/2021 [...] night.. Assessment & Plan (12/15/2019 3:15 PM AMBULANCE OFFICER): Ms. Castelan is improved after lumbar decompression [...] 09/02/2018 Assessment & Plan (12/13/2021 4:33 PM AMBULANCE OFFICER): Ms. Castelan is doing better in regards [...] patient's . Will order a brace through [employer] and refer to [facility]. Vertebral compression fracture 09/02/2018 [...] option. Chronic obstructive pulmonary disease Pulmonary fibrosis Current Treatment and Therapy Plans Daratumumab SUBCUTANEOUS / Lenalidomide / Bortezomib / Dexamethasone (D-RVd Induction/Consolidation) followed by Daratumumab / Lenalidomide (D-R Maintenance) - Myeloma* Plan Start Date:12/10/2022 Plan Provider:Layne Colvin MD Linked Problems Multiple myeloma not having achieved remission (HCC)Chronic ITP (idiopathic thrombocytopenia) (HCC) Treatment Medications Current Day (Day 1 , Cycle 32 (Maintenance) - Planned for 04/20/2025) Next Day (Day 1, Cycle 33 (Maintenance) - Planned for 05/18/2025) bortezomib (VELCADE)daratumumab-fihj (DARZALEX FASPRO) (DARZALEX FASPRO)lenalidomide (REVLIMID) daratumumab-fihj (DARZALEZ FASPRO) 1,800 mg -30,000 units hyaluronidase subcutaneous injection (daratumumab-fihj (DARZALEX FASPRO)) daratumumab-fihj (DARZALEX FASPRO) 1,800 mg -30,000 units hyaluronidase subcutaneous injection DENOSUMAB (XGEVA) INJECTION* Plan Start Date:12/18/2022 Plan Provider:Layne Colvin MD Linked Problems Age-related osteoporosis wit h current pathological fracture with delayed healingMultiple myeloma not having achieved remission (HCC) Treatment Medications No medications scheduled. Past Treatment and Therapy Plans No past plan information found. Lifetime Dose Tracking * Chemical Lifetime Dose [...] (05/22/2019): Added automatically from request for surgery [id number] Neurogenic claudication 01/06/201911/28 Overview (01/06/2019): Added automatically from request for surgery [id number] Assessment & Plan (04/21/2019 1:39 PM CDT): Ms. Castelan has lumbar stenosis with neurogenic claudication. She is a candidate with her MRI and symptoms for L4-5 decompression and fusion. The decision whether she is a surgical candidate all would be up to Dr. Amaral, her soup mixer. We discussed that the surgery would take [...] 12/15/2019 Assessment & Plan (12/10/2018 4:43 PM AMBULANCE OFFICER): Ms. Castelan has persistent low back pain [...]
--- OUTSIDE RECORDS SUMMARY | 2025-05-14 14:22 | XMS_ITS | Clinical Summary ---
Author Organization [facility] Address [address] [place] [address] Care Team Providers Care Perlite Grinder Name Role Phone Kenny Castro MD Unavailable [phone] Gianluca Hogue MD Unavailable [phone] Shonda Au RN Unavailable Unavailabl e Layne Colvin MD Unavailable Isabel Hughes MD Unavailable Pricila Hernandez MD Unavailable [phone] Milton Murillo MD Primary Care Provider [phone] Allergies Active Allergy Reactions Criticality Noted Date [...] 11/01/2022 Cancer Staging:Clinical stage from 11/01/2022:RISS Stage II(Ekhr-5-jnqsebeallfyo (mg/L): 2.4, Albumin (g/dL): 3.9, ISS: Stage I, High-risk cytogenetics: Present, LDH: Normal) - Signed by Layne Colvin MD on 11/08/2022 Post-operative state 11/08/2021 Biliary colic 10/18/2021 On home oxygen therapy 10/17/2021 GERD (gastroesophageal reflux disease) Gallstones 10/10/2021 Overview (10/10/2021): Added automatically from request for surgery [id number] Abdominal pain 08/24/2021 RUQ abdominal pain 08/23/2021 [...] night.. Assessment & Plan (12/15/2019 3:15 PM QUARRY BOSS): Ms. Castelan is improved after lumbar decompression [...] 09/02/2018 Assessment & Plan (12/13/2021 4:33 PM QUARRY BOSS): Ms. Castelan is doing better in regards [...] patient's . Will order a brace through [facility] and refer to [facility]. Vertebral compression fracture [...] (05/22/2019): Added automatically from request for surgery [id number] Neurogenic claudication 01/06/201911/28 Overview (01/06/2019): Added automatically from request for surgery [id number] Assessment & Plan (04/21/2019 1:39 PM CDT): Ms. Castelan has lumbar stenosis with neurogenic claudication. She is a candidate with her MRI and symptoms for L4-5 decompression and fusion. The decision whether she is a surgical candidate all would be up to Dr. Amaral, her grey roll man. We discussed that the surgery would take [...] 12/15/2019 Assessment & Plan (12/10/2018 4:43 PM QUARRY BOSS): Ms. Castelan has persistent low back pain [...] Department Care Team Description 05/13/2025 Orders Only [facility] [address] [facility] [address] Floor [address] [place] [address] Josr Sheikh MD Memory loss (Primary Dx) 05/10/2025 11:30 AM CDT Lab [facility] [address] [facility] [address] [place] [address] Multiple myeloma not having achieved remission (HCC) 05/10/2025 11:00 AM CDT Office Visit [facility] [address] [facility] [address] 2[address] [place] [address] Sophia Becerril NP Chronic ITP (idiopathic thrombocytopenia) (HCC) (Primary Dx); Multiple myeloma not having achieved remission (HCC) 05/10/2025 10:30 AM CDT Lab [facility] [address] [facility] 2nd Floor [address] [place] [address] Multiple myeloma not having achieved remission (HCC) 05/10/2025 Orders Only [facility] [address] [facility] Floor 6 [place] [address] Layne Colvin MD Multiple myeloma not having achieved remission (HCC) (Primary Dx); Chronic ITP (idiopathic thrombocytopenia) (HCC) 04/26/2025 1:24 AM CDT - 04/26/2025 11:59 PM CDT Hospital Encounter [facility] [address] [place] [address] Diagnosis unknown Discharge Disposition: Discharge to home or self care 04/22/2025 Orders Only [facility] Scanning, Provider 04/20/2025 1:57 PM CDT - 04/20/2025 11:59 PM CDT Hospital Encounter [facility] [address] [place] [address] Discharge Disposition: Discharge to home or self care 04/20/2025 1:30 PM CDT Infusion [address] [address] Multiple myeloma not having achieved remission (HCC) (Primary Dx); Chronic ITP (idiopathic thrombocytopenia) (HCC) 04/20/2025 1:00 PM CDT Lab [address] [address] Multiple myeloma not having achieved remission (HCC); Chronic ITP (idiopathic thrombocytopenia) (HCC) 03/24/2025 1:30 PM CDT Infusion [address] [address] Multiple myeloma not having achieved remission (HCC) (Primary Dx); Chronic ITP (idiopathic thrombocytopenia) (HCC) 03/24/2025 1:00 PM CDT Lab [address] [address] Multiple myeloma not having achieved remission (HCC); Chronic ITP (idiopathic thrombocytopenia) (HCC) 03/24/2025 Orders Only [facility] [facility] [address] [place] [address] Quynh Macias, JACK 03/23/2025 Orders Only [facility] [address] [place] [phone] Quynh Macias, JACK 03/15/2025 Orders Only [facility] [address] [place] [phone] Layne Colvin MD Multiple myeloma not having achieved remission (HCC) (Primary Dx) 03/15/2025 Orders Only [facility] [address] [place] [phone] Quynh Macias RN Chronic ITP (idiopathic thrombocytopenia) (HCC) (Primary Dx); Multiple myeloma not having achieved remission (HCC) 03/11/2025 Telephone [facility] [place] [address] [facility] 6th [place] [address] [place] [address] Bennett Montiel 03/09/2025 Documentation [facility] [address] [facility] [address] [place] [address] Amy Martell RMA 03/08/2025 10:00 AM CDT Office Visit [facility] [place] [address] [facility] 6th [place] [address] [place] [address] Josr Sheikh MD Multiple myeloma not having achieved remission (HCC) 02/23/2025 2:00 PM CDT Infusion [address] [address] Multiple myeloma not having achieved remission (HCC) (Primary Dx); Chronic ITP (idiopathic thrombocytopenia) (HCC) 02/23/2025 1:30 PM CDT Lab [address] [address] Multiple myeloma not having achieved remission (HCC); Chronic ITP (idiopathic thrombocytopenia) (HCC) from Last 3 Months Immunizations Immunization Administration Dates Next Due Pfizer [...] Depression Multiple thyroid nodules benign Pulmonary fibrosis (HCC) Mid back pain Colon polyp Diverticulosis 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 Pneumonia Family History Medical History Relation Name Comments Cancer Brother Diabetes Brother Heart attack Father Cancer Mother Diabetes Mother Memory loss Mother's Sister Relation Name Status Comments Brother Father Mother Mother's Sister Social History Tobacco Use Types Packs/Day Years [...] on file Legal Sex Female 3:20 AM QUARRY BOSS Gender Identity Not on file Sexual Orientation [...] 05/10/2025 11:07 AM CDT Plan of Treatment Health Maintenance Due Date Last Done Comments Hepatitis C Screening 1945 Hepatitis B Screening 1965 Zoster Vaccine (1 of 2) 1966 DTaP/Tdap/Td Vaccine (1 - Tdap) 07/29/2009 9 Well Visit 65+ 2012 Depression Screening 12/10/2019 12/10/2018 Fall Risk Assessment 10/19/2022 10/19/2021 Covid-19 Vaccine (5 - 2023-2 5 season) 2024 04/20/2022, 09/25/2021, 01/13/2021, Additional history exists Influenza Vaccine (#1) 2025 , 08/08/2021, 07/31/2021, Additional history exists Osteoporosis Screening-Bone Density Scan 10/19/2026 10/19/2024, 10/09/2023, 10/10/2022, Additional history exists Pneumococcal vaccine 65+ Completed 12/16/2014, 10/28 Breast Cancer Screening-Mammogram Discontinued 016 Goals Goal Patient Goal Type Associated Problems Recent Progress Patient-Stated? Author CCM Chronic Pain Care Plan Chronic Care Management Monica Marroquin, RN Note: Problem: Chronic Pain Goals: 1. Minimize further functional decline 2. Maximize quality of life 3. Control pain Strategies: - Activity/exercise program recommendation - Conservative stepwise pain medicine strategy with multi-disciplinary approach - Recommend healthy lifestyle strategies and compensatory methods as needed Medical Devices Implanted Type Area Furnace Combination Analyst Device Identifier Shelf Expiration Date Model / Serial / Lot [employer] [id number] Inqu Paste Mix Plus [employer] 10cc Bone Graft Hyaluronic Acid Poly - [id number] Implanted:Qty: 1 on 06/22/2019 by Cheko Reynoso MD at [facility] N/A: Spine Lumbar [employer] [id number] 01/13/2021 [id number] / / [id number] Core Link [id number] Glennie 6.5mm 40mm Spine Pedicle Screw Bone 5500 Series - [id number] Implanted:Qty: 4 on 06/22/2019 by Cheko Reynoso MD at [facility] N/A: Spine Lumbar Core Link 59470-56 / / Core Link [id number] Glennie Screw Set 5500 Series - [id number] Implanted:Qty: 4 on 06/22/2019 by Cheko Reynoso MD at [facility] N/A: Spine Lumbar Core Link [id number] / / Core Link [id number] Glennie 5.5mm 40mm Line Prebent Marvin Spinal Nonsterile 5500 Series - [id number] Implanted:Qty: 2 on 06/22/2019 by Cheko Reynoso MD at [facility] Core Link [id number] / / Explanted Type Area Furnace Combination Analyst Device Identifier Shelf Expiration Date Model / Serial / Lot [employer] Ashleigh [id number] Wallflex Permalume 10mm 8.5fr 60mm 194cm Fully Cover Catheter - [id number] Implanted:Qty: 1 on 08/23/2021 by Kenny Castro MD at [facility] Explanted:Qty: 1 on 08/25/2021 by Kenny Castro MD at [facility] Stent N/A: Bile Duct [employer] Ashleigh 07/11/2023 [id number] / / [id number] Procedures Procedure Name Priority Date/Time Associated Diagnosis [...] Read Routine (OP Routine) 10/19/2024 10:21 AM QUARRY BOSS Age-related osteoporosis without current pathological fracture from Last 3 Months or Most Recently Relevant to Health Maintenance Results * (ABNORMAL) Blood smear review (05/10/2025 11:00 AM CDT) Pathologist [facility] RBC morphology Present(A) Anisocytosis Slight(A) [facility] Elliptocytes 3-7/HPF(A) [facility] Platelet estimate Adequate [facility] Blood 05/10/2025 11:0 0 AM CDT 05/10/2025 11:30 AM CDT Sophia Becerril BALE SEWER LAB BLOOD ORDERABLES Final Result Performing Organization Address [facility] de Phone Number [facility] Department [place] [address] * eGFR (05/10/2025 11:00 AM CDT) Pathologist [facility] eGFR 77 >=60 mL/min/1. 73 m2 Comment: [...] BLOOD ORDERABLES Final Result Performing Organization Address [facility] Co de Phone Number [facility] Department [place] [address] * (ABNORMAL) Differential, auto (05/10/2025 11:00 AM CDT) Neutrophil abs 0.64(L) 1.50 - 6.50 K/cumm Comment:Testing performed by : [facility], [address] [place] [address] Imm gran abs 0.02 0.00 - 0.10 K/cumm [facility] Lymphocyte abs 1.54 0.80 - 3.30 K/cumm [facility] Monocyte abs 0.66 0.20 - 0.80 K/cumm [facility] Eosinophil abs 0.70(H) 0.00 - 0.50 K/cumm [facility] Basophil abs 0.10 0.00 - 0.10 K/cumm [facility] Neutrophil pct 17.6 % [facility] Comment: Interpretive Data Percent cell count reference ranges are not reported, since discordance with absolute values may lead to misinterpretation of CBC data. Current Interpretive Data was last revised on 2018. Imm gran pct 0.5 % [facility] Comment: Interpretive Data Percent cell count reference ranges are not reported, since discordance with absolute values may lead to misinterpretation of CBC data. Current Interpretive Data was last revised on 2018. Lymphocyte pct 42.1 % [facility] Comment: Interpretive Data Percent cell count reference ranges are not reported, since discordance with absolute values may lead to misinterpretation of CBC data. Current Interpretive Data was last revised on 2018. Monocyte pct 18.0 % [facility] Comment: Interpretive Data Percent cell count reference ranges are not reported, since discordance with absolute values may lead to misinterpretation of CBC data. Current Interpretive Data was last revised on 2018. Eosinophil pct 19.1 % [facility] Comment: Interpretive Data Percent cell count reference ranges are not reported, since discordance with absolute values may lead to misinterpretation of CBC data. Current Interpretive Data was last revised on 2018. Basophil pct 2.7 % [facility] Comment: Interpretive Data Percent cell count reference ranges are not reported, since discordance with absolute values may lead to misinterpretation of CBC data. Current Interpretive Data was last revised on 2018. Blood 05/10/2025 11:0 0 AM CDT 05/10/2025 11:30 AM CDT Sophia Becerril [facility] LAB BLOOD ORDERABLES Final Result Performing Organization Address [facility] de Phone Number [facility] Department [place] [address] * (ABNORMAL) Immunoglobulin free light chains (05/10/2025 11:00 AM CDT) [place]/Lambda ratio BJ 2.62(H) 0.26 - 1.65 Comment: Interpretive Data The Binding Site FreeLite assay procedure was used. Results from different manufacturers or methods may not be comparable. Serial testing should be performed using the same methods and instrumentation. Current Interpretive Data was last revised on 2023. [place] free light chain BJ 0.89 0.33 - 1.94 mg/dL [facility] Comment: Interpretive Data The Binding Site FreeLite assay procedure was used. Results from different manufacturers or methods may not be comparable. Serial testing should be performed using the same methods and instrumentation. Current Interpretive Data was last revised on 2023. Lambda free light chain BJ 0.34(L) 0.57 - 2.63 mg/dL [facility] Comment: Interpretive Data The Binding Site FreeLite assay procedure was used. Results from different manufacturers or methods may not be comparable. Serial testing should be performed using the same methods and instrumentation. Current Interpretive Data was last revised on 2023. Blood 05/10/2025 11:0 0 AM CDT 05/10/2025 2:36 PM CDT Sophia Becerril NP LAB BLOOD ORDERABLES Final Result Performing Organization Address City/[facility]/ZIP Co de Phone Number [facility] Department [place] [address] * (ABNORMAL) CBC with auto differential (05/10/2025 11:00 AM CDT) Pathologist [facility] WBC 3.66(L) 3.80 - 9.90 K/cumm Comment:Testing performed by : [facility], [address] [place] [address] Hgb 9.8(L) 11.9 - 15.5 g/dL [facility] Comment:Testing performed by : [facility], [address] [place] [address] Hct 30.5(L) 35.6 - 45.5 % [facility] Comment:Testing performed by : [facility], [address] [place] [address] Plt 163 150 - 400 K/cumm [facility] Comment:Testing performed by : [address] [address] MPV 10.9 9.1 - 12.3 fL [facility] RBC 2.94(L) 3.90 - 5.20 M/cumm [facility] MCV 103.7(H) 81.3 - 96.4 fL [facility] MCH 33.3 27.1 - 33.3 pg [facility] MCHC 32.1(L) 32.3 - 35.7 g/dL [facility] RDW CV 13.5 11.1 - 14.9 % [facility] RDW SD 50.9(H) 35.7 - 48.1 fL [facility] NRBC abs 0.00 0.00 - 0.01 K/cumm [facility] Blood 05/10/2025 11:0 0 AM CDT 05/10/2025 11:30 AM CDT Sophia Becerril [facility] LAB BLOOD ORDERABLES Final Result [facility] Department [place] [address] * (ABNORMAL) Protein electrophoresis with reflex, serum with interpretation (05/10/2025 11:00 AM CDT) [facility] Protein, sr 5.2(L) 6.2 - 8.2 g/dL Albumin 3.5 3.2 - 5.0 g/dL [facility] Alpha-1 globulin 0.3 0.2 - 0.4 g/dL [facility] Alpha-2 globulin 0.6 0.5 - 1.0 g/dL [facility] Beta-1 globulin 0.3 0.3 - 0.6 g/dL [facility] Beta-2 globulin 0.2 0.2 - 0.6 g/dL [facility] Gamma globulin 0.2(L) 0.5 - 1.7 g/dL [facility] Rstr Pk Gamma 0.1(H) 0.0 - 0.0 g/dL [facility] SPEP interp Please see comment [facility] Comment: Abnormal restricted peak in Gamma region Decreased gamma globulins Electrophoretic pattern appears similar to previous sample 02/09/2025 Reviewed and signed by Milton Vanegas MD, PhD 05/11/2025 Blood 05/10/2025 11:0 0 AM CDT 05/10/2025 2:34 PM CDT Sophia Becerril NP LAB BLOOD ORDERABLES Final Result Performing Organization Address City/[facility]/ZIP Co de Phone Number [facility] Department [place] [address] * Lactate dehydrogenase (LD) (05/10/2025 11:00 AM CDT) [facility] Lactate dehydrogenase (LDH) 155 100 - 250 Units/L Comment:Testing performed by : [address] [address] Blood 05/10/2025 11:0 0 AM CDT 05/10/2025 11:30 AM CDT Sophia Becerril NP LAB BLOOD ORDERABLES Final Result [facility] Department [place] [address] * (ABNORMAL) IgA (05/10/2025 11:00 AM CDT) [facility] Immunoglobulin A 19(L) 70 - 400 mg/dL Blood 05/10/2025 11:0 0 AM CDT 05/10/2025 2:26 PM CDT Sophia Becerril [facility] LAB BLOOD ORDERABLES Final Result Performing Organization Address [facility] [place] [address] * (ABNORMAL) IgM (05/10/2025 11:00 AM CDT) [facility] Immunoglobulin M <25(L) 40 - 230 mg/dL Comment:Reviewed Blood 05/10/2025 11:0 0 AM CDT 05/10/2025 2:26 PM CDT Sophia Becerril LAB BLOOD ORDERABLES Final Result Performing Organization Address [facility] de Phone Number [facility] [address] [place] [address] * (ABNORMAL) IgG (05/10/2025 11:00 AM CDT) [facility] Immunoglobulin G <300(L) 700 - 1,600 mg/dL Comment:Reviewed Blood 05/10/2025 11:0 0 AM CDT 05/10/2025 2:26 PM CDT Sophia Becerril LAB BLOOD ORDERABLES Final Result Performing Organization Address [facility] de Phone Number [place], [place] [phone] * (ABNORMAL) Comprehensive metabolic panel (05/10/2025 11:00 AM CDT) [facility] Sodium 142 135 - 145 mmol/L Comment:Testing performed by : [facility], [address] [place] [address] Potassium, pl 4.2 3.3 - 4.9 mmol/L [facility] Chloride 106 97 - 110 mmol/L [facility] CO2 30 22 - 32 mmol/L [facility] Anion gap 6 2 - 15 mmol/L [facility] BUN 21 6 - 25 mg/dL [facility] Creatinine 0.79 0.60 - 1.10 mg/dL [facility] Glucose 82 70 - 199 mg/dL [facility] Comment: Interpretive Data Fasting glucose >/= 126 [...] 2022. Calcium 9.0 8.5 - 10.3 mg/dL [facility] Bilirubin, total 0.5 0.1 - 1.2 mg/dL [facility] Protein, pl 5.6(L) 6.5 - 8.5 g/dL [facility] Albumin 3.8 3.5 - 5.0 g/dL [facility] Alk phos 47 40 - 130 Units/L [facility] ALT 15 7 - 45 Units/L [facility] AST 17 10 - 45 Units/L [facility] Blood 05/10/2025 11:0 0 AM CDT 05/10/2025 11:30 AM CDT us Sophia Becerril NP LAB BLOOD ORDERABLES Final Result [facility] Department [place] [address] * Neuro MR Outside Consult (04/26/2025 1:24 [...] report of this study generated by a [facility]. . Electronically signed by: Rashawn Woodall [...] report of this study generated by a [facility]. . Electronically signed by: Rashawn Woodall [...] on 04/26/2025 date. Please see new accession #[id number] for the consult interpretation. Edited by: Amandeep Admin/Hand Cooper Helper Blake Electronically signed by: Richy Henry M.D. Impressions 04/20/2025 1:57 PM CDT These images are for Reference purposes only and have not been reviewed by [facility]. There will be no report generated by a [facility]. Narrative 04/20/2025 1:57 PM CDT EXAMINATION: Images For Reference Purposes Only Procedure Note Richy Henry MD - 04/20/2025 EXAMINATION: Images For Reference Purposes Only IMPRESSION:These images are for Reference purposes only and have not beenreviewed by [facility]. There will be no reportgenerated by a [facility]. us Josr Sheikh MD IMG MRI [...] Final Result [facility] Department [place] [address] * Differential, auto (04/20/2025 1:08 PM CDT) Neutrophil abs 2.13 1.50 - 6.50 K/cumm Comment:Testing performed by : [facility], [address] [facility] [address] Imm gran abs 0.03 0.00 - 0.10 K/cumm [facility] Lymphocyte abs 1.84 0.80 - 3.30 K/cumm [facility] Monocyte abs 0.77 0.20 - 0.80 K/cumm [facility] Eosinophil abs 0.29 0.00 - 0.50 K/cumm [facility] Basophil abs 0.08 0.00 - 0.10 K/cumm [facility] Neutrophil pct 41.4 % [facility] Comment: Interpretive Data Percent cell count reference ranges are not reported, since discordance with absolute values may lead to misinterpretation of CBC data. Current Interpretive Data was last revised on 2018. Imm gran pct 0.6 % [facility] Comment: Interpretive Data Percent cell count reference ranges are not reported, since discordance with absolute values may lead to misinterpretation of CBC data. Current Interpretive Data was last revised on 2018. Lymphocyte pct 35.8 % [facility] Comment: Interpretive Data Percent cell count reference ranges are not reported, since discordance with absolute values may lead to misinterpretation of CBC data. Current Interpretive Data was last revised on 2018. Monocyte pct 15.0 % [facility] Comment: Interpretive Data Percent cell count reference ranges are not reported, since discordance with absolute values may lead to misinterpretation of CBC data. Current Interpretive Data was last revised on 2018. Eosinophil pct 5.6 % [facility] Comment: Interpretive Data Percent cell count reference ranges are not reported, since discordance with absolute values may lead to misinterpretation of CBC data. Current Interpretive Data was last revised on 2018. Basophil pct 1.6 % [facility] Comment: Interpretive Data Percent cell count reference ranges are not reported, since discordance with absolute values may lead to misinterpretation of CBC data. Current Interpretive Data was last revised on 2018. Blood 04/20/2025 1:08 PM CDT 04/20/2025 1:08 PM CDT Layne Colvin MD LAB BLOOD ORDERABLES Final Result [facility] Department [place] [address] * (ABNORMAL) CBC with auto differential (04/20/2025 1:08 PM CDT) [facility] [facility] Signature WBC 5.14 3.80 - 9.90 K/cumm Comment:Testing performed by : [address] [address] Hgb 10.2(L) 11.9 - 15.5 g/dL [facility] Comment:Testing performed by : [address] [address] Hct 30.6(L) 35.6 - 45.5 % [facility] Comment:Testing performed by : [address] [address] Plt 275 150 - 400 K/cumm [facility] Comment:Testing performed by : [address] [address] MPV 9.5 9.1 - 12.3 fL [facility] RBC 3.07(L) 3.90 - 5.20 M/cumm [facility] MCV 99.7(H) 81.3 - 96.4 fL [facility] MCH 33.2 27.1 - 33.3 pg [facility] MCHC 33.3 32.3 - 35.7 g/dL [facility] RDW CV 12.7 11.1 - 14.9 % [facility] RDW SD 45.4 35.7 - 48.1 fL [facility] NRBC abs 0.00 0.00 - 0.01 K/cumm [facility] ANC Prelim 2.13 1.50 - 6.50 K/cumm [facility] Comment: Interpretive Data The rapid ANC is a preliminary automated count and may vary from the final ANC (Neut Abs) reported in the WBC differential that follows. Current interpretive data was last revised 2025. Blood 04/20/2025 1:08 PM CDT 04/20/2025 1:08 PM CDT Layne Colvin MD LAB BLOOD ORDERABLES Final Result [facility] Department [place] [address] * (ABNORMAL) Comprehensive metabolic panel (04/20/2025 1:08 PM CDT) Sodium 137 135 - 145 mmol/L Comment:Testing performed by : [facility], [address] [place] [address] Potassium, pl 3.6 3.3 - 4.9 mmol/L [facility] Chloride 99 97 - 110 mmol/L [facility] CO2 30 22 - 32 mmol/L [facility] Anion gap 8 2 - 15 mmol/L [facility] BUN 22 6 - 25 mg/dL [facility] Creatinine 0.66 0.60 - 1.10 mg/dL [facility] Glucose 170 70 - 199 mg/dL [facility] Comment: Interpretive Data Fasting glucose >/= 126 [...] 2022. Calcium 9.7 8.5 - 10.3 mg/dL [facility] Bilirubin, total 0.4 0.1 - 1.2 mg/dL [facility] Protein, pl 5.5(L) 6.5 - 8.5 g/dL [facility] Albumin 3.8 3.5 - 5.0 g/dL [facility] Alk phos 42 40 - 130 Units/L [facility] ALT 14 7 - 45 Units/L [facility] AST 13 10 - 45 Units/L [facility] Blood 04/20/2025 1:08 PM CDT 04/20/2025 1:08 PM CDT Layne Colvin MD LAB BLOOD ORDERABLES Final Result Performing Organization Address [facility] de Phone Number [facility] Department [place] [address] * eGFR (03/24/2025 1:14 PM CDT) eGFR [...] BLOOD ORDERABLES Final Result Performing Organization Address [facility] Co de Phone Number [facility] Department [place] [address] * (ABNORMAL) Differential, auto (03/24/2025 1:14 PM CDT) Neutrophil abs 3.31 1.50 - 6.50 K/cumm Comment:Testing performed by : [facility], [address] [place] [address] Imm gran abs 0.02 0.00 - 0.10 K/cumm [facility] Lymphocyte abs 1.92 0.80 - 3.30 K/cumm [facility] Monocyte abs 1.06(H) 0.20 - 0.80 K/cumm [facility] Eosinophil abs 0.16 0.00 - 0.50 K/cumm [facility] Basophil abs 0.12(H) 0.00 - 0.10 K/cumm [facility] Neutrophil pct 50.3 % [facility] Comment: Interpretive Data Percent cell count reference ranges are not reported, since discordance with absolute values may lead to misinterpretation of CBC data. Current Interpretive Data was last revised on 2018. Imm gran pct 0.3 % [facility] Comment: Interpretive Data Percent cell count reference ranges are not reported, since discordance with absolute values may lead to misinterpretation of CBC data. Current Interpretive Data was last revised on 2018. Lymphocyte pct 29.1 % [facility] Comment: Interpretive Data Percent cell count reference ranges are not reported, since discordance with absolute values may lead to misinterpretation of CBC data. Current Interpretive Data was last revised on 2018. Monocyte pct 16.1 % [facility] Comment: Interpretive Data Percent cell count reference ranges are not reported, since discordance with absolute values may lead to misinterpretation of CBC data. Current Interpretive Data was last revised on 2018. Eosinophil pct 2.4 % [facility] Comment: Interpretive Data Percent cell count reference ranges are not reported, since discordance with absolute values may lead to misinterpretation of CBC data. Current Interpretive Data was last revised on 2018. Basophil pct 1.8 % [facility] Comment: Interpretive Data Percent cell count reference ranges are not reported, since discordance with absolute values may lead to misinterpretation of CBC data. Current Interpretive Data was last revised on 2018. Blood 03/24/2025 1:14 PM CDT 03/24/2025 1:14 PM CDT us Layne Colvin MD LAB BLOOD ORDERABLES Final Result [facility] Department [place] [address] * (ABNORMAL) CBC with auto differential (03/24/2025 1:14 PM CDT) [facility] Signature WBC 6.59 3.80 - 9.90 K/cumm Comment:Testing performed by : [facility], [address] [place] [address] Hgb 11.2(L) 11.9 - 15.5 g/dL [facility] Comment:Testing performed by : [facility], [address] [place] [address] Hct 33.8(L) 35.6 - 45.5 % [facility] Comment:Testing performed by : [address] [address] Plt 331 150 - 400 K/cumm [facility] Comment:Testing performed by : [facility], [address] [place] [address] MPV 10.0 9.1 - 12.3 fL [facility] RBC 3.33(L) 3.90 - 5.20 M/cumm [facility] MCV 101.5(H) 81.3 - 96.4 fL [facility] MCH 33.6(H) 27.1 - 33.3 pg [facility] MCHC 33.1 32.3 - 35.7 g/dL [facility] RDW CV 13.0 11.1 - 14.9 % [facility] RDW SD 47.8 35.7 - 48.1 fL [facility] NRBC abs 0.00 0.00 - 0.01 K/cumm [facility] ANC Prelim 3.31 1.50 - 6.50 K/cumm [facility] Comment: Interpretive Data The rapid ANC is a preliminary automated count and may vary from the final ANC (Neut Abs) reported in the WBC differential that follows. Current interpretive data was last revised 2025. Blood 03/24/2025 1:14 PM CDT 03/24/2025 1:14 PM CDT Layne Colvin MD LAB BLOOD ORDERABLES Final Result [facility] Department [place] [address] * (ABNORMAL) Comprehensive metabolic panel (03/24/2025 1:14 PM CDT) Sodium 139 135 - 145 mmol/L Comment:Testing performed by : [facility], [address] [place] [address] Potassium, pl 4.2 3.3 - 4.9 mmol/L [facility] Chloride 101 97 - 110 mmol/L [facility] CO2 32 22 - 32 mmol/L [facility] Anion gap 6 2 - 15 mmol/L [facility] BUN 20 6 - 25 mg/dL [facility] Creatinine 0.72 0.60 - 1.10 mg/dL [facility] Glucose 166 70 - 199 mg/dL [facility] Comment: Interpretive Data Fasting glucose >/= 126 [...] 2022. Calcium 9.8 8.5 - 10.3 mg/dL [facility] Bilirubin, total 0.4 0.1 - 1.2 mg/dL [facility] Protein, pl 5.8(L) 6.5 - 8.5 g/dL [facility] Albumin 3.9 3.5 - 5.0 g/dL [facility] Alk phos 39(L) 40 - 130 Units/L [facility] ALT 15 7 - 45 Units/L [facility] AST 15 10 - 45 Units/L [facility] Blood 03/24/2025 1:14 PM CDT 03/24/2025 1:14 PM CDT Layne Colvin MD LAB BLOOD ORDERABLES Final Result Performing Organization Address City/[facility]/ZIP Co de Phone Number [facility] [place] [address] * eGFR (02/23/2025 1:44 PM CDT) Pathologist [facility] eGFR 75 >=60 mL/min/1. 73 m2 Comment: [...] BLOOD ORDERABLES Final Result Performing Organization Address City/[facility]/ZIP Co de Phone Number [facility] Department [place] [address] * (ABNORMAL) Differential, auto (02/23/2025 1:44 PM CDT) Neutrophil abs 1.16(L) 1.50 - 6.50 K/cumm Comment:Testing performed by : [facility], [address] [place] [address] Imm gran abs 0.01 0.00 - 0.10 K/cumm [facility] Lymphocyte abs 1.80 0.80 - 3.30 K/cumm [facility] Monocyte abs 1.25(H) 0.20 - 0.80 K/cumm [facility] Eosinophil abs 0.18 0.00 - 0.50 K/cumm [facility] Basophil abs 0.09 0.00 - 0.10 K/cumm [facility] Neutrophil pct 25.9 % [facility] Comment: Interpretive Data Percent cell count reference ranges are not reported, since discordance with absolute values may lead to misinterpretation of CBC data. Current Interpretive Data was last revised on 2018. Imm gran pct 0.2 % [facility] Comment: Interpretive Data Percent cell count reference ranges are not reported, since discordance with absolute values may lead to misinterpretation of CBC data. Current Interpretive Data was last revised on 2018. Lymphocyte pct 40.1 % [facility] Comment: Interpretive Data Percent cell count reference ranges are not reported, since discordance with absolute values may lead to misinterpretation of CBC data. Current Interpretive Data was last revised on 2018. Monocyte pct 27.8 % [facility] Comment: Interpretive Data Percent cell count reference ranges are not reported, since discordance with absolute values may lead to misinterpretation of CBC data. Current Interpretive Data was last revised on 2018. Eosinophil pct 4.0 % [facility] Comment: Interpretive Data Percent cell count reference ranges are not reported, since discordance with absolute values may lead to misinterpretation of CBC data. Current Interpretive Data was last revised on 2018. Basophil pct 2.0 % [facility] Comment: Interpretive Data Percent cell count reference ranges are not reported, since discordance with absolute values may lead to misinterpretation of CBC data. Current Interpretive Data was last revised on 2018. Blood 02/23/2025 1:44 PM CDT 02/23/2025 1:44 PM CDT us Layne Colvin MD LAB BLOOD ORDERABLES Final Result [facility] Department [place] [address] * (ABNORMAL) CBC with auto differential (02/23/2025 1:44 PM CDT) [facility] WBC 4.49 3.80 - 9.90 K/cumm Comment:Testing performed by : [facility], [address] [place] [address] Hgb 10.6(L) 11.9 - 15.5 g/dL [facility] Comment:Testing performed by : [facility], [address] [place] [address] Hct 32.1(L) 35.6 - 45.5 % [facility] Comment:Testing performed by : [address] [address] Plt 232 150 - 400 K/cumm [facility] Comment:Testing performed by : [address] [address] MPV 10.1 9.1 - 12.3 fL [facility] RBC 3.16(L) 3.90 - 5.20 M/cumm [facility] MCV 101.6(H) 81.3 - 96.4 fL [facility] MCH 33.5(H) 27.1 - 33.3 pg [facility] MCHC 33.0 32.3 - 35.7 g/dL [facility] RDW CV 13.3 11.1 - 14.9 % [facility] RDW SD 49.9(H) 35.7 - 48.1 fL [facility] NRBC abs 0.00 0.00 - 0.01 K/cumm [facility] ANC Prelim 1.16(L) 1.50 - 6.50 K/cumm [facility] Comment: Interpretive Data The rapid ANC is a preliminary automated count and may vary from the final ANC (Neut Abs) reported in the WBC differential that follows. Current interpretive data was last revised 2025. Blood 02/23/2025 1:44 PM CDT 02/23/2025 1:44 PM CDT us Layne Colvin MD LAB BLOOD ORDERABLES Final Result [facility] Department [place] [address] * (ABNORMAL) Comprehensive metabolic panel (02/23/2025 1:44 PM CDT) Sodium 141 135 - 145 mmol/L Comment:Testing performed by : [facility], [address] [place] [address] Potassium, pl 4.2 3.3 - 4.9 mmol/L [facility] Chloride 104 97 - 110 mmol/L [facility] CO2 32 22 - 32 mmol/L [facility] Anion gap 6 2 - 15 mmol/L [facility] BUN 20 6 - 25 mg/dL [facility] Creatinine 0.81 0.60 - 1.10 mg/dL [facility] Glucose 133 70 - 199 mg/dL [facility] Comment: Interpretive Data Fasting glucose >/= 126 [...] 2022. Calcium 9.5 8.5 - 10.3 mg/dL [facility] Bilirubin, total 0.4 0.1 - 1.2 mg/dL [facility] Protein, pl 5.7(L) 6.5 - 8.5 g/dL [facility] Albumin 3.8 3.5 - 5.0 g/dL [facility] Alk phos 36(L) 40 - 130 Units/L [facility] ALT 12 7 - 45 Units/L [facility] AST 16 10 - 45 Units/L [facility] Blood 02/23/2025 1:44 PM CDT 02/23/2025 1:44 PM CDT us Layne Colvin MD LAB BLOOD ORDERABLES Final Result [facility] Department [place] [address] * Dexa TBS Axial Skeleton Bone Density 1 or more sites (10/19/2024 10:21 AM QUARRY BOSS) Anatomical Region Laterality Modality Wrist, Body N/A Radiographic Marivel ging Narrative 10/19/2024 11:48 AM QUARRY BOSS Patient Name: Myah Castelan Date of : 1945 Date of scan: 10/19/2024 Bone mineral density was performed on a HoloImpriv[employer] Discovery Densitometer. Based on machine cross-calibration and [...] by the International Society of Clinical Densitometry. 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 [address] [place] [address] Consulting Physician Gastroenterology 08/25/21 Gianluca Hogue MD [address] [facility] [address] [place] [address] Surgeon General Surgery 10/19/21 Shonda Au, RN Registered Nurse Pulmonary Disease 05/07/23 Layne Colvin MD [address] [facility] [address] [place] [address] Medical Oncologist/Aircraft Quality Control Inspector Hematology 06/25/23 Isabel Hughes MD [address] [facility] [address] [place] [address] Consulting Physician Pain Management 10/17/23 Pricila Hernandez MD [address] [facility] [address] [place] [address] Consulting Physician Bone Health 11/08/23
--- OUTSIDE RECORDS SUMMARY | 2025-05-14 14:22 | XMS_ITS | Patient Health Record ---
Author Organization [facility] samy [facility] Address [address] [place] [address] Support Name Relationship Address Phone Mehdi Gallegos Emergency Contact Unknown JULIA Myah Guarantor Unknown [phone] ALLERGIES Allergen (clinical drug ingredient) Drug/Non Drug Allergy documented on EMR Reaction Allergy Type Onset Date Status PredniSONE Unknown Drug Allergy Active sulfa Unknown Drug Allergy Active REASON FOR REFERRAL No Information MEDICATIONS Medication [...] 1 tablet Orally Once a day Active PLAN OF TREATMENT Pending Test Test Name Order Date CBC 3 part Diff 08/03/2015 Cardiac 08/03/2015 CMP Panel (STAT Test) 08/03/2015 Insurance Providers Payer Name Payer Address Payer Phone Subscriber Number Group Number Insured Name Patient Relationship to Insured Coverage Start Date Coverage End Date [employer] [address] [place] [address] [id number] Myah DUMONT Self - patient is the insured [address] [place] [facility] [place] [address] [place] [id number] Myah DUMONT Self - patient is the insured [place] Medicare Part [place] [address] [place] [address] [id number] Alyson DUMONTa Self - patient is the insured 4
== END 2025-05-14 14:20 | disposition home or self-care (01) ==
LOC: ANHIMG 14:20
PROVIDERS: Visit Provider Family Medicine
DX: Z12.31 Encounter for screening mammogram for malignant neoplasm of breast (principal)
CPT/HCPCS: 77063; 77067